=== PATIENT | female | born 1955 | race Caucasian/White ===

== ENCOUNTER → 2016-11-13 | Day surgery (SDC) | payer OTHER ==
[2016-11-06 08:09] VITALS: Ht 162.6 cm; Wt 127.3 kg
[~2016-11-13] VITALS: Ht 162.6 cm; Wt 127.3 kg
[~2016-11-13] MED LIST: ACT30 PO; ALBUAER2 INH; ALLO300T2 PO; BUPR-79 PO; CLR10 PO; DNSIS60 SC; ENAL10TA88 PO; FENTANYL CITRATE INJ 50 MCG/1 ML 2 ML VIAL ONE; FLUT0.15 NAE; FRS/80 PO; GLC/500 PO; LEVO100T7 PO; LIDOCAINE HCL 2% 2 ML VIAL (20MG/ML) ONE; LUBI8CAP4 PO; MILK THISTLE PO; MULT-506 PO; ONDANSETRON INJ 2 MG/ML 2 ML VIAL ONE; PANT40TA PO; POLY335019 PO; PROPOFOL IV EMULSION 10 MG/ML 20 ML VIAL IV ONE; SIMV40TA2 PO; TRAM-10 PO; VITA400C3 PO
[2016-11-13 08:16] VITALS: TEMP 36.6
--- NOTE | 2016-11-13 09:21 | GI REPORT ---
Procedure Date: 11/13/2016 8:42 AM Procedure: Upper GI endoscopy Indications: Cirrhosis rule out esophageal varices Medicines: See the Anesthesia note for documentation of the administered medications Complications: No immediate complications. Estimated Blood Loss: Estimated blood loss: none. Procedure: Pre-Anesthesia Assessment: - ASA Grade Assessment: III - A patient with severe systemic disease. After obtaining informed consent, the endoscope was passed under direct vision. Throughout the procedure, the patient's blood pressure, pulse, and oxygen saturations were monitored continuously. The scope was introduced through the mouth, and advanced to the second part of duodenum. The upper GI endoscopy was accomplished without difficulty. The patient tolerated the procedure well. Findings: The examined esophagus was normal. The stomach was normal. The examined duodenum was normal. Impression: - Normal esophagus. - Normal stomach. - Normal examined duodenum. - No specimens collected. Recommendation: - Discharge patient to home. Carito Willis M.D. Carito Willis MD 11/13/2016 9:21:55 AM This report has been signed electronically. Note Initiated On: 11/13/2016 8:42 AM I attest to the content of the Intraoperative Record and orders documented therein, exceptions below
--- NOTE | 2016-11-13 09:25 | GI REPORT ---
Procedure Date: 11/13/2016 8:45 AM Procedure: Colonoscopy Indications: High risk colon cancer surveillance: Personal history of colonic polyps, Last colonoscopy: October 2015 with 8 polyps Medicines: See the Anesthesia note for documentation of the administered medications Complications: No immediate complications. Estimated Blood Loss: Estimated blood loss: none. Procedure: Pre-Anesthesia Assessment: - ASA Grade Assessment: III - A patient with severe systemic disease. After I obtained informed consent, the scope was passed under direct vision. Throughout the procedure, the patient's blood pressure, pulse, and oxygen saturations were monitored continuously. The Scope was introduced through the anus and advanced to the terminal ileum. The colonoscopy was performed without difficulty. The patient tolerated the procedure well. The quality of the bowel preparation was good. Findings: The perianal and digital rectal examinations were normal. Multiple small and large-mouthed diverticula were found in the sigmoid colon and in the descending colon. Three sessile polyps were found in the descending colon and in the transverse colon. The polyps were 1 to 4 mm in size. These polyps were removed with a cold snare. Resection and retrieval were complete. The exam was otherwise without abnormality. Impression: - Diverticulosis in the sigmoid colon and in the descending colon. - Three 1 to 4 mm polyps in the descending colon and in the transverse colon, removed with a cold snare. Resected and retrieved. - The examination was otherwise normal. Recommendation: - Follow up pathology results. Repeat exam in 3 years, due to h/o polyps. - Discharge patient to home. Carito Willis M.D. Carito Willis MD 11/13/2016 9:25:57 AM This report has been signed electronically. Note Initiated On: 11/13/2016 8:45 AM I attest to the content of the Intraoperative Record and orders documented therein, exceptions below
[2016-11-13 09:35] VITALS: BP 145/70; PULSE 61; O2SAT 99
--- NOTE | 2016-11-13 09:41 | Endo History and Physical ---
History & Physical Date of Service: Nov 13, 2016. Chief Complaint: hx colon polyps, varices, cirrhosis Referring Physician: Dr. Denver Art History of Present Illness h/o colon polyps Past Medical History Diabetes, Osteoporosis, Arthritis, Asthma, Anxiety, Reflux, High Cholesterol, Hypertension, Thyroid Disease, Liver Disease Past Surgical History Hx Cardiac Surgery: No Hx Internal Defibrillator: No Hx Pacemaker: No Hx Abdominal Surgery: Yes (D&C X5, APPY, ELISA, PALAK BSO, CYST REMOVAL FROM OVARY) Hx of Implantable Prosthesis: No Hx Post-Op Nausea and Vomiting: Yes ("IF YOU WAKE ME UP TOO FAST, I WILL THROW UP") Hx Cancer Surgery: No Hx Thoracic Surgery: No Hx Orthopedic: Yes (TUMOR REMOVAL FROM KNEE AND BONE REPLACEMENT, LT/RT KNEE SURGERY) Hx Urinary Tract Surgery: Yes (KIDNEY SURGERY FOR OBSTRUCTION) Family History None Social History Smoking Status: Former Smoker Hx Substance Use: No Hx Alcohol Use: No Allergies Coded Allergies: Tetanus Toxoid (Verified Allergy, Mild, ARM GETS INFECTED, 11/13/16) Iodinated Diagnostic Agents (Verified Allergy, Unknown, "THE DYE BLEW UP IN MY ARM", 11/06/16) Nickel (Verified Allergy, Unknown, "I GET AN INFECTION", 11/06/16) Current Medications Reported Home Medications Medications Dose Route/Sig Max Daily Dose Days Date Category Miralax (Polyethylene Glycol 3350) 1 Gm PO DAILY PRN 11/06/16 Reported Flonase Allergy Relief (Fluticasone Propionate (Nasal)) 50 Mcg/Act Spr 2 Media FELICIA DAILY PRN 11/06/16 Reported Ultram (Tramadol HCl) 50 Mg Tab 50 Mg PO TID PRN 11/06/16 Reported Vitamin E 400 Iu (Vitamin E) 400 Unit Cap 400 Inter.unit PO QAM 11/06/16 Reported Glucophage (Metformin Hcl) 500 Mg Tab 500 Mg PO BID 11/06/16 Reported Lasix (Furosemide) 80 Mg Tab 80 Mg PO BID 11/06/16 Reported Prolia (Denosumab) 60 Mg/1 Ml Inj 1 Dose SC ONCE EVERY 6 MONTHS 11/25/15 Reported Multivitamin (Multivitamins) Tab 1 Tab PO QAM 11/20/15 Reported Protonix (Pantoprazole Sodium) 40 Mg Tab 40 Mg PO QAM 11/20/15 Reported Vasotec (Enalapril Maleate) 10 Mg Tab 10 Mg PO QAM 11/20/15 Reported Zyloprim (Allopurinol) 300 Mg Tab 300 Mg PO QAM 11/20/15 Reported Levothyroxine Sodium 100 Mcg Tab 1 Tab PO QAM 11/20/15 Reported Wellbutrin Sr (Bupropion HCl) 150 Mg Ertab 150 Mg PO BID 11/20/15 Reported Ventolin (Albuterol) Inh 2 Puffs INH QID PRN 02/23/13 Reported [milk thistle 750mg] 1 Tab PO QAM 02/23/13 Reported Zocor (Simvastatin) 40 Mg Tab 40 Mg PO QAM 02/23/13 Reported Amitiza (Lubiprostone) 8 Mcg Cap 8 Mcg PO BID 02/23/13 Reported Claritin (Loratadine) 10 Mg Tab 10 Mg PO QAM 02/23/13 Reported Actos * (Pioglitazone HCl) 30 Mg Tab 30 Mg PO QAM 01/16/09 Reported Vital Signs Weight (Kilograms): 127.27 Height (Feet): 5 Height (Inches): 4 Date Time Temp Pulse Resp B/P Pulse Ox O2 Delivery O2 Flow Rate FiO2 11/13/16 08:16 36.6 66 18 143/70 98 Room Air Physical Exam General Appearance: no apparent distress Respiratory/Chest: Respiratory effort: no dyspnea Cardiovascular: Apical Impulse: not displaced Abdomen: Inspection & Palpation: soft Assessment and Plan Cirrhosis - EGD LLQ pain, screening - cscopy
--- NOTE | 2016-11-13 09:42 | Discharge Instructions ---
Endoscopy Patient Instructions Date / Procedure(s) Performed Nov 13, 2016. Colonoscopy, EGD Allergy Information Coded Allergies: Tetanus Toxoid (Verified Allergy, Mild, ARM GETS INFECTED, 11/13/16) Iodinated Diagnostic Agents (Verified Allergy, Unknown, "THE DYE BLEW UP IN MY ARM", 11/06/16) Nickel (Verified Allergy, Unknown, "I GET AN INFECTION", 11/06/16) Discharge Date / Findings Nov 13, 2016. Colon polyps, diverticulosis Normal EGD Medication Instructions Stopped Medication(s): Metformin was stopped 2 days ago. Provider Instructions Activity Restrictions - No exercising or heavy lifting for 24 hours. - Do not drink alcohol the day of the procedure. - Do not drive a car or operate machinery until the day after the procedure. - Do not make any important decisions or sign important papers in 24 hours after the procedure. Following Day: - Return to full activity which may include returning to work/school. Diet Start your diet with liquids and light foods (jello, soup, juice, toast). Then eat your usual diet if not nauseated. Treatment For Common After Affects For mild abdominal pain, bloating, or excessive gas: - Rest - Eat lightly - Lie on right side Follow-Up Information Follow-up with Dr. Denver Art as scheduled Anesthesia Information What You Should Know You have had a procedure that required some medicine to reduce anxiety and discomfort. This treatment is called moderate sedation. After receiving the treatment, you may be sleepy, but you will be able to breathe on your own. The effects of the treatment may last for several hours. Follow these instructions along with Activity/Diet recommendations noted above: * Do NOT do anything where dizziness or clumsiness would be dangerous. * Rest quietly at home today, then you can be up and about tomorrow. * Have a responsible person stay with you the rest of today. * You may have had an I.V. today. If so, you may take the dressing off later today. Recommendations Call your doctor if: * Trouble breathing * Continuous vomiting for more than 24 hours * Temperature above 101 degrees * Severe abdominal pain or bloating * Pain not relieved by pain medicine ordered * There is increased drainage or redness from any incision * A large amount of rectal bleeding greater than 2-3 tablespoons. (If you had a polyp/s removed or have hemorrhoids, a small amount of blood - from the rectum is to be expected.) * You have any unanswered questions or concerns. IN THE EVENT OF A SERIOUS EMERGENCY, GO TO THE NEAREST EMERGENCY ROOM Your discharge instructions were prepared by provider Carito Sandoval. Patient Instructions Signature Page Gagandeep Banegas Patient (or Guardian) Signature/Date: I have read and understand the instructions given to me by my caregivers. Caregiver/RN/Doctor Signature/Date: The above-named patient and/or guardian has received patient instructions on this date. + Original Patient Signature Page (only) stays with chart. Please make copy for patient.
--- NOTE | 2016-11-13 11:07 | Anesthesiology Progress Note ---
Anesthesia Post Op Note Date & Time Nov 13, 2016 at 11:06 Vital Signs Pain Intensity: 0 Vital Signs Past 12 Hours Date Time Temp Pulse Resp B/P Pulse Ox O2 Delivery O2 Flow Rate FiO2 11/13/16 09:35 61 18 145/70 99 Room Air 11/13/16 09:23 56 18 135/63 97 Room Air 11/13/16 09:10 54 18 148/70 96 Room Air 11/13/16 08:16 36.6 66 18 143/70 98 Room Air Notes Mental Status: alert / awake / arousable, participated in evaluation Pt Amnestic to Procedure: Yes Nausea / Vomiting: adequately controlled Pain: adequately controlled Airway Patency, RR, SpO2: stable & adequate BP & HR: stable & adequate Hydration State: stable & adequate Anesthetic Complications: no major complications apparent
== END | disposition home or self-care (01) ==
LOC: C.GI 07:39
PROVIDERS: ATTEND Internal Medicine Gastroenterology
DX: D12.4 Benign neoplasm of descending colon (principal); K57.30 Diverticulosis of large intestine without perforation or abscess without bleeding; Z86.010 Personal history of colon polyps; E78.00 Pure hypercholesterolemia, unspecified; E11.9 Type 2 diabetes mellitus without complications; M81.0 Age-related osteoporosis without current pathological fracture; I10 Essential (primary) hypertension; J45.909 Unspecified asthma, uncomplicated; K21.9 Gastro-esophageal reflux disease without esophagitis; K74.60 Unspecified cirrhosis of liver; Z88.7 Allergy status to serum and vaccine; Z90.49 Acquired absence of other specified parts of digestive tract; Z91.041 Radiographic dye allergy status; Z87.891 Personal history of nicotine dependence

== ENCOUNTER 2019-04-06 01:50 | Inpatient (IN) ==
[2019-04-06] MEDS ORDERED: SODIUM CHLORIDE 0.9% 250 ML IV PRN (02:15)
[2019-04-06] MEDS ORDERED: DiphenhydrAMINE HCL 50 MG/ML VIAL IV STA (02:17)
[2019-04-06] MEDS ORDERED: RAPID SEQUENCE INDUCTION BAG ONE (02:17)
[2019-04-06] MEDS ORDERED: methylPREDNISolone 125 MG/2 ML VIAL IV STA (02:17)
[2019-04-06] MEDS ORDERED: fentaNYL citrate 100 MCG/2 ML VIAL IV PRN (02:28)
[2019-04-06] MEDS ORDERED: KETAMINE HCL INJ 50 MG/ML 10 ML VIAL IV STA (02:28)
[2019-04-06] MEDS ORDERED: SUCCINYLCHOLINE CHLORIDE 20 MG/ML 10 ML VIAL IV STA (02:28)
[2019-04-06 02:37] LABS: Basophils # (auto) 0.01 K/uL (0-0.2); Basophils % (auto) 0.3 %; Hemoglobin 12.9 g/dL (12.0-16.0); Immature Granulocytes # (auto) 0.01 K/uL (0.00-0.02); Immature Granulocytes % (auto) 0.3 %; Lymphocytes # (auto) 1.23 K/uL (1.2-3.4); Lymphocytes % (auto) 34.6 %; Mean Corpuscular Hgb Conc 33.1 g/dL (32-36); Mean Corpuscular Volume 92.6 fL (80-100); Mean Platelet Volume 10.6 fL (7.4-10.4); Monocytes # (auto) 0.34 K/uL (0.11-0.59); Monocytes % (auto) 9.6 %; Neutrophils # (auto) 1.97 K/uL (1.4-6.5); Neutrophils % (auto) 55.2 %; Platelet Count 105 K/uL (130-400); RDW Coefficient of Variation 15.6 % (11.5-14.5); RDW Standard Deviation 52.5 fL (36.4-46.3); Red Blood Count 4.21 M/uL (4.2-5.4); White Blood Count 3.56 K/uL (4.8-10.8)
[2019-04-06 02:42] LABS: iSTAT Creatinine 0.9 mg/dl (0.6-1.3); iSTAT Hemoglobin 12.9 g/dl (12.0-16.0); iSTAT Ionized Calcium 1.12 mmol/l (1.12-1.32)
[2019-04-06] MEDS ORDERED: VECURONIUM BROMIDE 10 MG VIAL IV STA (02:44)
[2019-04-06 03:00] LABS: Alanine Aminotransferase 54 U/L (12-78); Albumin Globulin Ratio 0.9 (0.9-2); Albumin Level 3.7 gm/dl (3.4-5.0); Alkaline Phosphatase 65 U/L (45-117); Aspartate Aminotransferase 47 U/L (15-37); BUN Creatinine Ratio 10.3 (10-20); Bilirubin,Total 0.6 mg/dl (0.2-1); Blood Urea Nitrogen 10 mg/dl (7-18); Carbon Dioxide 30 mmol/L (21-32); Chloride 103 mmol/L (98-107); Creatinine Clr Calc Pharmacy 73.2 ml/min; Est GFR (African American) 69.4; Est GFR (Non-African American) 59.9; Globulin 4.1 gm/dl (2.5-4.0); Glucose 100 mg/dl (70-99); Potassium 3.1 mmol/L (3.5-5.1); Sodium 140 mmol/L (136-145); Total Protein 7.8 gm/dl (6.4-8.2)
[2019-04-06 03:01] LABS: RBC Morphology Unremarkable
[2019-04-06] MEDS: PROPOFOL 1,000 MG/100 ML VIAL IV SCH ×3 (03:08→05:31)
[2019-04-06 03:24] LABS: Creatine Kinase 153 U/L (26-192)
[2019-04-06] MEDS: POTASSIUM CHLORIDE / WTR 10 MEQ/100 ML PLCT IV SCH ×6 (03:34→16:04)
[2019-04-06] MEDS ORDERED: HEPARIN (PORCINE) 1000 UNIT/ML 10 ML (CATH LAB USE ONLY) ONE (03:37)
[2019-04-06] MEDS ORDERED: fentaNYL citrate 100 MCG/2 ML VIAL ONE (03:37)
[2019-04-06] MEDS ORDERED: NiCARDipine HCL INJ 2.5 MG/ML 10 ML AMP ONE (03:37)
[2019-04-06] MEDS ORDERED: MIDAZOLAM HCL 1 MG/ML 2ML VIAL ONE (03:37)
[2019-04-06] MEDS ORDERED: NITROGLYCERIN/D5W 100MCG/ML 20ML SYR ONE (03:38)
[2019-04-06 04:01] LABS: Creatine Kinase MB 1.4 ng/ml (0.5-3.6); Troponin I < 0.015 ng/ml (0-0.045)
[2019-04-06] MEDS ORDERED: PROPOFOL IV EMULSION 10 MG/ML 100 ML VIAL (CATH LAB USE ONLY) ONE (04:03)
[2019-04-06] MEDS ORDERED: SODIUM CHLORIDE 0.9% 500 ML IV PRN (04:41)
[2019-04-06] MEDS ORDERED: ACETAMINOPHEN 325 MG TAB PO PRN (04:41)
[2019-04-06] MEDS ORDERED: ONDANSETRON INJ 2 MG/ML 2 ML VIAL IV PRN (04:41)
[2019-04-06] MEDS ORDERED: ATROPINE SULFATE 0.1 MG/ML 10ML SYR IV PRN (04:41)
[2019-04-06] MEDS ORDERED: SODIUM CHLORIDE 0.9% 1000ML 1,000 ML IV SCH (04:45)
--- NOTE | 2019-04-06 04:57 | Cardiac Catheterization ---
Cardiac Cath Procedure Full Procedure Date April 06, 2019 Patient bought from ED and was already intubated and sedated. Consent had been obtained from son. Patient was prepped and draped in a sterile fashion in the cardiac cath suite. Soft tissues of the right wrist anesthetized with 2 ml of 1% Xylocaine. Right radial artery accessed with modified Seldinger technique. A 6 F radial glide sheath was placed. Anticoagulation with IV Heparin and anti- spasmodics with nicardipine and nitroglycerine IV. All catheters advanced and exchanged over J wire. Left coronary angiography performed in orthogonal views with a %F TIG-R diagnostic cath. Right coronary angiography in orthogonal views with a 5F TIG-R diagnostic catheter. LHC and LVG with a 5F pigtail catheter. all catheters removed. Radial sheath removed and hemostasis obtained using TR band. Patient remained HD stable. Transferred to ICU for further care. This ended case. Pre-Procedure Diagnosis Pre-Procedure Diagnosis: STEMI AUC Score AUC Score: 09 Post-Procedure Diagnosis Post-Procedure Diagnosis: Mild CAD Procedure(s) Performed Procedure(s) Performed: Coronary Angiography, Left Heart Cath and LV Angiography Analytical Technician Satish Engel MD Estimated Blood Loss Estimated Blood Loss: <10 ml Medication(s) Medication(s): Fentanyl, Heparin, Nicardipine, Nitroglycerin and Versed Summary of Findings LM: large, short. No disease LAD: large, transapical. prox and mid with diffuse mild less than 30%. Distal mild luminal irregularities. D1 small, D@ medium. No significant disease. LCx: large and dominant. Prox-ok, mid mild luminal irregularities. Distal no more than mild scattered disease. OM1- small, no disease OM2- large, branching, no disease PLB- large, branching no significant disease L-PDA: medium caliber and long. No disease RCA: medium caliber, nondominant. No disease. 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
--- NOTE | 2019-04-06 05:16 | Emergency Department Note ---
Entered by Debra Massey acting as a scribe for Dalton Garcia MD History of Present Illness General Chief complaint: Facial Injury/Pain Stated complaint: TONGUE SWELLING Source: patient History of Present Illness Onset (ago): hour(s) 4 Location: face (Tongue) Pain Consistency: + other (Worsening) Quality: + other (Allergic reaction) Exacerbated By: + medication (Enalapril) Associated symptoms: + other (Tongue swelling); no shortness of breath Treatments prior to arrival: none The patient is a 63 year old female presenting to the Emergency Department complaining of a worsening allergic reaction starting 4 hours ago. The patient reports that her tongue is swelling up. She states that around 2200 yesterday she noticed that the tip of her tongue was swollen but since then it has worsened and now her entire tongue is swollen. She notes that it feels like something is down her throat. She explains that she took her normal medications, including Enalaprill. She notes that she normally takes Enalapril and that she has never reacted to it like this before. 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 The patient denies shortness of breath. Home Medications Home Medications Medication Instructions Recorded Confirmed Type Jardiance 25 mg PO QAM 01/25/19 04/06/19 History Ozempic 0.25 mg SUBCUT WK 01/25/19 04/06/19 History Prolia 0 mg SUBCUT Q6M 01/25/19 04/06/19 History albuterol sulfate 2 puff INHALATION Q6H PRN 01/25/19 04/06/19 History bupropion HCl 150 mg PO BID 01/25/19 04/06/19 History enalapril maleate 10 mg PO QAM 01/25/19 04/06/19 History ergocalciferol (vitamin D2) 50,000 unit PO WK 01/25/19 04/06/19 History [Vitamin D2] levothyroxine 100 mcg PO QAM 01/25/19 04/06/19 History loratadine 10 mg PO QAM 01/25/19 04/06/19 History metformin 1,000 mg PO BID 01/25/19 04/06/19 History pantoprazole [Protonix] 40 mg PO QAM 01/25/19 04/06/19 History simvastatin 40 mg PO QAM 01/25/19 04/06/19 History tramadol 50 mg PO TID PRN 01/25/19 04/06/19 History allopurinol [Zyloprim] 300 mg PO DAILY 04/06/19 04/06/19 History fluticasone propionate [Flonase 2 spray INTRANASAL DAILY 04/06/19 04/06/19 History Allergy Relief] furosemide [Lasix] 40 mg PO BID 04/06/19 04/06/19 History lubiprostone [Amitiza] 8 mcg PO BID 04/06/19 04/06/19 History milk thistle 150 mg PO BID 04/06/19 04/06/19 History abqinehx-zrj-kkjj-FA-lutein 1 tab PO DAILY 04/06/19 04/06/19 History [Centrum Silver Women] pioglitazone [Actos] 30 mg PO DAILY 04/06/19 04/06/19 History polyethylene glycol 3350 [Miralax] 17 g PO DAILY PRN 04/06/19 04/06/19 History vitamin E 400 unit PO DAILY 04/06/19 04/06/19 History Allergies Allergy/AdvReac Type Severity Reaction Status Date / Time tetanus toxoid, adsorbed Allergy Mild ARM GETS Verified 04/06/19 02:32 INFECTED Iodinated Contrast- Oral and Allergy Unknown "THE DYE Verified 04/06/19 02:32 IV Dye BLEW UP IN MY ARM" nickel Allergy Unknown "I GET AN Verified 04/06/19 02:32 INFECTION" Past Med/Surg History Medical History Anxiety Asthma Chronic back pain Cirrhosis Degenerative disc disease Diabetes mellitus, type 2 GERD (gastroesophageal reflux disease) Hiatal hernia Hyperlipidemia Hypertension Hypothyroidism Kidney stones Migraine H/O Osteoarthritis Surgical History History of appendectomy History of carpal tunnel release RIGHT History of cataract surgery BILATERAL History of cholecystectomy History of colonoscopy History of cystoscopy WITH STENT AND REPAIRED RIGHT URETER BLOCKAGE. History of esophagogastroduodenoscopy (EGD) History of herniorrhaphy RIGHT INGUINAL HERNIA REPAIR History of thyroidectomy, subtotal BENIGN TUMOR History of tonsillectomy S/P PALAK-BSO Family History Sister FHx: pancreatic cancer Social History Preferred Language: [place] Communication Ability: Effective Appeals Nurse Required: No Beliefs That Will Affect Care: None marital status: Single Current Living Situation: Alone current occupational status: unemployed Feels Safe at Home: Yes Smoking Status: Former smoker Tobacco Type: cigarettes ; Cigarettes Per Day: 1 PPD X 35 YEARS ; Second Hand Exposure: No ; Hx Alcohol Use: No Hx Substance Use: No Review of Systems See HPI for pertinent positives & negatives. and A total of 10 systems reviewed and were otherwise negative Physical Exam Vital Signs Vital Signs - 24 hr 04/06/19 02:00 04/06/19 02:19 04/06/19 02:21 Temperature 37.2 C Temperature Source Oral Sepsis Recent Fever Within 48 Hours No Sepsis New/Unexplained Change in Mental Status No Sepsis Action Taken by Nursing No Action Required End-Tidal CO2 Pulse Rate 69 74 81 Pulse Rate from SpO2 Sensor 74 83 Respiratory Rate 14 22 22 Respiratory Effort / Characteristics Non-Labored Spontaneous Respiratory Depth Normal Respiratory Pattern Regular Blood Pressure 141/79 H 146/105 H Blood Pressure Mean 99 118 Pulse Oximetry 97 95 95 Oxygen Delivery Method Room Air Room Air Room Air Fraction of Inspired Oxygen 04/06/19 02:28 04/06/19 02:30 04/06/19 02:31 Temperature Temperature Source Sepsis Recent Fever Within 48 Hours Sepsis New/Unexplained Change in Mental Status Sepsis Action Taken by Nursing End-Tidal CO2 Pulse Rate 82 81 Pulse Rate from SpO2 Sensor 82 81 Respiratory Rate 20 20 Respiratory Effort / Characteristics Respiratory Depth Respiratory Pattern Blood Pressure 175/78 H Blood Pressure Mean 110 Pulse Oximetry 98 98 98 Oxygen Delivery Method Room Air Room Air Room Air Fraction of Inspired Oxygen 04/06/19 02:40 04/06/19 02:46 04/06/19 02:50 Temperature Temperature Source Sepsis Recent Fever Within 48 Hours Sepsis New/Unexplained Change in Mental Status Sepsis Action Taken by Nursing End-Tidal CO2 38 Pulse Rate 89 93 H 83 Pulse Rate from SpO2 Sensor 89 93 H 89 Respiratory Rate 20 Respiratory Effort / Characteristics Respiratory Depth Respiratory Pattern Blood Pressure 200/142 H Blood Pressure Mean 161 Pulse Oximetry 96 98 97 Oxygen Delivery Method Room Air Mechanical Vent Fraction of Inspired Oxygen 04/06/19 02:56 04/06/19 03:00 04/06/19 03:10 Temperature Temperature Source Sepsis Recent Fever Within 48 Hours Sepsis New/Unexplained Change in Mental Status Sepsis Action Taken by Nursing End-Tidal CO2 45 48 49 Pulse Rate 93 H 79 80 Pulse Rate from SpO2 Sensor 79 81 Respiratory Rate 13 Respiratory Effort / Characteristics Respiratory Depth Respiratory Pattern Blood Pressure 163/104 H 149/102 H Blood Pressure Mean 123 117 Pulse Oximetry 97 90 89 L Oxygen Delivery Method Mechanical Vent Mechanical Vent Fraction of Inspired Oxygen 35 04/06/19 03:15 04/06/19 03:20 04/06/19 03:28 Temperature Temperature Source Sepsis Recent Fever Within 48 Hours Sepsis New/Unexplained Change in Mental Status Sepsis Action Taken by Nursing End-Tidal CO2 52 50 49 Pulse Rate 77 85 82 Pulse Rate from SpO2 Sensor 78 84 82 Respiratory Rate Respiratory Effort / Characteristics Respiratory Depth Respiratory Pattern Blood Pressure 122/83 133/91 143/92 H Blood Pressure Mean 96 105 109 Pulse Oximetry 88 L 89 L 94 Oxygen Delivery Method Fraction of Inspired Oxygen 04/06/19 03:30 04/06/19 03:40 04/06/19 03:48 Temperature Temperature Source Sepsis Recent Fever Within 48 Hours Sepsis New/Unexplained Change in Mental Status Sepsis Action Taken by Nursing End-Tidal CO2 49 46 49 Pulse Rate 80 105 H 89 Pulse Rate from SpO2 Sensor 80 104 H 89 Respiratory Rate Respiratory Effort / Characteristics Respiratory Depth Respiratory Pattern Blood Pressure 132/87 171/120 H 156/105 H Blood Pressure Mean 102 137 122 Pulse Oximetry 95 93 90 Oxygen Delivery Method Fraction of Inspired Oxygen 04/06/19 03:50 04/06/19 04:15 Temperature Temperature Source Sepsis Recent Fever Within 48 Hours Sepsis New/Unexplained Change in Mental Status Sepsis Action Taken by Nursing End-Tidal CO2 52 Pulse Rate 91 H Pulse Rate from SpO2 Sensor 91 H Respiratory Rate Respiratory Effort / Characteristics Respiratory Depth Respiratory Pattern Blood Pressure 151/104 H Blood Pressure Mean 119 Pulse Oximetry 89 L Oxygen Delivery Method Mechanical Vent Fraction of Inspired Oxygen GENERAL: Awake, alert, well-appearing, in no acute distress HENT: Normocephalic, atraumatic. Oropharynx unremarkable. Tongue is grossly swollen. EYES: Normal conjunctiva. Sclera non-icteric. NECK: Supple. No nuchal rigidity. FROM. No JVD. RESPIRATORY: Clear to auscultation. CARDIAC: Regular rate, normal rhythm. Extremities warm and well perfused. Pulses equal. ABDOMEN: Soft, non-distended. No tenderness to palpation. No rebound or guarding. No masses. RECTAL: Deferred. MUSCULOSKELETAL: Chest examination reveals no tenderness. The back is symmetrical on inspection without obvious abnormality. There is no CVA te nderness to palpation. No joint edema. LOWER EXTREMITIES: Calves are equal size bilaterally and non-tender. No edema. No discoloration. NEURO: Normal sensorium. No sensory or motor deficits noted. SKIN: No rash or jaundice noted. Diaphoretic on exam. Procedures Intubation Time out performed: Yes sedative: Ketamine Mg Given: 45 paralytic: Succinylcholine Mg Given: 200 Laryngoscope: fiber optic video scope ET Tube Size: 7.5 ET Tube Uncuffed: No Tube Secured Depth (cm): 25 Tube Secured Location: lips Tube Placement Confirmation: visualized tube passing through cords, equal breath sounds bilaterally, no breath sounds over epigastrium and confirmation by capnometry Patient Tolerated Procedure: well Intubation Complications: none Course 0210: The patient was evaluated in room A1, and a complete history and physical examination were performed. 0229: I paged the Senior Advocate at this time. 0235: I discussed the patients case with Dr. Karl DICKERSON Senior Advocate. 0237: Ketamine administered. 0240: Fentanyl administered. 0241: Succinylcholine administered. 0242: I performed an intubation at this time. See procedure note. 0251: I discussed the patients case with Dr. Ac johnson. 0329: Dr. Shen is at the patients bedside. 0311: I paged for cardiology at this time. 0315: I discussed the patients case with Dr. Craig Zee cardiology. He reports to call a heart alert at this time. 0337: I discussed the patients case with Dr. Engel manager database. He is at the patients bedside. He will evaluate the patient for further management. Consultations Consultation #1: I discussed the patients case with Dr. Karl DICKERSON Senior Advocate. Time: 02:35 Consultation #2: I discussed the patients case with Dr. Ac eZe hospitalist. Time: 02:51 Consultation #3: I discussed the patients case with Dr. Craig Zee cardiology. He reports to call a heart alert at this time. Time: 03:15 Additional Consultation(s): 0337: I discussed the patients case with Dr. Engel manager database. He is at the patients bedside. He will evaluate the patient for further management. Administered Medications Sodium Chloride (Nss) 250 mls @ 15 mls/hr IV .[id number] PRN PRN Reason: For Transfusion Stop: 05/06/19 02:14 Last Admin: 04/06/19 02:30 Dose: 15 mls/hr Documented by: [id number] Propofol (Diprivan) 1,000 mg in 100 mls @ 35.82 mls/hr IV .[id number] RAJI; Protocol Stop: 04/09/19 02:44 Last Admin: 04/06/19 03:11 Dose: 50 mcg/kg/min, 35.8 mls/hr Documented by: [id number] Cosigned by: [id number] Titration: 04/06/19 03:11 Dose: 5 mcg/kg/min, 3.6 mls/hr Documented by: [id number] Cosigned by: [id number] Admin: 04/06/19 03:08 Dose: 5 mcg/kg/min, 3.6 mls/hr Documented by: [id number] Cosigned by: [id number] Potassium Chloride (K Fernando / Wtr) 10 meq in 100 mls @ 100 mls/hr IV Q1H RAJI Stop: 04/06/19 05:14 Last Admin: 04/06/19 05:08 Dose: 100 mls/hr Documented by: [id number] Infusion: 04/06/19 05:07 Dose: 0 mls/hr Documented by: [id number] Admin: 04/06/19 03:34 Dose: 100 mls/hr Documented by: [id number] Sodium Chloride (Nss 1000ml) 1,000 mls @ 75 mls/hr IV .[id number] RAJI Stop: 05/06/19 04:44 Last Admin: 04/06/19 05:09 Dose: 75 mls/hr Documented by: [id number] Discontinued Medications Diphenhydramine HCl (Benadryl) 50 mg IV NOW STA Stop: 04/06/19 02:18 Last Admin: 04/06/19 02:24 Dose: 50 mg Documented by: [id number] Ranitidine HCl 50 mg/ Dextrose 102 mls @ 200 mls/hr IV NOW STA Stop: 04/06/19 02:47 Last Infusion: 04/06/19 04:09 Dose: 0 mls/hr Documented by: [id number] Admin: 04/06/19 02:31 Dose: 200 mls/hr Documented by: [id number] Ketamine HCl (Ketalar Steri-Vial) 48 mg IV NOW STA Stop: 04/06/19 02:29 Last Admin: 04/06/19 02:32 Dose: 48 mg Documented by: [id number] Methylprednisolone (Solumedrol) 125 mg IV NOW STA Stop: 04/06/19 02:18 Last Admin: 04/06/19 02:24 Dose: 125 mg Documented by: [id number] Miscellaneous () Confirm Administered Dose 1 ea .ROUTE .STK-MED ONE Stop: 04/06/19 02:18 Last Admin: 04/06/19 03:30 Dose: 1 ea Documented by: [id number] Succinylcholine Chloride (Quelicin) 200 mg IV NOW STA Stop: 04/06/19 02:29 Last Admin: 04/06/19 02:43 Dose: 200 mg Documented by: [id number] Vecuronium [place] (Norcuron) 10 mg IV NOW STA Stop: 04/06/19 02:45 Last Admin: 04/06/19 03:08 Dose: 10 mg Documented by: [id number] Cosigned by: [id number] Medical Decision Making Differential Diagnosis Differential diagnosis: Etiologies such as allergic reaction, anaphylaxis, urticaria, angioedema, Hernandez-Miky syndrome, toxic epidermal necrolysis, erythema multiforme, cellulitis, as well as others were entertained. Medical Records Attestation: I reviewed the patient's medical records. Home Medications Current Medication List: was personally reviewed by me Laboratory Data Attestation: I reviewed the patient's lab results. Result diagrams: 04/06/19 02:27 04/06/19 02:27 Lab Results 04/06/19 04/06/19 04/06/19 Range/Units 02:27 02:27 02:27 WBC 3.56 L (4.8-10.8) K/uL RBC 4.21 (4.2-5.4) M/uL Hgb 12.9 (12.0-16.0) g/dL POC Hgb (12.0-16.0) g/dl Hct 39.0 (37-47) % POC Hct (37-47) % MCV 92.6 (80-100) fL MCH 30.6 (25-34) pg MCHC 33.1 (32-36) g/dL RDW Std Deviation 52.5 H (36.4-46.3) fL RDW Coeff of Huyen 15.6 H (11.5-14.5) % Plt Count 105 L (130-400) K/uL MPV 10.6 H (7.4-10.4) fL Immature Gran % (Auto) 0.3 % Neut % (Auto) 55.2 % Lymph % (Auto) 34.6 % Petroleum % (Auto) 9.6 % Eos % (Auto) 0.0 % Baso % (Auto) 0.3 % Immature Gran # (Auto) 0.01 (0.00-0.02) K/uL Neut # (Auto) 1.97 (1.4-6.5) K/uL Lymph # (Auto) 1.23 (1.2-3.4) K/uL Petroleum # (Auto) 0.34 (0.11-0.59) K/uL Eos # (Auto) 0.00 (0-0.5) K/uL Baso # (Auto) 0.01 (0-0.2) K/uL RBC Morphology Unremarkable POC Sodium (135-144) mEq/L Sodium 140 (136-145) mmol/L POC Potassium (3.3-5.0) mEq/L Potassium 3.1 L (3.5-5.1) mmol/L POC Chloride (101-112) mEq/L Chloride 103 (98-107) mmol/L Carbon Dioxide 30 (21-32) mmol/L POC Total CO2 (24-31) mEq/l Anion Gap 7.0 (3-11) POC Anion Gap (16-25) mmol/L POC BUN (7-18) mg/dl BUN 10 (7-18) mg/dl Creatinine 1.00 (0.6-1.2) mg/dl POC Creatinine (0.6-1.3) mg/dl Est Cr Clr Drug Dosing 73.2 ml/min Est GFR ( Amer) 69.4 Est GFR (Non-Af Amer) 59.9 BUN/Creatinine Ratio 10.3 (10-20) Glucose 100 H (70-99) mg/dl POC Glucose (other) (70-99) mg/dl Calcium 9.0 (8.5-10.1) mg/dl POC Ioniz Calcium Alexa (1.12-1.32) mmol/l Total Bilirubin 0.6 (0.2-1) mg/dl AST 47 H (15-37) U/L ALT 54 (12-78) U/L Alkaline Phosphatase 65 (45-117) U/L Total Creatine Kinase 153 (26-192) U/L CK-MB (CK-2) 1.4 (0.5-3.6) ng/ml CK/CKMB % Calc 0.9 (0-3.0) POC Troponin I (0-0.045) ng/ml Troponin I < 0.015 (0-0.045) ng/ml Total Protein 7.8 (6.4-8.2) gm/dl Albumin 3.7 (3.4-5.0) gm/dl Globulin 4.1 H (2.5-4.0) gm/dl Albumin/Globulin Ratio 0.9 (0.9-2) Lipase 174 (73-393) U/L Specimen Hemolysis Blood Type A Positive Antibody Screen NEGATIVE 04/06/19 04/06/19 Range/Units 02:29 03:28 WBC (4.8-10.8) K/uL RBC (4.2-5.4) M/uL Hgb (12.0-16.0) g/dL POC Hgb 12.9 (12.0-16.0) g/dl Hct (37-47) % POC Hct 38 (37-47) % MCV (80-100) fL MCH (25-34) pg MCHC (32-36) g/dL RDW Std Deviation (36.4-46.3) fL RDW Coeff of Huyen (11.5-14.5) % Plt Count (130-400) K/uL MPV (7.4-10.4) fL Immature Gran % (Auto) % Neut % (Auto) % Lymph % (Auto) % Petroleum % (Auto) % Eos % (Auto) % Baso % (Auto) % Immature Gran # (Auto) (0.00-0.02) K/uL Neut # (Auto) (1.4-6.5) K/uL Lymph # (Auto) (1.2-3.4) K/uL Petroleum # (Auto) (0.11-0.59) K/uL Eos # (Auto) (0-0.5) K/uL Baso # (Auto) (0-0.2) K/uL RBC Morphology POC Sodium 142 (135-144) mEq/L Sodium (136-145) mmol/L POC Potassium 3.0 L (3.3-5.0) mEq/L Potassium (3.5-5.1) mmol/L POC Chloride 98 L (101-112) mEq/L Chloride (98-107) mmol/L Carbon Dioxide (21-32) mmol/L POC Total CO2 29 (24-31) mEq/l Anion Gap (3-11) POC Anion Gap 19.0 (16-25) mmol/L POC BUN 9 (7-18) mg/dl BUN (7-18) mg/dl Creatinine (0.6-1.2) mg/dl POC Creatinine 0.9 (0.6-1.3) mg/dl Est Cr Clr Drug Dosing ml/min Est GFR ( Amer) Est GFR (Non-Af Amer) BUN/Creatinine Ratio (10-20) Glucose (70-99) mg/dl POC Glucose (other) 102 H (70-99) mg/dl Calcium (8.5-10.1) mg/dl POC Ioniz Calcium Alexa 1.12 (1.12-1.32) mmol/l Total Bilirubin (0.2-1) mg/dl AST (15-37) U/L ALT (12-78) U/L Alkaline Phosphatase (45-117) U/L Total Creatine Kinase (26-192) U/L CK-MB (CK-2) (0.5-3.6) ng/ml CK/CKMB % Calc (0-3.0) POC Troponin I < 0.03 (0-0.045) ng/ml Troponin I (0-0.045) ng/ml Total Protein (6.4-8.2) gm/dl Albumin (3.4-5.0) gm/dl Globulin (2.5-4.0) gm/dl Albumin/Globulin Ratio (0.9-2) Lipase (73-393) U/L Specimen Hemolysis Blood Type Antibody Screen Imaging Data Attestation: I personally reviewed and interpreted this imaging study as follows: My Impression: XR Chest 1V: 1V Chest interpreted by me. No evidence of pneumonia, congestion or pneumothorax. ET tube at approximately 1 cm from the edwin. ECG Data Attestation: I personally reviewed and interpreted this ECG as follows: Indication: chest pain and SOB/dyspnea Rate (beats per minute): 94 Rhythm: sinus rhythm (with PVC bigeminy) Findings: + other (Prolonged QT.), + ST depression (reciprocal ST depressions in inferior leads) and + ST elevation (in lateral leads) Comparison ECG Date: no prior available Additional Comments: Repeat EKG per my interpretation: Normal sinus rhythm at [address] elevation in lateral leads. Reciprocal ST depression in inferior leads. Repeat EKG per my interpretation: Normal sinus rhythm at [address] elevation in lateral leads. Reciprocal ST depression in inferior leads. Repeat EKG per my interpretation: Normal sinus rhythm at [address] elevation in lateral leads. Reciprocal ST depression in inferior leads. Blood Pressure Blood Pressure Findings: Elevated blood pressure Blood Pressure Disposition: further management by hospitalist ROCIO Ruiz This is a 63-year-old female who presents emergency department complaining of angioedema. The patient's tongue has become large and is starting to obscure her airway. She is also complaining of a tight sensation in her neck. Because of this and using shared medical decision making the both the patient and family the decision was made to intubate the patient to protect her airway while she receives FFP Solu-Medrol Zantac and Benadryl. Patient agreed to this as well as receiving blood products. These consents were signed and placed on the chart. The patient was intubated as above. After intubation the patient's EKG was concerning for a STEMI. This was repeated several times. I did discuss this with the motorized squad lieutenant on-call who asked that the patient be sent to the Tank [facility] Supervisor. De La Rosa catheter and NG tube were placed. Chest x-ray shows good placement of the ET tube. Impression & Plan Angioedema, ST elevation (STEMI) myocardial infarction Critical Care Time Critical Care Time: Yes Total Critical Care Time: 90 I have personally spent 90 minutes of critical care time in the direct management of this patient. This includes bedside care, interpretation of diagnostic studies, and testing, discussion with consultants, patient, and family members, and other required patient management activities. This 90 minutes is in excess of all separately billable procedures. Discharge Plan Visit Data *Final* Discharge Date/Time: 04/06/19 04:15 Chief Complaint: Facial Injury/Pain Stated Complaint: TONGUE SWELLING ED Provider: Dalton Garcia Discharge Problem: Angioedema, ST elevation (STEMI) myocardial infarction Patient Disposition: Admitted As Inpatient Discharge Instructions Interventions: ED Discharge Assessment Last Done: 04/06/19 04:15 Discharge Problem: Angioedema Qualifiers: Encounter type: initial encounter Qualified Code(s): T78.3XXA - Angioneurotic edema, initial encounter ST elevation (STEMI) myocardial infarction Qualifiers: Involved coronary artery: unspecified coronary artery Qualified Code(s): I21.3 - ST elevation (STEMI) myocardial infarction of unspecified site The scribe's documentation has been prepared under my direction and personally reviewed by me in its entirety. I confirm that the note above accurately reflects all work, treatment, procedures, and medical decision making performed by me.
--- NOTE | 2019-04-06 05:23 | Cardiology Consultation ---
Date of Consultation April 06, 2019 Assessment & Plan (1) ST elevation (STEMI) myocardial infarction: Coronary angiography did not reveal occlusive CAD and no culprit for lateral ST elevations. Radial access used. Proceed with standard post radial cath care plan. Patient does have mild non-occlusive CAD and with be treated for secondary prevention with guideline direct medical therapy. This includes low dose ASA, beta jonnathan, and statin. With angioedema she will not be a candidate for SUNDAY inhibitor, ARB, or Entresto. We will treat comorbid disease to clinical targets and assess/treat risk factors.. An echo is recommended as LVG was suboptimal. Present on Admission?: Yes (2) Dyslipidemia associated with type 2 diabetes mellitus: Patient is high risk (DM, CAD). Under current guidelines she is nikhil mmended for "high intensity statin therapy". Target LDL reduction under that strategy is 50% or more. She was already on statin. Would check fasting lipids and titrate statin regimen as needed to achieve clinical target. Present on Admission?: Yes (3) Benign essential hypertension: DC enalapril. Abstain from SUNDAY inhibitors, ARBs, and Entresto. Utilize beta jonnathan as tolerated. Long acting nitrate, hydralazine, thiazide, and CCB would all be reasonable adjuncts Present on Admission?: Yes History of Present Illness Reason for Consultation: acute ST elevation (lateral) Attending Physician: Yuriy Almeida MD History of Present Illness Patient is a 63 diabetic female who presented to the ED after developing a swollen tongue and difficulty swallowing. This was felt to likely be angioedema from her SUNDAY inhibitor. She was evidently without chest pain at that time. She underwent intubation for airway protection. She had an EKG which demonstrated lateral ST elevations. Dr Srinivasan (general cardiology) was called. Given her EKG changes and high pretest probability for CAD it was felt an urgent cath was warranted to exclude STEMI. A "Heart Alert" was then activated and on my arrival patient was intubated and sedated. She was hemodynamically stable and her EKG was somewhat iproved. After discussion with her son who was at the bedside decision was made to proceed with cardiac cath. This demonstarted no occlusive CAD and no culprit lesion for lateral ST elevations. She is now admitted to the ICU. Unable to provide additional history at this time. Allergies Allergy/AdvReac Type Severity Reaction Status Date / Time tetanus toxoid, adsorbed Allergy Mild ARM GETS Verified 04/06/19 02:32 INFECTED Iodinated Contrast- Oral and Allergy Unknown "THE DYE Verified 04/06/19 02:32 IV Dye BLEW UP IN MY ARM" nickel Allergy Unknown "I GET AN Verified 04/06/19 02:32 INFECTION" Home Medications Home Medications Medication Instructions Recorded Confirmed Type Jardiance 25 mg PO QAM 01/25/19 04/06/19 History Ozempic 0.25 mg SUBCUT WK 01/25/19 04/06/19 History Prolia 0 mg SUBCUT Q6M 01/25/19 04/06/19 History albuterol sulfate 2 puff INHALATION Q6H PRN 01/25/19 04/06/19 History bupropion HCl 150 mg PO BID 01/25/19 04/06/19 History enalapril maleate 10 mg PO QAM 01/25/19 04/06/19 History ergocalciferol (vitamin D2) 50,000 unit PO WK 01/25/19 04/06/19 History [Vitamin D2] levothyroxine 100 mcg PO QAM 01/25/19 04/06/19 History loratadine 10 mg PO QAM 01/25/19 04/06/19 History metformin 1,000 mg PO BID 01/25/19 04/06/19 History pantoprazole [Protonix] 40 mg PO QAM 01/25/19 04/06/19 History simvastatin 40 mg PO QAM 01/25/19 04/06/19 History tramadol 50 mg PO TID PRN 01/25/19 04/06/19 History allopurinol [Zyloprim] 300 mg PO DAILY 04/06/19 04/06/19 History fluticasone propionate [Flonase 2 spray INTRANASAL DAILY 04/06/19 04/06/19 History Allergy Relief] furosemide [Lasix] 40 mg PO BID 04/06/19 04/06/19 History lubiprostone [Amitiza] 8 mcg PO BID 04/06/19 04/06/19 History milk thistle 150 mg PO BID 04/06/19 04/06/19 History kipfjjzy-uux-vxcz-FA-lutein 1 tab PO DAILY 04/06/19 04/06/19 History [Centrum Silver Women] pioglitazone [Actos] 30 mg PO DAILY 04/06/19 04/06/19 History polyethylene glycol 3350 [Miralax] 17 g PO DAILY PRN 04/06/19 04/06/19 History vitamin E 400 unit PO DAILY 04/06/19 04/06/19 History Patient History Medical History Anxiety Asthma Chronic back pain Cirrhosis Degenerative disc disease Diabetes mellitus, type 2 GERD (gastroesophageal reflux disease) Hiatal hernia Hyperlipidemia Hypertension Hypothyroidism Kidney stones Migraine H/O Osteoarthritis Surgical History History of appendectomy History of carpal tunnel release RIGHT History of cataract surgery BILATERAL History of cholecystectomy History of colonoscopy History of cystoscopy WITH STENT AND REPAIRED RIGHT URETER BLOCKAGE. 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 Intubated and sedated Neck: Thick, short. No JVD Respiratory: Auscultation: lungs clear to auscultation bilaterally Intubated. Vent sounds. Cardiovascular: RRR, no murmur, no edema Heart Sounds: normal S1, normal S2 and + gallop (S4) Vessels: normal peripheral pulses Extremities: normal capillary refill Gastrointestinal (Abdomen): normal bowel sounds, soft, nontender, no hepatosplenomegaly Musculoskeletal: Extremities: extremities normal to inspection Neurologic: Intubated, sedated. Moves to painful stimuli (ET tube) No tremor Results & Data Vital Signs (Past 12 Hours) Vital Signs Temp Pulse Resp BP Pulse Ox 04/06/19 03:50 91 H 151/104 H 89 L 04/06/19 03:48 89 156/105 H 90 04/06/19 03:40 105 H 171/120 H 93 04/06/19 03:30 80 132/87 95 04/06/19 03:28 82 143/92 H 94 04/06/19 03:20 85 133/91 89 L 04/06/19 03:15 77 122/83 88 L 04/06/19 03:10 80 149/102 H 89 L 04/06/19 03:00 79 163/104 H 90 04/06/19 02:56 93 H 13 97 04/06/19 02:50 83 97 04/06/19 02:46 93 H 200/142 H 98 04/06/19 02:40 89 20 96 04/06/19 02:31 81 20 175/78 H 98 04/06/19 02:30 82 20 98 04/06/19 02:28 98 04/06/19 02:21 81 22 95 04/06/19 02:19 74 22 146/105 H 95 04/06/19 02:00 37.2 C 69 14 141/79 H 97 (1) ST elevation (STEMI) myocardial infarction Involved coronary artery: unspecified coronary artery Qualified Code(s): I21.3 - ST elevation (STEMI) myocardial infarction of unspecified site
[2019-04-06] MEDS ORDERED: MIDAZOLAM HCL 125MG/250ML D5W ONE (05:27)
[2019-04-06] MEDS ORDERED: DiphenhydrAMINE HCL 50 MG/ML VIAL IV PRN (05:31)
[2019-04-06] MEDS ORDERED: MIDAZOLAM HCL 125 MG/250 ML BAG IV SCH (05:45)
[2019-04-06] MEDS ORDERED: INSULIN ASPART 100 UNITS/ML 3 ML PEN SC SCH (06:00)
--- NOTE | 2019-04-06 07:00 | Critical Care Consultation ---
Date of Consultation April 06, 2019 Impression: 63-year-old female with history of diabetes and hypertension intubated in the emergency room for apparent angioedema. She then developed ST elevations and was taken to the cardiac [facility] which revealed nonobstructive coronary disease. Her angioedema this morning appears significantly improved with steroids, H1/H2 blockers, and FFP. Assessment & Plan (1) S/P admission to ICU (intensive care unit): ICU CONSULT NOTE FORMAT: Reason Critically Ill: Angioedema requiring intubation for airway protection Neuro - Intubated and sedated on propofol and Versed. Will wean as tolerated. Neurologically intact prior to intubation. Cardiac - Post cardiac catheterization for ST elevation. Nonobstructive coronary disease. Medical management including lipid control and beta-jonnathan. Respiratory - Intubated for airway protection given concern about potential angioedema. Cuff leak present this morning. We will proceed with trial of extubation. GI - N.p.o. for now pending liberation from mechanical ventilator. If she does well will advance diet. RENAL/LYTES - No current issues. Continue to trend - [place] catheter in place, will remove once extubated ENDO - History diabetes. Continue sliding scale insulin. Will restart oral hypoglycemics when taking p.o. HEME - Potential angioedema. The patient has received FFP Solu-Medrol H1 and H2 blockers. Check C1 esterase level although given the fact the patient is Shahid received FFP this may not be helpful. SUNDAY inhibitors will be added to her allergy list and should be avoided in the future. We will continue Solu-Medrol for now but can likely rapidly transition to prednisone. ID - No current issues LINES/IV ACCESS - Peripheral IV DVT PROPHYLAXIS - Subcu heparin I have personally spent 39 minutes of critical care time in the direct management of this patient. This is a life/limb threatening event. This includes time spent evaluating patient, direct bedside care, chart review, placing orders, interpretation of diagnostic studies, discussion with consultants, patient, and family members, as well as other required patient management activities. This time is exclusive of all separately billable procedures, and teaching time and separate from and in addition to any other critical care service time. Thank you for allowing us to participate in the care of this patient. Please refer to my attending physician's documentation for any further recommendations. (2) Benign essential hypertension: (3) ST elevation (STEMI) myocardial infarction: (4) Dyslipidemia associated with type 2 diabetes mellitus: (5) Angioedema: History of Present Illness Attending Physician: Yuriy Almeida MD History of Present Illness History is obtained from review of electronic medical record and discussion with the ER staff. The patient is intubated and sedated in any unable to provide any history. The patient is a 63-year-old obese diabetic female with a history of hypertension. She presented to the emergency room with complaints of tongue swelling. She had been on enalapril for a prolonged period of time. There was concern about progressive angioedema and potential loss of airway and was elected to pursue intubation by the emergency room staff. Please see separate procedure notes. Post procedure the patient had what appeared to be ST elevations on EKG. A cardiac alert was issued. Cardiology consultation was obtained and recommended cath. She was taken urgently to the [facility] done last night which revealed nonobstructive coronary disease. She returned to the ICU intubated and sedated. This morning, the patient's lip and tongue swelling on my evaluation is not significant. It is unclear what it looks like last night. She does have a significant air leak with deflation of the endotracheal tube cough. She has been hemodynamically stable. She did receive FFP, Solu-Medrol, Benadryl, and Pepcid. Allergies Allergy/AdvReac Type Severity Reaction Status Date / Time tetanus toxoid, adsorbed Allergy Mild ARM GETS Verified 04/06/19 02:32 INFECTED Iodinated Contrast- Oral and Allergy Unknown "THE DYE Verified 04/06/19 02:32 IV Dye BLEW UP IN MY ARM" nickel Allergy Unknown "I GET AN Verified 04/06/19 02:32 INFECTION" Home Medications Home Medications Medication Instructions Recorded Confirmed Type Jardiance 25 mg PO QAM 01/25/19 04/06/19 History Ozempic 0.25 mg SUBCUT WK 01/25/19 04/06/19 History Prolia 0 mg SUBCUT Q6M 01/25/19 04/06/19 History albuterol sulfate 2 puff INHALATION Q6H PRN 01/25/19 04/06/19 History bupropion HCl 150 mg PO BID 01/25/19 04/06/19 History enalapril maleate 10 mg PO QAM 01/25/19 04/06/19 History ergocalciferol (vitamin D2) 50,000 unit PO WK 01/25/19 04/06/19 History [Vitamin D2] levothyroxine 100 mcg PO QAM 01/25/19 04/06/19 History loratadine 10 mg PO QAM 01/25/19 04/06/19 History metformin 1,000 mg PO BID 01/25/19 04/06/19 History pantoprazole [Protonix] 40 mg PO QAM 01/25/19 04/06/19 History simvastatin 40 mg PO QAM 01/25/19 04/06/19 History tramadol 50 mg PO TID PRN 01/25/19 04/06/19 History allopurinol [Zyloprim] 300 mg PO DAILY 04/06/19 04/06/19 History fluticasone propionate [Flonase 2 spray INTRANASAL DAILY 04/06/19 04/06/19 History Allergy Relief] furosemide [Lasix] 40 mg PO BID 04/06/19 04/06/19 History lubiprostone [Amitiza] 8 mcg PO BID 04/06/19 04/06/19 History milk thistle 150 mg PO BID 04/06/19 04/06/19 History jaiihewy-vyf-bpop-FA-lutein 1 tab PO DAILY 04/06/19 04/06/19 History [Centrum Silver Women] pioglitazone [Actos] 30 mg PO DAILY 04/06/19 04/06/19 History polyethylene glycol 3350 [Miralax] 17 g PO DAILY PRN 04/06/19 04/06/19 History vitamin E 400 unit PO DAILY 04/06/19 04/06/19 History Patient History Medical History Anxiety Asthma Chronic back pain Cirrhosis Degenerative disc disease Diabetes mellitus, type 2 GERD (gastroesophageal reflux disease) Hiatal hernia Hyperlipidemia Hypertension Hypothyroidism Kidney stones Migraine H/O Osteoarthritis Surgical History History of appendectomy History of carpal tunnel release RIGHT History of cataract surgery BILATERAL History of cholecystectomy History of colonoscopy History of cystoscopy WITH STENT AND REPAIRED RIGHT URETER BLOCKAGE. 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 There is minimal lip and tongue swelling noted. Significant cuff leak with deflation of the endotracheal tube. Neck: trachea midline, no thyromegaly Respiratory: normal respiratory effort, lungs clear to auscultation Cardiovascular: RRR, no murmur, no edema Gastrointestinal (Abdomen): normal bowel sounds, soft, nontender, no hepatosplenomegaly Skin: no rashes, warm and dry Neurologic: Sedated Results & Data Vital Signs (Past 12 Hours) Vital Signs Temp Pulse Resp BP Pulse Ox 04/06/19 06:30 36.4 C L 66 12 97/61 L 99 04/06/19 06:28 69 97/61 L 99 04/06/19 06:20 63 97 04/06/19 06:15 36.4 C L 65 12 90/55 L 98 04/06/19 06:11 18 04/06/19 06:10 65 97 04/06/19 06:08 65 82/42 L 97 04/06/19 06:04 64 85/52 L 97 04/06/19 06:02 71 98 04/06/19 06:00 72 104/60 98 04/06/19 05:59 77 111/66 99 04/06/19 05:58 36.5 C 77 18 111/66 04/06/19 05:50 68 97 04/06/19 05:40 70 98 04/06/19 05:30 74 96 04/06/19 05:21 76 98 04/06/19 05:19 78 113/67 99 04/06/19 05:11 83 98 04/06/19 05:10 78 113/65 98 04/06/19 05:00 97 04/06/19 04:55 82 24 96 04/06/19 03:50 91 H 151/104 H 89 L 04/06/19 03:48 89 156/105 H 90 04/06/19 03:40 105 H 171/120 H 93 04/06/19 03:30 80 132/87 95 04/06/19 03:28 82 143/92 H 94 04/06/19 03:20 85 133/91 89 L 04/06/19 03:15 77 122/83 88 L 04/06/19 03:10 80 149/102 H 89 L 04/06/19 03:00 79 163/104 H 90 04/06/19 02:56 93 H 13 97 04/06/19 02:50 83 97 04/06/19 02:46 93 H 200/142 H 98 04/06/19 02:40 89 20 96 04/06/19 02:31 81 20 175/78 H 98 04/06/19 02:30 82 20 98 04/06/19 02:28 98 04/06/19 02:21 81 22 95 04/06/19 02:19 74 22 146/105 H 95 04/06/19 02:00 37.2 C 69 14 141/79 H 97 Laboratory Results 04/06/19 02:27 04/06/19 02:27 Diagnostic Findings Chest x-ray independently reviewed. No acute cardiopulmonary disease identified. Tubes and lines in good position. Cardiac catheterization reviewed. Nonobstructive coronary disease identified. PG Care Time/CCT Total # of Minutes Spent Total Time Spent with Patient: Total time spent is greater than 50% in coordination of care (as documented) at patient's floor/unit and/or counseling patient: 45 minutes critical care time including discussion with ER staff and management of patient as well as discussion on multidisciplinary rounds. (1) ST elevation (STEMI) myocardial infarction Involved coronary artery: unspecified coronary artery Qualified Code(s): I21.3 - ST elevation (STEMI) myocardial infarction of unspecified site (2) Angioedema Encounter type: initial encounter Qualified Code(s): T78.3XXA - Angioneurotic edema, initial encounter
--- NOTE | 2019-04-06 07:09 | XRay Report ---
XR chest 1V portable CLINICAL HISTORY: intubation COMPARISON STUDY: No previous studies for comparison. FINDINGS: Tip of endotracheal tube is 1.1 cm above the edwin. There is no pneumothorax or pleural ef fusion. There may be calcified thoracic lymph nodes. Mild enlargement of the cardiac silhouette is no liza. There is mild reticulonodular interstitial thickening within the lungs. Cholecystectomy clips ar e noted. IMPRESSION: 1. Tip of endotracheal tube 1.1 cm above the edwin. 2. Mild enlargement of the cardiac silhouette. Mild reticulonodular interstitial thickening. Electronically signed by: Dillon Naik M.D. 04/06/2019 7:08 AM
[2019-04-06] MEDS ORDERED: GLUCOSE 40% GEL 15 GM TUBE PO PRN (08:00)
[2019-04-06] MEDS ORDERED: GLUCOSE 10 TABS/TUBE PO PRN (08:00)
[2019-04-06] MEDS ORDERED: CARBOHYDRATES FOR HYPOGLYCEMIA PO PRN (08:00)
[2019-04-06] MEDS ORDERED: DEXTROSE 50% 50 ML SYRINGE IV PRN (08:00)
[2019-04-06] MEDS ORDERED: GLUCAGON FOR INJ 1 MG VIAL IM PRN (08:00)
--- NOTE | 2019-04-06 08:16 | Hospitalist Progress Note ---
Date of Service April 06, 2019 Assessment & Plan (1) Angioedema: Patient is a 63-year-old with history of hypertension, diabetes, came to ED with angioedema, intubated in the ER and admitted to ICU. She then developed ST elevations and was taken to cardiac [facility] which revealed nonobstructive coronary artery disease. Angioedema- Improving Unclear etiology. Was on Enalapril for 12 years. -S/P Intubation in ED for airway protection--> Extubated successfully -S/P FFP for possible c1 esterase deficiency -On IV Solu-Medrol 40 mg q 8 hours , IV Zantac q 8 hours--> Change to PO pepcid. Will decreased solu medrol to q 12 hours and start benadryl TID for a day and than may change to PRN -Advance diet as tolerated C1 esterase level ordered (not much helpful as received FFP). -Appreciate pulmonary inputs Mild Non occlusive CAD Per cardiac cath on 04/07/[address] elevations in lateral leads seen on EKG during this admission which was primarily for symptoms of angioedema with no chest pain -Start ASA, Beta jonnathan after able to tolerate PO. No SUNDAY, ARB due to Angioedema. -Cardiology recommends high intensity statin (on simvastatin 40 mg). Will change to Atorvastatin 40 mg Acute respiratory failure- Resolved Intubated for airway protection given concern about potential angioedema. Now extubated successfully, saturating well on oxygen Ventilation and weaning protocol as per newsperson Behavioral Psychologist on board. Diabetes mellitus type 2 Hold home medications -Insulin sliding scale, Accu-Cheks Chronic bilateral lymphedema -Takes lasix 40 mg PO BID at home -Hold for now as minimal PO intake OBESITY DVT prophylaxis Subcu heparin Disposition Medical management in progress Ok to transfer to [facility] today afternoon if continues to be stable and tolerating p.o. well Subjective Patient is doing much better today. Was extubated in the morning. Tongue swelling has improved. No shortness of breath, chest pain. Denies any new medications. Has been on enalapril for almost 12 years. No prior history of similar episodes. No known allergies to medications. Physical Exam Physical Exam: GENERAL- AOX3, No acute distress, obese HEENT- Swollen Tongue + LUNGS- Air entry bilaterally decreased. No rales, rhonchi, crackles, wheezes heard. HEART- Regular rate and rhythm. No murmurs ABDOMEN- Soft, non tender, non distended, Bowel sounds heard. EXTREMITIES-bilateral lymphedema NEUROMUSCULAR- AOX3, Grossly no focal deficits Results & Data Vital Signs (Past 12 Hours) Vital Signs Temp Pulse Pulse Resp BP BP Pulse Ox 04/06/19 07:47 36.5 C 70 15 107/71 98 04/06/19 07:25 63 13 97 04/06/19 07:00 36.5 C 63 12 88/55 L 99 04/06/19 06:30 36.4 C L 66 12 97/61 L 99 04/06/19 06:28 69 97/61 L 99 04/06/19 06:20 63 97 04/06/19 06:15 36.4 C L 65 12 90/55 L 98 04/06/19 06:11 18 04/06/19 06:10 65 97 04/06/19 06:08 65 82/42 L 97 04/06/19 06:04 64 85/52 L 97 04/06/19 06:02 71 98 04/06/19 06:00 72 104/60 98 04/06/19 05:59 77 111/66 99 04/06/19 05:58 36.5 C 77 18 111/66 04/06/19 05:50 68 97 04/06/19 05:40 70 98 04/06/19 05:30 74 96 04/06/19 05:21 76 98 04/06/19 05:19 78 113/67 99 04/06/19 05:11 83 98 04/06/19 05:10 78 113/65 98 04/06/19 05:00 97 04/06/19 04:55 82 24 96 04/06/19 04:45 36.5 C 62 12 113/93 98 04/06/19 03:50 91 H 151/104 H 89 L 04/06/19 03:48 89 156/105 H 90 04/06/19 03:40 105 H 171/120 H 93 04/06/19 03:30 80 132/87 95 04/06/19 03:28 82 143/92 H 94 04/06/19 03:20 85 133/91 89 L 04/06/19 03:15 77 122/83 88 L 04/06/19 03:10 80 149/102 H 89 L 04/06/19 03:00 79 163/104 H 90 08/08/19 02:56 93 H 13 97 04/06/19 02:50 83 97 04/06/19 02:46 93 H 200/142 H 98 04/06/19 02:40 89 20 96 04/06/19 02:31 81 20 175/78 H 98 04/06/19 02:30 82 20 98 04/06/19 02:28 98 04/06/19 02:21 81 22 95 04/06/19 02:19 74 22 146/105 H 95 04/06/19 02:00 37.2 C 69 14 141/79 H 97 (1) Angioedema Encounter type: initial encounter Qualified Code(s): T78.3XXA - Angioneurotic edema, initial encounter
[2019-04-06] MEDS ORDERED: LEVOTHYROXINE SODIUM 50 MCG in SYRINGE 0 ML IV SCH (09:00)
[2019-04-06 09:07] LABS: Calcium 8.5 mg/dl (8.5-10.1); Creatinine Clr Calc Pharmacy 73.2 ml/min; Est GFR (African American) 69.4; Est GFR (Non-African American) 59.9; Magnesium 1.9 mg/dl (1.8-2.4); Potassium 3.2 mmol/L (3.5-5.1)
[2019-04-06 09:20] LABS: Hematocrit (blood only) 37.6 % (37-47); Hemoglobin 12.2 g/dL (12.0-16.0); Mean Corpuscular Hgb Conc 32.4 g/dL (32-36); Mean Corpuscular Volume 94.7 fL (80-100); RDW Coefficient of Variation 15.5 % (11.5-14.5); RDW Standard Deviation 53.2 fL (36.4-46.3); Red Blood Count 3.97 M/uL (4.2-5.4); White Blood Count 3.64 K/uL (4.8-10.8)
[2019-04-06 09:43] LABS: Basophils # (auto) 0.01 K/uL (0-0.2); Basophils % (auto) 0.3 %; Immature Granulocytes # (auto) 0.03 K/uL (0.00-0.02); Immature Granulocytes % (auto) 0.8 %; Lymphocytes # (auto) 0.69 K/uL (1.2-3.4); Mean Platelet Volume 10.9 fL (7.4-10.4); Monocytes # (auto) 0.12 K/uL (0.11-0.59); Monocytes % (auto) 3.3 %; Neutrophils # (auto) 2.79 K/uL (1.4-6.5); Neutrophils % (auto) 76.6 %; Platelet Count 90 K/uL (130-400); Platelet Estimate Decreased (Normal)
--- NOTE | 2019-04-06 09:54 | Cardiology Consultation ---
Date of Consultation April 06, 2019 Assessment & Plan (1) Angioedema: (2) ST elevation (STEMI) myocardial infarction: (3) Benign essential hypertension: (4) Dyslipidemia associated with type 2 diabetes mellitus: The cardiac catheterization failed to show any evidence of significant coronary artery disease. One cardiac troponin at the time of the admission was negative. At this point I would recommend a resting echocardiogram to evaluate for wall motion abnormalities and possible stress-induced cardiomyopathy. Otherwise the patient is stable and I would continue current treatment. History of Present Illness Attending Physician: Suzie Hurtado History of Present Illness This is a 63-year-old female with a history of obesity, type 2 diabetes, asthma and essential hypertension. She has been on enalapril for approximately 12 years without incident. She came to the emergency department last night due to swelling of her tongue and required intubation to protect her airway due to angioedema. The patient was also noted to have ST segment elevation in the lateral precordial leads with reciprocal depression in the inferior leads suggesting a possible acute myocardial infarction. She was taken emergently to the cardiac catheterization lab where she was found to have minor nonobstructive coronary artery disease. The patient was admitted to the ICU and has since been extubated. She is alert and oriented in no acute distress. She has had no previous episodes of angioedema. Allergies Allergy/AdvReac Type Severity Reaction Status Date / Time enalapril Allergy Severe Swelling Verified 04/06/19 09:47 of Lip/Tongue/Throat tetanus toxoid, adsorbed Allergy Mild ARM GETS Verified 04/06/19 02:32 INFECTED Iodinated Contrast- Oral and Allergy Unknown "THE DYE Verified 04/06/19 02:32 IV Dye BLEW UP IN MY ARM" nickel Allergy Unknown "I GET AN Verified 04/06/19 02:32 INFECTION" Home Medications Home Medications Medication Instructions Recorded Confirmed Type Jardiance 25 mg PO QAM 01/25/19 04/06/19 History Ozempic 0.25 mg SUBCUT WK 01/25/19 04/06/19 History Prolia 0 mg SUBCUT Q6M 01/25/19 04/06/19 History albuterol sulfate 2 puff INHALATION Q6H PRN 01/25/19 04/06/19 History bupropion HCl 150 mg PO BID 01/25/19 04/06/19 History enalapril maleate 10 mg PO QAM 01/25/19 04/06/19 History ergocalciferol (vitamin D2) 50,000 unit PO WK 01/25/19 04/06/19 History [Vitamin D2] levothyroxine 100 mcg PO QAM 01/25/19 04/06/19 History loratadine 10 mg PO QAM 01/25/19 04/06/19 History metformin 1,000 mg PO BID 01/25/19 04/06/19 History pantoprazole [Protonix] 40 mg PO QAM 01/25/19 04/06/19 History simvastatin 40 mg PO QAM 01/25/19 04/06/19 History tramadol 50 mg PO TID PRN 01/25/19 04/06/19 History allopurinol [Zyloprim] 300 mg PO DAILY 04/06/19 04/06/19 History fluticasone propionate [Flonase 2 spray INTRANASAL DAILY 04/06/19 04/06/19 History Allergy Relief] furosemide [Lasix] 40 mg PO BID 04/06/19 04/06/19 History lubiprostone [Amitiza] 8 mcg PO BID 04/06/19 04/06/19 History milk thistle 150 mg PO BID 04/06/19 04/06/19 History [id number]-aef-amwk-FA-lutein 1 tab PO DAILY 04/06/19 04/06/19 History [Centrum Silver Women] pioglitazone [Actos] 30 mg PO DAILY 04/06/19 04/06/19 History polyethylene glycol 3350 [Miralax] 17 g PO DAILY PRN 04/06/19 04/06/19 History vitamin E 400 unit PO DAILY 04/06/19 04/06/19 History Patient History Medical History Anxiety Asthma Chronic back pain Cirrhosis Degenerative disc disease Diabetes mellitus, type 2 GERD (gastroesophageal reflux disease) Hiatal hernia Hyperlipidemia Hypertension Hypothyroidism Kidney stones Migraine H/O Osteoarthritis Surgical History History of appendectomy History of carpal tunnel release RIGHT History of cataract surgery BILATERAL History of cholecystectomy History of colonoscopy History of cystoscopy WITH STENT AND REPAIRED RIGHT URETER BLOCKAGE. 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 Required: No Beliefs That Will Affect Care: None marital status: Single Current Living Situation: Family current occupational status: unemployed Other Information That Helps Us Care for You: No Feels Safe at Home: Yes Safety Concerns: Feels Safe At This Time Smoking Status: Former smoker Tobacco Type: cigarettes ; Cigarettes Per Day: 1 PPD X 35 YEARS ; Do You Dip or Chew Tobacco: No ; Second Hand Exposure: No ; Tobacco Cessation Education Requested by Patient: No Hx Alcohol Use: No Hx Substance Use: No Review of Systems Review of Systems: All systems reviewed & are unremarkable except as noted in HPI & below No additional information. Physical Exam Physical Exam: General: no acute distress and stated age Head: normocephalic, no masses, lesions, tenderness or abnormalities Eyes: conjunctiva are pink and non-injected, sclera clear Neck: supple, no adenopathy, no bruits, normal jugular venous pulse, no hepatojugular reflux Chest: normal shape and normal respiratory effort Lungs: clear to auscultation and percussion Cardiac Exam: - regular rate & rhythm, no murmurs gallops or rubs - normal S1, normal S2 Pulses: 2(+) throughout Abdomen: abdomen soft, non-tender, no abnormal masses and no hepatosplenomegaly Musculoskeletal: no gait disturbance, no joint inflammation, no deforming arthritis Extremities: no edema and no cyanosis Neuro: grossly normal exam Results & Data Vital Signs (Past 12 Hours) Vital Signs Temp Pulse Pulse Resp BP BP Pulse Ox 04/06/19 08:30 36.6 C 78 16 123/78 98 04/06/19 08:15 36.5 C 76 15 116/78 97 04/06/19 08:00 36.5 C 76 14 91/63 L 97 04/06/19 07:47 36.5 C 70 15 107/71 98 04/06/19 07:25 63 13 97 04/06/19 07:00 36.5 C 63 12 88/55 L 99 04/06/19 06:30 36.4 C L 66 12 97/61 L 99 04/06/19 06:28 69 97/61 L 99 04/06/19 06:20 63 97 04/06/19 06:15 36.4 C L 65 12 90/55 L 98 04/06/19 06:11 18 04/06/19 06:10 65 97 04/06/19 06:08 65 82/42 L 97 04/06/19 06:04 64 85/52 L 97 04/06/19 06:02 71 98 04/06/19 06:00 72 104/60 98 04/06/19 05:59 77 111/66 99 04/06/19 05:58 36.5 C 77 18 111/66 04/06/19 05:50 68 97 04/06/19 05:40 70 98 04/06/19 05:30 74 96 04/06/19 05:21 76 98 04/06/19 05:19 78 113/67 99 04/06/19 05:11 83 98 04/06/19 05:10 78 113/65 98 04/06/19 05:00 97 04/06/19 04:55 82 24 96 04/06/19 04:45 36.5 C 62 12 113/93 98 04/06/19 03:50 91 H 151/104 H 89 L 04/06/19 03:48 89 156/105 H 90 04/06/19 03:40 105 H 171/120 H 93 04/06/19 03:30 80 132/87 95 04/06/19 03:28 82 143/92 H 94 04/06/19 03:20 85 133/91 89 L 04/06/19 03:15 77 122/83 88 L 04/06/19 03:10 80 149/102 H 89 L 04/06/19 03:00 79 163/104 H 90 04/06/19 02:56 93 H 13 97 04/06/19 02:50 83 97 04/06/19 02:46 93 H 200/142 H 98 04/06/19 02:40 89 20 96 04/06/19 02:31 81 20 175/78 H 98 04/06/19 02:30 82 20 98 04/06/19 02:28 98 04/06/19 02:21 81 22 95 04/06/19 02:19 74 22 146/105 H 95 08/08/19 02:00 37.2 C 69 14 141/79 H 97 Laboratory Results Laboratory Results - last 24 hr 04/06/19 04/06/19 04/06/19 02:27 02:27 02:27 WBC 3.56 L RBC 4.21 Hgb 12.9 POC Hgb Hct 39.0 POC Hct MCV 92.6 MCH 30.6 MCHC 33.1 RDW Std Deviation 52.5 H RDW Coeff of Huyen 15.6 H Plt Count 105 L MPV 10.6 H Immature Gran % (Auto) 0.3 Neut % (Auto) 55.2 Lymph % (Auto) 34.6 [place] % (Auto) 9.6 Eos % (Auto) 0.0 Baso % (Auto) 0.3 Immature Gran # (Auto) 0.01 Neut # (Auto) 1.97 Lymph # (Auto) 1.23 [place] # (Auto) 0.34 Eos # (Auto) 0.00 Baso # (Auto) 0.01 Absolute Nucleated RBC Nucleated RBC % (auto) Neutrophils % (Manual) Band Neutrophils % Lymphocytes % (Manual) Prolymphocyte % Reactive Lymphs % (Man) Monocytes % (Manual) Eosinophils % (Manual) Basophils % (Manual) Metamyelocytes % (Man) Myelocytes % (Man) Promyelocytes % (Man) Blast Cells % (Manual) Plasma Cell % (Manual) Other Cells % Nucleated RBC % Neutrophils # (Manual) Band Neutrophils # Total Absolute Neuts Lymphocytes # (Manual) Prolymphocyte # Reactive Lymphs # Total Abs Lymphocytes Monocytes # (Manual) Eosinophils # (Manual) Basophils # (Manual) Metamyelocytes # (Man) Myelocytes # (Manual) Promyelocytes # (Man) Blast Cells # (Man) Plasma Cell # (Manual) Other Cells # Nucleated RBCs # (Man) Hypersegmented Neuts Hyposegmented Neuts Hypogranular Neuts Large Granular Lymphs # Lrg Granular Lymphs Hairy Cells Smudge Cells Toxic Granulation Toxic Vacuolation Dohle Bodies Manju Rods Platelet Estimate Hypogranular Platelets Clumped Platelets Giant Platelets Platelet Satelliting RBC Morphology Unremarkable Polychromasia Hypochromasia Poikilocytosis Basophilic Stippling Anisocytosis Microcytosis Macrocytosis Spherocytes Pappenheimer Bodies Sickle Cells Target Cells Tear Drop Cells Ovalocytes Stomatocytes [place] Bodies Echinocytes Acanthocytes (Spur) Rouleaux RBC Agglutinates Schistocytes RBC Morph Comment Sezary Cell POC Sodium Sodium 140 POC Potassium Potassium 3.1 L POC Chloride Chloride 103 Carbon Dioxide 30 POC Total CO2 Anion Gap 7.0 POC Anion Gap POC BUN BUN 10 Creatinine 1.00 POC Creatinine Est Cr Clr Drug Dosing 73.2 Est GFR ( Amer) 69.4 Est GFR (Non-Af Amer) 59.9 BUN/Creatinine Ratio 10.3 Glucose 100 H POC Glucose POC Glucose (other) Calcium 9.0 POC Ioniz Calcium Alexa Magnesium Total Bilirubin 0.6 AST 47 H ALT 54 Alkaline Phosphatase 65 Total Creatine Kinase 153 CK-MB (CK-2) 1.4 CK/CKMB % Calc 0.9 POC Troponin I Troponin I < 0.015 Total Protein 7.8 Albumin 3.7 Globulin 4.1 H Albumin/Globulin Ratio 0.9 Lipase 174 Specimen Hemolysis C1 Esterase Inhibitor Blood Type A Positive Antibody Screen NEGATIVE 04/06/19 04/06/19 04/06/19 02:29 03:27 03:28 WBC RBC Hgb POC Hgb 12.9 Hct POC Hct 38 MCV MCH MCHC RDW Std Deviation RDW Coeff of [place] Plt Count MPV Immature Gran % (Auto) Neut % (Auto) Lymph % (Auto) [place] % (Auto) Eos % (Auto) Baso % (Auto) Immature Gran # (Auto) Neut # (Auto) Lymph # (Auto) [place] # (Auto) Eos # (Auto) Baso # (Auto) Absolute Nucleated RBC Nucleated RBC % (auto) Neutrophils % (Manual) Band Neutrophils % Lymphocytes % (Manual) Prolymphocyte % Reactive Lymphs % (Man) Monocytes % (Manual) Eosinophils % (Manual) Basophils % (Manual) Metamyelocytes % (Man) Myelocytes % (Man) Promyelocytes % (Man) Blast Cells % (Manual) Plasma Cell % (Manual) Other Cells % Nucleated RBC % Neutrophils # (Manual) Band Neutrophils # Total Absolute Neuts Lymphocytes # (Manual) Prolymphocyte # Reactive Lymphs # Total Abs Lymphocytes Monocytes # (Manual) Eosinophils # (Manual) Basophils # (Manual) Metamyelocytes # (Man) Myelocytes # (Manual) Promyelocytes # (Man) Blast Cells # (Man) Plasma Cell # (Manual) Other Cells # Nucleated RBCs # (Man) Hypersegmented Neuts Hyposegmented Neuts Hypogranular Neuts Large Granular Lymphs # Lrg Granular Lymphs Hairy Cells Smudge Cells Toxic Granulation Toxic Vacuolation Dohle Bodies Manju Rods Platelet Estimate Hypogranular Platelets Clumped Platelets Giant Platelets Platelet Satelliting RBC Morphology Polychromasia Hypochromasia Poikilocytosis Basophilic Stippling Anisocytosis Microcytosis Macrocytosis Spherocytes Pappenheimer Bodies Sickle Cells Target Cells Tear Drop Cells Ovalocytes Stomatocytes [place] Bodies Echinocytes Acanthocytes (Spur) Rouleaux RBC Agglutinates Schistocytes RBC Morph Comment Sezary Cell POC Sodium 142 Sodium POC Potassium 3.0 L Potassium POC Chloride 98 L Chloride Carbon Dioxide POC Total CO2 29 Anion Gap POC Anion Gap 19.0 POC BUN 9 BUN Creatinine POC Creatinine 0.9 Est Cr Clr Drug Dosing Est GFR ( Amer) Est GFR (Non-Af Amer) BUN/Creatinine Ratio Glucose POC Glucose POC Glucose (other) 102 H Calcium POC Ioniz Calcium Alexa 1.12 Magnesium Total Bilirubin AST ALT Alkaline Phosphatase Total Creatine Kinase CK-MB (CK-2) CK/CKMB % Calc POC Troponin I < 0.03 Troponin I Total Protein Albumin Globulin Albumin/Globulin Ratio Lipase Specimen Hemolysis C1 Esterase Inhibitor Pending Blood Type Antibody Screen 04/06/19 04/06/19 04/06/19 05:53 07:56 08:18 WBC Cancelled RBC Cancelled Hgb Cancelled POC Hgb Hct Cancelled POC Hct MCV Cancelled MCH Cancelled MCHC Cancelled RDW Std Deviation Cancelled RDW Coeff of [place] Cancelled Plt Count Cancelled MPV Cancelled Immature Gran % (Auto) Cancelled Neut % (Auto) Cancelled Lymph % (Auto) Cancelled [place] % (Auto) Cancelled Eos % (Auto) Cancelled Baso % (Auto) Cancelled Immature Gran # (Auto) Cancelled Neut # (Auto) Cancelled Lymph # (Auto) Cancelled [place] # (Auto) Cancelled Eos # (Auto) Cancelled Baso # (Auto) Cancelled Absolute Nucleated RBC Cancelled Nucleated RBC % (auto) Cancelled Neutrophils % (Manual) Cancelled Band Neutrophils % Cancelled Lymphocytes % (Manual) Cancelled Prolymphocyte % Cancelled Reactive Lymphs % (Man) Cancelled Monocytes % (Manual) Cancelled Eosinophils % (Manual) Cancelled Basophils % (Manual) Cancelled Metamyelocytes % (Man) Cancelled Myelocytes % (Man) Cancelled Promyelocytes % (Man) Cancelled Blast Cells % (Manual) Cancelled Plasma Cell % (Manual) Cancelled Other Cells % Cancelled Nucleated RBC % Cancelled Neutrophils # (Manual) Cancelled Band Neutrophils # Cancelled Total Absolute Neuts Cancelled Lymphocytes # (Manual) Cancelled Prolymphocyte # Cancelled Reactive Lymphs # Cancelled Total Abs Lymphocytes Cancelled Monocytes # (Manual) Cancelled Eosinophils # (Manual) Cancelled Basophils # (Manual) Cancelled Metamyelocytes # (Man) Cancelled Myelocytes # (Manual) Cancelled Promyelocytes # (Man) Cancelled Blast Cells # (Man) Cancelled Plasma Cell # (Manual) Cancelled Other Cells # Cancelled Nucleated RBCs # (Man) Cancelled Hypersegmented Neuts Cancelled Hyposegmented Neuts Cancelled Hypogranular Neuts Cancelled Large Granular Lymphs Cancelled # Lrg Granular Lymphs Cancelled Hairy Cells Cancelled Smudge Cells Cancelled Toxic Granulation Cancelled Toxic Vacuolation Cancelled Dohle Bodies Cancelled Manju Rods Cancelled Platelet Estimate Cancelled Hypogranular Platelets Cancelled Clumped Platelets Cancelled Giant Platelets Cancelled Platelet Satelliting Cancelled RBC Morphology Cancelled Polychromasia Cancelled Hypochromasia Cancelled Poikilocytosis Cancelled Basophilic Stippling Cancelled Anisocytosis Cancelled Microcytosis Cancelled Macrocytosis Cancelled Spherocytes Cancelled Pappenheimer Bodies Cancelled Sickle Cells Cancelled Target Cells Cancelled Tear Drop Cells Cancelled Ovalocytes Cancelled Stomatocytes Cancelled [place] Bodies Cancelled Echinocytes Cancelled Acanthocytes (Spur) Cancelled Rouleaux Cancelled RBC Agglutinates Cancelled Schistocytes Cancelled RBC Morph Comment Cancelled Sezary Cell Cancelled POC Sodium Sodium POC Potassium Potassium POC Chloride Chloride Carbon Dioxide POC Total CO2 Anion Gap POC Anion Gap POC BUN BUN Creatinine POC Creatinine Est Cr Clr Drug Dosing Est GFR ( Amer) Est GFR (Non-Af Amer) BUN/Creatinine Ratio Glucose POC Glucose 169 H 162 H POC Glucose (other) Calcium POC Ioniz Calcium Alexa Magnesium Total Bilirubin AST ALT Alkaline Phosphatase Total Creatine Kinase CK-MB (CK-2) CK/CKMB % Calc POC Troponin I Troponin I Total Protein Albumin Globulin Albumin/Globulin Ratio Lipase Specimen Hemolysis C1 Esterase Inhibitor Blood Type Antibody Screen 04/06/19 04/06/19 08:18 09:03 WBC 3.64 L RBC 3.97 L Hgb 12.2 POC Hgb Hct 37.6 POC Hct MCV 94.7 MCH 30.7 MCHC 32.4 RDW Std Deviation 53.2 H RDW Coeff of [place] 15.5 H Plt Count 90 L MPV 10.9 H Immature Gran % (Auto) 0.8 Neut % (Auto) 76.6 Lymph % (Auto) 19.0 [place] % (Auto) 3.3 Eos % (Auto) 0.0 Baso % (Auto) 0.3 Immature Gran # (Auto) 0.03 H Neut # (Auto) 2.79 Lymph # (Auto) 0.69 L [place] # (Auto) 0.12 Eos # (Auto) 0.00 Baso # (Auto) 0.01 Absolute Nucleated RBC Nucleated RBC % (auto) Neutrophils % (Manual) Band Neutrophils % Lymphocytes % (Manual) Prolymphocyte % Reactive Lymphs % (Man) Monocytes % (Manual) Eosinophils % (Manual) Basophils % (Manual) Metamyelocytes % (Man) Myelocytes % (Man) Promyelocytes % (Man) Blast Cells % (Manual) Plasma Cell % (Manual) Other Cells % Nucleated RBC % Neutrophils # (Manual) Band Neutrophils # Total Absolute Neuts Lymphocytes # (Manual) Prolymphocyte # Reactive Lymphs # Total Abs Lymphocytes Monocytes # (Manual) Eosinophils # (Manual) Basophils # (Manual) Metamyelocytes # (Man) Myelocytes # (Manual) Promyelocytes # (Man) Blast Cells # (Man) Plasma Cell # (Manual) Other Cells # Nucleated RBCs # (Man) Hypersegmented Neuts Hyposegmented Neuts Hypogranular Neuts Large Granular Lymphs # Lrg Granular Lymphs Hairy Cells Smudge Cells Toxic Granulation Toxic Vacuolation Dohle Bodies Manju Rods Platelet Estimate Decreased L Hypogranular Platelets Clumped Platelets Giant Platelets Platelet Satelliting RBC Morphology Polychromasia Hypochromasia Poikilocytosis Basophilic Stippling Anisocytosis Microcytosis Macrocytosis Spherocytes Pappenheimer Bodies Sickle Cells Target Cells Tear Drop Cells Ovalocytes Stomatocytes [place] Bodies Echinocytes Acanthocytes (Spur) Rouleaux RBC Agglutinates Schistocytes RBC Morph Comment Sezary Cell POC Sodium Sodium 141 POC Potassium Potassium 3.2 L POC Chloride Chloride 105 Carbon Dioxide 29 POC Total CO2 Anion Gap 8.0 POC Anion Gap POC BUN BUN 11 Creatinine 1.00 POC Creatinine Est Cr Clr Drug Dosing 73.2 Est GFR ( Amer) 69.4 Est GFR (Non-Af Amer) 59.9 BUN/Creatinine Ratio 11.0 Glucose 150 H POC Glucose POC Glucose (other) Calcium 8.5 POC Ioniz Calcium Alexa Magnesium 1.9 Total Bilirubin AST ALT Alkaline Phosphatase Total Creatine Kinase CK-MB (CK-2) CK/CKMB % Calc POC Troponin I Troponin I Total Protein Albumin Globulin Albumin/Globulin Ratio Lipase Specimen Hemolysis C1 Esterase Inhibitor Blood Type Antibody Screen Medications Administered Current Inpatient Medications Acetaminophen (Tylenol) 650 mg PO Q4H PRN PRN Reason: PAIN 1-3 Stop: 05/06/19 04:40 Atropine Sulfate (Atropine Sulfate) 0.6 mg IV UD PRN PRN Reason: LOW HEART RATE Stop: 05/06/19 04:40 Dextrose (Dextrose 50%) 25 - 50 ml IV UD PRN; Protocol PRN Reason: Hypoglycemia Protocol Stop: 05/06/19 07:59 Diphenhydramine HCl (Benadryl) 12.5 mg IV Q6H PRN PRN Reason: Allergic Reaction Stop: 05/06/19 05:30 Glucagon (Glucagen) 1 mg IM UD PRN; Protocol PRN Reason: Hypoglycemia Protocol Stop: 05/06/19 07:59 Glucose (Glucose 40%) 15 - 30 gm PO UD PRN; Protocol PRN Reason: Hypoglycemia Protocol Stop: 05/06/19 07:59 Glucose (Dex4 Glucose) 4 - 8 tabs PO UD PRN; Protocol PRN Reason: Hypoglycemia Protocol Stop: 05/06/19 07:59 Heparin Sodium (Porcine) (Heparin Sodium (Porcine)) 5,000 units SQ Q12 RAJI Stop: 05/06/19 09:59 Sodium Chloride (Nss 1000ml) 1,000 mls @ 75 mls/hr IV .[id number] RAJI Stop: 04/07/19 07:24 Last Infusion: 04/06/19 06:50 Dose: Infused Documented by: Methylprednisolone 40 mg/ (Syringe) 0.64 mls @ 1.5 mls/min IV Q8H RAJI Stop: 05/06/19 09:59 Ranitidine HCl 50 mg/ Dextrose 102 mls @ 200 mls/hr IV Q8 RAJI Stop: 05/06/19 09:59 Levothyroxine Sodium 50 mcg/ (Syringe) 2.5 mls @ 1.25 mls/min IV DAILY@0900 RAJI Stop: 05/06/19 08:59 Last Admin: 04/06/19 08:09 Dose: 1.25 mls/min Documented by: Insulin Aspart (Novolog Flexpen) 0 units SC Q6 RAJI Stop: 05/06/19 05:59 Last Admin: 04/06/19 07:56 Dose: Not Given Documented by: Miscellaneous (Carbohydrates For Hypoglycemia) 15 - 30 gm PO UD PRN PRN Reason: Hypoglycemia Treatment Stop: 05/06/19 07:59 Ondansetron HCl (Zofran) 4 mg IV Q6H PRN PRN Reason: Nausea Stop: 05/06/19 04:40 (1) Angioedema Encounter type: initial encounter Qualified Code(s): T78.3XXA - Angioneurotic edema, initial encounter (2) ST elevation (STEMI) myocardial infarction Involved coronary artery: unspecified coronary artery Qualified Code(s): I21.3 - ST elevation (STEMI) myocardial infarction of unspecified site
--- NOTE | 2019-04-06 09:54 | History and Physical Report ---
DATE OF ADMISSION: 04/06/2019 CHIEF COMPLAINT: Angioedema of the tongue. HISTORY OF PRESENT ILLNESS: This is a 63-year-old female with past medical history significant for type 2 diabetes, morbid obesity, cirrhosis of liver, chronic thrombocytopenia, who presents with swelling of the tongue that was the only complaint when she came in to the ER and the tongue was very swollen and big. To protect the airway the patient got intubated, but later EKG was done which showed ST elevations in lateral leads. So at that time, the ER physician talked to the applied researcher, advised for heart alert, and heart alert was called in and the patient is status post cardiac catheterization which showed mild CAD and the patient is currently in the ICU for further management. Could not get any history from the patient. Hemodynamics are stable. ALLERGIES: TETANUS TOXOID, IV DYE, AND NICKEL. PAST MEDICAL HISTORY: As mentioned above. PAST SURGICAL HISTORY: Breast excision on the left side, carpal tunnel surgery, colonoscopy, EGDs, bilateral cataracts, ankle surgery, appendectomy, cholecystectomy, tonsillectomy, adenoidectomy, inguinal hernia repair, total abdominal hysterectomy. MEDICATIONS: The patient is on semaglutide inject 1 mg under the skin once a week, Lasix 40 mg p.o. b.i.d., Protonix 40 mg p.o. daily, simvastatin 40 mg p.o. daily, vitamin D 50,000 units capsule once a week, metformin 1000 mg p.o. b.i.d., Jardiance 25 mg p.o. daily, Ativan 1 mg p.o. prior to MRI, allopurinol 300 mg p.o. daily, Vasotec 10 mg p.o. daily, Claritin 10 mg p.o. daily, bupropion SR 150 mg p.o. b.i.d., tramadol 50 mg p.o. t.i.d. p.r.n., Amitiza 8 mcg p.o. b.i.d., levothyroxine 100 mcg daily, Actos 30 mg p.o. daily, vitamin E 400 units daily, Prolia 60 mg under the skin daily as directed, Flonase each nostril daily, Centrum Silver 1 tablet daily, MiraLax daily, Proventil p.r.n. FAMILY HISTORY: Significant for mother has arthritis, diabetes, heart disorder, COPD. Father has lung cancer. SOCIAL HISTORY: As per records former smoker, smoked half pack a day for 33 years, quit in 2015. No alcohol use, no drug use as per the records. REVIEW OF SYMPTOMS: Currently secondary to being intubated unobtainable. PHYSICAL EXAMINATION: GENERAL: The patient is status post intubated and sedated, morbidly obese. VITAL SIGNS: Temperature 36.5, pulse 77, respiratory rate 18, blood pressure 111/66, oxygen 98% on vent. HEENT: No pallor, no icterus. Pupils pinpoint equal, round, and sluggushly reactive to light. NECK: No JVD, no neck masses. CARDIOVASCULAR: S1, S2 heard, regular rate and rhythm, no murmur, no gallop. RESPIRATORY SYSTEM: Normal AP diameter. No accessory muscle use. No wheezing, no crackles. ABDOMEN: Soft, bowel sounds present. No distention. CENTRAL NERVOUS SYSTEM: Status post intubated and sedated. EXTREMITIES: No edema, no erythema. LABORATORY DATA: WBC 3.5, hemoglobin 12.9, hematocrit 39, platelets 105. Sodium 140, potassium 3.1, chloride 103, CO2 of 30, BUN 10, creatinine 1, serum glucose 100, calcium 9, total bilirubin 0.6, AST 47, ALT 54, alkaline phosphatase 65, total creatinine kinase 153. Troponin I less than 0.015. Lipase 174. IMAGING DATA: Chest x-ray, no acute findings seen. EKG: Sinus rhythm with a rate of [address] elevation in lateral leads. ASSESSMENT AND PLAN: This is a 63-year-old female who presents with angioedema of the tongue and also found to have ST elevation of the lateral leads. 1. Angioedema of the tongue. The patient was intubated in the ER for airway protection. She is on enalapril, which is held for now .The patient received Solu-Medrol, Benadryl, Zantac, and FFP in the ER. Presently hemodynamically stable. Will continue IV Solu-Medrol 40 t.i.d., IV Zantac q. 8 hours, IV Benadryl p.r.n. Closely monitor in the ICU. Critical care consulted. 2. ST elevation in lateral leads on the EKG. The patient did not complaint of chest pain when she came in, but had ST elevation in lateral leads on the EKG, so heart alert was called. The patient is status post cardiac catheterization. No culprit lesion noted. Mild CAD noted. Postoperative management and medical management per cardiology. 3. History of diabetes. Hold her home medications, placed on insulin sliding scale. 4. Hypothyroidism. Placed on IV Synthroid. 5. History of liver cirrhosis, Lasix on hold. Currently getting gentle fluids. Monitor for any volume overload. 6.GERD Currently placing an IV Zantac. 7. Hyperlipidemia, hold statin for now. 8. Gout. Hold allopurinol for now. Restart home p.o. medication when patient is able to take p.o. 9. Thrombocytopenia, platelets 105, we will monitor. 10. Deep venous thrombosis prophylaxis, sequential compression devices for now. 11. Disposition: Closely monitor in the ICU. Level 1 full code. MTDD
[2019-04-06] MEDS ORDERED: methylPREDNISolone 40 MG in SYRINGE 0 ML IV SCH (10:00)
[2019-04-06 10:20] LABS: INR 1.1 (0.9-1.1); Partial Thromboplastin Time 27.1 Seconds (21.0-31.0); Prothrombin Time 11.3 Seconds (9.0-12.0)
[2019-04-06] MEDS ORDERED: LANTUS PER UNIT CHARGE SQ STA (11:19)
[2019-04-06] MEDS: methylPREDNISolone 40 MG in SYRINGE 0 ML IV SCH (11:52)
[2019-04-06] MEDS: INSULIN ASPART 100 UNITS/ML 3 ML PEN SC SCH ×3 (11:57→21:25)
[2019-04-06] MEDS: CARVEDILOL 3.125 MG TAB PO SCH ×2 (11:59→21:30)
[2019-04-06] MEDS: HEPARIN SOD 5,000 UNIT/0.5 ML VIAL SQ SCH ×2 (11:59→22:26)
[2019-04-06] MEDS ORDERED: KETAMINE HCL INJ 50 MG/ML 10 ML VIAL IV ONE (13:49)
[2019-04-06] MEDS ORDERED: fentaNYL citrate 100 MCG/2 ML CARP IV ONE (13:49)
[2019-04-06] MEDS ORDERED: SUCCINYLCHOLINE CHLORIDE 20 MG/ML 10 ML VIAL IV ONE (13:49)
[2019-04-06] MEDS ORDERED: VECURONIUM BROMIDE 10 MG VIAL IV ONE (13:49)
[2019-04-06] MEDS: FAMOTIDINE 20 MG TAB PO SCH (21:30)
[2019-04-06] MEDS ORDERED: MICONAZOLE NITRATE POWDER 43 GM EXT PRN (23:36)
[2019-04-07] MEDS: methylPREDNISolone 40 MG in SYRINGE 0 ML IV SCH ×3 (00:20→23:03)
[2019-04-07] MEDS: LEVOTHYROXINE SODIUM 25 MCG TABLET PO SCH (05:13)
[2019-04-07 06:48] LABS: Hematocrit (blood only) 38.1 % (37-47); Hemoglobin 12.4 g/dL (12.0-16.0); Immature Granulocytes # (auto) 0.02 K/uL (0.00-0.02); Immature Granulocytes % (auto) 0.4 %; Lymphocytes # (auto) 0.66 K/uL (1.2-3.4); Lymphocytes % (auto) 13.6 %; Mean Corpuscular Hgb Conc 32.5 g/dL (32-36); Mean Corpuscular Volume 93.6 fL (80-100); Mean Platelet Volume 10.7 fL (7.4-10.4); Monocytes # (auto) 0.23 K/uL (0.11-0.59); Monocytes % (auto) 4.7 %; Neutrophils # (auto) 3.95 K/uL (1.4-6.5); Neutrophils % (auto) 81.3 %; Platelet Count 104 K/uL (130-400); RDW Coefficient of Variation 15.8 % (11.5-14.5); RDW Standard Deviation 53.8 fL (36.4-46.3); Red Blood Count 4.07 M/uL (4.2-5.4); White Blood Count 4.86 K/uL (4.8-10.8)
[2019-04-07 07:19] LABS: RBC Morphology Unremarkable
[2019-04-07 07:26] LABS: BUN Creatinine Ratio 16.4 (10-20); Creatinine Clr Calc Pharmacy 77.6 ml/min; Est GFR (African American) 73.9; Est GFR (Non-African American) 63.7; Magnesium 2.1 mg/dl (1.8-2.4); Potassium 3.9 mmol/L (3.5-5.1)
[2019-04-07] MEDS: ATORVASTATIN 40 MG TAB PO SCH (07:39)
[2019-04-07] MEDS: FAMOTIDINE 20 MG TAB PO SCH ×2 (07:39→21:42)
[2019-04-07] MEDS: CARVEDILOL 3.125 MG TAB PO SCH (07:42)
[2019-04-07] MEDS: ASPIRIN 81 MG ECTAB PO SCH (07:42)
[2019-04-07] MEDS: INSULIN ASPART 100 UNITS/ML 3 ML PEN SC SCH ×4 (09:16→21:03)
--- NOTE | 2019-04-07 10:31 | Cardiology Progress Note ---
Date of Service April 07, 2019 Assessment & Plan (1) Angioedema: (2) ST elevation (STEMI) myocardial infarction: (3) Benign essential hypertension: (4) Dyslipidemia associated with type 2 diabetes mellitus: The patient's echocardiogram reveals apical ballooning consistent with stress-induced cardiomyopathy. I agree with starting carvedilol however, she does have a history of asthma and I think we should choose a more cardioselective beta-jonnathan and I will switch her to metoprolol XL 25 mg daily. Unfortunately, SUNDAY inhibitors are out due to history of angioedema. She also has some crackles at the bases of her lungs and with an ejection fraction of 20% on the echocardiogram I will give her some IV Lasix today. I plan to reevaluate her tomorrow before considering discharge with outpatient follow-up. (5) Stress-induced cardiomyopathy: Subjective The patient is found sitting in the chair comfortable and in no acute distress. I explained the results of the echocardiogram to her. She has a stress-induced cardiomyopathy with apical ballooning syndrome. Review of Systems Review of Systems: All systems reviewed & are unremarkable except as noted in HPI & below Nothing additional to add. Physical Exam Physical Exam: General: no acute distress and stated age Head: normocephalic, no masses, lesions, tenderness or abnormalities Eyes: conjunctiva are pink and non-injected, sclera clear Neck: supple, no adenopathy, no bruits, normal jugular venous pulse, no hepatojugular reflux Chest: normal shape and normal respiratory effort Lungs: Rales at the bases bilaterally Cardiac Exam: - regular rate & rhythm, no murmurs gallops or rubs - normal S1, normal S2 Pulses: 2(+) throughout Abdomen: abdomen soft, non-tender, no abnormal masses and no hepatosplenomegaly Musculoskeletal: no gait disturbance, no joint inflammation, no deforming arthritis Extremities: no edema and no cyanosis Neuro: grossly normal exam Results & Data Vital Signs (Past 12 Hours) Vital Signs Temp Pulse Pulse Resp BP Pulse Ox 04/07/19 09:19 92 04/07/19 07:45 90 04/07/19 07:40 73 124/77 85 L 04/07/19 07:24 90 04/07/19 07:15 37.1 C 80 20 105/67 04/07/19 04:35 37.2 C 77 16 94/63 L 93 04/07/19 00:00 79 08/08/19 23:52 36.8 C 78 18 138/85 94 Laboratory Results Laboratory Results - last 24 hr 04/06/19 04/06/19 04/06/19 11:55 16:39 20:49 WBC RBC Hgb Hct MCV MCH MCHC RDW Std Deviation RDW Coeff of Huyen Plt Count MPV Immature Gran % (Auto) Neut % (Auto) Lymph % (Auto) [place] % (Auto) Eos % (Auto) Baso % (Auto) Immature Gran # (Auto) Neut # (Auto) Lymph # (Auto) [place] # (Auto) Eos # (Auto) Baso # (Auto) RBC Morphology Sodium Potassium Chloride Carbon Dioxide Anion Gap BUN Creatinine Est Cr Clr Drug Dosing Est GFR ( Amer) Est GFR (Non-Af Amer) BUN/Creatinine Ratio Glucose POC Glucose 170 H 148 H 140 H Calcium Magnesium 04/07/19 04/07/19 04/07/19 06:24 06:24 08:14 WBC 4.86 RBC 4.07 L Hgb 12.4 Hct 38.1 MCV 93.6 MCH 30.5 MCHC 32.5 RDW Std Deviation 53.8 H RDW Coeff of Huyen 15.8 H Plt Count 104 L MPV 10.7 H Immature Gran % (Auto) 0.4 Neut % (Auto) 81.3 Lymph % (Auto) 13.6 [place] % (Auto) 4.7 Eos % (Auto) 0.0 Baso % (Auto) 0.0 Immature Gran # (Auto) 0.02 Neut # (Auto) 3.95 Lymph # (Auto) 0.66 L [place] # (Auto) 0.23 Eos # (Auto) 0.00 Baso # (Auto) 0.00 RBC Morphology Unremarkable Sodium 144 Potassium 3.9 D Chloride 109 H Carbon Dioxide 29 Anion Gap 6.0 BUN 16 Creatinine 0.95 Est Cr Clr Drug Dosing 77.6 Est GFR ( Amer) 73.9 Est GFR (Non-Af Amer) 63.7 BUN/Creatinine Ratio 16.4 Glucose 157 H POC Glucose 130 H Calcium 9.0 Magnesium 2.1 Medications Administered Current Inpatient Medications Acetaminophen (Tylenol) 650 mg PO Q4H PRN PRN Reason: PAIN 1-3 Stop: 05/06/19 04:40 Aspirin (Ecotrin Ectab) 81 mg PO QAM [facility] Stop: 05/07/19 08:59 Last Admin: 04/07/19 07:42 Dose: 81 mg Documented by: Atorvastatin Calcium (Lipitor) 40 mg PO QAM [facility] Stop: 05/07/19 08:59 Last Admin: 04/07/19 07:39 Dose: 40 mg Documented by: Atropine Sulfate (Atropine Sulfate) 0.6 mg IV UD PRN PRN Reason: LOW HEART RATE Stop: 05/06/19 04:40 Dextrose (Dextrose 50%) 25 - 50 ml IV UD PRN; Protocol PRN Reason: Hypoglycemia Protocol Stop: 05/06/19 07:59 Diphenhydramine HCl (Benadryl) 12.5 mg IV Q6H PRN PRN Reason: Allergic Reaction Stop: 05/06/19 05:30 Diphenhydramine HCl (Benadryl Capsule) 25 mg PO BID [facility] Stop: 05/06/19 20:59 Last Admin: 04/07/19 07:44 Dose: 25 mg Documented by: Famotidine (Pepcid) 20 mg PO BID [facility] Stop: 05/06/19 20:59 Last Admin: 04/07/19 07:39 Dose: 20 mg Documented by: Glucagon (Glucagen) 1 mg IM UD PRN; Protocol PRN Reason: Hypoglycemia Protocol Stop: 05/06/19 07:59 Glucose (Glucose 40%) 15 - 30 gm PO UD PRN; Protocol PRN Reason: Hypoglycemia Protocol Stop: 05/06/19 07:59 Glucose (Dex4 Glucose) 4 - 8 tabs PO UD PRN; Protocol PRN Reason: Hypoglycemia Protocol Stop: 05/06/19 07:59 Heparin Sodium (Porcine) (Heparin Sodium (Porcine)) 5,000 units SQ Q12H [facility] Stop: 05/06/19 10:59 Last Admin: 04/06/19 22:26 Dose: 5,000 units Documented by: Methylprednisolone 40 mg/ (Syringe) 0.64 mls @ 1.5 mls/min IV Q12H [facility] Stop: 05/06/19 11:59 Last Admin: 04/07/19 00:20 Dose: 1.5 mls/min Documented by: Furosemide 20 mg/ Syringe 2 mls @ 4 mls/min IV ONE ONE Stop: 04/07/19 10:46 Insulin Aspart (Novolog Flexpen) 0 units SC ACHS [facility] Stop: 05/06/19 11:29 Last Admin: 04/07/19 09:16 Dose: 10 units Documented by: Levothyroxine Sodium (Synthroid) 25 mcg PO DAILYBB [facility] Stop: 05/07/19 06:29 Last Admin: 04/07/19 05:13 Dose: 25 mcg Documented by: Metoprolol Succinate (Toprol Xl) 25 mg PO QAM [facility] Stop: 05/07/19 10:44 Miconazole Nitrate (Desenex) 1 appln EXT PRN PRN PRN Reason: Affected Skin Folds Stop: 05/06/19 23:35 Last Admin: 04/07/19 05:13 Dose: 1 appln Documented by: Miscellaneous (Carbohydrates For Hypoglycemia) 15 - 30 gm PO UD PRN PRN Reason: Hypoglycemia Treatment Stop: 05/06/19 07:59 Ondansetron HCl (Zofran) 4 mg IV Q6H PRN PRN Reason: Nausea Stop: 05/06/19 04:40 (1) Angioedema Encounter type: initial encounter Qualified Code(s): T78.3XXA - Angioneurotic edema, initial encounter (2) ST elevation (STEMI) myocardial infarction Involved coronary artery: unspecified coronary artery Qualified Code(s): I21.3 - ST elevation (STEMI) myocardial infarction of unspecified site
[2019-04-07] MEDS ORDERED: FUROSEMIDE 20 MG in SYRINGE 0 ML IV ONE (10:45)
[2019-04-07] MEDS: HEPARIN SOD 5,000 UNIT/0.5 ML VIAL SQ SCH ×2 (11:04→23:19)
--- NOTE | 2019-04-07 11:33 | Hospitalist Progress Note ---
Date of Service April 07, 2019 Assessment & Plan (1) Angioedema: Patient is a 63-year-old with history of hypertension, diabetes, came to ED with angioedema, intubated in the ER and admitted to ICU. She then developed ST elevations and was taken to cardiac Digital Marketing Project Manager which revealed nonobstructive coronary artery disease. Angioedema - Resolved Unclear etiology. Was on Enalapril for 12 years. -S/P Intubation in ED for airway protection--> Extubated successfully. T olerating diet. -S/P FFP for possible c1 esterase deficiency in ED -S/P IV Solu medrol --> On PO steroids today, Pepcid BID, Change Benadryl to PRN. C1 esterase level ordered (not much helpful as received FFP)-- pending -Appreciate pulmonary inputs. Mild Non occlusive CAD Newly diagnosed Takotsubo cardiomyopathy Per cardiac cath on 04/07/[address] elevations in lateral leads seen on EKG during this admission which was primarily for symptoms of angioedema with no chest pain. -S/P Cardiac cath- Mild nonocclusive coronary artery disease Echocardiogram EF 20 to 25%, apical ballooning consistent with stress-induced cardiomyopathy. -Per cardiology, received a dose of IV lasix 20 mg today Started on ASA, Coreg changed to Toprol XL with hx of asthma, No SUNDAY, ARB due to Angioedema. Simvastatin 40 mg changed to atorvastatin 40 mg q HS. -Will need to follow up with cardiology and repeat Echo Acute respiratory failure- Resolved Intubated for airway protection given concern about potential angioedema. Now extubated successfully, saturating well on oxygen Ventilation and weaning protocol as per beer merchant [employer] on board. Diabetes mellitus type 2 Hold home medications -Insulin sliding scale, Accu-Cheks Chronic bilateral lymphedema -Takes lasix 40 mg PO BID at home -Hold for now as minimal PO intake OBESITY DVT prophylaxis Subcu heparin Disposition Medical management in progress Likely discharge tomorrow if stable. Discussed with cardiology Dr Srinivasan Subjective Patient is feeling much better. Tongue swelling has resolved. Tolerating diet well. Denies any shortness of breath, chest tightness, chest pain, cough. No fever, chills. Physical Exam Physical Exam: GENERAL- AAOX3, No acute distress, obese HEENT- Swollen Tongue + LUNGS- Air entry bilaterally decreased. No rales, rhonchi, crackles, wheezes heard. HEART- Regular rate and rhythm. No murmurs ABDOMEN- Soft, non tender, non distended, Bowel sounds heard. EXTREMITIES-bilateral chronic lymphedema NEUROMUSCULAR- AAOX3, Grossly no focal deficits Results & Data Vital Signs (Past 12 Hours) Vital Signs Temp Pulse Pulse Resp BP Pulse Ox 04/07/19 11:02 36.7 C 82 117/80 92 04/07/19 09:19 92 04/07/19 07:45 90 04/07/19 07:40 73 124/77 85 L 04/07/19 07:24 90 04/07/19 07:15 37.1 C 80 20 105/67 04/07/19 04:35 37.2 C 77 16 94/63 L 93 04/07/19 00:00 79 04/06/19 23:52 36.8 C 78 18 138/85 94 (1) Angioedema Encounter type: initial encounter Qualified Code(s): T78.3XXA - Angioneurotic edema, initial encounter
[2019-04-07] MEDS: METOPROLOL SUCC 25MG EXT REL TAB PO SCH (11:36)
[2019-04-08] MEDS: LEVOTHYROXINE SODIUM 25 MCG TABLET PO SCH (05:42)
[2019-04-08 07:08] LABS: Hematocrit (blood only) 35.2 % (37-47); Hemoglobin 11.4 g/dL (12.0-16.0); Mean Corpuscular Hgb Conc 32.4 g/dL (32-36); Mean Corpuscular Volume 93.9 fL (80-100); RDW Coefficient of Variation 15.8 % (11.5-14.5); RDW Standard Deviation 54.4 fL (36.4-46.3); Red Blood Count 3.75 M/uL (4.2-5.4); White Blood Count 3.56 K/uL (4.8-10.8)
[2019-04-08 07:12] LABS: Platelet Count 95 K/uL (130-400)
[2019-04-08 07:31] LABS: Basophils # (auto) 0.01 K/uL (0-0.2); Basophils % (auto) 0.3 %; Immature Granulocytes # (auto) 0.01 K/uL (0.00-0.02); Immature Granulocytes % (auto) 0.3 %; Lymphocytes # (auto) 0.71 K/uL (1.2-3.4); Lymphocytes % (auto) 19.9 %; Monocytes # (auto) 0.25 K/uL (0.11-0.59); Neutrophils # (auto) 2.58 K/uL (1.4-6.5); Neutrophils % (auto) 72.5 %
[2019-04-08] MEDS: ASPIRIN 81 MG ECTAB PO SCH (07:32)
[2019-04-08] MEDS: METOPROLOL SUCC 25MG EXT REL TAB PO SCH (07:32)
[2019-04-08] MEDS: FAMOTIDINE 20 MG TAB PO SCH (07:32)
[2019-04-08] MEDS: ATORVASTATIN 40 MG TAB PO SCH (07:32)
[2019-04-08 07:38] LABS: BUN Creatinine Ratio 18.5 (10-20); Calcium 8.8 mg/dl (8.5-10.1); Creatinine Clr Calc Pharmacy 83.4 ml/min; Est GFR (Non-African American) 69.9; Potassium 3.7 mmol/L (3.5-5.1)
[2019-04-08] MEDS: INSULIN ASPART 100 UNITS/ML 3 ML PEN SC SCH ×2 (08:39→12:11)
[2019-04-08] MEDS ORDERED: predniSONE 20 MG TAB PO SCH (09:00)
--- NOTE | 2019-04-08 10:25 | Cardiology Progress Note ---
Date of Service April 08, 2019 Assessment & Plan (1) Angioedema: (2) ST elevation (STEMI) myocardial infarction: (3) Benign essential hypertension: (4) Dyslipidemia associated with type 2 diabetes mellitus: The patient had angioedema resulting in respiratory failure but also stress-induced cardiomyopathy with apical ballooning. She cannot take an SUNDAY inhibitor. I did start her on metoprolol long-acting which she is tolerating. She was on 40 mg of Lasix twice daily at home and I will restart this medication. I will also give her potassium supplement. After discharge she should have a follow-up BMP as an outpatient. She should also have a follow-up appointment with cardiology in the next 1 to 2 weeks. (5) Stress-induced cardiomyopathy: Subjective The patient has no complaints today. She has been ambulating in the jarvis wit hout difficulty. Review of Systems Review of Systems: All systems reviewed & are unremarkable except as noted in HPI & below Nothing additional to add. Physical Exam Physical Exam: General: no acute distress and stated age Head: normocephalic, no masses, lesions, tenderness or abnormalities Eyes: conjunctiva are pink and non-injected, sclera clear Neck: supple, no adenopathy, no bruits, normal jugular venous pulse, no hepatojugular reflux Chest: normal shape and normal respiratory effort Lungs: clear to auscultation and percussion Cardiac Exam: - regular rate & rhythm, no murmurs gallops or rubs - normal S1, normal S2 Pulses: 2(+) throughout Abdomen: abdomen soft, non-tender, no abnormal masses and no hepatosplenomegaly Musculoskeletal: no gait disturbance, no joint inflammation, no deforming arthritis Extremities: no edema and no cyanosis Neuro: grossly normal exam Results & Data Vital Signs (Past 12 Hours) Vital Signs Temp Pulse Pulse Resp BP Pulse Ox 04/08/19 08:00 70 04/08/19 07:21 36.7 C 67 16 131/74 90 04/08/19 04:57 37.0 C 70 18 105/69 92 04/07/19 23:45 70 04/07/19 22:55 36.5 C 70 20 131/82 94 Laboratory Results Laboratory Results - last 24 hr 04/07/19 04/07/19 04/07/19 11:58 16:32 20:33 WBC RBC Hgb Hct MCV MCH MCHC RDW Std Deviation RDW Coeff of Huyen Plt Count MPV Immature Gran % (Auto) Neut % (Auto) Lymph % (Auto) [place] % (Auto) Eos % (Auto) Baso % (Auto) Immature Gran # (Auto) Neut # (Auto) Lymph # (Auto) [place] # (Auto) Eos # (Auto) Baso # (Auto) Sodium Potassium Chloride Carbon Dioxide Anion Gap BUN Creatinine Est Cr Clr Drug Dosing Est GFR ( Amer) Est GFR (Non-Af Amer) BUN/Creatinine Ratio Glucose POC Glucose 125 H 130 H 141 H Calcium 04/08/19 04/08/19 04/08/19 06:17 06:17 07:34 WBC 3.56 L RBC 3.75 L Hgb 11.4 L Hct 35.2 L MCV 93.9 MCH 30.4 MCHC 32.4 RDW Std Deviation 54.4 H RDW Coeff of Huyen 15.8 H Plt Count 95 L MPV 11.0 H Immature Gran % (Auto) 0.3 Neut % (Auto) 72.5 Lymph % (Auto) 19.9 Wise % (Auto) 7.0 Eos % (Auto) 0.0 Baso % (Auto) 0.3 Immature Gran # (Auto) 0.01 Neut # (Auto) 2.58 Lymph # (Auto) 0.71 L Wise # (Auto) 0.25 Eos # (Auto) 0.00 Baso # (Auto) 0.01 Sodium 144 Potassium 3.7 Chloride 109 H Carbon Dioxide 28 Anion Gap 7.0 BUN 16 Creatinine 0.88 Est Cr Clr Drug Dosing 83.4 Est GFR ( Amer) 81.0 Est GFR (Non-Af Amer) 69.9 BUN/Creatinine Ratio 18.5 Glucose 150 H POC Glucose 140 H Calcium 8.8 Medications Administered Current Inpatient Medications Acetaminophen (Tylenol) 650 mg PO Q4H PRN PRN Reason: PAIN 1-3 Stop: 05/06/19 04:40 Aspirin (Ecotrin Ectab) 81 mg PO [facility] Stop: 05/07/19 08:59 Last Admin: 04/08/19 07:32 Dose: 81 mg Documented by: Atorvastatin Calcium (Lipitor) 40 mg PO [facility] Stop: 05/07/19 08:59 Last Admin: 04/08/19 07:32 Dose: 40 mg Documented by: Atropine Sulfate (Atropine Sulfate) 0.6 mg IV UD PRN PRN Reason: LOW HEART RATE Stop: 05/06/19 04:40 Dextrose (Dextrose 50%) 25 - 50 ml IV UD PRN; Protocol PRN Reason: Hypoglycemia Protocol Stop: 05/06/19 07:59 Diphenhydramine HCl (Benadryl) 12.5 mg IV Q6H PRN PRN Reason: Allergic Reaction Stop: 05/06/19 05:30 Diphenhydramine HCl (Benadryl Capsule) 25 mg PO BID PRN PRN Reason: Allergic Reaction Stop: 05/06/19 20:59 Famotidine (Pepcid) 20 mg PO BID [facility] Stop: 05/06/19 20:59 Last Admin: 04/08/19 07:32 Dose: 20 mg Documented by: Furosemide (Lasix) 40 mg PO BID17 [facility] Stop: 05/08/19 16:59 Glucagon (Glucagen) 1 mg IM UD PRN; Protocol PRN Reason: Hypoglycemia Protocol Stop: 05/06/19 07:59 Glucose (Glucose 40%) 15 - 30 gm PO UD PRN; Protocol PRN Reason: Hypoglycemia Protocol Stop: 05/06/19 07:59 Glucose (Dex4 Glucose) 4 - 8 tabs PO UD PRN; Protocol PRN Reason: Hypoglycemia Protocol Stop: 05/06/19 07:59 Heparin Sodium (Porcine) (Heparin Sodium (Porcine)) 5,000 units SQ Q12H [facility] Stop: 05/06/19 10:59 Last Admin: 04/07/19 23:19 Dose: 5,000 units Documented by: Insulin Aspart (Novolog Flexpen) 0 units SC ACHS [facility] Stop: 05/06/19 11:29 Last Admin: 04/08/19 08:39 Dose: 8 units Documented by: Levothyroxine Sodium (Synthroid) 25 mcg PO DAILYBB [facility] Stop: 05/07/19 06:29 Last Admin: 04/08/19 05:42 Dose: 25 mcg Documented by: Metoprolol Succinate (Toprol Xl) 25 mg PO QAM [facility] Stop: 05/07/19 10:44 Last Admin: 04/08/19 07:32 Dose: 25 mg Documented by: Miconazole Nitrate (Desenex) 1 appln EXT PRN PRN PRN Reason: Affected Skin Folds Stop: 05/06/19 23:35 Last Admin: 04/07/19 05:13 Dose: 1 appln Documented by: Miscellaneous (Carbohydrates For Hypoglycemia) 15 - 30 gm PO UD PRN PRN Reason: Hypoglycemia Treatment Stop: 05/06/19 07:59 Ondansetron HCl (Zofran) 4 mg IV Q6H PRN PRN Reason: Nausea Stop: 05/06/19 04:40 Potassium Chloride (Klor-Con M20) 20 meq PO QAM [facility] Stop: 05/08/19 10:29 Prednisone (Prednisone) 40 mg PO DAILY [facility] Stop: 05/08/19 08:59 Last Admin: 04/08/19 07:32 Dose: 40 mg Documented by: (1) Angioedema Encounter type: initial encounter Qualified Code(s): T78.3XXA - Angioneurotic edema, initial encounter (2) ST elevation (STEMI) myocardial infarction Involved coronary artery: unspecified coronary artery Qualified Code(s): I21.3 - ST elevation (STEMI) myocardial infarction of unspecified site
[2019-04-08] MEDS ORDERED: POTASSIUM CHLORIDE 20 MEQ TABCR PO SCH (10:30)
[2019-04-08] MEDS: HEPARIN SOD 5,000 UNIT/0.5 ML VIAL SQ SCH (10:48)
--- NOTE | 2019-04-08 11:03 | Hospitalist Progress Note ---
Date of Service April 08, 2019 Assessment & Plan (1) Angioedema: Patient is a 63-year-old with history of hypertension, diabetes, came to ED with angioedema, intubated in the ER and admitted to ICU. She then developed ST elevations and was taken to cardiac Gi Physician which revealed nonobstructive coronary artery disease. Angioedema - Resolved Unclear etiology. Was on Enalapril for 12 years. -S/P Intubation in ED for airway protection--> Extubated successfully. Tolerating diet. -S/P FFP for possible c1 esterase deficiency in ED -S/P IV Solu medrol --> On PO steroids 40 mg -Day 2/5 , Pepcid BID, Change Benadryl to PRN. C1 esterase level ordered (not much helpful as received FFP)-- pending -Appreciate pulmonary inputs. Mild Non occlusive CAD Newly diagnosed Takotsubo cardiomyopathy Per cardiac cath on 04/07/[address] elevations in lateral leads seen on EKG during this admission which was primarily for symptoms of angioedema with no chest pain. -S/P Cardiac cath- Mild nonocclusive coronary artery disease Echocardiogram EF 20 to 25%, apical ballooning consistent with stress-induced cardiomyopathy. -Per cardiology, received a dose of IV lasix 20 mg today Started on ASA, Toprol XL with hx of asthma, No SUNDAY, ARB due to Angioedema. Simvastatin 40 mg changed to atorvastatin 40 mg q HS -Received a dose of IV lasix 20 mg on 04/06/19. Continue with lasix 40 mg PO BID (home dose) -Will need to follow up with cardiology and repeat Echo Acute respiratory failure- Resolved Intubated for airway protection given concern about potential angioedema. Now extubated successfully, saturating well on oxygen Diabetes mellitus type 2 Hold home medications -Insulin sliding scale, Accu-Cheks Chronic bilateral lymphedema -Takes lasix 40 mg PO BID at home OBESITY DVT prophylaxis Subcu heparin Disposition Eager to be discharged home. Discussed with cardiology about discharge- okay. F/up with cardiology in 1-2 weeks BMP to be done in outpatient during next appointment Discussed with cardiology Dr Srinivasan Subjective Patient is doing better. Eager to be discharged. Tongue swelling has resolved. Tolerating diet well. No complaints of shortness of breath, cough, fever, chills, chest pain, worsening of leg swelling. Chronic lymphedema present. Next Physical Exam Physical Exam: GENERAL- AAOX3, No acute distress, obese HEENT- Tongue normal now LUNGS- Air entry bilaterally decreased. No rales, rhonchi, crackles, wheezes heard. HEART- Regular rate and rhythm. No murmurs ABDOMEN- Soft, non tender, non distended, Bowel sounds heard. EXTREMITIES- Bilateral chronic lymphedema NEUROMUSCULAR- AAOX3, Grossly no focal deficits Results & Data Vital Signs (Past 12 Hours) Vital Signs Temp Pulse Pulse Resp BP Pulse Ox 04/08/19 08:00 70 04/08/19 07:21 36.7 C 67 16 131/74 90 04/08/19 04:57 37.0 C 70 18 105/69 92 04/07/19 23:45 70 (1) Angioedema Encounter type: initial encounter Qualified Code(s): T78.3XXA - Angioneurotic edema, initial encounter
--- NOTE | 2019-04-08 11:08 | Discharge Summary ---
Date of Service April 08, 2019 Admission HPI Per Admitting Provider HISTORY OF PRESENT ILLNESS: This is a 63-year-old female with past medical history significant for type 2 diabetes, morbid obesity, cirrhosis of liver, chronic thrombocytopenia, who presents with swelling of the tongue that was the only complaint when she came in to the ER and the tongue was very swollen and big. To protect the airway the patient got intubated, but later EKG was done which showed ST elevations in lateral leads. So at that time, the ER physician talked to the svp business development, advised for heart alert, and heart alert was called in and the patient is status post cardiac catheterization which showed mild CAD and the patient is currently in the ICU for further management. Could not get any history from the patient. Hemodynamics are stable. Principal Diagnosis 1. Angioedema (tongue swelling) 2. S/P Intubation for airway protection 3. New stress induced cardiomyopathy Secondary diagnoses on discharge 1. Diabetes mellitus type 2 2. Chronic bilateral lymphedema 3. Obesity next para Discharge Exam GENERAL- AAOX3, No acute distress, obese HEENT- Swollen Tongue + LUNGS- Air entry bilaterally decreased. No rales, rhonchi, crackles, wheezes heard. HEART- Regular rate and rhythm. No murmurs ABDOMEN- Soft, non tender, non distended, Bowel sounds heard. EXTREMITIES-bilateral chronic lymphedema NEUROMUSCULAR- AAOX3, Grossly no focal deficits Discharge Data Allergies Allergy/AdvReac Type Severity Reaction Status Date / Time enalapril Allergy Severe Swelling Verified 04/06/19 09:47 of Lip/Tongue/Throat tetanus toxoid, adsorbed Allergy Mild ARM GETS Verified 04/06/19 02:32 INFECTED Iodinated Contrast- Oral and Allergy Unknown "THE DYE Verified 04/06/19 02:32 IV Dye BLEW UP IN MY ARM" nickel Allergy Unknown "I GET AN Verified 04/06/19 02:32 INFECTION" Consultations 04/06/19 02:45 ED Decision to Admit Stat 04/06/19 02:46 Consult Solid Glass Rod Dowel Machine Operator Stat 04/06/19 03:42 Consult Cardiology Stat 04/06/19 03:43 Consult Cardiology Stat 04/06/19 04:29 Consult Solid Glass Rod Dowel Machine Operator Routine Procedures Performed Operation Date: 04/06/19 03:35 Actual Procedures s Cineradiography w/Routine Exam - Satish Engel MD p Cath, Left with Cors and Vent - Satish Engel MD Ordered Studies 04/06/19 03:38 CL Cath Imgs for PACS use only Stat Hospital Course (1) Angioedema: Patient is a 63-year-old with history of hypertension, diabetes, came to ED with angioedema, intubated in the ER and admitted to ICU. She then developed ST elevations and was taken to cardiac Early Breastfeeding Care Specialist which revealed nonobstructive coronary artery disease. Angioedema - Resolved Unclear etiology. Was on Enalapril for 12 years. -S/P Intubation in ED for airway protection--> Extubated successfully. Tolerating diet. -S/P FFP for possible c1 esterase deficiency in ED -S/P IV Solu medrol --> On PO steroids 40 mg -Day 2/5 , Pepcid BID, Benadryl to PRN. C1 esterase level ordered (not much helpful as received FFP)-- pending -Appreciate pulmonary inputs. Mild Non occlusive CAD Newly diagnosed Takotsubo cardiomyopathy Per cardiac cath on 04/07/[address] elevations in lateral leads seen on EKG during this admission which was primarily for symptoms of angioedema with no chest pain. -S/P Cardiac cath- Mild nonocclusive coronary artery disease Echocardiogram EF 20 to 25%, apical ballooning consistent with stress-induced cardiomyopathy. -Per cardiology, received a dose of IV lasix 20 mg today Started on ASA, Toprol XL with hx of asthma, No SUNDAY, ARB due to Angioedema. Simvastatin 40 mg changed to atorvastatin 40 mg q HS -Received a dose of IV lasix 20 mg on 04/06/19. Continue with lasix 40 mg PO BID (home dose) -Will need to follow up with cardiology and repeat Echo Acute respiratory failure- Resolved Intubated for airway protection given concern about potential angioedema. Now extubated successfully, saturating well on oxygen Diabetes mellitus type 2 Hold home medications -Insulin sliding scale, Accu-Cheks Chronic bilateral lymphedema -Takes lasix 40 mg PO BID at home OBESITY DVT prophylaxis Subcu heparin Disposition Eager to be discharged home. Discussed with cardiology about discharge- okay. F/up with cardiology in 1-2 weeks BMP to be done in outpatient during next appointment Discussed with cardiology Dr Srinivasan Total Time Total Time Spent Total Time Spent (In Minutes): 40 minutes Discharge Plan Discharge Items Patient Disposition: Home - Self-Care Reason For Visit: STEMI/ANGIO EDEMA Discharge Diagnosis: 1. Angioedema requiring intubation for airway protection 2. Stress induced cardiomyopathy Discharge Goals: Decrease discomfort Activity: Resume your previous activity Non-emergency contact: Primary Care Provider Call non-emergency contact if: your symptoms worsen Follow-up/Referrals: Nalini Soto DO [Primary Care Provider] - (We will call you for appt date/time for hospital follow up visit within 7 days) Diet: Carb Consistent or DM2, Low Fat and Low Sodium (2gm) Fluids: 1800ml (7 cups) Addtl Provider Instructions: You were admitted to the hospital for angioedema, required ICU sondra toring/intubation. He was also diagnosed with stress-induced cardiomyopathy with ejection fraction of heart only 20%. Medication changes 1. Discontinue enalapril 2. New medicationaspirin 81 mg daily 3. New medicationToprol-XL 25 mg daily 4. Discontinued simvastatin. Started on atorvastatin 40 mg at bedtime instead. 5. New medication - Prednisone 40 mg x 3 more days 6. New medication- potassium supplement while on lasix Blood work needed BMP to be done during next office appointment Weight loss recommended Prescriptions: New atorvastatin 40 mg Tablet 40 mg PO QAM 30 Days Qty: 30 RF: 0 prednisone 20 mg Tablet 40 mg PO DAILY 3 Days Qty: 6 RF: 0 aspirin [Ecotrin Low Strength] 81 mg Tablet,Delayed Release (Dr/Ec) 81 mg PO QAM 30 Days Qty: 30 RF: 0 potassium chloride [Klor-Con M20] 20 mEq Tablet,Er Particles/Crystals 20 meq PO QAM 30 Days Qty: 30 RF: 0 metoprolol succinate 25 mg Tablet Extended Release 24 Hr 25 mg PO QAM 30 Days Qty: 30 RF: 0 Continued metformin 1,000 mg Tablet 1,000 mg PO BID RF: 0 Jardiance 25 mg Tablet 25 mg PO QAM RF: 0 Ozempic 0.25 mg or 0.5 mg(2 mg/1.5 mL) Pen Injector 0.25 mg SUBCUT WK RF: 0 bupropion HCl 150 mg Tablet Sustained-Release 12 Hr 150 mg PO BID RF: 0 albuterol sulfate 90 mcg/actuation Hfa Aerosol Inhaler 2 puff INHALATION Q6H PRN (Reason: SOB) RF: 0 Prolia 60 mg/mL Syringe SUBCUT Q6M RF: 0 levothyroxine 100 mcg Tablet 100 mcg PO QAM RF: 0 pantoprazole [Protonix] 40 mg Tablet,Delayed Release (Dr/Ec) 40 mg PO QAM RF: 0 loratadine 10 mg Tablet 10 mg PO QAM RF: 0 tramadol 50 mg Tablet 50 mg PO TID PRN (Reason: Pain) RF: 0 ergocalciferol (vitamin D2) [Vitamin D2] 50,000 unit Capsule 50,000 unit PO WK RF: 0 allopurinol [Zyloprim] 300 mg Tablet 300 mg PO DAILY RF: 0 Amitiza 8 mcg Capsule 8 mcg PO BID RF: 0 pioglitazone [Actos] 30 mg Tablet 30 mg PO DAILY RF: 0 fluticasone propionate [Flonase Allergy Relief] 50 mcg/actuation [place],Suspension 2 spray INTRANASAL DAILY RF: 0 polyethylene glycol 3350 [Miralax] 17 gram/dose Powder 17 g PO DAILY PRN (Reason: Constipation) RF: 0 vitamin E 400 unit Capsule 400 unit PO DAILY RF: 0 milk thistle 150 mg Capsule 150 mg PO BID RF: 0 Centrum Silver Women 8 mg iron-400 mcg-300 mcg Tablet 1 tab PO DAILY RF: 0 furosemide [Lasix] 40 mg Tablet 40 mg PO BID RF: 0 Discontinued enalapril maleate 10 mg Tablet 10 mg PO QAM RF: 0 simvastatin 40 mg Tablet 40 mg PO QAM RF: 0 Stand-Alone Forms: [facility], [facility] Discharge Orders: Discharge Order (Routine); Ordered 04/08/19 Ordered By: Suzie Hurtado Admission Data Admit Date/Time: 04/06/19 04:28 Attending Provider: Suzie Hurtado Admit Provider: Satish Engel Primary Care Provider: Nalini Soto Other Providers: Vasiliy Pierce ; Jaya Shen Gregory ; Gerardo, James A. ; Aren Srinivasan Service: Telemetry Medical Other Pending Studies at Discharge: Yes Studies:: C1 ESTERASE LEVEL RESULTS- PENDING
[2019-04-08] MEDS ORDERED: FUROSEMIDE 40 MG TAB PO SCH (17:00)
[2019-04-10 00:56] LABS: C1 Esterase Inhibitor 27 mg/dL (21-39)
== END 2019-04-08 13:50 | disposition home or self-care (01) | DRG 281 ==
LOC: ED 01:50 → 1E 04:15 → SUATTDRO 04:28 → 2N 15:25

== ENCOUNTER 2025-03-12 13:15 | Inpatient (IN) ==
[2025-03-12] MEDS: ONDANSETRON INJ 2 MG/ML 2 ML VIAL IV STA (13:58)
[2025-03-12] MEDS: KETOROLAC TROMETHAMINE 15 MG/ML VIAL IV STA (13:58)
[2025-03-12] MEDS: SODIUM CHLORIDE 0.9% 500 ML IV STA (13:58)
[2025-03-12 14:24] LABS: Hematocrit (blood only) 37.8 % (37.0-47.0); Hemoglobin 13.6 g/dl (12.0-16.0); Immature Granulocytes # (auto) 0.04 K/uL (0.01-0.20); Immature Granulocytes % (auto) 0.5 %; Mean Corpuscular Hemoglobin 31.6 pg (25.0-34.0); Mean Corpuscular Volume 87.9 fL (80.0-100.0); Platelet Count 181 K/uL (130-400); RDW Standard Deviation 48.1 fL (36.4-46.3); Red Blood Count 4.30 M/uL (4.20-5.40); White Blood Count 7.77 K/ul (4.8-10.8)
[2025-03-12 14:41] LABS: Alanine Aminotransferase 23.0 U/L (7-52); Albumin Globulin Ratio 1.0 (0.9-2); Alkaline Phosphatase 93.0 U/L (34-104); Anion Gap 10.0 (3-11); Bilirubin,Total 1.4 mg/dl (0.2-1.0); Blood Urea Nitrogen 18.0 mg/dl (6-23); Calcium 8.9 mg/dl (8.6-10.3); Carbon Dioxide 33.0 mmol/L (21-32); Chloride 89.0 mmol/L (98-107); Creatinine Clr Calc Pharmacy 80.0 ml/min; Globulin 3.6 gm/dl (2.5-4.0); Glucose 222.0 mg/dl (70-99(Fasting)); Potassium 2.8 mmol/L (3.5-5.1); Sodium 132.0 mmol/L (136-145); Total Protein 7.2 gm/dl (6.0-8.3)
[2025-03-12 15:54] LABS: Appearance Urine Clear (Clear); Bacteria Urine Automated 4+ (None Seen); Cast Urine Automated 0-2 /lpf (0-2); Epithelial Cell Urine Auto 0-2 /hpf (0-2); Glucose Urine UA 3+ (Negative); WBC Urine Automated 21-50 /hpf (0-5)
[2025-03-12] MEDS: cefTRIAXone SODIUM 2,000 MG/50 ML BAG IV STA (17:19)
[2025-03-12] MEDS: SODIUM CHLORIDE 0.9% 1,000 ML IV ONE (17:19)
[2025-03-12] MEDS: POTASSIUM CHLORIDE CRTAB 20 MEQ TABCR PO STA (17:25)
--- NOTE | 2025-03-12 18:27 | Emergency Department Note ---
Impression & Plan Acute UTI (urinary tract infection), Emphysematous cystitis, Acute hypokalemia, Liver mass, Acute right flank pain ED Provider Note HISTORY OF PRESENT ILLNESS: Patient is a 69-year-old female presenting with right flank pain. Patient reports she started vomiting 5 days ago. She reports that 4 days ago she started having pain in her right posterior flank. She denies any fevers or chills at home. Denies any diarrhea but states that she has had continued vomiting over the last 5 days. She rates the pain in her back a 10 out of 10. She states that 2 days ago she started noticing blood in her urine. Denies any dysuria. Denies any fevers or chills denies any chest pain or shortness of breath. ROS: as above PHYSICAL EXAM: Constitutional: Patient appears in no acute distress. HENT: Head: Normocephalic and atraumatic. Eyes: EOMI, PERRL Mouth/Throat: Mucous membranes moist. Neck: Trachea midline. Neck supple. Cardiovascular: RRR, No murmurs, rubs or gallops. Intact distal pulses. Pulmonary/Chest: No respiratory distress. Breath sounds clear and equal bilaterally. No wheezes or rales. Abdominal: Abdomen soft, no tenderness, rebound or guarding. Musculoskeletal: No edema, tenderness or deformity noted. Skin: Warm and dry. No rash, erythema, pallor or cyanosis Psychiatric: Appropriate mood and affect for situation. Neurological: Alert and keenly responsive. CN II-XII grossly intact, moving all extremities equally and fully. MDM: - Vitals signs showed hypotension and tachycardia. - History obtained via patient. History as above. - Chronic conditions affecting care: CAD; DM-2; obesity; HTN; HLD; cirrhosis - Differential diagnoses include, but are not limited to: Ureteral stone; UTI; pyelonephritis; coagulopathy - Order placed for continuous cardiac monitoring. At this time, monitor showed rate of 75 bpm with normal sinus rhythm, per my interpretation. - External medical records reviewed. Primary care visit note dated 02/19/2025 was reviewed. Patient was seen for follow-up for her chronic medical conditions. She has a history of cirrhosis and fatty liver disease. - Laboratory workup interpreted by myself showed normal WBC; hypokalemia (2.8); hyponatremia (Na 132); elevated total bilirubin (1.4) with normal AST/ALT - UA showed evidence of infection. Patient given 2 g IV Rocephin. - Given 1L NS, 4 mg IV zofran and 15 mg IV toradol. Given 20 mEq IV potassium and 20 mEq PO potassium for electrolyte replacement - CT abdomen/pelvis wo contrast showed emphysematous cystitis. Also noted to have a large right upper quadrant mass with what appeared to be pulmonary metastases throughout the visualized lung bases. - Discussed case with urologist on-call, Dr. Thomas, at 18:44. He recommended De La Rosa catheter placement to decompress the urinary tract. Recommended broad- spectrum antibiotics, specifically coverage for anaerobes. - Discussion was had with binder caser about patient's case and need for admission - Hospitalist consulted for admission at 19:23 - Patient admitted to [facility] for further evaluation and management. ASSESSMENT AND PLAN: Diagnosis: acute UTI; emphysematous cystitis; liver mass; acute hypokalemia; acute right flank pain Plan: Admit Past Med/Surg History Problem List (Updated 03/12/25 @ 20:00 by Marianna Jimenez PA-C) Acute hyponatremia Acute right flank pain (Acute) Liver mass (Acute) Acute hypokalemia (Acute) Emphysematous cystitis (Acute) Acute UTI (urinary tract infection) (Acute) Chronic back pain Constipation Intertrigo Class 3 severe obesity due to excess calories with body mass index (BMI) of 40.0 to 44.9 in adult Hypovitaminosis D Abnormality of right breast on screening mammogram Disappearance and of family member Diabetes mellitus, type 2 GERD (gastroesophageal reflux disease) Hypokalemia Anxiety and depression Osteoporosis Gout Hyperlipidemia Hypertension Cirrhosis Dyslipidemia associated with type 2 diabetes mellitus (Chronic) Benign essential hypertension (Chronic) Stress-induced cardiomyopathy Medical History History of ST elevation myocardial infarction (STEMI) 03/2019--had heart cath, follows with Dr. Srinivasan Degenerative disc disease LUMBAR AREA Spinal stenosis of lumbar region SOB (shortness of breath) on exertion CAD (coronary artery disease) Angioedema Osteoarthritis Hiatal hernia Hypothyroidism Anxiety Migraine H/O Kidney stones HX Asthma Surgical History History of bunionectomy of both great toes History of arthroscopy R/L KNEES History of cardiac cath (~04/07/19) @ [facility]--no stents placed S/P PALAK-BSO History of carpal tunnel release RIGHT History of cystoscopy WITH STENT AND REPAIRED RIGHT URETER BLOCKAGE. History of herniorrhaphy RIGHT INGUINAL HERNIA REPAIR History of cholecystectomy History of appendectomy History of esophagogastroduodenoscopy (EGD) History of colonoscopy History of thyroidectomy, subtotal BENIGN TUMOR History of cataract surgery BILATERAL History of tonsillectomy Family History Sister FHx: pancreatic cancer Family history of diabetes mellitus Mother Family history of diabetes mellitus Son Family history of diabetes mellitus Other No family history of adverse response to anesthesia Social History Smoking Status: Former smoker Tobacco Type: Cigarettes Age Started Using Tobacco: 20; Age Quit Using Tobacco: 58; packs per day: 2; Cigarettes Per Day: 1 PPD X 35 YEARS; Second Hand Exposure: Yes (son smokes/parents smoked); Do You Dip or Chew Tobacco: No; Hx Alcohol Use: No Hx Substance Use: No Preferred Language: Malay Communication Ability: Effective 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 Beliefs That Will Affect Care: None marital status: Single Current Living Situation: Alone current occupational status: disabled Feels Safe at Home: Yes Diet: regular Seatbelt Use: always Sunscreen Use: Yes Assistive Devices: Glasses Allergies Allergies Allergy/AdvReac Type Severity Reaction Status Date / Time enalapril Allergy Severe Swelling Verified 03/12/25 19:09 of Lip/Tongue/Throat Iodinated Contrast Media Allergy Intermediate "THE DYE Verified 03/12/25 19:09 BLEW UP IN MY ARM" nickel Allergy Intermediate "I GET AN Verified 03/12/25 19:09 INFECTION" tetanus toxoid, adsorbed Allergy Intermediate ARM GETS Verified 03/12/25 19:09 INFECTED-SWELLING, REDNESS Home Meds Home Medications Medication Instructions Recorded Confirmed albuterol sulfate 90 mcg/actuation 2 puff inhalation Q6H PRN SOB 01/25/19 03/12/25 aerosol inhaler milk thistle 150 mg capsule 150 mg PO BID 04/06/19 03/12/25 [id number] 8 mg-folic 400 1 tab PO QAM 04/06/19 03/12/25 mcg-K 50 mcg-lutein 300 mcg tablet (Centrum Silver Women) ergocalciferol (vitamin D2) 1,250 1,250 mcg PO WK 03/12/25 03/12/25 mcg (50,000 unit) capsule Previous Rx's Medication Instructions Recorded polyethylene glycol 3350 17 17 g PO DAILY PRN Constipation 03/03/23 gram/dose oral powder (Miralax) #850 grams vitamin E mixed 400 unit capsule 400 unit PO QAM #90 caps 12/28/23 aspirin 81 mg chewable tablet 81 mg PO QAM #90 tabs 02/24/24 fluticasone propionate 50 2 spray intranasal QAM #16 grams 04/25/24 mcg/actuation nasal spray,suspension (Flonase Allergy Relief) pantoprazole 40 mg tablet,delayed 40 mg PO BID 90 days #180 tabs 05/29/24 release (Protonix) allopurinol 300 mg tablet 300 mg PO QAM #90 tabs 08/21/24 atorvastatin 40 mg tablet 40 mg PO HS #90 tabs 08/21/24 bupropion HCl 150 mg tablet,12 hr 150 mg PO BID #180 ea 08/21/24 sustained-release buspirone 5 mg tablet 5 mg PO BID #180 tabs 08/21/24 furosemide 40 mg tablet (Lasix) 40 mg PO BID 90 days #180 tabs 08/21/24 semaglutide 2 mg/dose (8 mg/3 mL) 2 mg (0.75 mL) subcut .COMPLEX #3 08/21/24 subcutaneous pen injector (Ozempic) mL denosumab 60 mg/mL subcutaneous 60 mg subcut Q6M #1 mL 09/28/24 syringe (Prolia) empagliflozin 25 mg tablet 25 mg PO QAM #90 tabs 02/19/25 (Jardiance) levothyroxine 100 mcg tablet 100 mcg PO QAM #90 tabs 02/19/25 loratadine 10 mg tablet 10 mg PO QAM #90 tabs 02/19/25 metformin 500 mg tablet,extended 500 mg PO DAILY 90 days #90 tabs 02/19/25 release 24 hr metoprolol succinate 25 mg 25 mg PO QAM #90 tabs 02/19/25 tablet,extended release 24 hr nystatin 100,000 unit/gram topical 1 applic topical BID 2 weeks #30 02/19/25 cream grams tramadol 50 mg tablet 50 mg PO QPM PRN Pain #30 tabs 02/19/25 potassium chloride 20 mEq 20 meq PO DAILY #90 tabs 02/20/25 tablet,extended release Results & Data (ED) Vital Signs Vital Signs - 24 hr 03/12/25 13:35 03/12/25 17:05 03/12/25 18:11 Temperature 36.7 C Temperature Source Temporal Artery Scan Pulse Rate 96 H 75 Pulse Rate [Apical] 82 Respiratory Rate 18 16 Respiratory Effort / Characteristics Non-Labored Spontaneous Non-Labored Spontaneous Respiratory Depth Normal Normal Blood Pressure 94/63 L Blood Pressure [Left Arm] 127/73 Blood Pressure Mean 73 Blood Pressure Mean [Left Arm] 91 Blood Pressure Position [Left Arm] Semi-fowlers Pulse Oximetry 95 92 Oxygen Delivery Method Room Air Room Air Sepsis Recent Fever Within 48 Hours No Sepsis New/Unexplained Change in Mental Status No Sepsis Action Taken by Nursing No Action Required Laboratory Data 03/12/25 14:00 03/12/25 14:00 Lab Results 03/12/25 03/12/25 03/12/25 Range/Units 14:00 19:21 Unknown WBC 7.77 (4.8-10.8) K/ul RBC 4.30 (4.20-5.40) M/uL Hgb 13.6 (12.0-16.0) g/dl Hct 37.8 (37.0-47.0) % MCV 87.9 (80.0-100.0) fL MCH 31.6 (25.0-34.0) pg MCHC 36.0 (32.0-36.0) g/dL RDW Std Deviation 48.1 H (36.4-46.3) fL RDW Coeff of Huyen 15.5 H (11.5-14.5) % Plt Count 181 (130-400) K/uL MPV 10.6 (9.4-12.4) fL Immature Gran % (Auto) 0.5 % Neut % (Auto) 70.7 % Lymph % (Auto) 15.1 % Warren % (Auto) 10.4 % Eos % (Auto) 2.8 % Baso % (Auto) 0.5 % Neut # (Auto) 5.49 (1.40-6.50) K/uL Lymph # (Auto) 1.17 L (1.20-3.40) K/uL Warren # (Auto) 0.81 H (0.11-0.59) K/uL Eos # (Auto) 0.22 (0.00-0.50) K/uL Baso # (Auto) 0.04 (0.00-0.20) K/uL Immature Gran # (Auto) 0.04 (0.01-0.20) K/uL Sodium 132 L (136-145) mmol/L Potassium 2.8 L (3.5-5.1) mmol/L Chloride 89 L (98-107) mmol/L Carbon Dioxide 33 H (21-32) mmol/L Anion Gap 10 (3-11) BUN 18 (6-23) mg/dl Creatinine 0.69 (0.6-1.2) mg/dl Est Cr Clr Drug Dosing 80.0 ml/min eGFR 93.89 BUN/Creatinine Ratio 26.1 H (10-20) Glucose 222 H (70-99(Fasting)) mg/dl Calcium 8.9 (8.6-10.3) mg/dl Magnesium 1.9 (1.7-2.4) mg/dl Total Bilirubin 1.4 H (0.2-1.0) mg/dl AST 24 (13-39) U/L ALT 23 (7-52) U/L Alkaline Phosphatase 93 (34-104) U/L Total Protein 7.2 (6.0-8.3) gm/dl Albumin 3.6 (3.4-5.0) gm/dl Globulin 3.6 (2.5-4.0) gm/dl Albumin/Globulin Ratio 1.0 (0.9-2) Urine Color Yellow Urine Appearance Clear (Clear) Urine pH 5.5 (4.5-7.5) POC Urine pH 5 (4.5-7.5) Ur Specific Ava 1.020 (1.000-1.030) Urine Protein Trace H (Negative) POC Urine Protein Negative (Negative) Urine Glucose (UA) 3+ H (Negative) POC Ur Glucose (UA) 1000 H (Normal) Urine Ketones Trace H (Negative) POC Urine Ketones 1+ (Small) H (Negative) Urine Blood 3+ H (Negative) POC Urine Blood 250 H (Negative) Urine Nitrite Positive A (Negative) POC Urine Nitrite Positive A (Negative) Urine Bilirubin Negative (Negative) POC Urine Bilirubin Negative (Negative) Urine Urobilinogen Negative (Negative) POC Urine Urobilinogen Normal (Normal) Ur Leukocyte Esterase 1+ H (Negative) POC U Leukocyte Esteras 1+ H (Negative) Urine WBC (Auto) 21-50 H (0-5) /hpf Urine RBC (Auto) 11-20 H (0-2) /hpf U Hyaline Cast (Auto) 0-2 (0-2) /lpf U Epithel Cells (Auto) 0-2 (0-2) /hpf Urine Bacteria (Auto) 4+ H (None Seen) POC Ur Test NEG (NEG) Urine Comment Administered Medications Discontinued Medications Sodium Chloride (Nss) 500 mls @ 999 mls/hr IV .Q31M STA Stop: 03/12/25 14:08 Last Infusion: 03/12/25 17:26 Dose: Infused Documented By: Admin: 03/12/25 13:58 Dose: 999 mls/hr Documented By: CHAUNCEY Sodium Chloride (Nss) 1,000 mls @ 999 mls/hr IV .Q1H1M ONE Stop: 03/12/25 17:24 Last Infusion: 03/12/25 18:51 Dose: Infused Documented By: Admin: 03/12/25 17:19 Dose: 999 mls/hr Documented By: MMF Ceftriaxone Sodium (Rocephin) 2,000 mg in 50 mls @ 100 mls/hr IV NOW STA Stop: 03/12/25 16:53 Last Infusion: 03/12/25 18:51 Dose: Infused Documented By: Admin: 03/12/25 17:19 Dose: 100 mls/hr Documented By: MMF Potassium Chloride (K Fernando / Wtr) 10 meq in 100 mls @ 100 mls/hr IV Q1H RAJI Stop: 03/12/25 18:29 Last Admin: 03/12/25 19:10 Dose: 100 mls/hr Documented By: Infusion: 03/12/25 19:10 Dose: Infused Documented By: Admin: 03/12/25 19:00 Dose: 100 mls/hr Documented By: MMF Ketorolac Tromethamine (Ketorolac Tromethamine 15 Mg/Ml Vial) 15 mg IV ONE STA Stop: 03/12/25 13:39 Last Admin: 03/12/25 13:58 Dose: 15 mg Documented By: CHAUNCEY Ondansetron HCl (Ondansetron Inj 2 Mg/Ml 2 Ml Vial) 4 mg IV NOW STA Stop: 03/12/25 13:39 Last Admin: 03/12/25 13:58 Dose: 4 mg Documented By: CHAUNCEY Potassium Chloride (Potassium Chloride Crtab 20 Meq Tabcr) 20 meq PO NOW STA Stop: 03/12/25 16:28 Last Admin: 03/12/25 17:25 Dose: 20 meq Documented By: [facility] Imaging Data Radiologist's Impression: Abdomen/Pelvis CT 03/12/25 16:14 EXAMINATION: Abdomen and pelvis CT without CLINICAL HISTORY: Right flank pain PRIORS: 12/30/2023 ultrasound TECHNIQUE: Contiguous axial images were obtained through the abdomen and pelvis without the use of intravenous contrast. Sagittal and coronal reformations are supplied. FINDINGS: Multiple patchy areas of opacification present throughout the lower lobes, most with spiculation and somewhat central lucency. No prior chest imaging is available. Allowing for absence of intravenous contrast, coarse calcifications noted in the liver, right lobe with large soft tissue mass either arising from the caudate lobe or representing a large conglomerate of lymph nodes in the louise hepatis, image 18, series 2. This is well-circumscribed and measures 8.5 x 7.0 cm with exact anatomic relationships not fully identified. This is extremely limited without intravenous contrast. The spleen is enlarged. Hepatic cirrhosis is noted. Gallbladder surgically absent. Multiple soft tissue nodules present throughout the mesentery, likely metastatic disease. The pancreas is not well visualized. Coarse calcifications noted in the expected position of the pancreas. The mass may in part be associated with the pancreas, image 112, series 3. Retroperitoneal adenopathy present. Surgical clips in the right lower quadrant and pelvis. Circumferential urinary bladder wall gas and gas present in the urinary bladder lumen, image 319, series 3. Large amount of formed stool present in the colon. No dilated loops of bowel. No pericolonic inflammatory change. Moderate atherosclerotic disease. In bone windows, advanced osseous demineralization noted. Heterogeneous sclerotic focus present in the left iliac bone, image 63, series 2, possibly representing metastases. Additional metastases cannot be excluded. IMPRESSION: 1. Emphysematous cystitis. Urology consultation encouraged. 2. Large right upper quadrant mass, possibly arising from the liver in the setting of cirrhosis with peritoneal implants, retroperitoneal adenopathy and suspected pulmonary metastases throughout the visualized lung bases. If the patient does not have known malignancy, oncology consultation encouraged if appropriate. ACT 112: Positive. There are findings on this examination that require communication between the performing entity and the patient following Patient Test Result Information Act ([place] ACT 112) guidelines. Electronically signed by Noemy Zamora 03-12-2025 6:36 PM Discharge Plan Visit Data Chief Complaint: Hematuria Stated Complaint: BLOOD IN URINE ED Provider: Dayanara Hankins Discharge Problem: Acute UTI (urinary tract infection), Emphysematous cystitis, Acute hypokalemia, Liver mass, Acute right flank pain Condition: Fair Forms Stand Alone Forms: [employer] Prescriptions Prescriptions: No Action polyethylene glycol 3350 [Miralax] 17 gram/dose powder 17 g PO DAILY PRN (Reason: Constipation) Qty: 850 3RF vitamin E mixed 400 unit capsule 400 unit PO QAM Qty: 90 2RF aspirin 81 mg tablet,chewable 81 mg PO QAM Qty: 90 3RF fluticasone propionate [Flonase Allergy Relief] 50 mcg/actuation spray,suspension 2 spray INTRANASAL QAM Qty: 16 3RF potassium chloride 20 mEq tablet extended release 20 meq PO DAILY Qty: 90 2RF pantoprazole [Protonix] 40 mg tablet,delayed release (DR/EC) 40 mg PO BID 90 Days Qty: 180 3RF Prolia 60 mg/mL syringe 60 mg SUBCUT Q6M Qty: 1 1RF Ozempic 2 mg/dose (8 mg/3 mL) pen injector 2 mg subcut .COMPLEX Qty: 3 11RF Rx Instructions: 2 mg subcutaneously every week; MONDAYS allopurinol 300 mg tablet 300 mg PO QAM Qty: 90 3RF atorvastatin 40 mg tablet 40 mg PO HS Qty: 90 3RF bupropion HCl 150 mg tablet sustained-release 12 hr 150 mg PO BID Qty: 180 3RF buspirone 5 mg tablet 5 mg PO BID Qty: 180 3RF furosemide [Lasix] 40 mg tablet 40 mg PO BID 90 Days Qty: 180 2RF nystatin 100,000 unit/gram cream 1 applic topical BID 14 Days Qty: 30 2RF Rx Instructions: apply to affected area after cleaning and drying loratadine 10 mg tablet 10 mg PO QAM Qty: 90 3RF metoprolol succinate 25 mg tablet extended release 24 hr 25 mg PO QAM Qty: 90 3RF metformin 500 mg tablet extended release 24 hr 500 mg PO DAILY 90 Days Qty: 90 3RF Rx Instructions: take with dinner tramadol 50 mg tablet 50 mg PO QPM PRN (Reason: Pain) Qty: 30 0RF levothyroxine 100 mcg tablet 100 mcg PO QAM Qty: 90 3RF Jardiance 25 mg tablet 25 mg PO QAM Qty: 90 3RF albuterol sulfate 90 mcg/actuation Hfa Aerosol Inhaler 2 puff INHALATION Q6H PRN (Reason: SOB) milk thistle 150 mg Capsule 150 mg PO BID Centrum Silver Women 8 mg iron-400 mcg-300 mcg Tablet 1 tab PO QAM ergocalciferol (vitamin D2) [Drisdol] 1,250 mcg (50,000 unit) Capsule 1,250 mcg PO WK Rx Instructions: MONDAYS Referrals Referrals: Aleksey Galindo DO [Primary Care Provider] -
--- NOTE | 2025-03-12 18:37 | CT Scan Report ---
EXAMINATION: Abdomen and pelvis CT without CLINICAL HISTORY: Right flank pain PRIORS: 12/30/2023 ultrasound TECHNIQUE: Contiguous axial images were obtained through the abdomen and pelvis without the use of intravenous contrast. Sagittal and coronal reformations are supplied. FINDINGS: Multiple patchy areas of opacification present throughout the lower lobes, most with spiculation and somewhat central lucency. No prior chest imaging is available. Allowing for absence of intravenous contrast, coarse calcifications noted in the liver, right lobe with large soft tissue mass either arising from the caudate lobe or representing a large conglomerate of lymph nodes in the louise hepatis, image 18, series 2. This is well-circumscribed and measures 8.5 x 7.0 cm with exact anatomic relationships not fully identified. This is extremely limited without intravenous contrast. The spleen is enlarged. Hepatic cirrhosis is noted. Gallbladder surgically absent. Multiple soft tissue nodules present throughout the mesentery, likely metastatic disease. The pancreas is not well visualized. Coarse calcifications noted in the expected position of the pancreas. The mass may in part be associated with the pancreas, image 112, series 3. Retroperitoneal adenopathy present. Surgical clips in the right lower quadrant and pelvis. Circumferential urinary bladder wall gas and gas present in the urinary bladder lumen, image 319, series 3. Large amount of formed stool present in the colon. No dilated loops of bowel. No pericolonic inflammatory change. Moderate atherosclerotic disease. In bone windows, advanced osseous demineralization noted. Heterogeneous sclerotic focus present in the left iliac bone, image 63, series 2, possibly representing metastases. Additional metastases cannot be excluded. IMPRESSION: 1. Emphysematous cystitis. Urology consultation encouraged. 2. Large right upper quadrant mass, possibly arising from the liver in the setting of cirrhosis with peritoneal implants, retroperitoneal adenopathy and suspected pulmonary metastases throughout the visualized lung bases. If the patient does not have known malignancy, oncology consultation encouraged if appropriate. ACT 112: Positive. There are findings on this examination that require communication between the performing entity and the patient following Patient Test Result Information Act ([place] ACT 112) guidelines. Electronically signed by Noemy Zamora 03-12-2025 6:36 PM
[2025-03-12] MEDS: POTASSIUM CHLORIDE / WTR 10 MEQ/100 ML PLCT IV SCH ×2 (19:00→20:22)
--- NOTE | 2025-03-12 19:25 | History & Physical Report ---
Date of Service March 12, 2025 Assessment & Plan (1) Emphysematous cystitis: (2) Acute hypokalemia: (3) Acute hyponatremia: (4) Liver mass: Plan Patient is a 69-year-old female with past medical history of liver cirrhosis, CAD, asthma, type II DM, HTN, osteoporosis who presented with several days of right flank pain, vomiting, hematuria. Diagnostic imaging revealed emphysematous cystitis laboratories revealed UTI as well as labs hypokalemia and hyponatremia. Patient is being admitted for IV abx. #emphysematous cystitis - APCT shows emphysematous cystitis, UA positive for UTI. Renal function stable. Nonseptic at time of admission - no leukocytosis, VSS, afebrile. - hold baby aspirin and chemical VTE PPx with hematuria pain control with Tylenol prn, Toradol prn, and Oxycodone 5/10 (for pain not relieved by #1 and 2) - nausea control with Zofran prn Urology consulted, recommending De La Rosa catheter ordered Continue Rocephin, consider broadening coverage if patient fails to improve or becomes febrile Follow urine cultures, no history of UTIs or previous positive cultures on file Trend CBC #Hypokalemia/hyponatremia suspect 2/2 GI depletion with 5 days of vomiting with continued p.o. diuretics. K+ 2.8, NA 132, mag 1.9, renal function stable. Received 20 mEQ IV KCl and 20 mEq p.o. KCl in ED Additional 20 mEq IV KCl ordered at time of admission Sodium repletion with NSS; 1.5 mL bolus in ED, continued with NSS at 100 mL/hour overnight Hold Lasix Trend BMP and magnesium monitor on telemetry for any arrhythmias #Suspected malignancy AP CT revealed liver cirrhosis with marked right upper quadrant mass with peritoneal implants and suspected pulmonary metastasis visualized throughout lung bases. New since liver ultrasound in November 2024. Patient without personal history of CA - father with lung cancer and sister with pancreatic cancer. Oncology consulted #T2DM - Most recent A1C 6.7%. Hold Jardiance, Ozempic (injections on Mondays), metformin - SSI with target BSG range 110-180mg/dL, CF 35, defer carb ratio - BSG ACHS if eating, q6h if npo #CAD/HTN continue statin and metoprolol, hold ASA with hematuria. History of angioedema with ACEi. #hypothyroidism continue levothyroxine #Asthma continue as needed inhaler #Mental healthcontinue bupropion and buspirone VTE ppx: SCDs, avoid chemical with hematuria unable to ambulate Dispo: med/tele Admission and Anticipated Discharge Date Admission Date: 03/12/25 History of Present Illness Chief Complaint: hematuria Primary Care Provider: Aleksey Galindo DO Patient is a 69-year-old female with past medical history of liver cirrhosis, CAD, asthma, type II DM, HTN, osteoporosis who presented with several days of right flank pain, vomiting, hematuria. Diagnostic imaging revealed emphysematous cystitis laboratories revealed UTI as well as labs hypokalemia and hyponatremia. Patient is being admitted for IV abx. Urology recommended De La Rosa catheter to help decompress the bladder and broad- spectrum coverage including anaerobic antibiotic coverage. Patient seen at bedside with her son present. She stated that for the past few days she has had right flank pain with vomiting and poor appetite. She developed hematuria approximately 2 days ago, she has a light pink tinge to her urine, denies any significant clots. She denies any dysuria or difficulty uri nating. She denies any past history of UTIs, does have a history of kidney stones in 1993. She denies any fevers, chills, night sweats, chest pain, shortness of breath, lower abdominal pain. She denies nicotine or alcohol use. She personally denies any history of cancer, aware of the masses seen on AP CT. Her father had lung cancer and her sister had pancreatic cancer. She did take her home medications this morning and is due for her evening medications. She wishes to be full code. Allergies Allergy/AdvReac Type Severity Reaction Status Date / Time enalapril Allergy Severe Swelling Verified 03/12/25 19:09 of Lip/Tongue/Throat Iodinated Contrast Media Allergy Intermediate "THE DYE Verified 03/12/25 19:09 BLEW UP IN MY ARM" nickel Allergy Intermediate "I GET AN Verified 03/12/25 19:09 INFECTION" tetanus toxoid, adsorbed Allergy Intermediate ARM GETS Verified 03/12/25 19:09 INFECTED-SWELLING, REDNESS Home Medications Medication Instructions Recorded Confirmed Type albuterol sulfate 90 mcg/actuation 2 puff inhalation Q6H PRN SOB 01/25/19 03/12/25 History aerosol inhaler milk thistle 150 mg capsule 150 mg PO BID 04/06/19 03/12/25 History [id number]-[id number] 8 mg-folic 400 1 tab PO QAM 04/06/19 03/12/25 History mcg-K 50 mcg-lutein 300 mcg tablet (Centrum Silver Women) polyethylene glycol 3350 17 17 g PO DAILY PRN Constipation 03/03/23 03/12/25 Rx gram/dose oral powder (Miralax) #850 grams vitamin E mixed 400 unit capsule 400 unit PO QAM #90 caps 12/28/23 03/12/25 Rx aspirin 81 mg chewable tablet 81 mg PO QAM #90 tabs 02/24/24 03/12/25 Rx fluticasone propionate 50 2 spray intranasal QAM #16 grams 04/25/24 03/12/25 Rx mcg/actuation nasal spray,suspension (Flonase Allergy Relief) pantoprazole 40 mg tablet,delayed 40 mg PO BID 90 days #180 tabs 05/29/24 03/12/25 Rx release (Protonix) allopurinol 300 mg tablet 300 mg PO QAM #90 tabs 08/21/24 03/12/25 Rx atorvastatin 40 mg tablet 40 mg PO HS #90 tabs 08/21/24 03/12/25 Rx bupropion HCl 150 mg tablet,12 hr 150 mg PO BID #180 ea 08/21/24 03/12/25 Rx sustained-release buspirone 5 mg tablet 5 mg PO BID #180 tabs 08/21/24 03/12/25 Rx furosemide 40 mg tablet (Lasix) 40 mg PO BID 90 days #180 tabs 08/21/24 03/12/25 Rx semaglutide 2 mg/dose (8 mg/3 mL) 2 mg (0.75 mL) subcut .COMPLEX #3 08/21/24 03/12/25 Rx subcutaneous pen injector (Ozempic) mL denosumab 60 mg/mL subcutaneous 60 mg subcut Q6M #1 mL 09/28/24 03/12/25 Rx syringe (Prolia) empagliflozin 25 mg tablet 25 mg PO QAM #90 tabs 02/19/25 03/12/25 Rx (Jardiance) levothyroxine 100 mcg tablet 100 mcg PO QAM #90 tabs 02/19/25 03/12/25 Rx loratadine 10 mg tablet 10 mg PO QAM #90 tabs 02/19/25 03/12/25 Rx metformin 500 mg tablet,extended 500 mg PO DAILY 90 days #90 tabs 02/19/25 03/12/25 Rx release 24 hr metoprolol succinate 25 mg 25 mg PO QAM #90 tabs 02/19/25 03/12/25 Rx tablet,extended release 24 hr nystatin 100,000 unit/gram topical 1 applic topical BID 2 weeks #30 02/19/25 03/12/25 Rx cream grams tramadol 50 mg tablet 50 mg PO QPM PRN Pain #30 tabs 02/19/25 03/12/25 Rx potassium chloride 20 mEq 20 meq PO DAILY #90 tabs 02/20/25 03/12/25 Rx tablet,extended release ergocalciferol (vitamin D2) 1,250 1,250 mcg PO WK 03/12/25 03/12/25 History mcg (50,000 unit) capsule Past Med/Surg History Problem List (Updated 03/12/25 @ 22:58 by Cristofer Celeste) Acute hyponatremia Acute right flank pain (Acute) Liver mass (Acute) Acute hypokalemia (Acute) Emphysematous cystitis (Acute) Acute UTI (urinary tract infection) (Acute) Chronic back pain Constipation Intertrigo Class 3 severe obesity due to excess calories with body mass index (BMI) of 40.0 to 44.9 in adult Hypovitaminosis D Abnormality of right breast on screening mammogram Disappearance and of family member Diabetes mellitus, type 2 GERD (gastroesophageal reflux disease) Hypokalemia Anxiety and depression Osteoporosis Gout Hyperlipidemia Hypertension Cirrhosis Dyslipidemia associated with type 2 diabetes mellitus (Chronic) Benign essential hypertension (Chronic) Stress-induced cardiomyopathy Medical History History of ST elevation myocardial infarction (STEMI) 03/2019--had heart cath, follows with Dr. Srinivasan Degenerative disc disease LUMBAR AREA Spinal stenosis of lumbar region SOB (shortness of breath) on exertion CAD (coronary artery disease) Angioedema Osteoarthritis Hiatal hernia Hypothyroidism Anxiety Migraine H/O Kidney stones HX Asthma Surgical History History of bunionectomy of both great toes History of arthroscopy R/L KNEES History of cardiac cath (~04/07/19) @ [facility]--no stents placed S/P PALAK-BSO History of carpal tunnel release RIGHT History of cystoscopy WITH STENT AND REPAIRED RIGHT URETER BLOCKAGE. History of herniorrhaphy RIGHT INGUINAL HERNIA REPAIR History of cholecystectomy History of appendectomy History of esophagogastroduodenoscopy (EGD) History of colonoscopy History of thyroidectomy, subtotal BENIGN TUMOR History of cataract surgery BILATERAL History of tonsillectomy Family History Sister FHx: pancreatic cancer Family history of diabetes mellitus Mother Family history of diabetes mellitus Son Family history of diabetes mellitus Other No family history of adverse response to anesthesia Social History Smoking Status: Former smoker Tobacco Type: Cigarettes Age Started Using Tobacco: 20; Age Quit Using Tobacco: 58; packs per day: 2; Cigarettes Per Day: 1 PPD X 35 YEARS; Second Hand Exposure: Yes (son smokes/parents smoked); Do You Dip or Chew Tobacco: No; Hx Alcohol Use: No Hx Substance Use: No Preferred Language: Polish Communication Ability: Effective Puttying And Calking Supervisor Required: No Beliefs That Will Affect Care: None marital status: Single Current Living Situation: Alone current occupational status: disabled Feels Safe at Home: Yes Diet: regular Seatbelt Use: always Sunscreen Use: Yes Assistive Devices: Glasses Review of Systems Review of Systems: see HPI Physical Exam Physical Exam: The patient is awake, alert and oriented 3, well developed and well nourished, normocephalic and atraumatic, in no acute distress. Non-toxic appearing. HEENT- EOMI, mucous membranes dry. Hearing grossly intact. Heart-normal S1 and S2. No murmurs, rubs or gallops. Lungs-clear bilaterally, no respiratory distress, no accessory muscle use. Abdomen-normal bowel sounds and soft. No ascites noted. Non-tender. Extremities- no clubbing, cyanosis, or edema. Rheumatologic-normal range of motion. Psychiatric-normal affect. Results & Data Results & Data Vital Signs (Past 12 Hours) Vital Signs Temp Pulse Pulse Resp BP BP Pulse Ox 03/12/25 18:11 75 03/12/25 17:05 82 16 127/73 92 03/12/25 13:35 36.7 C 96 H 18 94/63 L 95 O2 Del Method 03/12/25 18:11 03/12/25 17:05 Room Air 03/12/25 13:35 Room Air Laboratory Results Reviewed CBC, CMP, magnesium, UA Diagnostic Findings reviewed AP CT Medications Administered EDToradol 15 Mg IV, Zofran 4 Mg IV, 1.5L NSS bolus, 2G IV Rocephin, 20 mEq IV KCl, 20 mEq p.o. KCl, acetaminophen 1G IV ECG Additional Comments: Ordered Code Status & VTE Plan Code Status full VTE Prophylaxis Plan VTE Prophylaxis will be ordered: Yes Supervising Physician Co-Signing Physician Notes I personally saw and examined the patient. I independently reviewed the labs, EKG, imaging, problem list, medication list, past medical history and family history. I verified all pope points and agree with Marianna Jimenez PA-C with the following exceptions and/or additions: 69 year old female presents to the ER with right flank pain and hematuria. No fever or chills O/E HS RRR, no murmurs, Chest CTAB, Abdo SNT, right CVA tenderness A/P Emphysematous cystitis - IV ceftriaxone, follow up urine cultures, consult urology Liver mass with concern for metastatic disease - consult oncology to assess best place for biopsy and outpatient follow up PG Care Time/CCT Total # of Minutes Spent Total Time Spent with Patient: Total time spent is greater than 50% in coordination of care (as documented) at patient's floor/unit and/or counseling patient: Coding Level of Care Code 96094 INT INP/OBS CARE 3/75MIN Diagnoses Emphysematous cystitis N30.80 Acute hypokalemia E87.6 Acute hyponatremia E87.1 Liver mass R16.0
[2025-03-12 19:29] LABS: POC Urine Bilirubin Negative (Negative); POC Urine Blood 250 (Negative); POC Urine Glucose 1000 (Normal); POC Urine Ketones 1+ (Small) (Negative); POC Urine Leukocytes 1+ (Negative); POC Urine Nitrite Positive (Negative); POC Urine Protein Negative (Negative); POC Urine Urobilinogen Normal (Normal); POC Urine pH 5 (4.5-7.5)
[2025-03-12 19:31] LABS: Magnesium 1.9 mg/dl (1.7-2.4)
--- NOTE | 2025-03-12 19:53 | Urology Consultation ---
Date of Consultation March 12, 2025 Assessment & Plan (1) Emphysematous cystitis: The patient is being admitted to the hospital service. From a urologic perspective we recommend the following: Analgesics to be provided Antiemetic should be provided Would recommend hydrating the patient with IV fluids Would recommend following serial labs It appears that the patient has emphysematous cystitis. Antibiotics in form of Rocephin have been initiated. These antibiotic should continue and can be tailored based on pending culture results. If the patient does start to show signs of worsening sepsis or becomes febrile would recommend broadening her antibiotics. In addition, would recommend placing a De La Rosa catheter for maximal bladder drainage/decompression. Orders have been placed for De La Rosa catheter to be placed. Will monitor the patient's clinical progress with the above measures with additional recommendations to follow History of Present Illness Reason for Consultation: Emphysematous cystitis History of Present Illness This is a 69-year-old female who presented to the emergency department secondary to flank pain primarily in the right side. Patient says that this started approximately 5 days ago. She just reported some generalized right flank pain with associated nausea and vomiting. She specifically denies any abdominal pain. She denies any dysuria but does report some intermittent hematuria which she has never had before. She denies any fevers, shakes, or chills. The patient does report that she is diabetic taking 1 injectable and 2 oral agents. She has no known history of kidney stones. Since arrival to [facility] the patient has had labs and imaging which independent reviewed. A CT scan of the abdomen pelvis showed the patient had circumferential urinary bladder wall gas forming with gas present in the urinary bladder concerning for emphysematous cystitis. In addition the patient was noted to have a large right upper quadrant mass potentially arising from the liver with peritoneal implants and retroperitoneal adenopathy and suspected pulmonary metastases in the visualized lung bases. Labs including CBC were white blood cell count, hemoglobin, hematocrit, and platelet count were normal. Chemistry profile showed sodium and potassium are 132 and 2.8. Her BUN and creatinine were both normal. Magnesium is normal. There is no elevation of LFTs other than a slight elevation of her total bilirubin 1.4. Urinalysis was positive for nitrites as well as 1+ leukocyte Estrace. There is pyuria with 21- 50 white blood cells per high-power field and 4+ bacteria on the study. At the time my interview the patient was resting comfortably in bed she was no distress Allergies Allergy/AdvReac Type Severity Reaction Status Date / Time enalapril Allergy Severe Swelling Verified 03/12/25 19:09 of Lip/Tongue/Throat Iodinated Contrast Media Allergy Intermediate "THE DYE Verified 03/12/25 19:09 BLEW UP IN MY ARM" nickel Allergy Intermediate "I GET AN Verified 03/12/25 19:09 INFECTION" tetanus toxoid, adsorbed Allergy Intermediate ARM GETS Verified 03/12/25 19:09 INFECTED-SWELLING, REDNESS Home Medications Medication Instructions Recorded Confirmed Type albuterol sulfate 90 mcg/actuation 2 puff inhalation Q6H PRN SOB 01/25/19 03/12/25 History aerosol inhaler milk thistle 150 mg capsule 150 mg PO BID 04/06/19 03/12/25 History kdjvbfrw-rgpt-yzoa 8 mg-folic 400 1 tab PO QAM 04/06/19 03/12/25 History mcg-K 50 mcg-lutein 300 mcg tablet (Centrum Silver Women) polyethylene glycol 3350 17 17 g PO DAILY PRN Constipation 03/03/23 03/12/25 Rx gram/dose oral powder (Miralax) #850 grams vitamin E mixed 400 unit capsule 400 unit PO QAM #90 caps 12/28/23 03/12/25 Rx aspirin 81 mg chewable tablet 81 mg PO QAM #90 tabs 02/24/24 03/12/25 Rx fluticasone propionate 50 2 spray intranasal QAM #16 grams 04/25/24 03/12/25 Rx mcg/actuation nasal spray,suspension (Flonase Allergy Relief) pantoprazole 40 mg tablet,delayed 40 mg PO BID 90 days #180 tabs 05/29/24 03/12/25 Rx release (Protonix) allopurinol 300 mg tablet 300 mg PO QAM #90 tabs 08/21/24 03/12/25 Rx atorvastatin 40 mg tablet 40 mg PO HS #90 tabs 08/21/24 03/12/25 Rx bupropion HCl 150 mg tablet,12 hr 150 mg PO BID #180 ea 08/21/24 03/12/25 Rx sustained-release buspirone 5 mg tablet 5 mg PO BID #180 tabs 08/21/24 03/12/25 Rx furosemide 40 mg tablet (Lasix) 40 mg PO BID 90 days #180 tabs 08/21/24 03/12/25 Rx semaglutide 2 mg/dose (8 mg/3 mL) 2 mg (0.75 mL) subcut .COMPLEX #3 08/21/24 03/12/25 Rx subcutaneous pen injector (Ozempic) mL denosumab 60 mg/mL subcutaneous 60 mg subcut Q6M #1 mL 09/28/24 03/12/25 Rx syringe (Prolia) empagliflozin 25 mg tablet 25 mg PO QAM #90 tabs 02/19/25 03/12/25 Rx (Jardiance) levothyroxine 100 mcg tablet 100 mcg PO QAM #90 tabs 02/19/25 03/12/25 Rx loratadine 10 mg tablet 10 mg PO QAM #90 tabs 02/19/25 03/12/25 Rx metformin 500 mg tablet,extended 500 mg PO DAILY 90 days #90 tabs 02/19/25 03/12/25 Rx release 24 hr metoprolol succinate 25 mg 25 mg PO QAM #90 tabs 02/19/25 03/12/25 Rx tablet,extended release 24 hr nystatin 100,000 unit/gram topical 1 applic topical BID 2 weeks #30 02/19/25 03/12/25 Rx cream grams tramadol 50 mg tablet 50 mg PO QPM PRN Pain #30 tabs 02/19/25 03/12/25 Rx potassium chloride 20 mEq 20 meq PO DAILY #90 tabs 02/20/25 03/12/25 Rx tablet,extended release ergocalciferol (vitamin D2) 1,250 1,250 mcg PO WK 03/12/25 03/12/25 History mcg (50,000 unit) capsule Patient History Medical History History of ST elevation myocardial infarction (STEMI) 03/2019--had heart cath, follows with Dr. Srinivasan Degenerative disc disease LUMBAR AREA Spinal stenosis of lumbar region SOB (shortness of breath) on exertion CAD (coronary artery disease) Angioedema Osteoarthritis Hiatal hernia Hypothyroidism Anxiety Migraine H/O Kidney stones HX Asthma Surgical History History of bunionectomy of both great toes History of arthroscopy R/L KNEES History of cardiac cath (~04/07/19) @ [facility]--no stents placed S/P PALAK-BSO History of carpal tunnel release RIGHT History of cystoscopy WITH STENT AND REPAIRED RIGHT URETER BLOCKAGE. History of herniorrhaphy RIGHT INGUINAL HERNIA REPAIR History of cholecystectomy History of appendectomy History of esophagogastroduodenoscopy (EGD) History of colonoscopy History of thyroidectomy, subtotal BENIGN TUMOR History of cataract surgery BILATERAL History of tonsillectomy Family History Sister FHx: pancreatic cancer Family history of diabetes mellitus Mother Family history of diabetes mellitus Son Family history of diabetes mellitus Other No family history of adverse response to anesthesia Social History Smoking Status: Former smoker Tobacco Type: Cigarettes Age Started Using Tobacco: 20; Age Quit Using Tobacco: 58; packs per day: 2; Cigarettes Per Day: 1 PPD X 35 YEARS; Second Hand Exposure: Yes (son smokes/parents smoked); Do You Dip or Chew Tobacco: No; Hx Alcohol Use: No Hx Substance Use: No Preferred Language: Vietnamese Communication Ability: Effective Early Childhood Director Required: No Beliefs That Will Affect Care: None marital status: Single Current Living Situation: Alone current occupational status: disabled Feels Safe at Home: Yes Diet: regular Seatbelt Use: always Sunscreen Use: Yes Assistive Devices: Glasses Review of Systems Review of Systems: All systems reviewed & are unremarkable except as noted in HPI & below Physical Exam Constitutional: WD/WN, vitals as above Eyes: no conjunctival abnormality Wears glasses ENMT: Ears: no hearing impairment and no external ear abnormality Oral mucosa is moist Neck: trachea midline Respiratory: normal respiratory effort; no respiratory distress and no labored breathing Cardiovascular: Rate/Rhythm: regular rate and regular rhythm Gastrointestinal (Abdomen): Abdomen is soft without distention or rigidity. There is no rebound tenderness, guarding, or signs of peritonitis. There is no suprapubic tenderness/pressure with palpation. Musculoskeletal: No calf tenderness Skin: no rashes Neurologic: moves all extremities Psychiatric: A+Ox3, euthymic affect Genitourinary: At the time of my exam there is no CVA tenderness with percussion bilaterally Results & Data Vital Signs (Past 12 Hours) Vital Signs Temp Pulse Pulse Resp BP BP Pulse Ox 07/14/25 18:11 75 03/12/25 17:05 82 16 127/73 92 03/12/25 13:35 36.7 C 96 H 18 94/63 L 95 O2 Del Method 03/12/25 18:11 03/12/25 17:05 Room Air 03/12/25 13:35 Room Air PG Care Time/CCT Total # of Minutes Spent Total Time Spent with Patient: Total time spent is greater than 50% in coordination of care (as documented) at patient's floor/unit and/or counseling patient: Coding Level of Care Code 89231 INT INP/OBS CARE 375MIN Diagnoses Emphysematous cystitis N30.80
[2025-03-12] MEDS: ACETAMINOPHEN 1,000 MG/100 ML VIAL IV STA (20:18)
[2025-03-12] MEDS: SODIUM CHLORIDE 0.9% 1,000 ML IV SCH (20:20)
[2025-03-12] MEDS: ALUMINUM/MAGNESIUM SUSP 30 ML UDC PO STA (21:27)
[2025-03-12] MEDS ORDERED: GLUCOSE 10 TAB/TUBE PO PRN (23:05)
[2025-03-12] MEDS ORDERED: GLUCAGON FOR INJ 1 MG VIAL SQ PRN (23:05)
[2025-03-12] MEDS ORDERED: CARBOHYDRATES FOR HYPOGLYCEMIA PO PRN (23:05)
[2025-03-12] MEDS ORDERED: DEXTROSE 50% 50 ML SYRINGE IV PRN (23:05)
[2025-03-12] MEDS ORDERED: ALBUTEROL HFA 8 GM INHALER INH PRN (23:05)
[2025-03-12] MEDS ORDERED: DOCUSATE SODIUM 100 MG CAP PO PRN (23:05)
[2025-03-12] MEDS ORDERED: ONDANSETRON INJ 2 MG/ML 2 ML VIAL IV PRN (23:05)
[2025-03-12] MEDS ORDERED: GLUCOSE 40% GEL 15 GM TUBE PO PRN (23:05)
[2025-03-12] MEDS: ATORVASTATIN 40 MG TAB PO SCH (23:52)
[2025-03-12] MEDS: busPIRone 5 MG TAB PO SCH (23:52)
[2025-03-12] MEDS: INSULIN ASPART PER UNIT CHARGE SC SCH (23:53)
[2025-03-13] MEDS: ACETAMINOPHEN 325 MG TAB PO PRN (04:45)
[2025-03-13] MEDS: LEVOTHYROXINE SODIUM 100 MCG TABLET PO SCH (04:46)
[2025-03-13] MEDS ORDERED: NYSTATIN POWDER 15GM BTL EXT PRN (05:12)
[2025-03-13 06:53] LABS: Hematocrit (blood only) 34.4 % (37.0-47.0); Hemoglobin 11.9 g/dl (12.0-16.0); Immature Granulocytes # (auto) 0.03 K/uL (0.01-0.20); Immature Granulocytes % (auto) 0.6 %; Mean Corpuscular Hemoglobin 31.4 pg (25.0-34.0); Mean Corpuscular Volume 90.8 fL (80.0-100.0); Platelet Count 120 K/uL (130-400); RDW Standard Deviation 50.5 fL (36.4-46.3); Red Blood Count 3.79 M/uL (4.20-5.40); White Blood Count 4.92 K/ul (4.8-10.8)
[2025-03-13 07:24] LABS: Anion Gap 10.0 (3-11); Blood Urea Nitrogen 15.0 mg/dl (6-23); Calcium 7.7 mg/dl (8.6-10.3); Carbon Dioxide 29.0 mmol/L (21-32); Chloride 96.0 mmol/L (98-107); Creatinine Clr Calc Pharmacy 98.2 ml/min; Glucose 167.0 mg/dl (70-99(Fasting)); Magnesium 1.9 mg/dl (1.7-2.4); Potassium 2.9 mmol/L (3.5-5.1); Sodium 135.0 mmol/L (136-145)
[2025-03-13] MEDS: FLUTICASONE PROPIONATE NA SPR 16 GM BTL SCH (08:42)
[2025-03-13] MEDS: METOPROLOL SUCC 25MG EXT REL TAB PO SCH (08:42)
--- NOTE | 2025-03-13 08:45 | Urology Progress Note ---
Date of Service March 13, 2025 Assessment & Plan (1) Emphysematous cystitis: Plan: Ct scan reviewed with Dr Martinez. No surgical intervention planned Vital signs stable, afebrile wbc 4.92, hgb 11.9, Na 135, K 2.9, Cr 0.57 Continue antibiotic coverage, cultures pending Oncology has been consulted due to her liver mass (2) Liver mass: Admission and Anticipated Discharge Date Admission Date: March 12, 2025 Subjective 69 year old patient admitted yesterday with hyponatremia, hypokalemia, liver mass, and urology consulted for emphysematous cystitis. De La Rosa catheter was placed. She complains of some right low back and abdominal pain. Physical Exam Constitutional: well developed and well nourished; no acute distress Respiratory: normal respiratory effort; no respiratory distress and no labored breathing Gastrointestinal (Abdomen): Percussion/Palpation: abdomen nontender Musculoskeletal: +tenderness right low back/lumbar area Psychiatric: A+Ox3, euthymic affect Genitourinary: no CVA tenderness Results & Data Vital Signs (Past 12 Hours) Vital Signs Temp Pulse Pulse Resp BP BP Pulse Ox 03/13/25 07:43 36.3 C L 73 20 109/73 97 03/13/25 06:52 68 03/13/25 03:28 36.4 C L 79 16 103/69 97 03/13/25 02:04 79 03/13/25 01:34 03/13/25 00:57 36.4 C L 78 18 112/73 94 03/12/25 22:10 80 O2 Del Method 03/13/25 07:43 Room Air 03/13/25 06:52 03/13/25 03:28 Room Air 03/13/25 02:04 03/13/25 01:34 Room Air 03/13/25 00:57 Room Air 03/12/25 22:10 PG Care Time/CCT Total # of Minutes Spent Total Time Spent with Patient: Total time spent is greater than 50% in coordination of care (as documented) at patient's floor/unit and/or counseling patient: Coding Level of Care Code 33183 SUB INP/OBS CARE 09/23MIN Diagnoses Emphysematous cystitis N30.80 Liver mass R16.0
[2025-03-13] MEDS: POTASSIUM CHLORIDE CRTAB 20 MEQ TABCR PO STA (08:50)
[2025-03-13] MEDS: POTASSIUM CHLORIDE / WTR 10 MEQ/100 ML PLCT IV SCH (09:06)
--- NOTE | 2025-03-13 11:43 | Electrocardiogram Report ---
Test Reason : Blood Pressure : */* mmHG Vent. Rate : 83 BPM Atrial Rate : 83 BPM P-R Int : 174 ms QRS Dur : 84 ms QT Int : 428 ms P-R-T Axes : -10 -37 12 degrees QTcB Int : 502 ms Normal sinus rhythm Left axis deviation Minimal voltage criteria for LVH, may be normal variant ( R in aVL ) Possible Anterolateral infarct , age undetermined Abnormal ECG When compared with ECG of 06-Apr-2019 04:53, Borderline criteria for Anterior infarct are now Present Borderline criteria for Anterolateral infarct are now Present Nonspecific T wave abnormality now evident in Anterior leads Confirmed by Renato Wyatt ([id number]) on 03/13/2025 11:43:01 AM Referred By: REFERRED SELF Confirmed By: Renato Wyatt
[2025-03-13] MEDS: OPTIRAY 320 125ml IV ONE (15:57)
[2025-03-13] MEDS: cefTRIAXone SODIUM 2,000 MG/50 ML BAG IV SCH (16:05)
--- NOTE | 2025-03-13 16:13 | CT Scan Report ---
Clinical history: Rule out pulmonary embolism Technique: Axial computed tomography images were obtained of the chest after the administration of intravenous contrast according to the CT angiogram protocol No prior examination is available for comparison Findings: There is no definite sign of pulmonary embolism. There are innumerable pulmonary nodules scattered throughout both lungs, most of which are spiculated. The largest measures 3.6 cm. There is a calcified granuloma in the superior segment of the left lower lobe. There are small bilateral pleural effusions. There is no pneumothorax. There is mild emphysema. No endobronchial lesion is seen There is no mediastinal, hilar, or axillary adenopathy. The thoracic aorta appears unremarkable with no sign of aneurysm or dissection. There is no pericardial effusion The visualized upper abdomen appears unremarkable. No fracture is seen. No focal osseous lesion is evident Impression: 1. No definite sign of pulmonary embolism 2. Innumerable pulmonary nodules. These could be inflammatory, though bronchogenic carcinoma and/or metastatic disease must be considered. PET scan or biopsy may be needed 3. Mild emphysema 4. Small bilateral pleural effusions ACT 112: Positive. There are findings on this exam that require communication between the performing entity and the patient following Patient Test Result Information Act ([place] ACT 112) guidelines. Electronically signed by Jermaine Flores 03-13-2025 4:13 PM
--- NOTE | 2025-03-13 16:26 | CT Scan Report ---
Clinical History: Liver mass Technique: Axial computed tomography images were obtained of the abdomen after the administration of intravenous contrast. No prior CT is available for comparison. Findings: There is adenopathy encasing the celiac axis. There is bulky louise hepatis adenopathy, measuring approximately 13.2 x 8.7 cm. This is difficult to differentiate from the caudate segment of the liver, and alternatively could represent a mass extending into the louise hepatis from the caudate segment. There is adjacent peripancreatic adenopathy as well as confluent adenopathy encasing the celiac axis. The liver appears nodular in contour, concerning for cirrhosis. The liver is enlarged measuring 21.2 cm. There is an approximately 4.4 cm heterogeneously enhancing mass in the inferior right hepatic lobe, concerning for a metastasis. There are several apparent small hepatic cysts, measuring up to 1.3 cm. The portal vein is patent. The gallbladder has been removed. No bile duct dilatation is noted. The spleen is enlarged measuring 18.5 cm. There are several apparent splenic cysts, measuring up to 3.9 cm There is an apparent low attenuation mass in the proximal pancreatic body, measuring approximately 1.6 cm. The pancreatic duct mildly dilated distal to this. There is no sign of acute pancreatitis. the adrenal glands appear unremarkable. No definite renal or proximal ureteral calculi are seen on this contrast-enhanced study. There is no hydronephrosis or perinephric stranding. No renal mass lesion is identified. There are small bilateral renal cysts, measuring up to 9 mm. The aorta is of normal caliber. There are mildly enlarged retroperitoneal para-aortic lymph nodes, measuring up to 1.9 cm. There is apparent wall thickening of the gastric antrum. No free intraperitoneal air is identified. There is a small amount of ascites No fracture is identified. No focal osseous lesion is seen Impression: 1. Large 13 cm mass involving the louise hepatis and caudate segment of the liver. It is difficult to determine whether this is bulky adenopathy compressing the caudate segment or a large liver mass arising from the caudate segment. Metastatic adenopathy is felt to be more likely 2. Upper abdominal adenopathy, consistent with metastatic disease 3. Several liver masses, concerning for metastatic disease 4. Apparent pancreatic mass, which could represent pancreatic ductal adenocarcinoma. A follow-up pancreatic protocol abdominal MRI with and without contrast could be considered 5. Small amount of ascites 6. Apparent cirrhosis 7. Hepatosplenomegaly 8. Hepatic and splenic cysts 9. Small renal cysts 10. Apparent wall thickening of the gastric antrum. Possible etiologies include lymphatic obstruction from the adjacent adenopathy, inflammatory gastritis, and gastric neoplasm ACT 112: Positive. There are findings on this exam that require communication between the performing entity and the patient following Patient Test Result Information Act ([place] ACT 112) guidelines. Electronically signed by Jermaine Flores 03-13-2025 4:26 PM
--- NOTE | 2025-03-13 17:34 | Hospitalist Progress Note ---
Date of Service March 13, 2025 Assessment & Plan (1) Emphysematous cystitis: (2) Acute hypokalemia: (3) Acute hyponatremia: (4) Liver mass: Plan This patient is a 69-year-old female with a H/L. Guzman liver cirrhosis, nonobstructive mild CAD, asthma, type II DM, HTN, osteoporosis, obesity, chronic lower back pain, gout, chronic constipation, anxiety disorder, GERD, hypothyroidism who P/W several days of right flank pain, vomiting, hematuria. Diagnostic imaging revealed emphysematous cystitis along with right upper quadrant abdominal mass and pulmonary nodules. Laboratories revealed UTI as well as hypokalemia and hyponatremia. #emphysematous cystitis -CT A/P shows emphysematous cystitis, UA positive for UTI. Renal function stable. Nonseptic at time of admission - no leukocytosis, VSS, afebrile. Improving, De [place] Rosa catheter in place as per urology recommendation-appreciate urology consultation. Urine culture growing E. coli, sensitivities pending -Continue to hold baby aspirin due to hematuria which is now resolved Continue pain control with Tylenol prn, Toradol prn, and Oxycodone 5/10 (for pain not relieved by #1 and 2) -Continue nausea control with Zofran prn Continue Rocephin Follow urine cultures, no history of UTIs or previous positive cultures on file Trend CBC, BMP #Hypokalemia/hyponatremia suspect 2/2 GI depletion with 5 days of vomiting with continued p.o. diuretics. K+ 2.8, NA 132, mag 1.9, renal function stable on admission. Potassium remains low despite replacement but magnesium has improved. Sodium up to 135 after isotonic IV fluids given Replace with another 40 mEq of IV potassium and 40 mEq of oral potassium-she does not tolerate oral potassium as it makes her constipated Trend BMP and magnesium in the morning Continue to monitor on telemetry for any arrhythmias - Discontinue maintenance IV fluids #Suspected malignancy AP CT without contrast revealed liver cirrhosis with marked right upper quadrant mass with peritoneal implants and suspected pulmonary metastasis visualized throughout lung bases. New since liver ultrasound in November 2024 although would be difficult to see with US as per my discussion with radiology. Patient without personal history of CA - father with lung cancer and sister with pancreatic cancer. Obtained CT liver protocol with contrast and CT angiogram of the chest which showed large 13 cm mass involving p candy hepatis and caudate segment of liver-difficult to determine if from bulky adenopathy or arising from liver but metastatic adenopathy felt to be more likely. Also with upper abdominal adenopathy, several other liver masses, pancreatic mass, hepatosplenomegaly, and thickening of the gastric antrum. CT angiogram chest negative for PE, but with innumerable pulmonary nodules, small bilateral pleural effusions. Patient has lost 100 pounds in the last 2 years but has been on increasing doses of Ozempic. AFP was normal at 3 just a few weeks ago. Last colonoscopy in 11/2021 with tubular adenomas and hyperplastic polyp. Last EGD 03/2021 negative. Breast biopsy in 11/2023 negative for malignancy. - Plan for CT-guided IR biopsy of liver mass hopefully tomorrow - Consult GI to see about EGD for gastric wall thickening to see if primary cancer is gastric - Consider pancreatic MRI as per radiology but will hold off for now as biopsy may give us the answers - Given lower extremity edema in the last week that is significant and with likely metastatic cancer-check bilateral venous Dopplers of lower extremities for DVT - Check CA 19-9 and CEA in the a.m. - Oncology consulted-consultation pending but unsure they will agree with needing a biopsy for diagnosis #Chronic constipation/GERD-with significant constipation seen on CT of the abdomen/pelvis - Continue docusate - Add daily MiraLAX, Senokot #Liver cirrhosis-nonalcoholic, follows with GI. With hepatosplenomegaly on imaging - Holding home Lasix due to hypokalemia #T2DM - Most recent A1C 6.7%. Hold Jardiance, Ozempic (injections on Mondays), metformin - SSI with target BSG range 110-180mg/dL, CF 35, defer carb ratio - BSG ACHS if eating, q6h if npo # Mild nonobstructive CAD/HTN BP's are controlled. She had a cardiac catheterization many years back when she had respiratory arrest from angioedema from SUNDAY inhibitor requiring intubation and had ST elevation. She was found to have mild nonobstructive CAD and stress-induced cardiomyopathy which has since resolved - Continue statin and metoprolol - Hold ASA with hematuria #hypothyroidism recent TSH in 01/2025 mildly elevated at 5.1 - Continue home levothyroxine dose and follow-up with PCP #Asthma no acute issues. Given long history of smoking and emphysematous changes on lung imaging, suspect has COPD - Continue as needed inhaler # Anxiety disorderno acute issues - Continue bupropion and buspirone #Gout/osteoporosis-no acute issues - Continue allopurinol #Chronic lower back pain-no acute issues - Continue tramadol as needed DVT prophylaxis-add SQ Lovenox after liver biopsy Disposition-continued stay on medical floor with telemetry Admission and Anticipated Discharge Date Admission Date: March 12, 2025 Subjective Patient reports some pain in the right flank but improved overall. No further nausea or vomiting she is eating today. She has chronic constipation. No blood in her stool. She has lost 100 pounds in the last 2 years and 44 pounds in the last 6 months but she has been on Ozempic. She reports she always has sweats and hot flashes but that is been ongoing for years. She denies any abdominal pains. Denies shortness of breath or cough. She reports her legs started swelling about a week ago. We discussed all the findings that were abnormal on her imaging and she is agreeable to a biopsy of the liver mass. Telemetry with normal sinus rhythm with normal rates Physical Exam Constitutional: WD/WN, vitals as above + obese Respiratory: normal respiratory effort, lungs clear to auscultation Cardiovascular: Rate/Rhythm: regular rate and regular rhythm Heart Sounds: no murmur Extremities: + edema (2+ pitting edema of the legs to the knees b ilaterally) Gastrointestinal (Abdomen): Inspection/Auscultation: abdomen normal to inspection and normal bowel sounds; abdomen not distended Percussion/Palpation: abdomen soft and + hepatomegaly; abdomen nontender, no hernia and no ascites Skin: no rashes, warm and dry Psychiatric: A+Ox3, euthymic affect Results & Data Results & Data Vital Signs (Past 12 Hours) Vital Signs Temp Pulse Pulse Pulse Resp BP Pulse Ox 03/13/25 15:40 36.7 C 84 18 105/68 95 03/13/25 13:01 84 03/13/25 10:54 36.5 C 96 H 77 18 110/71 96 03/13/25 07:43 36.3 C L 73 20 109/73 97 03/13/25 06:52 68 O2 Del Method 03/13/25 15:40 Room Air 03/13/25 13:01 03/13/25 10:54 Room Air 03/13/25 07:43 Room Air 03/13/25 06:52 Laboratory Results CBC, BMP, magnesium, urine culture reviewed Diagnostic Findings Liver CT 03/13/25 08:12 Clinical History: Liver mass Technique: Axial computed tomography images were obtained of the abdomen after the administration of intravenous contrast. No prior CT is available for comparison. Findings: There is adenopathy encasing the celiac axis. There is bulky louise hepatis adenopathy, measuring approximately 13.2 x 8.7 cm. This is difficult to differentiate from the caudate segment of the liver, and alternatively could represent a mass extending into the louise hepatis from the caudate segment. There is adjacent peripancreatic adenopathy as well as confluent adenopathy encasing the celiac axis. The liver appears nodular in contour, concerning for cirrhosis. The liver is enlarged measuring 21.2 cm. There is an approximately 4.4 cm heterogeneously enhancing mass in the inferior right hepatic lobe, concerning for a metastasis. There are several apparent small hepatic cysts, measuring up to 1.3 cm. The portal vein is patent. The gallbladder has been removed. No bile duct dilatation is noted. The spleen is enlarged measuring 18.5 cm. There are several apparent splenic cysts, measuring up to 3.9 cm There is an apparent low attenuation mass in the proximal pancreatic body, measuring approximately 1.6 cm. The pancreatic duct mildly dilated distal to this. There is no sign of acute pancreatitis. the adrenal glands appear unremarkable. No definite renal or proximal ureteral calculi are seen on this contrast-enhanced study. There is no hydronephrosis or perinephric stranding. No renal mass lesion is identified. There are small bilateral renal cysts, measuring up to 9 mm. The aorta is of normal caliber. There are mildly enlarged retroperitoneal para-aortic lymph nodes, measuring up to 1.9 cm. There is apparent wall thickening of the gastric antrum. No free intraperitoneal air is identified. There is a small amount of ascites No fracture is identified. No focal osseous lesion is seen Impression: 1. Large 13 cm mass involving the louise hepatis and caudate segment of the liver. It is difficult to determine whether this is bulky adenopathy compressing the caudate segment or a large liver mass arising from the caudate segment. Metastatic adenopathy is felt to be more likely 2. Upper abdominal adenopathy, consistent with metastatic disease 3. Several liver masses, concerning for metastatic disease 4. Apparent pancreatic mass, which could represent pancreatic ductal adenocarcinoma. A follow-up pancreatic protocol abdominal MRI with and without contrast could be considered 5. Small amount of ascites 6. Apparent cirrhosis 7. Hepatosplenomegaly 8. Hepatic and splenic cysts 9. Small renal cysts 10. Apparent wall thickening of the gastric antrum. Possible etiologies include lymphatic obstruction from the adjacent adenopathy, inflammatory gastritis, and gastric neoplasm ACT 112: Positive. There are findings on this exam that require communication between the performing entity and the patient following Patient Test Result Information Act ([place] ACT 112) guidelines. Electronically signed by Jermaine Flores 03-13-2025 4:26 PM Chest CTA 03/13/25 08:15 Clinical history: Rule out pulmonary embolism Technique: Axial computed tomography images were obtained of the chest after the administration of intravenous contrast according to the CT angiogram protocol No prior examination is available for comparison Findings: There is no definite sign of pulmonary embolism. There are innumerable pulmonary nodules scattered throughout both lungs, most of which are spiculated. The largest measures 3.6 cm. There is a calcified granuloma in the superior segment of the left lower lobe. There are small bilateral pleural effusions. There is no pneumothorax. There is mild emphysema. No endobronchial lesion is seen There is no mediastinal, hilar, or axillary adenopathy. The thoracic aorta appears unremarkable with no sign of aneurysm or dissection. There is no pericardial effusion The visualized upper abdomen appears unremarkable. No fracture is seen. No focal osseous lesion is evident Impression: 1. No definite sign of pulmonary embolism 2. Innumerable pulmonary nodules. These could be inflammatory, though bronchogenic carcinoma and/or metastatic disease must be considered. PET scan or biopsy may be needed 3. Mild emphysema 4. Small bilateral pleural effusions ACT 112: Positive. There are findings on this exam that require communication between the performing entity and the patient following Patient Test Result Information Act ([place] ACT 112) guidelines. Electronically signed by Jermaine Flores 03-13-2025 4:13 PM PG Care Time/CCT Total # of Minutes Spent Total Time Spent with Patient: Total time spent is greater than 50% in coordination of care (as documented) at patient's floor/unit and/or counseling patient: Coding Level of Care Code 06722 SUB INP/OBS CARE 3/50MIN Diagnoses Emphysematous cystitis N30.80 Acute hypokalemia E87.6 Acute hyponatremia E87.1 Liver mass R16.0
[2025-03-13] MEDS: SENNA 8.6 MG TAB PO SCH (18:39)
[2025-03-13] MEDS: POLYETHYLENE (MIRALAX) 17 GM PACK PO SCH (18:39)
[2025-03-13] MEDS: MELATONIN 3 MG TAB PO PRN (22:28)
--- NOTE | 2025-03-13 22:38 | Ultrasound Report ---
Exam(s): US VENOUS BILATERAL LOWER EXTREMITIES EXAM: US Duplex Bilateral Lower Extremities Veins CLINICAL HISTORY: leg swelling, metastatic cancer, r/o DVT. TECHNIQUE: Real-time duplex ultrasound scan of the bilateral lower extremity veins integrating B-mode two-dimensional vascular structure, Doppler spectral analysis, color flow Doppler imaging and compression. COMPARISON: No relevant prior studies available. FINDINGS: Right deep veins: No DVT in the right common femoral, femoral, proximal deep femoral or popliteal veins. The veins demonstrate normal color flow, are normally compressible, with normal phasic flow and/or augmentation response. The interrogated calf veins are patent. Right superficial veins: No thrombus in the saphenofemoral junction. Left deep veins: No DVT in the left common femoral, femoral, proximal deep femoral or popliteal veins. The veins demonstrate normal color flow, are normally compressible, with normal phasic flow and/or augmentation response. The interrogated calf veins are patent. Left superficial veins: No thrombus in the saphenofemoral junction. Soft tissues: No acute findings. No popliteal cyst. IMPRESSION: No evidence for deep vein thrombosis involving the bilateral lower extremities. Electronically signed by: Zaheer Mosley MD 03/13/25 22:37 PM
[2025-03-13] MEDS: KETOROLAC TROMETHAMINE 15 MG/ML VIAL IV PRN (23:14)
--- NOTE | 2025-03-14 07:23 | Oncology Consultation ---
Date of Consultation March 14, 2025 Assessment & Plan (1) Liver mass: at this point I will strongly encourage her diagnostic workup including CT- guided biopsy of the liver mass as that will give us an idea of what exact pathology we are dealing with. The patient can get an outpatient PET CT scan. Given the extensive burden of this disease most likely she will end up needing palliative treatment in the form of chemotherapy plus immunotherapy depending upon the pathology. Recommend consultation of her interventional radiology colleagues to obtain an IR guided biopsy of the Liver mass.mass. Plan Thank you for this interesting oncology consult. Medical oncology will continue to follow the patient make appropriate recommendations. History of Present Illness Reason for Consultation: Liver mass Attending Physician: Evelia Diaz MD History of Present Illness the patient is a very pleasant 69-year-old woman with a history of cirrhotic liver disease, coronary artery disease, asthma, type 2 diabetes, osteoporosis who presented to the hospital initially with right flank pain, vomiting, hematuria. The patient had a CT of the abdomen pelvis performed on 03/12/2025 which revealed large right upper abdominal quadrant mass, possibly arising from the liver in the setting of cirrhosis with peritoneal implants, retroperitoneal lymphadenopathy and suspected pulmonary metastasis. She had a CT angiogram of the chest which revealed innumerable pulmonary nodules, which could be inflammatory. Medical oncology has been consulted to assist in management of this patient with cirrhotic liver disease now presenting with liver mass. Allergies Allergy/AdvReac Type Severity Reaction Status Date / Time enalapril Allergy Severe Swelling Verified 03/12/25 19:09 of Lip/Tongue/Throat Iodinated Contrast Media Allergy Intermediate "THE DYE Verified 03/12/25 19:09 BLEW UP IN MY ARM" nickel Allergy Intermediate "I GET AN Verified 03/12/25 19:09 INFECTION" tetanus toxoid, adsorbed Allergy Intermediate ARM GETS Verified 03/12/25 19:09 INFECTED-SWELLING, REDNESS Home Medications Medication Instructions Recorded Confirmed Type albuterol sulfate 90 mcg/actuation 2 puff inhalation Q6H PRN SOB 01/25/19 03/12/25 History aerosol inhaler milk thistle 150 mg capsule 150 mg PO BID 04/06/19 03/12/25 History [id number]-[id number] 8 mg-folic 400 1 tab PO QAM 04/06/19 03/12/25 History mcg-K 50 mcg-lutein 300 mcg tablet (Centrum Silver Women) polyethylene glycol 3350 17 17 g PO DAILY PRN Constipation 03/03/23 03/12/25 Rx gram/dose oral powder (Miralax) #850 grams vitamin E mixed 400 unit capsule 400 unit PO QAM #90 caps 12/28/23 03/12/25 Rx aspirin 81 mg chewable tablet 81 mg PO QAM #90 tabs 02/24/24 03/12/25 Rx fluticasone propionate 50 2 spray intranasal QAM #16 grams 04/25/24 03/12/25 Rx mcg/actuation nasal spray,suspension (Flonase Allergy Relief) pantoprazole 40 mg tablet,delayed 40 mg PO BID 90 days #180 tabs 05/29/24 03/12/25 Rx release (Protonix) allopurinol 300 mg tablet 300 mg PO QAM #90 tabs 08/21/24 03/12/25 Rx atorvastatin 40 mg tablet 40 mg PO HS #90 tabs 08/21/24 03/12/25 Rx bupropion HCl 150 mg tablet,12 hr 150 mg PO BID #180 ea 08/21/24 03/12/25 Rx sustained-release buspirone 5 mg tablet 5 mg PO BID #180 tabs 08/21/24 03/12/25 Rx furosemide 40 mg tablet (Lasix) 40 mg PO BID 90 days #180 tabs 08/21/24 03/12/25 Rx semaglutide 2 mg/dose (8 mg/3 mL) 2 mg (0.75 mL) subcut .COMPLEX #3 08/21/24 03/12/25 Rx subcutaneous pen injector (Ozempic) mL denosumab 60 mg/mL subcutaneous 60 mg subcut Q6M #1 mL 09/28/24 03/12/25 Rx syringe (Prolia) empagliflozin 25 mg tablet 25 mg PO QAM #90 tabs 02/19/25 03/12/25 Rx (Jardiance) levothyroxine 100 mcg tablet 100 mcg PO QAM #90 tabs 02/19/25 03/12/25 Rx loratadine 10 mg tablet 10 mg PO QAM #90 tabs 02/19/25 03/12/25 Rx metformin 500 mg tablet,extended 500 mg PO DAILY 90 days #90 tabs 02/19/25 03/12/25 Rx release 24 hr metoprolol succinate 25 mg 25 mg PO QAM #90 tabs 02/19/25 03/12/25 Rx tablet,extended release 24 hr nystatin 100,000 unit/gram topical 1 applic topical BID 2 weeks #30 02/19/25 03/12/25 Rx cream grams tramadol 50 mg tablet 50 mg PO QPM PRN Pain #30 tabs 02/19/25 03/12/25 Rx potassium chloride 20 mEq 20 meq PO DAILY #90 tabs 02/20/25 03/12/25 Rx tablet,extended release ergocalciferol (vitamin D2) 1,250 1,250 mcg PO WK 03/12/25 03/12/25 History mcg (50,000 unit) capsule Patient History Medical History History of ST elevation myocardial infarction (STEMI) 03/2019--had heart cath, follows with Dr. Srinivasan Degenerative disc disease LUMBAR AREA Spinal stenosis of lumbar region SOB (shortness of breath) on exertion CAD (coronary artery disease) Angioedema Osteoarthritis Hiatal hernia Hypothyroidism Anxiety Migraine H/O Kidney stones HX Asthma Surgical History History of bunionectomy of both great toes History of arthroscopy R/L KNEES History of cardiac cath (~04/07/19) @ [facility]--no stents placed S/P PALAK-BSO History of carpal tunnel release RIGHT History of cystoscopy WITH STENT AND REPAIRED RIGHT URETER BLOCKAGE. History of herniorrhaphy RIGHT INGUINAL HERNIA REPAIR History of cholecystectomy History of appendectomy History of esophagogastroduodenoscopy (EGD) History of colonoscopy History of thyroidectomy, subtotal BENIGN TUMOR History of cataract surgery BILATERAL History of tonsillectomy Family History (Updated 03/13/25 @ 17:36 by Evelia Diaz MD) Sister FHx: pancreatic cancer Family history of diabetes mellitus Mother Family history of diabetes mellitus Lung cancer Son Family history of diabetes mellitus Other No family history of adverse response to anesthesia Social History Smoking Status: Former smoker Tobacco Type: Cigarettes Age Started Using Tobacco: 20; Age Quit Using Tobacco: 58; packs per day: 2; Cigarettes Per Day: 1 PPD X 35 YEARS; Second Hand Exposure: Yes (son smokes/parents smoked); Do You Dip or Chew Tobacco: No; Hx Alcohol Use: No Hx Substance Use: No Preferred Language: Ukrainian Communication Ability: Effective Manufacturing Cost Estimator Required: No Beliefs That Will Affect Care: None marital status: Single Current Living Situation: Alone current occupational status: disabled Feels Safe at Home: Yes Diet: regular Seatbelt Use: always Sunscreen Use: Yes Assistive Devices: None Review of Systems Review of Systems: All systems reviewed & are unremarkable except as noted in HPI & below Right upper quadrant pain, fatigue Constitutional: as per Subjective / HPI Eyes: as per Subjective / HPI Ear, Nose, Mouth, Throat: as per Subjective / HPI Respiratory: as per Subjective / HPI Cardiovascular: as per Subjective / HPI Gastrointestinal: as per Subjective / HPI Genitourinary: as per Subjective / HPI Musculoskeletal: as per Subjective / HPI Integumentary: as per Subjective / HPI Neurologic: as per Subjective / HPI Psychiatric: as per Subjective / HPI Endocrine: as per Subjective / HPI Hematologic / Lymphatic: as per Subjective / HPI Allergy / Immunological: as per Subjective / HPI Physical Exam Constitutional: WD/WN, vitals as above Eyes: PERRL, conjunctivae normal, anicteric sclerae ENMT: external ear and nose normal, oropharynx normal Neck: trachea midline, no thyromegaly Respiratory: normal respiratory effort, lungs clear to auscultation Cardiovascular: RRR, no murmur, no edema Gastrointestinal (Abdomen): normal bowel sounds, soft, nontender, no hepatosplenomegaly Musculoskeletal: no cyanosis or clubbing, extremities motor strength 5/5 Skin: no rashes, warm and dry Neurologic: patellar DTR's 2+ bilat, sensation intact Results & Data Vital Signs (Past 12 Hours) Vital Signs Temp Pulse Pulse Resp BP Pulse Ox O2 Del Method 03/14/25 02:51 36.7 C 89 16 96/68 L 94 Room Air 03/13/25 23:26 36.7 C 86 16 119/71 93 Room Air 03/13/25 21:42 92 H 03/13/25 19:53 36.5 C 86 20 120/79 96 Room Air
[2025-03-14] MEDS: PNEUMOCOCCAL VACCINE (PCV20) 20-VAL CONJ-DIP CRM/PF 0.5 ML SYR IM ONE (08:09)
[2025-03-14 08:34] LABS: Alanine Aminotransferase 23.0 U/L (7-52); Albumin Globulin Ratio 1.1 (0.9-2); Alkaline Phosphatase 91.0 U/L (34-104); Anion Gap 7.0 (3-11); Bilirubin,Total 0.9 mg/dl (0.2-1.0); Blood Urea Nitrogen 12.0 mg/dl (6-23); Calcium 8.4 mg/dl (8.6-10.3); Carbon Dioxide 31.0 mmol/L (21-32); Chloride 98.0 mmol/L (98-107); Creatinine Clr Calc Pharmacy 92.4 ml/min; Globulin 3.2 gm/dl (2.5-4.0); Glucose 184.0 mg/dl (70-99(Fasting)); Magnesium 2.1 mg/dl (1.7-2.4); Potassium 3.8 mmol/L (3.5-5.1); Sodium 136.0 mmol/L (136-145); Total Protein 6.6 gm/dl (6.0-8.3)
[2025-03-14 08:39] LABS: Hematocrit (blood only) 38.7 % (37.0-47.0); Hemoglobin 12.8 g/dl (12.0-16.0); Immature Granulocytes # (auto) 0.04 K/uL (0.01-0.20); Immature Granulocytes % (auto) 0.6 %; Mean Corpuscular Hemoglobin 30.5 pg (25.0-34.0); Mean Corpuscular Volume 92.4 fL (80.0-100.0); Platelet Count 164 K/uL (130-400); RDW Standard Deviation 53.5 fL (36.4-46.3); Red Blood Count 4.19 M/uL (4.20-5.40); White Blood Count 6.35 K/ul (4.8-10.8)
--- NOTE | 2025-03-14 08:57 | Gastrointestinal Consultation ---
Date of Consultation March 14, 2025 Assessment & Plan (1) Liver mass: (2) Gastric wall thickening: Plan [id number] with h/o Cirrhosis, chronic low back pain, T2DM, DL, HTN, Gout, anxiety and depression, stress induced cardiomyopathy is seen today for initial GI consultation in hospital where she was admitted for several days of right flank pain, vomiting, hematuria. Diagnostic imaging revealed emphysematous cystitis along with right upper quadrant abdominal mass and pulmonary nodules. Laboratories revealed UTI as well as hypokalemia and hyponatremia. (1) RUQ pain with associated RUQ abdominal mass on imaging in louise hepatis, caudate, pancreas and gastric antrum thickening. - Reviewed imaging and diagnostics with patient. - Discussed EGD for further evaluation with Dr. Wen and patient. Patient agreeable. - We'll add patient onto schedule today for further evaluation. Supervising Physician Co-Signing Physician Notes Patient seen and examined. Agree with YANE Lovett as above Abd: Soft, NT, ND, +BS Continue current therapy and supportive care Proceed with EGD today History of Present Illness Reason for Consultation: RUQ mass. Esophageal thickening. Consider EGD to assess for gastric source of malignancy. Requesting Physician: Dr. Diaz Attending Physician: Evelia Diaz MD History of Present Illness [id number] with h/o Cirrhosis, chronic low back pain, T2DM, DL, HTN, Gout, anxiety and depression, stress induced cardiomyopathy is seen today for initial GI consultation in hospital where she was admitted for several days of right flank pain, vomiting, hematuria. Diagnostic imaging revealed emphysematous cystitis along with right upper quadrant abdominal mass and pulmonary nodules. Laboratories revealed UTI as well as hypokalemia and hyponatremia. Clinically she reports that she started on have RUQ pain that radiates around the back over the last couple of weeks. She then had some episodes of bad reflux and vomiting x 3 which lead her to come to the hospital. Since she's been at the hospital she has been able to tolerate fluids well. Imaging unfortunately revealed gastric thickening and large 13cm mass involving the louise hepatis and caudate segment of the liver. There's also an apparent pancreatic mass. Pancreatic CT ordered for further evaluation. CT also revealed thickening of gastric antrum. GI was consulted to evaluate gastric thickening and consideration of EGD to assess for gastric source of malignancy. Hematology Oncology was consulted and is recommending PET/CT and IR consultation for liver biopsy to guide treatment. Patient reports she's doing well. He pain is stable. She denies any fevers, N/V/D, melena or hematochezia. She is agreeable to proceeding with EGD and she has been NPO. Family History - Lung CA in father. Sister had Pancreatic CA Social History - Past smoker - quit 11 years ago. No alcohol use. Denies drug use. Pertinent labs and diagnostic review Liver US 12/18/24 IMPRESSION: 1. Cirrhotic liver. No solid hepatic lesions. 2. No biliary ductal dilatation status post cholecystectomy. Alpha fetoprotein 3.3 on 02/19/25 CBC reviewed. Hgb stable at 12.8g/dl on 03/14/25. LFTs within normal range 03/14/25. Chest CTA 03/13/25 Impression: 1. No definite sign of pulmonary embolism 2. Innumerable pulmonary nodules. These could be inflammatory, though bronchogenic carcinoma and/or metastatic disease must be considered. PET scan or biopsy may be needed 3. Mild emphysema 4. Small bilateral pleural effusions Liver CT 03/13/25 Impression: 1. Large 13 cm mass involving the louise hepatis and caudate segment of the liver. It is difficult to determine whether this is bulky adenopathy compressing the caudate segment or a large liver mass arising from the caudate segment. Metastatic adenopathy is felt to be more likely 2. Upper abdominal adenopathy, consistent with metastatic disease 3. Several liver masses, concerning for metastatic disease 4. Apparent pancreatic mass, which could represent pancreatic ductal adenocarcinoma. A follow-up pancreatic protocol abdominal MRI with and without contrast could be considered 5. Small amount of ascites 6. Apparent cirrhosis 7. Hepatosplenomegaly 8. Hepatic and splenic cysts 9. Small renal cysts 10. Apparent wall thickening of the gastric antrum. Possible etiologies include lymphatic obstruction from the adjacent adenopathy, inflammatory gastritis, and gastric neoplasm Abd/pelvic CT without contrast 03/12/25 IMPRESSION: 1. Emphysematous cystitis. Urology consultation encouraged. 2. Large right upper quadrant mass, possibly arising from the liver in the setting of cirrhosis with peritoneal implants, retroperitoneal adenopathy and suspected pulmonary metastases throughout the visualized lung bases. If the patient does not have known malignancy, oncology consultation encouraged if appropriate. EGD 11/2021 Findings: The examined esophagus was normal. The Z-line was found 35 cm from the incisors. The gastroesophageal flap valve was visualized endoscopically and classified as Hill Grade I (prominent fold, tight to endoscope). The stomach was normal. The examined duodenum was normal. Impression: - Normal esophagus. - Z-line, 35 cm from the incisors. - Gastroesophageal flap valve classified as Hill Grade I (prominent fold, tight to endoscope). - Normal stomach. - Normal examined duodenum. - No specimens collected. Colonoscopy 11/2021 Findings: The perianal and digital rectal examinations were normal. Multiple small and large-mouthed diverticula were found in the sigmoid colon and descending colon. A 3 mm polyp was found in the ascending colon. The polyp was sessile. The polyp was removed with a cold snare. Resection and retrieval were complete. A 8 mm polyp was found in the sigmoid colon. The polyp was sessile. The polyp was removed with a saline injection-lift technique using a hot snare. Resection and retrieval were complete. A 3 mm polyp was found in the rectum. The polyp was sessile. The polyp was removed with a cold snare. Resection and retrieval were complete. The exam was otherwise normal throughout the examined colon. The terminal ileum appeared normal. Impression: - Diverticulosis in the sigmoid colon and in the descending colon. - One 3 mm polyp in the ascending colon, removed with a cold snare. Resected and retrieved. - One 8 mm polyp in the sigmoid colon, removed using injection-lift and a hot snare. Resected and retrieved. - One 3 mm polyp in the rectum, removed with a cold snare. Resected and retrieved. - The examined portion of the ileum was normal. Path - Tubular adenoma x 2. Hyperplastic polyp x 1. Allergies Allergy/AdvReac Type Severity Reaction Status Date / Time enalapril Allergy Severe Swelling Verified 03/12/25 19:09 of Lip/Tongue/Throat Iodinated Contrast Media Allergy Intermediate "THE DYE Verified 03/12/25 19:09 BLEW UP IN MY ARM" nickel Allergy Intermediate "I GET AN Verified 03/12/25 19:09 INFECTION" tetanus toxoid, adsorbed Allergy Intermediate ARM GETS Verified 03/12/25 19:09 INFECTED-SWELLING, REDNESS Home Medications Medication Instructions Recorded Confirmed Type albuterol sulfate 90 mcg/actuation 2 puff inhalation Q6H PRN SOB 01/25/19 03/12/25 History aerosol inhaler milk thistle 150 mg capsule 150 mg PO BID 04/06/19 03/12/25 History mqyftwii-kexi-hxnp 8 mg-folic 400 1 tab PO QAM 04/06/19 03/12/25 History mcg-K 50 mcg-lutein 300 mcg tablet (Centrum Silver Women) polyethylene glycol 3350 17 17 g PO DAILY PRN Constipation 03/03/23 03/12/25 Rx gram/dose oral powder (Miralax) #850 grams vitamin E mixed 400 unit capsule 400 unit PO QAM #90 caps 12/28/23 03/12/25 Rx aspirin 81 mg chewable tablet 81 mg PO QAM #90 tabs 02/24/24 03/12/25 Rx fluticasone propionate 50 2 spray intranasal QAM #16 grams 04/25/24 03/12/25 Rx mcg/actuation nasal spray,suspension (Flonase Allergy Relief) pantoprazole 40 mg tablet,delayed 40 mg PO BID 90 days #180 tabs 05/29/24 03/12/25 Rx release (Protonix) allopurinol 300 mg tablet 300 mg PO QAM #90 tabs 08/21/24 03/12/25 Rx atorvastatin 40 mg tablet 40 mg PO HS #90 tabs 08/21/24 03/12/25 Rx bupropion HCl 150 mg tablet,12 hr 150 mg PO BID #180 ea 08/21/24 03/12/25 Rx sustained-release buspirone 5 mg tablet 5 mg PO BID #180 tabs 08/21/24 03/12/25 Rx furosemide 40 mg tablet (Lasix) 40 mg PO BID 90 days #180 tabs 08/21/24 03/12/25 Rx semaglutide 2 mg/dose (8 mg/3 mL) 2 mg (0.75 mL) subcut .COMPLEX #3 08/21/24 03/12/25 Rx subcutaneous pen injector (Ozempic) mL denosumab 60 mg/mL subcutaneous 60 mg subcut Q6M #1 mL 09/28/24 03/12/25 Rx syringe (Prolia) empagliflozin 25 mg tablet 25 mg PO QAM #90 tabs 02/19/25 03/12/25 Rx (Jardiance) levothyroxine 100 mcg tablet 100 mcg PO QAM #90 tabs 02/19/25 03/12/25 Rx loratadine 10 mg tablet 10 mg PO QAM #90 tabs 02/19/25 03/12/25 Rx metformin 500 mg tablet,extended 500 mg PO DAILY 90 days #90 tabs 02/19/25 03/12/25 Rx release 24 hr metoprolol succinate 25 mg 25 mg PO QAM #90 tabs 02/19/25 03/12/25 Rx tablet,extended release 24 hr nystatin 100,000 unit/gram topical 1 applic topical BID 2 weeks #30 02/19/25 03/12/25 Rx cream grams tramadol 50 mg tablet 50 mg PO QPM PRN Pain #30 tabs 02/19/25 03/12/25 Rx potassium chloride 20 mEq 20 meq PO DAILY #90 tabs 02/20/25 03/12/25 Rx tablet,extended release ergocalciferol (vitamin D2) 1,250 1,250 mcg PO WK 03/12/25 03/12/25 History mcg (50,000 unit) capsule Patient History Medical History History of ST elevation myocardial infarction (STEMI) 03/2019--had heart cath, follows with Dr. Srinivasan Degenerative disc disease LUMBAR AREA Spinal stenosis of lumbar region SOB (shortness of breath) on exertion CAD (coronary artery disease) Angioedema Osteoarthritis Hiatal hernia Hypothyroidism Anxiety Migraine H/O Kidney stones HX Asthma Surgical History History of bunionectomy of both great toes History of arthroscopy R/L KNEES History of cardiac cath (~04/07/19) @ [facility]--no stents placed S/P APLAK-BSO History of carpal tunnel release RIGHT History of cystoscopy WITH STENT AND REPAIRED RIGHT URETER BLOCKAGE. History of herniorrhaphy RIGHT INGUINAL HERNIA REPAIR History of cholecystectomy History of appendectomy History of esophagogastroduodenoscopy (EGD) History of colonoscopy History of thyroidectomy, subtotal BENIGN TUMOR History of cataract surgery BILATERAL History of tonsillectomy Family History (Updated 03/13/25 @ 17:36 by Evelia Diaz MD) Sister FHx: pancreatic cancer Family history of diabetes mellitus Mother Family history of diabetes mellitus Lung cancer Son Family history of diabetes mellitus Other No family history of adverse response to anesthesia Social History Smoking Status: Former smoker Tobacco Type: Cigarettes Age Started Using Tobacco: 20; Age Quit Using Tobacco: 58; packs per day: 2; Cigarettes Per Day: 1 PPD X 35 YEARS; Second Hand Exposure: Yes (son smokes/parents smoked); Do You Dip or Chew Tobacco: No; Hx Alcohol Use: No Hx Substance Use: No Preferred Language: Kyrgyz Communication Ability: Effective Medical Assistant Instructor Required: No Beliefs That Will Affect Care: None marital status: Single Current Living Situation: Alone current occupational status: disabled Feels Safe at Home: Yes Diet: regular Seatbelt Use: always Sunscreen Use: Yes Assistive Devices: None Review of Systems Review of Systems: See HPI Physical Exam Physical Exam: Constitutional: Patient is pleasant, alert answering questions appropriately and appears to be in no distress. EYES: sclera are white, non-injected. Conjunctiva pink without exudate. No gross periorbital edema. ENT: Head is NC/AT. Respiratory: Breathing is even, non-labored. Lungs kiran are clear to auscultation without wheezes, rhonchi or rales. Cardiovascular: Regular Rate and Rhythm, no murmurs, rubs or gallops appreciated. Gastrointestinal (Abdomen): Normoactive bowel sounds x4, soft, non-distended. + RUQ tenderness. No rebound tenderness. Musculoskeletal: Gait steady and appropriate for age. No cyanosis or clubbing is appreciated. No peripheral edema. Neuro: Grossly intact. Non-focal Skin: Warm dry and intact. Psych: Pleasant affect. Speech fluent, organized, non-tangential. Well-groomed. Results & Data Vital Signs (Past 12 Hours) Vital Signs Temp Pulse Pulse Resp BP Pulse Ox O2 Del Method 03/14/25 08:13 97.7 F 76 20 113/68 95 Room Air 03/14/25 07:59 77 03/14/25 02:51 98.1 F 89 16 96/68 L 94 Room Air 03/13/25 23:26 98.1 F 86 16 119/71 93 Room Air 03/13/25 21:42 92 H PG Care Time/CCT Total # of Minutes Spent Total Time Spent with Patient: Total time spent is greater than 50% in coordination of care (as documented) at patient's floor/unit and/or counseling patient: Coding Level of Care Code 32290 IN/OBS CONSULT LVL 3,45M Diagnoses Liver mass R16.0 Gastric wall thickening K31.89
--- NOTE | 2025-03-14 12:53 | Electrocardiogram Report ---
Test Reason : Blood Pressure : */* mmHG Vent. Rate : 71 BPM Atrial Rate : 71 BPM P-R Int : 184 ms QRS Dur : 80 ms QT Int : 482 ms P-R-T Axes : 2 -32 23 degrees QTcB Int : 523 ms Normal sinus rhythm Left axis deviation Possible Anterolateral infarct (cited on or before 12-Mar-2025) Abnormal ECG When compared with ECG of 12-Mar-2025 20:31, No significant change was found Confirmed by Renato Wyatt ([id number]) on 03/14/2025 12:52:45 PM Referred By: REFERRED SELF Confirmed By: Renato Wyatt
--- NOTE | 2025-03-14 14:05 | Anesthesiology Consultation ---
Date of Service March 14, 2025 Assessment & Plan Chart Review Chart Review: Acceptable Risk for Surgery Consults Requested none ASA ASA4 Proposed Anesthesia Anesthesia Type: MAC Risk / Benefits Reviewed With: PT / POA / Parent / Guardian, Accepts Plan and Informed Consent Obtained History Surgery Operation Date: 03/14/25 16:30 Proposed Procedures p Esophagogastroduodenoscopy Dr Wen - Colton Mcfarlane Case, DO Height/Weight Height: 5 ft 3 in Weight: 92.2 kg Allergies Allergy/AdvReac Type Severity Reaction Status Date / Time enalapril Allergy Severe Swelling Verified 03/12/25 19:09 of Lip/Tongue/Throat Iodinated Contrast Media Allergy Intermediate "THE DYE Verified 03/12/25 19:09 BLEW UP IN MY ARM" nickel Allergy Intermediate "I GET AN Verified 03/12/25 19:09 INFECTION" tetanus toxoid, adsorbed Allergy Intermediate ARM GETS Verified 03/12/25 19:09 INFECTED-SWELLING, REDNESS Medications Home Medications Medication Instructions Recorded Confirmed Last Taken albuterol sulfate 90 mcg/actuation 2 puff inhalation Q6H PRN SOB 01/25/19 03/12/25 12/04/21 aerosol inhaler milk thistle 150 mg capsule 150 mg PO BID 04/06/19 03/12/25 03/12/25 [id number] 8 mg-folic 400 1 tab PO QAM 04/06/19 03/12/25 03/12/25 mcg-K 50 mcg-lutein 300 mcg tablet (Centrum Silver Women) polyethylene glycol 3350 17 17 g PO DAILY PRN Constipation 03/03/23 03/12/25 03/12/25 gram/dose oral powder (Miralax) #850 grams vitamin E mixed 400 unit capsule 400 unit PO QAM #90 caps 12/28/23 03/12/25 03/12/25 aspirin 81 mg chewable tablet 81 mg PO QAM #90 tabs 02/24/24 03/12/25 03/12/25 fluticasone propionate 50 2 spray intranasal QAM #16 grams 04/25/24 03/12/25 03/12/25 mcg/actuation nasal spray,suspension (Flonase Allergy Relief) pantoprazole 40 mg tablet,delayed 40 mg PO BID 90 days #180 tabs 05/29/24 03/12/25 03/12/25 release (Protonix) allopurinol 300 mg tablet 300 mg PO QAM #90 tabs 08/21/24 03/12/25 03/12/25 atorvastatin 40 mg tablet 40 mg PO HS #90 tabs 08/21/24 03/12/25 03/11/25 bupropion HCl 150 mg tablet,12 hr 150 mg PO BID #180 ea 08/21/24 03/12/25 03/12/25 sustained-release buspirone 5 mg tablet 5 mg PO BID #180 tabs 08/21/24 03/12/25 03/12/25 furosemide 40 mg tablet (Lasix) 40 mg PO BID 90 days #180 tabs 08/21/24 03/12/25 03/12/25 semaglutide 2 mg/dose (8 mg/3 mL) 2 mg (0.75 mL) subcut .COMPLEX #3 08/21/24 03/12/25 03/12/25 subcutaneous pen injector (Ozempic) mL denosumab 60 mg/mL subcutaneous 60 mg subcut Q6M #1 mL 09/28/24 03/12/25 Unknown syringe (Prolia) empagliflozin 25 mg tablet 25 mg PO QAM #90 tabs 02/19/25 03/12/25 03/12/25 (Jardiance) levothyroxine 100 mcg tablet 100 mcg PO QAM #90 tabs 02/19/25 03/12/25 03/12/25 loratadine 10 mg tablet 10 mg PO QAM #90 tabs 02/19/25 03/12/25 03/12/25 metformin 500 mg tablet,extended 500 mg PO DAILY 90 days #90 tabs 02/19/25 03/12/25 03/12/25 release 24 hr metoprolol succinate 25 mg 25 mg PO QAM #90 tabs 02/19/25 03/12/25 03/12/25 tablet,extended release 24 hr nystatin 100,000 unit/gram topical 1 applic topical BID 2 weeks #30 02/19/25 03/12/25 03/12/25 cream grams tramadol 50 mg tablet 50 mg PO QPM PRN Pain #30 tabs 02/19/25 03/12/25 03/11/25 potassium chloride 20 mEq 20 meq PO DAILY #90 tabs 02/20/25 03/12/25 03/12/25 tablet,extended release ergocalciferol (vitamin D2) 1,250 1,250 mcg PO WK 03/12/25 03/12/25 03/12/25 mcg (50,000 unit) capsule Active Medications Generic Name Dose Route Start Last Admin Trade Name Freq PRN Reason Stop Dose Admin Acetaminophen 650 mg 03/12/25 23:05 03/13/25 22:28 Acetaminophen 325 Mg Tab PO 04/11/25 23:04 650 mg Q4H PRN Administration Pain or Fever Allopurinol 300 mg 03/13/25 09:00 03/14/25 08:15 Allopurinol 300 Mg Tab PO 04/12/25 08:59 300 mg QAM RAJI Administration Atorvastatin Calcium 40 mg 03/12/25 23:05 03/13/25 21:01 Atorvastatin 40 Mg Tab PO 04/11/25 23:04 40 mg HS RAJI Administration Bupropion HCl 150 mg 03/12/25 23:05 03/14/25 08:16 Bupropion Sr 150 Mg Tabcr PO 04/11/25 23:04 150 mg BID RAJI Administration Buspirone HCl 5 mg 03/12/25 23:05 03/14/25 08:16 Buspirone 5 Mg Tab PO 04/11/25 23:04 5 mg BID RAJI Administration Fluticasone Propionate 2 sprays 03/13/25 09:00 03/14/25 08:17 Fluticasone Propionate Na Spr 16 Gm Btl NA 04/12/25 08:59 2 sprays QAM RAJI Administration Ceftriaxone Sodium 2,000 mg in 50 mls @ 100 mls/hr 03/13/25 16:00 03/13/25 16:36 Rocephin IV 03/18/25 15:59 Infused Q24H RAJI Infusion Insulin Aspart 0 units 03/12/25 23:05 03/14/25 12:50 Insulin Aspart Per Unit Charge SC 04/11/25 23:04 Not Given ACHS RAJI Levothyroxine Sodium 100 mcg 03/13/25 06:30 03/14/25 05:53 Levothyroxine Sodium 100 Mcg Tablet PO 04/12/25 06:29 100 mcg DAILYBB RAJI Administration Melatonin 3 mg 03/12/25 23:05 03/13/25 22:28 Melatonin 3 Mg Tab PO 04/11/25 23:04 3 mg HS PRN Administration Sleep Metoprolol Succinate 25 mg 03/13/25 09:00 03/14/25 08:18 Metoprolol Succ 25mg Ext Rel Tab PO 04/12/25 08:59 25 mg QAM RAJI Administration Pantoprazole Sodium 40 mg 03/12/25 23:05 03/14/25 08:17 Pantoprazole 40 Mg Tab PO 04/11/25 23:04 40 mg BID RAJI Administration Polyethylene Glycol 17 gm 03/13/25 18:30 03/14/25 08:25 Polyethylene (Miralax) 17 Gm Pack PO 04/12/25 18:29 17 gm DAILY RAJI Administration Sennosides 17.2 mg 03/13/25 18:30 03/14/25 08:24 Senna 8.6 Mg Tab PO 04/12/25 18:29 17.2 mg QAM RAJI Administration NPO Date Last Intake of Fluids: 03/13/25 Time Last Intake of Fluids: 22:00 Date Last Intake of Solids: 03/13/25 Time Last Intake of Solids: 17:00 Past Medical History Medical History History of ST elevation myocardial infarction (STEMI) 03/2019--had heart cath, follows with Dr. Srinivasan Degenerative disc disease LUMBAR AREA Spinal stenosis of lumbar region SOB (shortness of breath) on exertion CAD (coronary artery disease) Angioedema Osteoarthritis Hiatal hernia Hypothyroidism Anxiety Migraine H/O Kidney stones HX Asthma Exercise / Class Metabolic Activity III < 4 Walking/Shop/Light housework Past Family History Family History (Updated 03/13/25 @ 17:36 by Evelia Diaz MD) Sister FHx: pancreatic cancer Family history of diabetes mellitus Mother Family history of diabetes mellitus Lung cancer Son Family history of diabetes mellitus Other No family history of adverse response to anesthesia Past Surgical History Surgical History History of bunionectomy of both great toes History of arthroscopy R/L KNEES History of cardiac cath (~04/07/19) @ [facility]--no stents placed S/P PALAK-BSO History of carpal tunnel release RIGHT History of cystoscopy WITH STENT AND REPAIRED RIGHT URETER BLOCKAGE. History of herniorrhaphy RIGHT INGUINAL HERNIA REPAIR History of cholecystectomy History of appendectomy History of esophagogastroduodenoscopy (EGD) History of colonoscopy History of thyroidectomy, subtotal BENIGN TUMOR History of cataract surgery BILATERAL History of tonsillectomy Past Anesthesia History No Hx of Anesthesia Complications and No Family Hx of Anesthesia Complications History of PONV No Hx of PONV and No Hx of Motion Sickness Social History Smoking Status: Former smoker tobacco type: cigarettes Smoking cigarettes per day: 1 PPD X 35 YEARS Do You Dip or Chew Tobacco: No Hx Alcohol Use: No Hx Substance Use: No substance use type: does not use Physical Exam Vital Signs Last Vital Signs Temp 36.2 C L 03/14/25 13:45 Pulse 91 H 03/14/25 13:45 Resp 18 03/14/25 13:45 BP 127/86 03/14/25 13:45 Pulse Ox 95 03/14/25 13:45 O2 Del Method Room Air 03/14/25 13:45 Constitutional + obese; no acute distress ENMT Mouth: + dentures; no TMJ abnormality Thyromental Distance: > or= 3.5 Finger Breadths Mallampati Class: II Neck normal visual inspection Respiratory normal respiratory effort Auscultation: lungs clear to auscultation bilaterally Cardiovascular Rate/Rhythm: regular rate and regular rhythm Psychiatric Orientation: alert Testing Laboratory Results 03/14/25 07:42 03/14/25 07:42 Urine Color Yellow 03/12/25 Unknown Urine Appearance Clear (Clear) 03/12/25 Unknown Urine pH 5.5 (4.5-7.5) 03/12/25 Unknown Ur Specific [place] 1.020 (1.000-1.030) 03/12/25 Unknown Urine Protein Trace (Negative) H 03/12/25 Unknown Urine Glucose (UA) 3+ (Negative) H 03/12/25 Unknown Urine Ketones Trace (Negative) H 03/12/25 Unknown Urine Nitrite Positive (Negative) A 03/12/25 Unknown Ur Leukocyte Esterase 1+ (Negative) H 03/12/25 Unknown Urine WBC (Auto) 21-50 /hpf (0-5) H 03/12/25 Unknown Urine RBC (Auto) 11-20 /hpf (0-2) H 03/12/25 Unknown U Hyaline Cast (Auto) 0-2 /lpf (0-2) 03/12/25 Unknown U Epithel Cells (Auto) 0-2 /hpf (0-2) 03/12/25 Unknown Urine Bacteria (Auto) 4+ (None Seen) H 03/12/25 Unknown 03/12/25 Unknown Urine Culture - Final Urine,Clean Catch Escherichia coli 03/14/25 03/14/25 12:14 07:02 POC Glucose 171 H 197 H 03/12/25 19:21 POC Ur Test NEG
--- NOTE | 2025-03-14 14:31 | Hospitalist Progress Note ---
Date of Service March 14, 2025 Assessment & Plan (1) Emphysematous cystitis: (2) Acute hypokalemia: (3) Acute hyponatremia: (4) Liver mass: Plan This patient is a 69-year-old female with a H/L. Guzman liver cirrhosis, nonobstructive mild CAD, asthma, type II DM, HTN, osteoporosis, obesity, chronic lower back pain, gout, chronic constipation, anxiety disorder, GERD, hypothyroidism who P/W several days of right flank pain, vomiting, hematuria. Diagnostic imaging revealed emphysematous cystitis along with right upper quadrant abdominal mass and pulmonary nodules. Laboratories revealed UTI as well as hypokalemia and hyponatremia. #Emphysematous cystitis -CT A/P shows emphysematous cystitis, UA positive for UTI. Renal function stable. Nonseptic at time of admission - no leukocytosis, VSS, afebrile. Improving, De La Rosa catheter in place as per urology recommendation-appreciate urology consultation. Urine culture growing E. coli, resistant to cefoxitin. Now asymptomatic, much improved -Continue to hold baby aspirin due to hematuria (and also now for impending liver biopsy) Continue pain control with Tylenol prn, and Oxycodone 5/10 (for pain not relieved by #1 and 2)-avoid NSAIDs for impending liver biopsy -Continue nausea control with Zofran prn Continue Rocephin and convert to p.o. antibiotics on discharge with cefpodoxime -Discussed with urology regarding De La Rosa catheter-it should stay in for 2 to 3 weeks with a repeat CT A/P to ensure emphysematous cystitis has resolved prior to removal Trend CBC, BMP #Hypokalemia/hyponatremia suspect 2/2 GI depletion with 5 days of vomiting in the setting of taking diuretics. K+ 2.8, NA 132, mag 1.9, renal function stable on admission. Potassium now normalized after copious replacement and magnesium normalized. Sodium up to 136 after isotonic IV fluids given Trend BMP and magnesium in the morning Can downgrade off of telemetry on 03/15 - Okay to resume lower dose of furosemide 40 mg p.o. daily on 03/15 for lower extremity edema #Suspected malignancy AP CT without contrast revealed liver cirrhosis with marked right upper quadrant mass with peritoneal implants and suspected pulmonary metastasis visualized throughout lung bases. New since liver ultrasound in November 2024 although would be difficult to see with US as per my discussion with radiology. Patient without personal history of CA - father with lung cancer and sister with pancreatic cancer. Obtained CT liver protocol with contrast and CT angiogram of the chest which showed large 13 cm mass involving louise hepatis and caudate segment of liver-difficult to determine if from bulky adenopathy or arising from liver but metastatic adenopathy felt to be more likely. Also with upper abdominal adenopathy, several other liver masses, pancreatic mass, hepatosplenomegaly, and thickening of the gastric antrum. CT angiogram chest negative for PE, but with innumerable pulmonary nodules, small bilateral pleural effusions. Patient has lost 100 pounds in the last 2 years but has been on increasing doses of Ozempic. AFP was normal at 3 just a few weeks ago. Last colonoscopy in 11/2021 with tubular adenomas and hyperplastic polyp. Last EGD 03/2021 negative. Breast biopsy in 11/2023 negative for malignancy. CEA elevated here at 10.2 - Plan for US-guided IR biopsy of liver mass after off aspirin for 5 days-will plan for as an outpatient the week after discharge. Will ask nurse navigator to arrange - Consult GI appreciated-plan for EGD to assess gastric wall thickening seen on CT to see if primary cancer is gastric - Consider pancreatic MRI as per radiology versus EUS for pancreatic mass as an outpatient - Given lower extremity edema in the last week that is significant and with likely metastatic cancer-checked bilateral venous Dopplers of lower extremities for DVT-negative for DVT -Follow-up CA 19-9 which is still pending - Oncology consultation appreciated-recommends liver mass biopsy and outpatient PET/CT scan, further recommendations to follow but most likely would need chemotherapy plus immunotherapy depending on pathology #Chronic constipation/GERD-with significant constipation seen on CT of the abdomen/pelvis and a history longstanding of constipation - Continue docusate, daily MiraLAX, Senokot #Liver cirrhosis-nonalcoholic, follows with GI. With hepatosplenomegaly on imaging - Holding home Lasix due to hypokalemia but resume at lower dose 40 mg daily on 03/15 #T2DM - Most recent A1C 6.7%. Hold Jardiance, Ozempic (injections on Mondays), metformin - SSI with target BSG range 110-180mg/dL, CF 35, defer carb ratio - BSG ACHS if eating, q6h if npo # Mild nonobstructive CAD/HTN BP's are controlled. She had a cardiac catheterization many years back when she had respiratory arrest from angioedema from SUNDAY inhibitor requiring intubation and had ST elevation. She was found to have mild nonobstructive CAD and stress-induced cardiomyopathy which has since resolved - Continue statin and metoprolol - Hold ASA for impending liver biopsy next week H #hypothyroidism recent TSH in 01/2025 mildly elevated at 5.1 - Continue home levothyroxine dose and follow-up with PCP #Asthma no acute issues. Given long history of smoking and emphysematous changes on lung imaging, suspect has COPD - Continue as needed inhaler # Anxiety disorderno acute issues - Continue bupropion and buspirone #Gout/osteoporosis-no acute issues - Continue allopurinol #Chronic lower back pain-no acute issues - Continue oxycodone as needed - Avoid NSAIDs for impending liver biopsy as well #GERD-continue PPI DVT prophylaxis-add SQ Lovenox after EGD Disposition-continued stay on medical floor with telemetry but can downgrade off telemetry on 03/15 if remains stable after EGD. Possible discharge to home on 03/15 if stable Admission and Anticipated Discharge Date Admission Date: March 12, 2025 Subjective Patient is anxious to eat food but is n.p.o. for EGD today. She denies flank pain or abdominal pain. No nausea or vomiting. She has not moved her bowels since admission. I discussed her care with her son at the bedside. I also discussed her care with interventional radiology PA on the phone. Telemetry with normal sinus rhythm and rates in the 70s to 80s Physical Exam Constitutional: WD/WN, vitals as above + obese Respiratory: normal respiratory effort, lungs clear to auscultation Cardiovascular: Rate/Rhythm: regular rate and regular rhythm Heart Sounds: no murmur Extremities: + edema (2+ pitting edema of the legs to the knees bilaterally) Gastrointestinal (Abdomen): Inspection/Auscultation: abdomen normal to inspection and normal bowel sounds; abdomen not distended Percussion/Palpation: abdomen soft and + hepatomegaly; abdomen nontender, no hernia and no ascites Skin: no rashes, warm and dry Psychiatric: A+Ox3, euthymic affect Results & Data Results & Data Vital Signs (Past 12 Hours) Vital Signs Temp Pulse Pulse Resp BP Pulse Ox O2 Del Method 03/14/25 13:45 36.2 C L 91 H 18 127/86 95 Room Air 03/14/25 11:28 36.6 C 88 20 119/78 95 Room Air 03/14/25 08:13 36.5 C 76 20 113/68 95 Room Air 03/14/25 07:59 77 03/14/25 02:51 36.7 C 89 16 96/68 L 94 Room Air Laboratory Results CBC, CMP, magnesium, CEA, urine culture reviewed Diagnostic Findings Bilateral lower extremity venous Dopplers reviewed PG Care Time/CCT Total # of Minutes Spent Total Time Spent with Patient: Total time spent is greater than 50% in coordination of care (as documented) at patient's floor/unit and/or counseling patient: Coding Level of Care Code 76355 SUB INP/OBS CARE 3/50MIN Diagnoses Emphysematous cystitis N30.80 Acute hypokalemia E87.6 Acute hyponatremia E87.1 Liver mass R16.0
--- NOTE | 2025-03-14 14:48 | GI REPORT ---
[facility] Patient: SALONI HUNTER : 1955 Sex at : Female Age: 69 Years Procedure: Upper GI endoscopy Date: 03/14/2025 Attending Physician: Colton Wen DO Referring MD: Referred Self; Aleksey Galindo Do Indications: - Abnormal CT of the GI tract Medications: - Monitored Anesthesia Care Complications: - No immediate complications. Estimated Blood Loss: - Estimated blood loss: None. Procedure: - Prior to the procedure, a History and Physical was performed, and patient medications and allergies were reviewed. The patient's tolerance of previous anesthesia was also reviewed. The risks and benefits of the procedure and the sedation options and risks were discussed with the patient. All questions were answered, and informed consent was obtained. Prior Anticoagulants: The patient has taken no anticoagulant or antiplatelet agents except for aspirin, last dose was 2 days prior to procedure. ASA Grade Assessment: IV - A patient with severe systemic disease that is a constant threat to life. After reviewing the risks and benefits, the patient was deemed in satisfactory condition to undergo the procedure. - The egd scope was introduced through the mouth and advanced to the second part of the duodenum. - The upper GI endoscopy was accomplished without difficulty. - The patient tolerated the procedure well. Findings: - The examined esophagus was normal. - Localized mild inflammation characterized by erythema was found in the gastric antrum. Biopsies were taken with a cold forceps for histology. - The examined duodenum was normal. Impression: - Normal esophagus. - Gastritis, characterized by erythema. Biopsied. - Normal examined duodenum. Recommendation: - Discharge patient to home (ambulatory). - Resume previous diet. - Continue present medications. - Await pathology results. - Return to primary care physician as previously scheduled. - Patient has a contact number available for emergencies. The signs and symptoms of potential delayed complications were discussed with the patient. Return to normal activities tomorrow. Written discharge instructions were provided to the patient. Procedure Code(s): - 11604, Esophagogastroduodenoscopy, flexible, transoral; with biopsy, single or multiple Diagnosis Code(s): - R93.3, Abnormal findings on diagnostic imaging of other parts of digestive tract - K29.70, Gastritis, unspecified, without bleeding CPT(R) - 202 copyright [employer]. All Rights Reserved. The CPT codes, CCI edits and ICD codes generated are intended as suggestions and were generated based on input data. These codes are preliminary and upon presser and shaper knitted goods review may be revised to meet current compliance and payer requirements. The provider is responsible for the final determination of appropriate codes, and modifiers. Dr. Colton Wen, DO This document has been electronically signed. Note Initiated:03/14/2025 Note Completed:03/14/2025 2:47 PM \\[email or web address]\Results\[email or web address]\[id number].[email or web address]
--- NOTE | 2025-03-14 14:56 | Anesthesiology Progress Note ---
Date of Service March 14, 2025 Anesthesia Post Procedure Vital Signs Vital Signs: Temp Pulse Pulse Resp BP BP Pulse Ox 03/14/25 14:47 83 18 121/70 98 03/14/25 14:44 87 03/14/25 13:45 36.2 C L 91 H 18 127/86 95 03/14/25 11:28 36.6 C 88 20 119/78 95 03/14/25 08:13 36.5 C 76 20 113/68 95 03/14/25 07:59 77 03/14/25 02:51 36.7 C 89 16 96/68 L 94 03/13/25 23:26 36.7 C 86 16 119/71 93 03/13/25 21:42 92 H 03/13/25 19:53 36.5 C 86 20 120/79 96 03/13/25 15:40 36.7 C 84 18 105/68 95 O2 Del Method 03/14/25 14:47 Room Air 03/14/25 14:44 03/14/25 13:45 Room Air 03/14/25 11:28 Room Air 03/14/25 08:13 Room Air 03/14/25 07:59 03/14/25 02:51 Room Air 03/13/25 23:26 Room Air 03/13/25 21:42 03/13/25 19:53 Room Air 03/13/25 15:40 Room Air Pain Intensity Right Flank: Pain Intensity: 6 Transfer of Care Handoff Completed per policy Notes Mental Status: alert / awake / arousable Patient Amnestic to Procedure: Yes Nausea / Vomiting: adequately controlled Pain: adequately controlled Airway Patency, RR, SpO2: stable & adequate BP & HR: stable & adequate Hydration State: stable & adequate Anesthetic Complications: no major complications apparent and Pt Satisfied with anesthetic care
[2025-03-14] MEDS: LIDOCAINE 2% 2 ML VIAL/AMP(20MG/ML) INFIL ONE (19:13)
[2025-03-14] MEDS: PROPOFOL IV EMULSION 10 MG/ML 20 ML VIAL IV ONE (19:13)
[2025-03-15 07:21] LABS: Hematocrit (blood only) 38.4 % (37.0-47.0); Hemoglobin 12.8 g/dl (12.0-16.0); Immature Granulocytes # (auto) 0.03 K/uL (0.01-0.20); Immature Granulocytes % (auto) 0.5 %; Mean Corpuscular Hemoglobin 30.5 pg (25.0-34.0); Mean Corpuscular Volume 91.6 fL (80.0-100.0); Platelet Count 143 K/uL (130-400); RDW Standard Deviation 53.1 fL (36.4-46.3); Red Blood Count 4.19 M/uL (4.20-5.40); White Blood Count 5.96 K/ul (4.8-10.8)
[2025-03-15 07:50] LABS: Anion Gap 10.0 (3-11); Blood Urea Nitrogen 12.0 mg/dl (6-23); Calcium 8.5 mg/dl (8.6-10.3); Carbon Dioxide 27.0 mmol/L (21-32); Chloride 97.0 mmol/L (98-107); Creatinine Clr Calc Pharmacy 97.1 ml/min; Glucose 174.0 mg/dl (70-99(Fasting)); Magnesium 2.2 mg/dl (1.7-2.4); Potassium 3.5 mmol/L (3.5-5.1); Sodium 134.0 mmol/L (136-145)
[2025-03-15] MEDS: FUROSEMIDE 40 MG TAB PO SCH (08:42)
[2025-03-15 11:07] VITALS: RESP 20
--- NOTE | 2025-03-15 16:07 | Discharge Summary ---
Discharge Summary Date of Service March 15, 2025 Principal Dx & Hospital Course #1 = Principal Diagnosis (1) Emphysematous cystitis: (2) Acute hypokalemia: (3) Acute hyponatremia: (4) Liver mass: Plan This patient is a 69-year-old female with a H/L. Guzman liver cirrhosis, nonobstructive mild CAD, asthma, type II DM, HTN, osteoporosis, obesity, chronic lower back pain, gout, chronic constipation, anxiety disorder, GERD, hypothy roidism who P/W several days of right flank pain, vomiting, hematuria. Diagnostic imaging revealed emphysematous cystitis along with right upper quadrant abdominal mass and pulmonary nodules. Laboratories revealed UTI as well as hypokalemia and hyponatremia. #Emphysematous cystitis -CT A/P shows emphysematous cystitis, UA positive for UTI. Renal function stable. Nonseptic at time of admission - no leukocytosis, VSS, afebrile. Improving, De La Rosa catheter in place as per urology recommendation-appreciate urology consultation. Urine culture growing E. coli, resistant to cefoxitin. Now asymptomatic, much improved. Does still have some right flank pain but I believe this is related to her large liver mass. Continue pain control with Tylenol prn, and Oxycodone 5 milligrams p.o. every 6 hours as needed pain-avoid NSAIDs for impending liver biopsy She received several days of Rocephin and convert to p.o. amoxicillin 500 Mg p.o. 3 times daily x 3 weeks on discharge -Discussed with urology regarding De La Rosa catheter-it should stay in for 2 to 3 weeks with a repeat CT A/P to ensure emphysematous cystitis has resolved prior to removal -She will need follow-up with urology in 2 to 3 weeks and should have repeat CT scan done prior to that appointment if possible #Hypokalemia/hyponatremia suspect 2/2 GI depletion with 5 days of vomiting in the setting of taking diuretics. K+ 2.8, NA 132, mag 1.9, renal function stable on admission. Potassium now normalized after copious replacement and magnesium normalized. Sodium up to 136 after isotonic IV fluids given. Vomiting has resolved and this was related to her UTI - Okay to resume lower dose of furosemide 40 mg p.o. daily on 03/15 for lower extremity edema along with oral potassium supplement #Suspected malignancy AP CT without contrast revealed liver cirrhosis with marked right upper quadrant mass with peritoneal implants and suspected pulmon rosetta metastasis visualized throughout lung bases. New since liver ultrasound in November 2024 although would be difficult to see with US as per my discussion with radiology. Patient without personal history of CA - father with lung cancer and sister with pancreatic cancer. Obtained CT liver protocol with contrast and CT angiogram of the chest which showed large 13 cm mass involving louise hepatis and caudate segment of liver-difficult to determine if from bulky adenopathy or arising from liver but metastatic adenopathy felt to be more likely. Also with upper abdominal adenopathy, several other liver masses, pancreatic mass, hepatosplenomegaly, and thickening of the gastric antrum. CT angiogram chest negative for PE, but with innumerable pulmonary nodules, small bilateral pleural effusions. Patient has lost 100 pounds in the last 2 years but has been on increasing doses of Ozempic. AFP was normal at 3 just a few weeks ago. Last colonoscopy in 11/2021 with tubular adenomas and hyperplastic polyp. Last EGD 03/2021 negative. Breast biopsy in 11/2023 negative for malignancy. CEA elevated here at 10.2 and CA 19-9 significantly elevated at 14,400. - Plan for US-guided IR biopsy of liver mass after off aspirin for 5 days-will plan for as an outpatient-arranged for 03/26 at 8 AM - Consult GI appreciated-now s/p EGD to assess gastric wall thickening seen on CT to see if primary cancer is gastric-nothing seen on EGD but random biopsy of stomach taken and pathology pending at time of discharge - Consider pancreatic MRI as per radiology versus EUS for pancreatic mass as an outpatient - Given lower extremity edema in the last week that is significant and with likely metastatic cancer-checked bilateral venous Dopplers of lower extremities for DVT-negative for DVT - Oncology consultation appreciated-recommends liver mass biopsy and outpatient PET/CT scan, further recommendations to follow but most likely would need chemotherapy plus immunotherapy depending on pathology-appointment arranged for 04/12 for follow-up on biopsy results - Given additional pancreatic mass, would recommend holding Ozempic #Chronic constipation/GERD-with significant constipation seen on CT of the abdomen/pelvis and a history longstanding of constipation - Continue laxatives at home and she has a pending prescription from GI for Amitiza as she thinks to pickle pumper #Liver cirrhosis-nonalcoholic, follows with GI. With hepatosplenomegaly on imaging -Held home Lasix due to hypokalemia but resumed at lower dose 40 mg daily on 03/15 #T2DM - Most recent A1C 6.7%. Takes Jardiance, Ozempic (injections on Mondays), metformin at home Well-controlled here - Hold Ozempic given pancreatic mass - Okay to resume home Jardiance and metformin on discharge # Mild nonobstructive CAD/HTN BP's are controlled. She had a cardiac catheterization many years back when she had respiratory arrest from angioedema from SUNDAY inhibitor requiring intubation and had ST elevation. She was found to have mild nonobstructive CAD and stress-induced cardiomyopathy which has since resolved - Continue statin and metoprolol - Hold ASA for impending liver biopsy #hypothyroidism recent TSH in 01/2025 mildly elevated at 5.1 - Continue home levothyroxine dose and follow-up with PCP #Asthma no acute issues. Given long history of smoking and emphysematous changes on lung imaging, suspect has COPD - Continue as needed inhaler # Anxiety disorderno acute issues - Continue bupropion and buspirone #Gout/osteoporosis-no acute issues - Continue allopurinol #Chronic lower back pain-no acute issues - Continue oxycodone as needed - Avoid NSAIDs for impending liver biopsy as well #GERD-continue PPI DVT prophylaxis-SCDs. No anticoagulation was given due to having biopsy and EGD Disposition-stable for discharge to home with De La Rosa catheter in place Notes For Next Care Provider Needs follow-up CT abdomen/pelvis in 2 to 3 weeks Needs follow-up with urology in 2 to 3 weeks for possible De La Rosa catheter removal if CT abdomen/pelvis with resolution of emphysematous cystitis Going for biopsy of liver mass on 03/26 and follow-up with oncology as scheduled for 04/12 Medication Changes From Visit Hold aspirin and Ozempic Added amoxicillin 500 mg p.o. 3 times daily x 20 days Admission HPI Per Admitting Provider Patient is a 69-year-old female with past medical history of liver cirrhosis, CAD, asthma, type II DM, HTN, osteoporosis who presented with several days of right flank pain, vomiting, hematuria. Diagnostic imaging revealed emphysematous cystitis laboratories revealed UTI as well as labs hypokalemia and hyponatremia. Patient is being admitted for IV abx. Urology recommended De La Rosa catheter to help decompress the bladder and broad- spectrum coverage including anaerobic antibiotic coverage. Patient seen at bedside with her son present. She stated that for the past few days she has had right flank pain with vomiting and poor appetite. She developed hematuria approximately 2 days ago, she has a light pink tinge to her urine, denies any significant clots. She denies any dysuria or difficulty urinating. She denies any past history of UTIs, does have a history of kidney stones in 1993. She denies any fevers, chills, night sweats, chest pain, shortness of breath, lower abdominal pain. She denies nicotine or alcohol use. She personally denies any history of cancer, aware of the masses seen on AP CT. Her father had lung cancer and her sister had pancreatic cancer. She did take her home medications this morning and is due for her evening medications. She wishes to be full code. Discharge Exam Constitutional WD/WN, vitals as above + obese Respiratory normal respiratory effort, lungs clear to auscultation Cardiovascular Rate/Rhythm: regular rate and regular rhythm Heart Sounds: no murmur Extremities: + edema (2+ pitting edema of the legs to the knees bilaterally) Gastrointestinal (Abdomen) Inspection/Auscultation: abdomen normal to inspection and normal bowel sounds; abdomen not distended Percussion/Palpation: abdomen soft and + hepatomegaly; abdomen nontender, no hernia and no ascites Skin no rashes, warm and dry Psychiatric A+Ox3, euthymic affect Discharge Plan Discharge Items Patient Disposition: Home - Self-Care Reason For Visit: EMPHYSEMATOUS CYSTITIS Discharge Diagnosis: Emphysematous cystitis Liver mass Pancreatic mass Pulmonary nodules Hypokalemia Hyponatremia Condition on Discharge: Fair Activity: As commented below Bathing: No limitations Exercise/Sports: Gradually increase as tolerated Weightbearing: Full weightbearing Non-emergency contact: Primary Care Provider and Oncologist Call non-emergency contact if: you have any medication questions, your symptoms worsen and your pain is not controlled Follow-up/Referrals: Neel Thomas DO [Physician] - (Follow-up in 2 to [address] scan and to have De La Rosa catheter removed, potentially) Zaheer Thomas PA-C [Radiologist] - 03/26/25 8:00 am (Arrive by 8am on 03/26 to the main entrance NPO after midnight May brush teeth and take morning meds with small sips of water Aspirin needs held 5 days (biopsy would actually be the 6th day) Must have a motorcoach driver to take you home Plan on being here approximately 4 hours for the biopsy and then recovery) Nathan Coles MD [Physician] - 04/12/25 1:40 pm lAeksey Galindo DO [Primary Care Provider] - 03/20/25 1:00 pm (Hospital follow up appointment) Diet: Carb Consistent or DM2 Addtl Attending Provider Instructions: You were admitted with a significant urinary tract infection which caused bubbles of gas to form in your bladder. This can become a severe infection but fortunately yours was caught early. You will need to keep the De La Rosa catheter in place for 2 to 3 weeks and continue on oral antibiotics during that time as well. You will need a repeat CT scan of your abdomen/pelvis in 2 to 3 weeks which can be ordered by urology. They will then decide if it is safe for your De La Rosa catheter to be removed at that time. They can also decide if you need further antibiotics at that time. Unfortunately, you were also found on your scans to have a large tumor growing from your liver as well as smaller tumors in the liver, pancreas, and lungs. It is likely that you have cancer and you will need a biopsy for this. Please do not take your aspirin and your biopsy will be done on March 26. After this, you will follow-up with the oncologist to discuss the biopsy results and what the next steps in your care will be at that point. You can take oxycodone as needed for pain in your right side. Your potassium and sodium levels were low on admission and improved with replacement. Please lower the dose of your furosemide to 40 mg just once a day. Please continue to work on your constipation with taking laxatives. Pending Studies at Discharge: Yes (Biopsy of stomach) Stand-Alone Forms: [employer], Smoking Cessation Medications and DC Order Prescriptions: New oxycodone 5 mg Tablet 5 mg PO Q6 PRN (Reason: pain) Qty: 20 0RF amoxicillin 500 mg tablet 500 mg PO TID Qty: 60 0RF Continued polyethylene glycol 3350 [Miralax] 17 gram/dose powder 17 g PO DAILY PRN (Reason: Constipation) Qty: 850 3RF vitamin E mixed 400 unit capsule 400 unit PO QAM Qty: 90 2RF fluticasone propionate [Flonase Allergy Relief] 50 mcg/actuation spray,suspension 2 spray INTRANASAL QAM Qty: 16 3RF potassium chloride 20 mEq tablet extended release 20 meq PO DAILY Qty: 90 2RF pantoprazole [Protonix] 40 mg tablet,delayed release (DR/EC) 40 mg PO BID 90 Days Qty: 180 3RF Prolia 60 mg/mL syringe 60 mg SUBCUT Q6M Qty: 1 1RF allopurinol 300 mg tablet 300 mg PO QAM Qty: 90 3RF atorvastatin 40 mg tablet 40 mg PO HS Qty: 90 3RF bupropion HCl 150 mg tablet sustained-release 12 hr 150 mg PO BID Qty: 180 3RF buspirone 5 mg tablet 5 mg PO BID Qty: 180 3RF nystatin 100,000 unit/gram cream 1 applic topical BID 14 Days Qty: 30 2RF Rx Instructions: apply to affected area after cleaning and drying loratadine 10 mg tablet 10 mg PO QAM Qty: 90 3RF metoprolol succinate 25 mg tablet extended release 24 hr 25 mg PO QAM Qty: 90 3RF metformin 500 mg tablet extended release 24 hr 500 mg PO DAILY 90 Days Qty: 90 3RF Rx Instructions: take with dinner levothyroxine 100 mcg tablet 100 mcg PO QAM Qty: 90 3RF Jardiance 25 mg tablet 25 mg PO QAM Qty: 90 3RF albuterol sulfate 90 mcg/actuation Hfa Aerosol Inhaler 2 puff INHALATION Q6H PRN (Reason: SOB) milk thistle 150 mg Capsule 150 mg PO BID Centrum Silver Women 8 mg iron-400 mcg-300 mcg Tablet 1 tab PO QAM ergocalciferol (vitamin D2) [Drisdol] 1,250 mcg (50,000 unit) Capsule 1,250 mcg PO WK Rx Instructions: MONDAYS Changed furosemide [Lasix] 40 mg tablet 40 mg PO QAM 90 Days Qty: 180 2RF Held Ozempic 2 mg/dose (8 mg/3 mL) pen injector 2 mg subcut .COMPLEX Qty: 3 11RF Hold Instructions: Resume on 04/12/25. Hold until your doctor says it is okay to restart this Rx Instructions: 2 mg subcutaneously every week; MONDAYS Discontinued aspirin 81 mg tablet,chewable 81 mg PO QAM Qty: 90 3RF tramadol 50 mg tablet 50 mg PO QPM PRN (Reason: Pain) Qty: 30 0RF Discharge Orders: Discharge Order (Routine); Ordered 03/15/25 Ordered By: Evelia Diaz Admission Data Admit Date/Time: 03/12/25 19:53 Attending Provider: Evelia Diaz Admit Provider: Donta Guillory Primary Care Provider: Aleksey Galindo Other Providers: Neel Thomas; Donta Guillory; Nathan Coles; Colton Wen Hospital Stay Data Consultations 03/12/25 18:55 Consult Urology Routine 03/12/25 19:24 ED Decision to Admit Stat 03/12/25 23:05 Consult Oncology Routine 03/13/25 17:12 Consult Gastroenterology Routine Procedures Performed Operation Date: 03/14/25 16:30 Actual Procedures p EGD Biopsy Cytology - Colton Wen, Diagnostic Imagining Performed 03/12/25 16:14 CT abd pelvis wo con Stat 03/13/25 08:12 CT liver w con Routine 03/13/25 08:15 CT angio chest PE protocol Urgent 03/13/25 17:32 US venous doppler LE BI Stat Discharge Instructions Given to Patient (Per Discharging Provider) You were admitted with a significant urinary tract infection which caused bubbles of gas to form in your bladder. This can become a severe infection but fortunately yours was caught early. You will need to keep the De La Rosa catheter in place for 2 to 3 weeks and continue on oral antibiotics during that time as well. You will need a repeat CT scan of your abdomen/pelvis in 2 to 3 weeks which can be ordered by urology. They will then decide if it is safe for your De La Rosa catheter to be removed at that time. They can also decide if you need further antibiotics at that time. Unfortunately, you were also found on your scans to have a large tumor growing from your liver as well as smaller tumors in the liver, pancreas, and lungs. It is likely that you have cancer and you will need a biopsy for this. Please do not take your aspirin and your biopsy will be done on March 26. After this, you will follow-up with the oncologist to discuss the biopsy results and what the next steps in your care will be at that point. You can take oxycodone as needed for pain in your right side. Your potassium and sodium levels were low on admission and improved with replacement. Please lower the dose of your furosemide to 40 mg just once a day. Please continue to work on your constipation with taking laxatives. Total Time Total Time Spent Total Time Spent (In Minutes): 40 minutes Total Time Includes: Examination of the Patient, Discharge Planning, Medication Reconciliation, Communication With Other Providers (Oncology) and Other (Nurse navigator) Coding Level of Care Code 79640 INP/OBS DISCH >30 MIN Diagnoses Emphysematous cystitis N30.80 Acute hypokalemia E87.6 Acute hyponatremia E87.1 Liver mass R16.0
[2025-03-15 16:30] VITALS: BP 104/74; PULSE 93; TEMP 97.5; O2SAT 96
== END 2025-03-15 18:30 | disposition home or self-care (01) | DRG 690 ==
LOC: SUATTDRO → ED 13:15 → SUATTDRO 19:53 → 2N 19:53

== ENCOUNTER 2025-03-25 23:04 | Inpatient (IN) ==
--- NOTE | 2025-03-25 23:19 | Emergency Department Note ---
History of Present Illness General Chief Complaint: Shortness of Breath/Dyspnea Stated Complaint: SOB, Edema Time Seen by Provider: 03/25/25 23:10 History of Present Illness Provider Complaint: shortness of breath Onset (ago): day(s) (2) Consistency/Duration: + progressively worsening Relieved By: + upright position Exacerbated By: + lying flat and + exertion Known history of: asthma Associated symptoms: + orthopnea; no chest pain, no fever, no sputum production, no hemoptysis, no nausea/vomiting, no abdominal pain or no chest congestion HPI Narrative: Patient also reports that her De La Rosa catheter recently fell out. Related Data Home oxygen amount: none Home Medications Medication Instructions Recorded Confirmed Type albuterol sulfate 90 mcg/actuation 2 puff inhalation Q6H PRN SOB 01/25/19 03/26/25 History aerosol inhaler milk thistle 150 mg capsule 150 mg PO BID 04/06/19 03/26/25 History [id number] 8 mg-folic 400 1 tab PO QAM 04/06/19 03/26/25 History mcg-K 50 mcg-lutein 300 mcg tablet (Centrum Silver Women) polyethylene glycol 3350 17 17 g PO DAILY PRN Constipation 03/03/23 03/26/25 Rx gram/dose oral powder (Miralax) #850 grams vitamin E mixed 400 unit capsule 400 unit PO QAM #90 caps 12/28/23 03/26/25 Rx fluticasone propionate 50 2 spray intranasal QAM #16 grams 04/25/24 03/26/25 Rx mcg/actuation nasal spray,suspension (Flonase Allergy Relief) pantoprazole 40 mg tablet,delayed 40 mg PO BID 90 days #180 tabs 05/29/24 03/26/25 Rx release (Protonix) allopurinol 300 mg tablet 300 mg PO QAM #90 tabs 08/21/24 03/26/25 Rx atorvastatin 40 mg tablet 40 mg PO HS #90 tabs 08/21/24 03/26/25 Rx bupropion HCl 150 mg tablet,12 hr 150 mg PO BID #180 ea 08/21/24 03/26/25 Rx sustained-release buspirone 5 mg tablet 5 mg PO BID #180 tabs 08/21/24 03/26/25 Rx semaglutide 2 mg/dose (8 mg/3 mL) 2 mg (0.75 mL) subcut .COMPLEX #3 08/21/24 03/20/25 Rx subcutaneous pen injector (Ozempic) mL denosumab 60 mg/mL subcutaneous 60 mg subcut Q6M #1 mL 09/28/24 03/26/25 Rx syringe (Prolia) empagliflozin 25 mg tablet 25 mg PO QAM #90 tabs 02/19/25 03/26/25 Rx (Jardiance) levothyroxine 100 mcg tablet 100 mcg PO QAM #90 tabs 02/19/25 03/26/25 Rx loratadine 10 mg tablet 10 mg PO QAM #90 tabs 02/19/25 03/26/25 Rx metformin 500 mg tablet,extended 500 mg PO DAILY 90 days #90 tabs 02/19/25 03/26/25 Rx release 24 hr metoprolol succinate 25 mg 25 mg PO QAM #90 tabs 02/19/25 03/26/25 Rx tablet,extended release 24 hr nystatin 100,000 unit/gram topical 1 applic topical BID 2 weeks #30 02/19/25 03/26/25 Rx cream grams potassium chloride 20 mEq 20 meq PO DAILY #90 tabs 02/20/25 03/26/25 Rx tablet,extended release ergocalciferol (vitamin D2) 1,250 1,250 mcg PO WK 03/12/25 03/26/25 History mcg (50,000 unit) capsule amoxicillin 500 mg tablet 500 mg PO TID #60 tabs 03/15/25 03/26/25 Rx oxycodone 5 mg tablet 5 mg PO Q6 PRN pain #30 tabs 03/20/25 03/26/25 Rx furosemide 40 mg tablet (Lasix) 40 mg PO DAILY 03/26/25 03/26/25 History Allergies Allergy/AdvReac Type Severity Reaction Status Date / Time enalapril Allergy Severe Swelling Verified 03/20/25 13:05 of Lip/Tongue/Throat Iodinated Contrast Media Allergy Intermediate "THE DYE Verified 03/20/25 13:05 BLEW UP IN MY ARM" nickel Allergy Intermediate "I GET AN Verified 03/20/25 13:05 INFECTION" tetanus toxoid, adsorbed Allergy Intermediate ARM GETS Verified 03/20/25 13:05 INFECTED-SWELLING, REDNESS Past Med/Surg History Problem List (Updated 03/26/25 @ 04:36 by Erika Cristina DO) Intraabdominal mass Pulmonary emboli (Acute) Right flank pain Urinary catheter in place Hematuria (Acute) Gastric wall thickening Acute hyponatremia Acute right flank pain (Acute) Liver mass (Acute) Emphysematous cystitis (Acute) Acute UTI (urinary tract infection) (Acute) Chronic back pain Constipation Intertrigo Class 3 severe obesity due to excess calories with body mass index (BMI) of 40.0 to 44.9 in adult Hypovitaminosis D Abnormality of right breast on screening mammogram Disappearance and of family member Diabetes mellitus, type 2 GERD (gastroesophageal reflux disease) Hypokalemia Anxiety and depression Osteoporosis Gout Hyperlipidemia Hypertension Cirrhosis Dyslipidemia associated with type 2 diabetes mellitus (Chronic) Benign essential hypertension (Chronic) Stress-induced cardiomyopathy Medical History History of ST elevation myocardial infarction (STEMI) 03/2019--had heart cath, follows with Dr. Srinivasan Degenerative disc disease LUMBAR AREA Spinal stenosis of lumbar region SOB (shortness of breath) on exertion CAD (coronary artery disease) Angioedema Osteoarthritis Hiatal hernia Hypothyroidism Anxiety Migraine H/O Kidney stones HX Asthma Surgical History History of bunionectomy of both great toes History of arthroscopy R/L KNEES History of cardiac cath (~04/07/19) @ [facility]--no stents placed S/P PALAK-BSO History of carpal tunnel release RIGHT History of cystoscopy WITH STENT AND REPAIRED RIGHT URETER BLOCKAGE. History of herniorrhaphy RIGHT INGUINAL HERNIA REPAIR History of cholecystectomy History of appendectomy History of esophagogastroduodenoscopy (EGD) History of colonoscopy History of thyroidectomy, subtotal BENIGN TUMOR History of cataract surgery BILATERAL History of tonsillectomy Family History Sister FHx: pancreatic cancer Family history of diabetes mellitus Mother Family history of diabetes mellitus Lung cancer Son Family history of diabetes mellitus Other No family history of adverse response to anesthesia Social History Smoking Status: Former smoker Tobacco Type: Cigarettes Age Started Using Tobacco: 20; Age Quit Using Tobacco: 58; packs per day: 2; Cigarettes Per Day: 1 PPD X 35 YEARS; Second Hand Exposure: Yes (son smokes/parents smoked); Do You Dip or Chew Tobacco: No; Hx Alcohol Use: No Hx Substance Use: No Preferred Language: Kazakh Communication Ability: Effective Financial Operations Clerk Required: No Beliefs That Will Affect Care: None marital status: Single Current Living Situation: Alone current occupational status: disabled Feels Safe at Home: Yes Diet: regular Seatbelt Use: always Sunscreen Use: Yes Assistive Devices: None Physical Exam 2 Vital Signs: Vital Signs - 24 hr 03/25/25 22:57 03/25/25 22:57 03/25/25 23:26 Temperature 36.6 C Temperature Source Oral Pulse Rate 105 H 101 H Respiratory Rate 22 Blood Pressure 109/75 Blood Pressure Sienna n 86 Pulse Oximetry 88 L 88 L Oxygen Delivery Me thod Room Air Room Air Oxygen Flow Rate 0 Sepsis Recent Feve r Within 48 Hours No Sepsis New/Unexpla ined Change in Men kaden Status N/A Sepsis Action Take n by Nursing Physician Notified Oxygen Flow Rate - Titration 2 Pulse Oximetry Pos t Tiitration 91 03/26/25 00:30 03/26/25 01:14 03/26/25 02:01 Temperature Temperature Source Pulse Rate 80 94 H 102 H Respiratory Rate 24 20 20 Blood Pressure 107/89 124/71 114/65 Blood Pressure Sienna n 95 84 84 Pulse Oximetry 95 95 96 Oxygen Delivery Me thod Nasal Cannula Nasal Cannula Oxygen Flow Rate 2 2 Sepsis Recent Feve r Within 48 Hours Sepsis New/Unexpla ined Change in Men kaden Status Sepsis Action Take n by Nursing Oxygen Flow Rate - Titration Pulse Oximetry Pos t Tiitration 03/26/25 02:30 03/26/25 03:26 03/26/25 03:30 Temperature Temperature Source Pulse Rate 103 H 101 H 101 H Respiratory Rate 20 20 Blood Pressure 108/79 133/74 Blood Pressure Sienna n 82 94 Pulse Oximetry 95 95 Oxygen Delivery Me thod Nasal Cannula Nasal Cannula Oxygen Flow Rate 2 2 Sepsis Recent Feve r Within 48 Hours Sepsis New/Unexpla ined Change in Men kaden Status Sepsis Action Take n by Nursing Oxygen Flow Rate - Titration Pulse Oximetry Pos t Tiitration 03/26/25 04:14 Temperature Temperature Source Pulse Rate 103 H Respiratory Rate 20 Blood Pressure 125/76 Blood Pressure Sienna n 98 Pulse Oximetry 94 Oxygen Delivery Me thod Nasal Cannula Oxygen Flow Rate 2 Sepsis Recent Feve r Within 48 Hours Sepsis New/Unexpla ined Change in Men kaden Status Sepsis Action Take n by Nursing Oxygen Flow Rate - Titration Pulse Oximetry Pos t Tiitration Physical Exam: Physical Exam GENERAL: oriented to person, place, and time. appears well-developed and well- nourished. HENT: Exam performed. - Head: Normocephalic and atraumatic. EYES: Conjunctivae and EOM are normal. Right eye exhibits no discharge. Left eye exhibits no discharge. No scleral icterus. NECK: Normal range of motion. Neck supple. No JVD present. CV: Normal rate, regular rhythm, normal heart sounds and intact distal pulses. 3+ pitting edema of the bilateral lower extremities. Palpable radial pulses bue. PULM/CHEST: Inspiratory rales right greater than left. ABD: The abdomen is soft. Obese. No distention. There is no tenderness. No guarding or rigidity. NEURO: Motor and sensation grossly intact. SKIN: Skin is warm and dry. He is not diaphoretic. PSYCH: normal mood and affect. Behavior is normal. Judgment and thought content normal. Course Course 2310: The patient was evaluated in room A11. A complete history and physical exam was performed Cardiac monitoring: An order was placed for continuous cardiac monitoring. The monitor shows a rate of 80 with sinus rhythm interpreted by me 0050: Vital signs stable supplemental oxygen. Patient's chest x-ray does not show any significant pulmonary edema. VBG is unremarkable. BNP is unremarkable. Minimally elevated high-sensitivity troponin. Given the patient's hypoxia will order CT of the chest. Patient also reporting constipation will order CT of the abdomen pelvis. 0336: Vital signs stable on supplemental oxygen. CTA of the chest shows pulmonary emboli. CT of the abdomen pelvis redemonstrates the hepatic masses and metastatic lymph nodes. There is mild central intrahepatic biliary tree dilatation due to the large mass. Liver function tests are essentially stable from her last admission 1 week ago. Patient will be started on heparin and admitted to the [facility]. Administered Medications Heparin Sodium/Dextrose (Heparin 19091 Unit/500 Ml D5w) 25,000 units in 500 mls @ 25 mls/hr IV .Q20H [facility]; Protocol Stop: 04/25/25 03:14 Last Admin: 03/26/25 04:11 Dose: 1,250 units/hr, 25 mls/hr Documented By: BRITNEY Co-signed By: DAMION Discontinued Medications Heparin Sodium (Porcine) (Heparin Sod (Porcine) 1000 Unit/Ml) 1 units IV NOW ONE Stop: 03/26/25 03:05 Last Admin: 03/26/25 04:09 Dose: 6,000 units Documented By: BRITNEY Co-signed By: DAMION Heparin Sodium/Dextrose (Heparin Iv Adult Wt-Based Standard W/ Initial Bolus Protocol) 1 each IV NOW STA; Protocol Stop: 03/26/25 02:50 Last Admin: 03/26/25 04:12 Dose: Not Given Documented By: BRITNEY Ioversol (Optiray 320 125ml) 125 ml IV ONCE ONE Stop: 03/26/25 01:02 Last Admin: 03/26/25 01:02 Dose: 118 ml Documented By: RODRIGUEZ Ondansetron HCl (Ondansetron Inj 2 Mg/Ml 2 Ml Vial) 4 mg IV NOW STA Stop: 03/26/25 01:10 Last Admin: 03/26/25 01:13 Dose: 4 mg Documented By: BRITNEY Medical Decision Making Medical Records Attestation: I reviewed the patient's medical records. Medical records reviewed. Echocardiogram from 2019 showed ejection fraction of 55% with no segmental wall motion abnormalities. Patient was admitted from March 12, 2025 to March 15, 2025. At that time she was admitted for Emcyt Yvan cystitis. De La Rosa catheter was placed. Urine culture grew out E. coli. Patient has sodium of 132 on admission. There is suspected malignancy. A CT of the abdomen pelvis revealed cirrhosis and a right upper quadrant mass. There is also a pancreatic mass. The patient's CEA was 10.2 and CA 19-9 was 14,400. An ultrasound of the bilateral lower extremities was negative for DVT. A CTA of the chest was negative for PE. Laboratory Data Attestation: I reviewed the patient's lab results. 03/25/25 23:29 03/25/25 23:29 Lab Results 03/25/25 03/25/25 Range/Units 23:29 23:41 WBC 14.93 H (4.8-10.8) K/ul RBC 3.72 L (4.20-5.40) M/uL Hgb 11.3 L (12.0-16.0) g/dl Hct 33.2 L (37.0-47.0) % MCV 89.2 (80.0-100.0) fL MCH 30.4 (25.0-34.0) pg MCHC 34.0 (32.0-36.0) g/dL RDW Std Deviation 53.3 H (36.4-46.3) fL RDW Coeff of Huyen 16.8 H (11.5-14.5) % Plt Count 230 (130-400) K/uL MPV 9.9 (9.4-12.4) fL Immature Gran % (Auto) 2.4 % Neut % (Auto) 80.7 % Lymph % (Auto) 6.8 % [place] % (Auto) 8.6 % Eos % (Auto) 1.1 % Baso % (Auto) 0.4 % Neut # (Auto) 12.05 H (1.40-6.50) K/uL Lymph # (Auto) 1.01 L (1.20-3.40) K/uL [place] # (Auto) 1.28 H (0.11-0.59) K/uL Eos # (Auto) 0.17 (0.00-0.50) K/uL Baso # (Auto) 0.06 (0.00-0.20) K/uL Immature Gran # (Auto) 0.36 H (0.01-0.20) K/uL Absolute Nucleated RBC 0.03 (0.00-0.12) K/uL Nucleated RBC % (auto) 0.2 % PT 12.1 H (9.0-12.0) Seconds INR 1.1 (0.9-1.1) APTT 28 (21-31) Seconds PTT Ratio 1.0 VBG pH 7.45 H (7.36-7.41) VBG pCO2 32 L (38-50) mmHg VBG pO2 51 mmHg VBG HCO3 22 mmol/L VBG O2 Saturation 85.4 % VBG Base Excess -1.0 mEq/L Sodium 127 L (136-145) mmol/L Potassium 4.2 (3.5-5.1) mmol/L Chloride 90 L (98-107) mmol/L Carbon Dioxide 22 (21-32) mmol/L Anion Gap 15 H (3-11) BUN 30 H (6-23) mg/dl Creatinine 0.89 (0.6-1.2) mg/dl Est Cr Clr Drug Dosing 66.8 ml/min eGFR 70.14 BUN/Creatinine Ratio 33.7 H (10-20) Glucose 284 H (70-99(Fasting)) mg/dl Calcium 8.6 (8.6-10.3) mg/dl Total Bilirubin 1.9 H (0.2-1.0) mg/dl Direct Bilirubin 0.6 H (0-0.2) mg/dl AST 48 H (13-39) U/L ALT 36 (7-52) U/L Alkaline Phosphatase 132 H (34-104) U/L Troponin I High Sens 18.0 H (0-14) pg/ml B-Natriuretic Peptide 20 (0-100) pg/ml Total Protein 6.4 (6.0-8.3) gm/dl Albumin 3.0 L (3.4-5.0) gm/dl Lipase 69 (11-82) U/L SARS-CoV-2 (PCR) NEGATIVE (Negative) Influenza Type A (PCR) Negative (Neg) Influenza Type B (PCR) Negative (Neg) RSV (RT-PCR) Negative (Neg) Imaging Data Attestation: I personally reviewed and interpreted this imaging study as follows: My Impression: Chest x-ray: No significant change from the chest x-ray in March 18, 2025 Radiologist's Impression: Chest X-Ray 03/25/25 23:14 EXAM: XR chest 1V portable CLINICAL HISTORY: Chest pain, nonspecific TECHNIQUE: X-ray images of the chest were obtained in frontal projection. COMPARISON: 03/18/2025 CR. FINDINGS: Pulmonary Parenchyma: There is a 1 cm calcified nodule in the left upper lobe. There are multiple ill-defined nodular densities in both lungs. There are reticular densities with prominent interstitial markings and Kennedy lines, which might be suggestive of interstitial/lymphatic congestion or infiltration. No evidence of pleural effusion or pleural thickening. Heart and Mediastinum: Heart size and shape are normal. No mediastinal widening or masses. No hilar or mediastinal lymphadenopathy. Bony Thorax: Bony thorax appears intact without fractures or deformities. Soft Tissues: Soft tissues overlying the chest wall are unremarkable. IMPRESSION: 1. Bilateral ill-defined nodular densities with prominent interstitial markings, which are likely parenchymal nodules with interstitial infiltration. Please correlate clinically. 2. No significant interval changes. Electronically signed by Héctor Galindo 03-26-2025 01:51 AM Abdomen/Pelvis CT 03/26/25 00:47 EXAM: CT abd pelvis IV con only CLINICAL HISTORY: abd pain TECHNIQUE: CT of the abdomen and pelvis was performed with contrast, with the following protocol: axial images with, and reconstructed coronal and sagittal images. One of the following dose reduction techniques was utilized for this exam: Automated exposure control, adjustment of the mA and/or kV according to patient size, and use of iterative reconstruction. COMPARISON: Prior CT dated March 12, 2025 FINDINGS: Peritoneal and Retroperitoneal Structures: A large, irregular, creepy, heterogeneously enhancing soft tissue mass lesion is seen centered on the gastrohepatic recess and the louise hepatis. It measures about 15.5 x 15.5 x 10.5 cm in the maximum orthogonal dimensions. The mass is inseparable from the caudate lobe of the liver and the pancreatic body. It stretches the gastric body and antrum anteriorly with no infiltration. The mass infiltrates through the left anterolateral aspect of the IVC, which shows a hypodense partial non-occlusive filling defect above, at, and below the level of the renal veins. The mass encases the portal vein, which is patent and of average caliber. It also encases the celiac trunk and its major branches, which are attenuated but not occluded. Multiple pathologically enlarged, heterogeneously enhancing, shanae-aortic lymph nodes are seen; the largest is at a pre-aortic location posterior and adherent to the pancreatic head, measuring 42 x 25 mm. Diffuse peritoneal fat smudging, with scattered heterogeneously enhancing peritoneal nodules; the largest is at a subhepatic location, measuring 24 x 20 mm. Mild ascites. Atherosclerotic calcifications of the aorta and iliac arteries. Liver: Enlarged (measuring 20 cm in the long axis). Multiple bilobar hypodense focal lesions, showing mild peripheral enhancement; the largest is at segment 5/6, measuring 26 x 20 mm. Hepatic vasculature is unremarkable. Pancreas: The pancreatic body presents an ill-defined hypodense mass lesion, which is likely an extension (direct infiltration) from the large abdominal mass rather than being a discrete lesion. It measures 30 x 15 mm. The main pancreatic duct is mildly dilated distal to the body lesion. Spleen: Enlarged (measuring 16.9 cm in the long axis). Multiple irregular hypodense focal lesions, the largest is anterior upper polar, measuring 49 x 38 mm. Tiny calcified granulomas Gallbladder and Biliary System: Cholecystectomy clips are noted. Mild central intrahepatic biliary tree dilatation, likely sequel to compression of the bile duct at the hepatic hilum by the large related mass. Kidneys and Adrenal Glands: Both kidneys are normal in size, shape, position, and cortical thickness. No renal calculi or hydronephrosis. The adrenal glands are bulky bilaterally, but no focal lesions. Urinary Bladder: Collapsed over De La Rosa's catheter balloon, cannot be assessed. Uterus and Cervix: The uterus is not fully visualized, needs clinical correlation. No cervical gross masses or abnormal thickening. Ovaries: Not well visualized, but no gross adnexal abnormalities. Bowel: The visualized bowel loops are normal in caliber and appearance. No evidence of bowel obstruction or wall thickening. Multiple sigmoid diverticulae. Scanned lower chest cuts: Bilateral lower lobar, middle lobar, and lingular segment multiple irregular speculated solid pulmonary nodules, the largest is in the right lower lobe, measuring 26 x 24 mm. Some of them show early tiny cavitation changes. Few pneumatoceles are seen in the bilateral lower lobes and the middle lobe. Bones and Soft Tissues: Osteopenia. Degenerative changes of the lower thoracic and lumbar spine. No fractures or abnormal masses were identified. Redemonstration of a sclerotic focus in the left iliac bone. IMPRESSION: - A large, irregular, creepy, heterogeneously enhancing soft tissue malignant mass lesion is seen centered on the gastrohepatic recess and the louise hepatis. The epicenter of the lesion cannot be determined due to its large and infiltrative nature. However, the differentials would include hepatic/Klatskin tumor/gastric, or pancreatic lesion. Further tissue biopsy is suggested, guided by the clinical condition -- increased in size compared to the prior study. - The mass infiltrates through the left anterolateral aspect of the IVC, which shows a hypodense partial non-occlusive hypodense filling defect above, at, and below the level of the renal vein. - Peritoneal fat smudging and multiple nodules, likely metastatic -- no significant interval changes. - Multiple pathologically enlarged shanae-aortic lymph nodes, likely metastatic -- no significant interval changes. - Hepatomegaly, with multiple bilobar hepatic focal lesions, likely metastatic -- likely stable. - The pancreatic body ill-defined mass lesion, which is likely an extension (direct infiltration) from the large abdominal mass rather than being a discrete lesion. - Splenomegaly with multiple irregular focal lesions, likely neoplastic (metastatic) -- increased. - Mild central intrahepatic biliary tree dilatation, likely sequel to compression of the bile duct at the hepatic hilum by the large related mass. - Mild ascites. - Multiple bilateral basal irregular solid pulmonary nodules, likely metastatic -- no significant interval changes. - The previously seen intra/shanae-vesical air foci are currently resolved. Currently, the urinary bladder is collapsed over the De La Rosa's catheter balloon, so it cannot be assessed. - The comparison was limited because the prior study was a non-contrast scan. Electronically signed by Héctor Galindo 03-26-2025 02:41 AM Chest CTA 03/26/25 00:47 EXAM: CT angio chest PE protocol CLINICAL HISTORY: sob TECHNIQUE: Contiguous axial images were obtained from the neck base through the upper abdomen following intravenous administration of iodinated contrast material. Angiographic images were processed, 3D MIP images were acquired for interpretation. If IV contrast material had not been administered, the likelihood of detecting abnormalities relevant to the patient's condition would have been substantially decreased. Coronal and sagittal 3-D MIPs were likewise performed and indicated to increase the sensitivity of detecting diffuse clinically relevant pathology. CT scan was performed according to ALARA (as low as reasonably achievable). 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 Multiple small nodules of 5-8mm seen scattered in peripheral location in bilateral lumngs with spiculated margins and predominantly in bilateral lower lobes. Mosaic attenuation in bilateral lungs. Paraseptal emphysematous changes in right upper lobe. Multiple simple cysts in bilateral lower lobes, right middle lobe and lingula. The central airways are patent. No pleural effusion. The heart, aorta, and pulmonary arteries are of normal size and configuration. There are no appreciable coronary artery and aortic atherosclerotic calcifications. No pericardial effusion is identified. The thyroid is unremarkable. No mediastinal, hilar, or axillary lymphadenopathy is noted. No suspicious lytic or sclerotic osseous lesions are identified. Visualized upper section of abdomen shows large mass/lymph nodes in caudate lobe of liver, periportal region. IMPRESSION: 1. Partial lumen occluding filling defects seen in bilateral interlobar pulmonary artery, bilateral upper lobe arteries, right middle lobe/lingula segmental branches and proximal left posterbasal segmental branches of pulmonary arteries- Acute pulmonary thromboembolism- New finding. 2. Multiple small nodules of 5-8mm seen scattered in peripheral location in bilateral lumngs with spiculated margins and predominantly in bilateral lower lobes- likely metatstatic lesions- Stable. 3. Mosaic attenuation in bilateral lungs-stable, 4. Paraseptal emphysematous chnages in right upper lobe. Multiple simple cysts in bilateral lower lobes, right middle lobe and lingula- stable. 5. Visualized upper section of abdomen shows stable large mass/lymph nodes in caudate lobe of liver, periportal region- Suggested Contrast CT abdomen for further evaluation. Electronically signed by Charly Hernandez 03-26-2025 02:09 AM ECG Data Attestation: I personally reviewed and interpreted this ECG as follows: Interpretation: EKG #1 at 2321: Sinus tachycardia with a rate of 101. HI 168 QRS [address] elevation or ST depression. Baseline wander and artifact. EKG #2 at 2333: Sinus arrhythmia. HI QRS and QTc intervals within normal limits. No ST elevation or ST depression. [facility] Narrative 2310: The patient was evaluated in room A11. A complete history and physical exam was performed Cardiac monitoring: An order was placed for continuous cardiac monitoring. The monitor shows a rate of 80 with sinus rhythm interpreted by md 0050: Vital signs stable supplemental oxygen. Patient's chest x-ray does not show any significant pulmonary edema. VBG is unremarkable. BNP is unremarkable. Minimally elevated high-sensitivity troponin. Given the patient's hypoxia will order CT of the chest. Patient also reporting constipation will order CT of the abdomen pelvis. 0336: Vital signs stable on supplemental oxygen. CTA of the chest shows pulmonary emboli. CT of the abdomen pelvis redemonstrates the hepatic masses and metastatic lymph nodes. There is mild central intrahepatic biliary tree dilatation due to the large mass. Liver function tests are essentially stable from her last admission 1 week ago. Patient will be started on heparin and admitted to the [facility]. Impression & Plan Pulmonary emboli Critical Care Time Critical Care Time: Yes Total Critical Care Time: 69 I have personally spent greater than 69 minutes of critical care time in the direct management of this patient. This includes bedside care, interpretation of diagnostic studies, and testing, discussion with consultants, patient, and family members, and other required patient management activities. This 69 minutes is in excess of all separately billable procedures. Discharge Plan Visit Data Chief Complaint: Shortness of Breath/Dyspnea Stated Complaint: SOB, Edema ED Provider: Edward Macias Discharge Problem: Pulmonary emboli Patient Disposition: Admitted As Inpatient Condition: Serious Forms Stand Alone Forms: My [facility] Prescriptions Prescriptions: No Action polyethylene glycol 3350 [Miralax] 17 gram/dose powder 17 g PO DAILY PRN (Reason: Constipation) Qty: 850 3RF vitamin E mixed 400 unit capsule 400 unit PO QAM Qty: 90 2RF fluticasone propionate [Flonase Allergy Relief] 50 mcg/actuation spray,suspension 2 spray INTRANASAL QAM Qty: 16 3RF potassium chloride 20 mEq tablet extended release 20 meq PO DAILY Qty: 90 2RF pantoprazole [Protonix] 40 mg tablet,delayed release (DR/EC) 40 mg PO BID 90 Days Qty: 180 3RF Prolia 60 mg/mL syringe 60 mg SUBCUT Q6M Qty: 1 1RF oxycodone 5 mg tablet 5 mg PO Q6 PRN (Reason: pain) Qty: 30 0RF Ozempic 2 mg/dose (8 mg/3 mL) pen injector 2 mg subcut .COMPLEX Qty: 3 11RF Hold Instructions: Resume on 04/12/25. Hold until your doctor says it is okay to restart this Rx Instructions: 2 mg subcutaneously every week; MONDAYS allopurinol 300 mg tablet 300 mg PO QAM Qty: 90 3RF atorvastatin 40 mg tablet 40 mg PO HS Qty: 90 3RF bupropion HCl 150 mg tablet sustained-release 12 hr 150 mg PO BID Qty: 180 3RF buspirone 5 mg tablet 5 mg PO BID Qty: 180 3RF nystatin 100,000 unit/gram cream 1 applic topical BID 14 Days Qty: 30 2RF Rx Instructions: apply to affected area after cleaning and drying loratadine 10 mg tablet 10 mg PO QAM Qty: 90 3RF metoprolol succinate 25 mg tablet extended release 24 hr 25 mg PO QAM Qty: 90 3RF metformin 500 mg tablet extended release 24 hr 500 mg PO DAILY 90 Days Qty: 90 3RF Rx Instructions: take with dinner levothyroxine 100 mcg tablet 100 mcg PO QAM Qty: 90 3RF Jardiance 25 mg tablet 25 mg PO QAM Qty: 90 3RF albuterol sulfate 90 mcg/actuation Hfa Aerosol Inhaler 2 puff INHALATION Q6H PRN (Reason: SOB) milk thistle 150 mg Capsule 150 mg PO BID Centrum Silver Women 8 mg iron-400 mcg-300 mcg Tablet 1 tab PO QAM furosemide [Lasix] 40 mg tablet 40 mg PO DAILY ergocalciferol (vitamin D2) 1,250 mcg (50,000 unit) Capsule 1,250 mcg PO WK Rx Instructions: MONDAYS amoxicillin 500 mg tablet 500 mg PO TID Qty: 60 0RF Referrals Referrals: Aleksey Galindo DO [Primary Care Provider] - Discharge Problem: Pulmonary emboli Qualifiers: Pulmonary embolism type: unspecified Chronicity: unspecified Acute cor pulmonale presence: unspecified Qualified Code(s): I26.99 - Other pulmonary embolism without acute cor pulmonale
[2025-03-25 23:46] LABS: Base Excess VBG -1.0 mEq/L; HCO3 VBG 22 mmol/L; Oxygen Saturation VBG 85.4 %; PCO2 VBG 32 mmHg (38-50); PO2 VBG 51 mmHg; pH VBG 7.45 (7.36-7.41)
[2025-03-25 23:50] LABS: Hematocrit (blood only) 33.2 % (37.0-47.0); Hemoglobin 11.3 g/dl (12.0-16.0); Immature Granulocytes # (auto) 0.36 K/uL (0.01-0.20); Immature Granulocytes % (auto) 2.4 %; Mean Corpuscular Hemoglobin 30.4 pg (25.0-34.0); Mean Corpuscular Volume 89.2 fL (80.0-100.0); Platelet Count 230 K/uL (130-400); RDW Standard Deviation 53.3 fL (36.4-46.3); Red Blood Count 3.72 M/uL (4.20-5.40); White Blood Count 14.93 K/ul (4.8-10.8)
[2025-03-26 00:09] LABS: Anion Gap 15.0 (3-11); Blood Urea Nitrogen 30.0 mg/dl (6-23); Calcium 8.6 mg/dl (8.6-10.3); Carbon Dioxide 22.0 mmol/L (21-32); Chloride 90.0 mmol/L (98-107); Creatinine Clr Calc Pharmacy 66.8 ml/min; Glucose 284.0 mg/dl (70-99(Fasting)); Lipase 69.0 U/L (11-82); Potassium 4.2 mmol/L (3.5-5.1); Sodium 127.0 mmol/L (136-145)
[2025-03-26 00:19] LABS: INR 1.1 (0.9-1.1); Partial Thromboplastin Time 28 Seconds (21-31); Prothrombin Time 12.1 Seconds (9.0-12.0)
[2025-03-26 00:24] LABS: Influenza A virus by PCR Negative (Neg); Influenza B virus by PCR Negative (Neg); SARS CoV2 RNA(COVID-19) Ceph NEGATIVE (Negative)
[2025-03-26] MEDS: OPTIRAY 320 125ml IV ONE (01:02)
[2025-03-26] MEDS: ONDANSETRON INJ 2 MG/ML 2 ML VIAL IV STA (01:13)
--- NOTE | 2025-03-26 01:52 | XRay Report ---
EXAM: XR chest 1V portable CLINICAL HISTORY: Chest pain, nonspecific TECHNIQUE: X-ray images of the chest were obtained in frontal projection. COMPARISON: 03/18/2025 CR. FINDINGS: Pulmonary Parenchyma: There is a 1 cm calcified nodule in the left upper lobe. There are multiple ill-defined nodular densities in both lungs. There are reticular densities with prominent interstitial markings and Kennedy lines, which might be suggestive of interstitial/lymphatic congestion or infiltration. No evidence of pleural effusion or pleural thickening. Heart and Mediastinum: Heart size and shape are normal. No mediastinal widening or masses. No hilar or mediastinal lymphadenopathy. Bony Thorax: Bony thorax appears intact without fractures or deformities. Soft Tissues: Soft tissues overlying the chest wall are unremarkable. IMPRESSION: 1. Bilateral ill-defined nodular densities with prominent interstitial markings, which are likely parenchymal nodules with interstitial infiltration. Please correlate clinically. 2. No significant interval changes. Electronically signed by Héctor Galindo 03-26-2025 01:51 AM
--- NOTE | 2025-03-26 02:10 | CT Scan Report ---
EXAM: CT angio chest PE protocol CLINICAL HISTORY: sob TECHNIQUE: Contiguous axial images were obtained from the neck base through the upper abdomen following intravenous administration of iodinated contrast material. Angiographic images were processed, 3D MIP images were acquired for interpretation. If IV contrast material had not been administered, the likelihood of detecting abnormalities relevant to the patient's condition would have been substantially decreased. Coronal and sagittal 3-D MIPs were likewise performed and indicated to increase the sensitivity of detecting diffuse clinically relevant pathology. CT scan was performed according to ALARA (as low as reasonably achievable). COMPARISON: CTA, 03/13/2025 14:58:00 [employer] FINDINGS: Partial lumen occluding filling defects seen in bilateral interlobar pulmonary artery, bilateral upper lobe arteries, right middle lobe/lingula segmental branches and proximal left posterbasal segmental branches of pulmonary arteries. Multiple small nodules of 5-8mm seen scattered in peripheral location in bilateral lumngs with spiculated margins and predominantly in bilateral lower lobes. Mosaic attenuation in bilateral lungs. Paraseptal emphysematous changes in right upper lobe. Multiple simple cysts in bilateral lower lobes, right middle lobe and lingula. The central airways are patent. No pleural effusion. The heart, aorta, and pulmonary arteries are of normal size and configuration. There are no appreciable coronary artery and aortic atherosclerotic calcifications. No pericardial effusion is identified. The thyroid is unremarkable. No mediastinal, hilar, or axillary lymphadenopathy is noted. No suspicious lytic or sclerotic osseous lesions are identified. Visualized upper section of abdomen shows large mass/lymph nodes in caudate lobe of liver, periportal region. IMPRESSION: 1. Partial lumen occluding filling defects seen in bilateral interlobar pulmonary artery, bilateral upper lobe arteries, right middle lobe/lingula segmental branches and proximal left posterbasal segmental branches of pulmonary arteries- Acute pulmonary thromboembolism- New finding. 2. Multiple small nodules of 5-8mm seen scattered in peripheral location in bilateral lumngs with spiculated margins and predominantly in bilateral lower lobes- likely metatstatic lesions- Stable. 3. Mosaic attenuation in bilateral lungs-stable, 4. Paraseptal emphysematous chnages in right upper lobe. Multiple simple cysts in bilateral lower lobes, right middle lobe and lingula- stable. 5. Visualized upper section of abdomen shows stable large mass/lymph nodes in caudate lobe of liver, periportal region- Suggested Contrast CT abdomen for further evaluation. Electronically signed by Charly Hernandez 03-26-2025 02:09 AM
--- NOTE | 2025-03-26 02:42 | CT Scan Report ---
EXAM: CT abd pelvis IV con only CLINICAL HISTORY: abd pain TECHNIQUE: CT of the abdomen and pelvis was performed with contrast, with the following protocol: axial images with, and reconstructed coronal and sagittal images. One of the following dose reduction techniques was utilized for this exam: Automated exposure control, adjustment of the mA and/or kV according to patient size, and use of iterative reconstruction. COMPARISON: Prior CT dated March 12, 2025 FINDINGS: Peritoneal and Retroperitoneal Structures: A large, irregular, creepy, heterogeneously enhancing soft tissue mass lesion is seen centered on the gastrohepatic recess and the louise hepatis. It measures about 15.5 x 15.5 x 10.5 cm in the maximum orthogonal dimensions. The mass is inseparable from the caudate lobe of the liver and the pancreatic body. It stretches the gastric body and antrum anteriorly with no infiltration. The mass infiltrates through the left anterolateral aspect of the IVC, which shows a hypodense partial non-occlusive filling defect above, at, and below the level of the renal veins. The mass encases the portal vein, which is patent and of average caliber. It also encases the celiac trunk and its major branches, which are attenuated but not occluded. Multiple pathologically enlarged, heterogeneously enhancing, shanae-aortic lymph nodes are seen; the largest is at a pre-aortic location posterior and adherent to the pancreatic head, measuring 42 x 25 mm. Diffuse peritoneal fat smudging, with scattered heterogeneously enhancing peritoneal nodules; the largest is at a subhepatic location, measuring 24 x 20 mm. Mild ascites. Atherosclerotic calcifications of the aorta and iliac arteries. Liver: Enlarged (measuring 20 cm in the long axis). Multiple bilobar hypodense focal lesions, showing mild peripheral enhancement; the largest is at segment 5/6, measuring 26 x 20 mm. Hepatic vasculature is unremarkable. Pancreas: The pancreatic body presents an ill-defined hypodense mass lesion, which is likely an extension (direct infiltration) from the large abdominal mass rather than being a discrete lesion. It measures 30 x 15 mm. The main pancreatic duct is mildly dilated distal to the body lesion. Spleen: Enlarged (measuring 16.9 cm in the long axis). Multiple irregular hypodense focal lesions, the largest is anterior upper polar, measuring 49 x 38 mm. Tiny calcified granulomas Gallbladder and Biliary System: Cholecystectomy clips are noted. Mild central intrahepatic biliary tree dilatation, likely sequel to compression of the bile duct at the hepatic hilum by the large related mass. Kidneys and Adrenal Glands: Both kidneys are normal in size, shape, position, and cortical thickness. No renal calculi or hydronephrosis. The adrenal glands are bulky bilaterally, but no focal lesions. Urinary Bladder: Collapsed over De La Rosa's catheter balloon, cannot be assessed. Uterus and Cervix: The uterus is not fully visualized, needs clinical correlation. No cervical gross masses or abnormal thickening. Ovaries: Not well visualized, but no gross adnexal abnormalities. Bowel: The visualized bowel loops are normal in caliber and appearance. No evidence of bowel obstruction or wall thickening. Multiple sigmoid diverticulae. Scanned lower chest cuts: Bilateral lower lobar, middle lobar, and lingular segment multiple irregular speculated solid pulmonary nodules, the largest is in the right lower lobe, measuring 26 x 24 mm. Some of them show early tiny cavitation changes. Few pneumatoceles are seen in the bilateral lower lobes and the middle lobe. Bones and Soft Tissues: Osteopenia. Degenerative changes of the lower thoracic and lumbar spine. No fractures or abnormal masses were identified. Redemonstration of a sclerotic focus in the left iliac bone. IMPRESSION: - A large, irregular, creepy, heterogeneously enhancing soft tissue malignant mass lesion is seen centered on the gastrohepatic recess and the louise hepatis. The epicenter of the lesion cannot be determined due to its large and infiltrative nature. However, the differentials would include hepatic/Klatskin tumor/gastric, or pancreatic lesion. Further tissue biopsy is suggested, guided by the clinical condition -- increased in size compared to the prior study. - The mass infiltrates through the left anterolateral aspect of the IVC, which shows a hypodense partial non-occlusive hypodense filling defect above, at, and below the level of the renal vein. - Peritoneal fat smudging and multiple nodules, likely metastatic -- no significant interval changes. - Multiple pathologically enlarged shanae-aortic lymph nodes, likely metastatic -- no significant interval changes. - Hepatomegaly, with multiple bilobar hepatic focal lesions, likely metastatic -- likely stable. - The pancreatic body ill-defined mass lesion, which is likely an extension (direct infiltration) from the large abdominal mass rather than being a discrete lesion. - Splenomegaly with multiple irregular focal lesions, likely neoplastic (metastatic) -- increased. - Mild central intrahepatic biliary tree dilatation, likely sequel to compression of the bile duct at the hepatic hilum by the large related mass. - Mild ascites. - Multiple bilateral basal irregular solid pulmonary nodules, likely metastatic -- no significant interval changes. - The previously seen intra/shanae-vesical air foci are currently resolved. Currently, the urinary bladder is collapsed over the De La Rosa's catheter balloon, so it cannot be assessed. - The comparison was limited because the prior study was a non-contrast scan. Electronically signed by Héctor Galindo 03-26-2025 02:41 AM
[2025-03-26 03:27] LABS: Alanine Aminotransferase 36.0 U/L (7-52); Alkaline Phosphatase 132.0 U/L (34-104); Bilirubin,Total 1.9 mg/dl (0.2-1.0); Total Protein 6.4 gm/dl (6.0-8.3)
[2025-03-26] MEDS: HEPARIN SOD (PORCINE) 1000 UNIT/ML IV ONE (04:09)
[2025-03-26] MEDS: HEPARIN 25000 UNIT/500 ML D5W 25,000 UNITS/500 ML BAG IV SCH (04:11)
[2025-03-26] MEDS: Heparin IV Adult Wt-Based Standard w/ INITIAL Bolus Protocol IV STA (04:12)
--- NOTE | 2025-03-26 04:50 | History & Physical Report ---
Date of Service March 26, 2025 Assessment & Plan (1) Pulmonary emboli: (2) Intraabdominal mass: (3) Diabetes mellitus, type 2: (4) GERD (gastroesophageal reflux disease): (5) Gout: (6) Hyperlipidemia: (7) Hypertension: (8) Cirrhosis: (9) CAD (coronary artery disease): Plan #bilateral PEs with IVC clot in setting of malignancy- Heparin drip initiated in the ER. Will continue for now. Patient class III, intermediate risk per PESI score due to cancer #Suspected malignancy AP CT without contrast revealed liver cirrhosis with marked right upper quadrant mass with peritoneal implants and suspected pulmonary metastasis visualized throughout lung bases. New since liver ultrasound in November 2024. Patient without personal history of CA - father with lung cancer and sister with pancreatic cancer. During last admission a CT liver protocol with contrast and CT angiogram of the chest which showed large 13 cm mass involving louise hepatis and caudate segment of liver-difficult to determine if from bulky adenopathy or arising from liver but metastatic adenopathy felt to be more likely. Also with upper abdominal adenopathy, several other liver masses, pancreatic mass, hepatosplenomegaly, and thickening of the gastric antrum. CT angiogram chest at that time negative for PE, but with innumerable pulmonary nodules, small bilateral pleural effusions. Patient has lost 100 pounds in the last 2 years but has been on increasing doses of Ozempic. AFP was normal. Last colonoscopy in 11/2021 with tubular adenomas and hyperplastic polyp. Last EGD 03/2021 negative. Breast biopsy in 11/2023 negative for malignancy. CEA elevated here at 10.2 and CA 19-9 significantly elevated at 14,400. stomach biopsy performed on 03/14/2025 with significant gastric inflammation, no definitive H. pylori US-guided IR biopsy of liver mass scheduled to be done outpatient today. Patient has been off aspirin and has been NPO. Will have day team reach out to IR to possibly complete biopsy today - Consider pancreatic MRI as per radiology versus EUS for pancreatic mass as an outpatient - Oncology consultation during last admission - recommends liver mass biopsy and outpatient PET/CT scan -appointment arranged for 04/12 for follow-up on biopsy results #Emphysematous cystitis - diagnosed during last admission. Patient has been compliant with her amoxicillin. She is afebrile, no urinary complaints at present. Urine culture during last hospitalization positive for E. coli, resistant to cefoxitin. Continue amoxicillin 500 mg p.o. 3 times daily Tylenol as needed for pain Maintain De La Rosa catheter #Chronic constipation/GERD- - MiraLAX and Colace as needed Continue Protonix 40 mg p.o. twice daily #Liver cirrhosis-[facility], patient follows with GI. INR is normal at 1.1. LFTs as above with elevation of alkaline phosphatase = 132, total bili = 1.9, direct bili = 0.6. Also mild elevation of AST = 48. Patient's home Lasix was decreased during last admission at 40 mg daily. Avoid hepatotoxic agents Hold Lasix for now Repeat LFTs #T2DM - Most recent A1C 6.7%. Takes Jardiance, Ozempic (injections on Mondays), metformin at home - Hold Ozempic, Metformin and Jardiance for now -ISS, goal blood sugar 110 - 160 # Mild nonobstructive CAD/HTN Chronic, stable -ASA on hold for liver biopsy - Hold Atorvastatin for now -Continue Metoprolol #hypothyroidism recent TSH in 01/2025 mildly elevated at 5.1 - Continue home levothyroxine dose and follow-up with PCP #Asthma no acute issues. Given long history of smoking and emphysematous changes on lung imaging, suspect has COPD - Continue as needed inhaler # Anxiety disorderno acute issues - Continue bupropion and buspirone #Gout/osteoporosis-no acute issues - Continue allopurinol #Chronic lower back pain-no acute issues - Continue oxycodone as needed - Avoid NSAIDs for impending liver biopsy as well History of Present Illness Chief Complaint: Bilateral lower extremity edema and shortness of breath Primary Care Provider: DO Gagandeep Soria is a 16-year-old female with history of liver cirrhosis secondary to [facility], nonobstructive CAD, asthma, diabetes, gout, anxiety, GERD and hypotension presenting with bilateral lower extremity edema and shortness of breath. Patient was recently admitted to [facility] from 03/12 - 03/15/2025 after presenting with right flank pain, vomiting and hematuria. 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 Findings concerning for metastatic malignancy. Patient was treated with ceftriaxone and ultimately discharged home on amoxicillin to complete her antibiotic course for emphysematous cystitis. Preliminary workup for malignancy revealed a markedly elevated CA 199 at 14,400 Patient was set up for an ultrasound-guided IR biopsy of the liver to be performed in the outpatient setting today 03/26 at 08 100. In the ER patient is afebrile, sinus tachycardia, blood pressure stable, adequate oxygenation on room air with no respiratory distress Found to have bilateral pulmonary emboli as well as clot involving the IVC ER course: Heparin drip initiated Allergies Allergy/AdvReac Type Severity Reaction Status Date / Time enalapril Allergy Severe Swelling Verified 03/20/25 13:05 of Lip/Tongue/Throat Iodinated Contrast Media Allergy Intermediate "THE DYE Verified 03/20/25 13:05 BLEW UP IN MY ARM" nickel Allergy Intermediate "I GET AN Verified 03/20/25 13:05 INFECTION" tetanus toxoid, adsorbed Allergy Intermediate ARM GETS Verified 03/20/25 13:05 INFECTED-SWELLING, REDNESS Home Medications Medication Instructions Recorded Confirmed Type albuterol sulfate 90 mcg/actuation 2 puff inhalation Q6H PRN SOB 01/25/19 03/26/25 History aerosol inhaler milk thistle 150 mg capsule 150 mg PO BID 04/06/19 03/26/25 History [id number] 8 mg-folic 400 1 tab PO QAM 04/06/19 03/26/25 History mcg-K 50 mcg-lutein 300 mcg tablet (Centrum Silver Women) polyethylene glycol 3350 17 17 g PO DAILY PRN Constipation 03/03/23 03/26/25 Rx gram/dose oral powder (Miralax) #850 grams vitamin E mixed 400 unit capsule 400 unit PO QAM #90 caps 12/28/23 03/26/25 Rx fluticasone propionate 50 2 spray intranasal QAM #16 grams 04/25/24 03/26/25 Rx mcg/actuation nasal spray,suspension (Flonase Allergy Relief) pantoprazole 40 mg tablet,delayed 40 mg PO BID 90 days #180 tabs 05/29/24 03/26/25 Rx release (Protonix) allopurinol 300 mg tablet 300 mg PO QAM #90 tabs 08/21/24 03/26/25 Rx atorvastatin 40 mg tablet 40 mg PO HS #90 tabs 08/21/24 03/26/25 Rx bupropion HCl 150 mg tablet,12 hr 150 mg PO BID #180 ea 08/21/24 03/26/25 Rx sustained-release buspirone 5 mg tablet 5 mg PO BID #180 tabs 08/21/24 03/26/25 Rx semaglutide 2 mg/dose (8 mg/3 mL) 2 mg (0.75 mL) subcut .COMPLEX #3 08/21/24 03/20/25 Rx subcutaneous pen injector (Ozempic) mL denosumab 60 mg/mL subcutaneous 60 mg subcut Q6M #1 mL 09/28/24 03/26/25 Rx syringe (Prolia) empagliflozin 25 mg tablet 25 mg PO QAM #90 tabs 02/19/25 03/26/25 Rx (Jardiance) levothyroxine 100 mcg tablet 100 mcg PO QAM #90 tabs 02/19/25 03/26/25 Rx loratadine 10 mg tablet 10 mg PO QAM #90 tabs 02/19/25 03/26/25 Rx metformin 500 mg tablet,extended 500 mg PO DAILY 90 days #90 tabs 02/19/25 03/26/25 Rx release 24 hr metoprolol succinate 25 mg 25 mg PO QAM #90 tabs 02/19/25 03/26/25 Rx tablet,extended release 24 hr nystatin 100,000 unit/gram topical 1 applic topical BID 2 weeks #30 02/19/25 03/26/25 Rx cream grams potassium chloride 20 mEq 20 meq PO DAILY #90 tabs 02/20/25 03/26/25 Rx tablet,extended release ergocalciferol (vitamin D2) 1,250 1,250 mcg PO WK 03/12/25 03/26/25 History mcg (50,000 unit) capsule amoxicillin 500 mg tablet 500 mg PO TID #60 tabs 03/15/25 03/26/25 Rx oxycodone 5 mg tablet 5 mg PO Q6 PRN pain #30 tabs 03/20/25 03/26/25 Rx furosemide 40 mg tablet (Lasix) 40 mg PO DAILY 03/26/25 03/26/25 History Past Med/Surg History Problem List (Updated 03/26/25 @ 04:36 by Erika Cristina DO) Intraabdominal mass Pulmonary emboli (Acute) Right flank pain Urinary catheter in place Hematuria (Acute) Gastric wall thickening Acute hyponatremia Acute right flank pain (Acute) Liver mass (Acute) Emphysematous cystitis (Acute) Acute UTI (urinary tract infection) (Acute) Chronic back pain Constipation Intertrigo Class 3 severe obesity due to excess calories with body mass index (BMI) of 40.0 to 44.9 in adult Hypovitaminosis D Abnormality of right breast on screening mammogram Disappearance and of family member Diabetes mellitus, type 2 GERD (gastroesophageal reflux disease) Hypokalemia Anxiety and depression Osteoporosis Gout Hyperlipidemia Hypertension Cirrhosis Dyslipidemia associated with type 2 diabetes mellitus (Chronic) Benign essential hypertension (Chronic) Stress-induced cardiomyopathy Medical History History of ST elevation myocardial infarction (STEMI) 03/2019--had heart cath, follows with Dr. Srinivasan Degenerative disc disease LUMBAR AREA Spinal stenosis of lumbar region SOB (shortness of breath) on exertion CAD (coronary artery disease) Angioedema Osteoarthritis Hiatal hernia Hypothyroidism Anxiety Migraine H/O Kidney stones HX Asthma Surgical History History of bunionectomy of both great toes History of arthroscopy R/L KNEES History of cardiac cath (~04/07/19) @ [facility]--no stents placed S/P [place]AK-BS[place] History of carpal tunnel release RIGHT History of cystoscopy WITH STENT AND REPAIRED RIGHT URETER BLOCKAGE. History of herniorrhaphy RIGHT INGUINAL HERNIA REPAIR History of cholecystectomy History of appendectomy History of esophagogastroduodenoscopy (EGD) History of colonoscopy History of thyroidectomy, subtotal BENIGN TUMOR History of cataract surgery BILATERAL History of tonsillectomy Family History Sister FHx: pancreatic cancer Family history of diabetes mellitus Mother Family history of diabetes mellitus Lung cancer Son Family history of diabetes mellitus Other No family history of adverse response to anesthesia Social History Smoking Status: Former smoker Tobacco Type: Cigarettes Age Started Using Tobacco: 20; Age Quit Using Tobacco: 58; packs per day: 2; Cigarettes Per Day: 1 PPD X 35 YEARS; Second Hand Exposure: Yes (son smokes/parents smoked); Do You Dip or Chew Tobacco: No; Hx Alcohol Use: No Hx Substance Use: No Preferred Language: Mohawk Communication Ability: Effective 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 Beliefs That Will Affect Care: None marital status: Single Current Living Situation: Alone current occupational status: disabled Feels Safe at Home: Yes Diet: regular Seatbelt Use: always Sunscreen Use: Yes Assistive Devices: None Review of Systems Review of Systems: All systems reviewed & are unremarkable except as noted in HPI & below Physical Exam Physical Exam: General: patient resting comfortably, NAD, non-toxic in appearance, AA&O x 4 Skin: warm, dry, intact, no rashes or lesions HEENT: NC/AT, PERRL, EOMI, anicteric sclera, conjunctiva without injection, external ear normal to inspection and nontender, nares patent, moist mucus membranes, dentition intact, no oropharyngeal lesions, neck supple, trachea midline, no LAD, no thyromegaly, no JVD Heart: +S1/S2, regular, Tachycardic, no m/r/g Lungs: equal air entry bilaterally, no rales/rhonchi/wheezes Abd: +BS, soft, NT/ND, no masses/organomegaly/ascites Ext: warm, 2+ pulses in UE/LE bilaterally, 2+ pitting edema of bilateral lower extremities to the knees Neuro: nonfocal, patient AA&O x 4, speech intact, no facial droop, moving all extremities on command with equal strength 5/5 Results & Data Results & Data Vital Signs (Past 12 Hours) Vital Signs Temp Pulse Resp BP Pulse Ox O2 Del Method O2 Flow Rate 03/26/25 03:26 101 H 03/26/25 02:01 102 H 20 114/65 96 Nasal Cannula 2 03/26/25 01:14 94 H 20 124/71 95 Nasal Cannula 2 03/26/25 00:30 80 24 107/89 95 03/25/25 23:26 101 H 03/25/25 22:57 88 L Room Air 0 03/25/25 22:57 36.6 C 105 H 22 109/75 88 L Room Air Laboratory Results Laboratory Results WBC 14.93 K/ul (4.8-10.8) H 03/25/25 23:29 RBC 3.72 M/uL (4.20-5.40) L 03/25/25 23:29 Hgb 11.3 g/dl (12.0-16.0) L 03/25/25 23: Hct 33.2 % (37.0-47.0) L 03/25/25 23: MCV 89.2 fL (80.0-100.0) 03/25/25 23: MCH 30.4 pg (25.0-34.0) 03/25/25 23: MCHC 34.0 g/dL (32.0-36.0) 03/25/25: RDW Std Deviation 53.3 fL (36.4-46.3) H 03/25/25 23: RDW Coeff of Huyen 16.8 % (11.5-14.5) H 03/25/25: Plt Count 230 K/uL (130-400) 03/25/25: MPV 9.9 fL (9.4-12.4) 03/25/25: Immature Gran % (Auto) 2.4 % 03/25/25: Neut % (Auto) 80.7 % 03/25/25 23: Lymph % (Auto) 6.8 % 03/25/25: [place] % (Auto) 8.6 % 03/25/25 23: Eos % (Auto) 1.1 % 03/25/25: Baso % (Auto) 0.4 % 03/25/25: Neut # (Auto) 12.05 K/uL (1.40-6.50) H 03/25/25: Lymph # (Auto) 1.01 K/uL (1.20-3.40) L 03/25/25 23: [place] # (Auto) 1.28 K/uL (0.11-0.59) H 03/25/25 23: Eos # (Auto) 0.17 K/uL (0.00-0.50) 03/25/25: Baso # (Auto) 0.06 K/uL (0.00-0.20) 03/25/25: Immature Gran # (Auto) 0.36 K/uL (0.01-0.20) H 03/25/25: Absolute Nucleated RBC 0.03 K/uL (0.00-0.12) 03/25/25: Nucleated RBC % (auto) 0.2 % 03/25/25 23: PT 12.1 Seconds (9.0-12.0) H 03/25/25 23: INR 1.1 (0.9-1.1) 03/25/25 23: APTT 28 Seconds (21-31) 03/25/25 23: PTT Ratio 1.0 03/25/25 23: VBG pH 7.45 (7.36-7.41) H 03/25/25 23:29 VBG pCO2 32 mmHg (38-50) L 03/25/25 23: VBG pO2 51 mmHg 03/25/25 23: VBG HCO3 22 mmol/L 03/25/25 23: VBG O2 Saturation 85.4 % 03/25/25 23: VBG Base Excess -1.0 mEq/L 03/25/25 23: Sodium 127 mmol/L (136-145) L 03/25/25 23: Potassium 4.2 mmol/L (3.5-5.1) 03/25/25 23: Chloride 90 mmol/L (98-107) L 03/25/25 23: Carbon Dioxide 22 mmol/L (21-32) 03/25/25 23:29 Anion Gap 15 (3-11) H 03/25/25 23: BUN 30 mg/dl (6-23) H 03/25/25 23: Creatinine 0.89 mg/dl (0.6-1.2) 03/25/25 23: Est Cr Clr Drug Dosing 66.8 ml/min 03/25/25 23: eGFR 70.14 03/25/25 23: BUN/Creatinine Ratio 33.7 (10-20) H 03/25/25 23: Glucose 284 mg/dl (70-99(Fasting)) H 03/25/25 23: Calcium 8.6 mg/dl (8.6-10.3) 03/25/25 23: Total Bilirubin 1.9 mg/dl (0.2-1.0) H 03/25/25 23:29 Direct Bilirubin 0.6 mg/dl (0-0.2) H 03/25/25 23:29 AST 48 U/L (13-39) H 03/25/25 23:29 ALT 36 U/L (7-52) 03/25/25 23:29 Alkaline Phosphatase 132 U/L (34-104) H 03/25/25 23:29 Troponin I High Sens 18.0 pg/ml (0-14) H 03/25/25 23:29 B-Natriuretic Peptide 20 pg/ml (0-100) 03/25/25 23:29 Total Protein 6.4 gm/dl (6.0-8.3) 03/25/25 23: Albumin 3.0 gm/dl (3.4-5.0) L 03/25/25 23: Lipase 69 U/L (11-82) 03/25/25 23:29 SARS-CoV-2 (PCR) NEGATIVE (Negative) 03/25/25 23:41 Influenza Type A (PCR) Negative (Neg) 03/25/25 23:41 Influenza Type B (PCR) Negative (Neg) 03/25/25 23:41 RSV (RT-PCR) Negative (Neg) 03/25/25 23:41 Impressions Chest X-Ray 03/25/25 23:14 EXAM: XR chest 1V portable CLINICAL HISTORY: Chest pain, nonspecific TECHNIQUE: X-ray images of the chest were obtained in frontal projection. COMPARISON: 03/18/2025 CR. FINDINGS: Pulmonary Parenchyma: There is a 1 cm calcified nodule in the left upper lobe. There are multiple ill-defined nodular densities in both lungs. There are reticular densities with prominent interstitial markings and Kennedy lines, which might be suggestive of interstitial/lymphatic congestion or infiltration. No evidence of pleural effusion or pleural thickening. Heart and Mediastinum: Heart size and shape are normal. No mediastinal widening or masses. No hilar or mediastinal lymphadenopathy. Bony Thorax: Bony thorax appears intact without fractures or deformities. Soft Tissues: Soft tissues overlying the chest wall are unremarkable. IMPRESSION: 1. Bilateral ill-defined nodular densities with prominent interstitial markings, which are likely parenchymal nodules with interstitial infiltration. Please correlate clinically. 2. No significant interval changes. Electronically signed by Héctor Galindo 03-26-2025 01:51 AM Abdomen/Pelvis CT 03/26/25 00:47 EXAM: CT abd pelvis IV con only CLINICAL HISTORY: abd pain TECHNIQUE: CT of the abdomen and pelvis was performed with contrast, with the following protocol: axial images with, and reconstructed coronal and sagittal images. One of the following dose reduction techniques was utilized for this exam: Automated exposure control, adjustment of the mA and/or kV according to patient size, and use of iterative reconstruction. COMPARISON: Prior CT dated March 12, 2025 FINDINGS: Peritoneal and Retroperitoneal Structures: A large, irregular, creepy, heterogeneously enhancing soft tissue mass lesion is seen centered on the gastrohepatic recess and the louise hepatis. It measures about 15.5 x 15.5 x 10.5 cm in the maximum orthogonal dimensions. The mass is inseparable from the caudate lobe of the liver and the pancreatic body. It stretches the gastric body and antrum anteriorly with no infiltration. The mass infiltrates through the left anterolateral aspect of the IVC, which shows a hypodense partial non-occlusive filling defect above, at, and below the level of the renal veins. The mass encases the portal vein, which is patent and of average caliber. It also encases the celiac trunk and its major branches, which are attenuated but not occluded. Multiple pathologically enlarged, heterogeneously enhancing, shanae-aortic lymph nodes are seen; the largest is at a pre-aortic location posterior and adherent to the pancreatic head, measuring 42 x 25 mm. Diffuse peritoneal fat smudging, with scattered heterogeneously enhancing peritoneal nodules; the largest is at a subhepatic location, measuring 24 x 20 mm. Mild ascites. Atherosclerotic calcifications of the aorta and iliac arteries. Liver: Enlarged (measuring 20 cm in the long axis). Multiple bilobar hypodense focal lesions, showing mild peripheral enhancement; the largest is at segment 5/6, measuring 26 x 20 mm. Hepatic vasculature is unremarkable. Pancreas: The pancreatic body presents an ill-defined hypodense mass lesion, which is likely an extension (direct infiltration) from the large abdominal mass rather than being a discrete lesion. It measures 30 x 15 mm. The main pancreatic duct is mildly dilated distal to the body lesion. Spleen: Enlarged (measuring 16.9 cm in the long axis). Multiple irregular hypodense focal lesions, the largest is anterior upper polar, measuring 49 x 38 mm. Tiny calcified granulomas Gallbladder and Biliary System: Cholecystectomy clips are noted. Mild central intrahepatic biliary tree dilatation, likely sequel to compression of the bile duct at the hepatic hilum by the large related mass. Kidneys and Adrenal Glands: Both kidneys are normal in size, shape, position, and cortical thickness. No renal calculi or hydronephrosis. The adrenal glands are bulky bilaterally, but no focal lesions. Urinary Bladder: Collapsed over De La Rosa's catheter balloon, cannot be assessed. Uterus and Cervix: The uterus is not fully visualized, needs clinical correlation. No cervical gross masses or abnormal thickening. Ovaries: Not well visualized, but no gross adnexal abnormalities. Bowel: The visualized bowel loops are normal in caliber and appearance. No evidence of bowel obstruction or wall thickening. Multiple sigmoid diverticulae. Scanned lower chest cuts: Bilateral lower lobar, middle lobar, and lingular segment multiple irregular speculated solid pulmonary nodules, the largest is in the right lower lobe, measuring 26 x 24 mm. Some of them show early tiny cavitation changes. Few pneumatoceles are seen in the bilateral lower lobes and the middle lobe. Bones and Soft Tissues: Osteopenia. Degenerative changes of the lower thoracic and lumbar spine. No fractures or abnormal masses were identified. Redemonstration of a sclerotic focus in the left iliac bone. IMPRESSION: - A large, irregular, creepy, heterogeneously enhancing soft tissue malignant mass lesion is seen centered on the gastrohepatic recess and the louise hepatis. The epicenter of the lesion cannot be determined due to its large and infiltrative nature. However, the differentials would include hepatic/[place] tumor/gastric, or pancreatic lesion. Further tissue biopsy is suggested, guided by the clinical condition -- increased in size compared to the prior study. - The mass infiltrates through the left anterolateral aspect of the IVC, which shows a hypodense partial non-occlusive hypodense filling defect above, at, and below the level of the renal vein. - Peritoneal fat smudging and multiple nodules, likely metastatic -- no significant interval changes. - Multiple pathologically enlarged shanae-aortic lymph nodes, likely metastatic -- no significant interval changes. - Hepatomegaly, with multiple bilobar hepatic focal lesions, likely metastatic -- likely stable. - The pancreatic body ill-defined mass lesion, which is likely an extension (direct infiltration) from the large abdominal mass rather than being a discrete lesion. - Splenomegaly with multiple irregular focal lesions, likely neoplastic (metastatic) -- increased. - Mild central intrahepatic biliary tree dilatation, likely sequel to compression of the bile duct at the hepatic hilum by the large related mass. - Mild ascites. - Multiple bilateral basal irregular solid pulmonary nodules, likely metastatic -- no significant interval changes. - The previously seen intra/shanae-vesical air foci are currently resolved. Currently, the urinary bladder is collapsed over the De La Rosa's catheter balloon, so it cannot be assessed. - The comparison was limited because the prior study was a non-contrast scan. Electronically signed by Héctor Galindo 03-26-2025 02:41 AM Chest CTA 03/26/25 00:47 EXAM: CT angio chest PE protocol CLINICAL HISTORY: sob TECHNIQUE: Contiguous axial images were obtained from the neck base through the upper abdomen following intravenous administration of iodinated contrast material. Angiographic images were processed, 3D MIP images were acquired for interpretation. If IV contrast material had not been administered, the likelihood of detecting abnormalities relevant to the patient's condition would have been substantially decreased. Coronal and sagittal 3-D MIPs were likewise performed and indicated to increase the sensitivity of detecting diffuse clinically relevant pathology. CT scan was performed according to ALARA (as low as reasonably achievable). COMPARISON: CTA, 03/13/2025 14:58:00 ANALOG CIRCUIT DESIGNER FINDINGS: Partial lumen occluding filling defects seen in bilateral interlobar pulmonary artery, bilateral upper lobe arteries, right middle lobe/lingula segmental branches and proximal left posterbasal segmental branches of pulmonary arteries. Multiple small nodules of 5-8mm seen scattered in peripheral location in bilateral lumngs with spiculated margins and predominantly in bilateral lower lobes. Mosaic attenuation in bilateral lungs. Paraseptal emphysematous changes in right upper lobe. Multiple simple cysts in bilateral lower lobes, right middle lobe and lingula. The central airways are patent. No pleural effusion. The heart, aorta, and pulmonary arteries are of normal size and configuration. There are no appreciable coronary artery and aortic atherosclerotic calcifications. No pericardial effusion is identified. The thyroid is unremarkable. No mediastinal, hilar, or axillary lymphadenopathy is noted. No suspicious lytic or sclerotic osseous lesions are identified. Visualized upper section of abdomen shows large mass/lymph nodes in caudate lobe of liver, periportal region. IMPRESSION: 1. Partial lumen occluding filling defects seen in bilateral interlobar pulmonary artery, bilateral upper lobe arteries, right middle lobe/lingula segmental branches and proximal left posterbasal segmental branches of pulmonary arteries- Acute pulmonary thromboembolism- New finding. 2. Multiple small nodules of 5-8mm seen scattered in peripheral location in bilateral lumngs with spiculated margins and predominantly in bilateral lower lobes- likely metatstatic lesions- Stable. 3. Mosaic attenuation in bilateral lungs-stable, 4. Paraseptal emphysematous chnages in right upper lobe. Multiple simple cysts in bilateral lower lobes, right middle lobe and lingula- stable. 5. Visualized upper section of abdomen shows stable large mass/lymph nodes in caudate lobe of liver, periportal region- Suggested Contrast CT abdomen for further evaluation. Electronically signed by Charly Hernandez 03-26-2025 02:09 AM Code Status & VTE Plan VTE Prophylaxis Plan VTE Prophylaxis will be ordered: Yes PG Care Time/CCT Total # of Minutes Spent Total Time Spent with Patient: Total time spent is greater than 50% in coordination of care (as documented) at patient's floor/unit and/or counseling patient: Coding Level of Care Code 43226 INT INP/OBS CARE 3/75MIN Diagnoses Pulmonary emboli I26.99 Acute cor pulmonale presence: unspecified Chronicity: unspecified Pulmonary embolism type: unspecified Intraabdominal mass R19.00 Type 2 diabetes mellitus with other circulatory complication, without long-term current use of insulin E11.59 Diabetes mellitus care home insulin use: without care home use Diabetes mellitus complication status: with circulatory complication Diabetes mellitus complication detail: with other circulatory complications GERD (gastroesophageal reflux disease) K21.9 Idiopathic chronic gout without tophus, unspecified site [id number] Gout site: unspecified site Gout etiology: idiopathic Chronicity: chronic Presence of tophus: without tophus Mixed hyperlipidemia E78.2 Hyperlipidemia type: mixed hyperlipidemia Primary hypertension I10 Hypertension type: primary hypertension Cirrhosis of liver without ascites, unspecified hepatic cirrhosis type K74.60 Hepatic cirrhosis type: unspecified hepatic cirrhosis Ascites presence: without ascites CAD (coronary artery disease) I25.10 (1) Pulmonary emboli Acute cor pulmonale presence: unspecified Chronicity: unspecified Pulmonary embolism type: unspecified Qualified Code(s): I26.99 - Other pulmonary embolism without acute cor pulmonale (3) Diabetes mellitus, type 2 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 home use Diabetes mellitus complication status: with circulatory complication Diabetes mellitus complication detail: with other circulatory complications Qualified Code(s): E11.59 - Type 2 diabetes mellitus with other circulatory complications (5) Gout Gout site: unspecified site Gout etiology: idiopathic Chronicity: chronic Presence of tophus: without tophus Qualified Code(s): M1A.00X0 - Idiopathic chronic gout, unspecified site, without tophus (tophi) (6) Hyperlipidemia Hyperlipidemia type: mixed hyperlipidemia Qualified Code(s): E78.2 - Mixed hyperlipidemia (7) Hypertension Hypertension type: primary hypertension Qualified Code(s): I10 - Essential (primary) hypertension (8) Cirrhosis Hepatic cirrhosis type: unspecified hepatic cirrhosis Ascites presence: witho ut ascites Qualified Code(s): K74.60 - Unspecified cirrhosis of liver
[2025-03-26] MEDS: ACETAMINOPHEN 1,000 MG/100 ML VIAL IV STA (07:08)
[2025-03-26] MEDS ORDERED: ALBUTEROL HFA 8 GM INHALER INH PRN (08:35)
[2025-03-26] MEDS ORDERED: DEXTROSE 50% 50 ML SYRINGE IV PRN (08:35)
[2025-03-26] MEDS ORDERED: CARBOHYDRATES FOR HYPOGLYCEMIA PO PRN (08:35)
[2025-03-26] MEDS ORDERED: GLUCOSE 40% GEL 15 GM TUBE PO PRN (08:35)
[2025-03-26] MEDS ORDERED: GLUCAGON FOR INJ 1 MG VIAL SQ PRN (08:35)
[2025-03-26] MEDS ORDERED: GLUCOSE 10 TAB/TUBE PO PRN (08:35)
[2025-03-26] MEDS ORDERED: POLYETHYLENE (MIRALAX) 17 GM PACK PO PRN (08:35)
[2025-03-26] MEDS: FLUTICASONE PROPIONATE NA SPR 16 GM BTL SCH (10:01)
[2025-03-26] MEDS: AMOXICILLIN 500 MG CAP PO SCH (10:04)
[2025-03-26] MEDS: busPIRone 5 MG TAB PO SCH (10:05)
[2025-03-26] MEDS: LEVOTHYROXINE SODIUM 100 MCG TABLET PO SCH (10:05)
[2025-03-26] MEDS: METOPROLOL SUCC 25MG EXT REL TAB PO SCH (10:06)
[2025-03-26] MEDS: NYSTATIN CR 15 GM TUBE EXT SCH (10:07)
[2025-03-26 10:56] LABS: Magnesium 2.3 mg/dl (1.7-2.4)
[2025-03-26] MEDS: INSULIN ASPART PER UNIT CHARGE SC SCH (11:03)
[2025-03-26] MEDS: MoRPHine SULFATE 2 MG/ML CARP IV PRN ×2 (11:10→20:30)
[2025-03-26] MEDS: ONDANSETRON INJ 2 MG/ML 2 ML VIAL IV PRN (11:10)
[2025-03-26 11:26] LABS: ANTI-Xa, LMWH(Low Molecular Wt 0.44 IU/ML (< 0.10)
--- NOTE | 2025-03-26 12:26 | Hospitalist Progress Note ---
Date of Service March 26, 2025 Assessment & Plan (1) Pulmonary emboli: (2) Intraabdominal mass: (3) Diabetes mellitus, type 2: (4) GERD (gastroesophageal reflux disease): (5) Gout: (6) Hyperlipidemia: (7) Hypertension: (8) Cirrhosis: (9) CAD (coronary artery disease): Plan #bilateral PEs with IVC clot in setting of malignancy- Heparin drip initiated in the ER. Will continue for now. Patient class III, intermediate risk per PESI score due to cancer #Suspected malignancy AP CT without contrast revealed liver cirrhosis with marked right upper quadrant mass with peritoneal implants and suspected pulmonary metastasis visualized throughout lung bases. New since liver ultrasound in November 2024. Patient without personal history of CA - father with lung cancer and sister with pancreatic cancer. During last admission a CT liver protocol with contrast and CT angiogram of the chest which showed large 13 cm mass involving louise hepatis and caudate segment of liver-difficult to determine if from bulky adenopathy or arising from liver but metastatic adenopathy felt to be more likely. Also with upper abdominal adenopathy, several other liver masses, pancreatic mass, hepatosplenomegaly, and thickening of the gastric antrum. CT angiogram chest at that time negative for PE, but with innumerable pulmonary nodules, small bilateral pleural effusions. Patient has lost 100 pounds in the last 2 years but has been on increasing doses of Ozempic. AFP was normal. Last colonoscopy in 11/2021 with tubular adenomas and hyperplastic polyp. Last EGD 03/2021 negative. Breast biopsy in 11/2023 negative for malignancy. CEA elevated here at 10.2 and CA 19-9 significantly elevated at 14,400. stomach biopsy performed on 03/14/2025 with significant gastric inflammation, no definitive H. pylori US-guided IR biopsy of liver mass scheduled to be done outpatient today. P atient has been off aspirin and has been NPO. 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 Patient has been compliant with her amoxicillin. She is afebrile, no urinary complaints at prese nt. Urine culture during last hospitalization positive for E. coli, resistant to cefoxitin. Continue amoxicillin 500 mg p.o. 3 times daily Tylenol as needed for pain Maintain De La Rosa catheter #Chronic constipation/GERD- - MiraLAX and Colace as needed Continue Protonix 40 mg p.o. twice daily #Liver cirrhosis-[facility], patient follows with GI. INR is normal at 1.1. LFTs as above with elevation of alkaline phosphatase = 132, total bili = 1.9, direct bili = 0.6. Also mild elevation of AST = 48. Patient's home Lasix was decreased during last admission at 40 mg daily. Avoid hepatotoxic agents Hold Lasix for now Repeat LFTs #T2DM - Most recent A1C 6.7%. Takes Jardiance, Ozempic (injections on Mondays), metformin at home - Hold Ozempic, Metformin and Jardiance for now -ISS, goal blood sugar 110 - 160 # Mild nonobstructive CAD/HTN Chronic, stable -ASA on hold for liver biopsy - Hold Atorvastatin for now -Continue Metoprolol #hypothyroidism recent TSH in 01/2025 mildly elevated at 5.1 - Continue home levothyroxine dose and follow-up with PCP #Asthma no acute issues. Given long history of smoking and emphysematous changes on lung imaging, suspect has COPD - Continue as needed inhaler # Anxiety disorderno acute issues - Continue bupropion and buspirone #Gout/osteoporosis-no acute issues - Continue allopurinol #Chronic lower back pain-no acute issues - Continue oxycodone as needed - Avoid NSAIDs for impending liver biopsy as well DVT prophylaxis Full code. Guarded prognosis. Palliative care consulted. Disposition TBD Admission and Anticipated Discharge Date Admission Date: March 26, 2025 Subjective Overall feeling of unwellness. Very hungry requesting for regular diet. Intermittently nauseous states this is because she is hungry. No other notable symptoms at this time. Daughter bedside. We just discussed everything extensively regarding high suspicion for malignancy, acute findings. Plan for biopsy on Wednesday to confirm. They are very appreciative. Daughter and patient Strongly considering DNR/DNI status However apparently patient's son is resistant. They will discuss further Labs for today pending. ordered Review of Systems Review of Systems: All systems reviewed & are unremarkable except as noted in HPI & below Physical Exam Physical Exam: General: patient resting comfortably, NAD, non-toxic in appearance, AA&O x 4 Skin: warm, dry, intact, no rashes or lesions HEENT: NC/AT, PERRL, EOMI, anicteric sclera, conjunctiva without injection, external ear normal to inspection and nontender, nares patent, moist mucus membranes, dentition intact, no oropharyngeal lesions, neck supple, trachea midline, no LAD, no thyromegaly, no JVD Heart: +S1/S2, regular, Tachycardic, no m/r/g Lungs: equal air entry bilaterally, no rales/rhonchi/wheezes Abd: +BS, soft, NT/ND, no masses/organomegaly/ascites Ext: warm, 2+ pulses in UE/LE bilaterally, 2+ pitting edema of bilateral lower extremities to the knees Neuro: nonfocal, patient AA&O x 4, speech intact, no facial droop, moving all extremities on command with equal strength 5/5 Results & Data Results & Data Vital Signs (Past 12 Hours) Vital Signs Pulse Pulse Resp BP BP Pulse Ox Pulse Ox 03/26/25 11:46 94 H 21 103/69 03/26/25 08:35 98 03/26/25 08:35 92 H 110/72 98 03/26/25 08:03 95 H 03/26/25 06:58 104 H 25 H 91 03/26/25 06:06 96 H 20 125/73 93 03/26/25 05:01 100 H 24 135/81 95 03/26/25 04:30 99 H 22 134/91 96 03/26/25 04:14 103 H 20 125/76 94 03/26/25 03:30 101 H 20 133/74 95 03/26/25 03:26 101 H 03/26/25 02:30 103 H 20 108/79 95 03/26/25 02:01 102 H 20 114/65 96 03/26/25 01:14 94 H 20 124/71 95 03/26/25 00:30 80 24 107/89 95 O2 Del Method O2 Del Method O2 Flow Rate O2 Flow Rate 03/26/25 11:46 Nasal Cannula 2 03/26/25 08:35 Nasal Cannula 2 03/26/25 08:35 Nasal Cannula 2 03/26/25 08:03 03/26/25 06:58 Nasal Cannula 2 03/26/25 06:06 Nasal Cannula 2 03/26/25 05:01 Nasal Cannula 2 03/26/25 04:30 Nasal Cannula 2 03/26/25 04:14 Nasal Cannula 2 03/26/25 03:30 Nasal Cannula 2 03/26/25 03:26 03/26/25 02:30 Nasal Cannula 2 03/26/25 02:01 Nasal Cannula 2 03/26/25 01:14 Nasal Cannula 2 03/26/25 00:30 Laboratory Results Abnormal Labs 03/25/25 03/26/25 03/26/25 23:29 10:00 10:25 WBC 14.93 H RBC 3.72 L Hgb 11.3 L Hct 33.2 L RDW Std Deviation 53.3 H RDW Coeff of Huyen 16.8 H Neut # (Auto) 12.05 H Lymph # (Auto) 1.01 L [place] # (Auto) 1.28 H Immature Gran # (Auto) 0.36 H PT 12.1 H VBG pH 7.45 H VBG pCO2 32 L Sodium 127 L Chloride 90 L Anion Gap 15 H BUN 30 H BUN/Creatinine Ratio 33.7 H Glucose 284 H POC Glucose 321 H* Phosphorus 5.2 H Total Bilirubin 1.9 H Direct Bilirubin 0.6 H AST 48 H Alkaline Phosphatase 132 H Troponin I High Sens 18.0 H Albumin 3.0 L Diagnostic Findings Chest X-Ray 03/25/25 23:14 EXAM: XR chest 1V portable CLINICAL HISTORY: Chest pain, nonspecific TECHNIQUE: X-ray images of the chest were obtained in frontal projection. COMPARISON: 03/18/2025 CR. FINDINGS: Pulmonary Parenchyma: There is a 1 cm calcified nodule in the left upper lobe. There are multiple ill-defined nodular densities in both lungs. There are reticular densities with prominent interstitial markings and Kennedy lines, which might be suggestive of interstitial/lymphatic congestion or infiltration. No evidence of pleural effusion or pleural thickening. Heart and Mediastinum: Heart size and shape are normal. No mediastinal widening or masses. No hilar or mediastinal lymphadenopathy. Bony Thorax: Bony thorax appears intact without fractures or deformities. Soft Tissues: Soft tissues overlying the chest wall are unremarkable. IMPRESSION: 1. Bilateral ill-defined nodular densities with prominent interstitial markings, which are likely parenchymal nodules with interstitial infiltration. Please correlate clinically. 2. No significant interval changes. Electronically signed by Héctor Galindo 03-26-2025 01:51 AM Abdomen/Pelvis CT 03/26/25 00:47 EXAM: CT abd pelvis IV con only CLINICAL HISTORY: abd pain TECHNIQUE: CT of the abdomen and pelvis was performed with contrast, with the following protocol: axial images with, and reconstructed coronal and sagittal images. One of the following dose reduction techniques was utilized for this exam: Automated exposure control, adjustment of the mA and/or kV according to patient size, and use of iterative reconstruction. COMPARISON: Prior CT dated March 12, 2025 FINDINGS: Peritoneal and Retroperitoneal Structures: A large, irregular, creepy, heterogeneously enhancing soft tissue mass lesion is seen centered on the gastrohepatic recess and the louise hepatis. It measures about 15.5 x 15.5 x 10.5 cm in the maximum orthogonal dimensions. The mass is inseparable from the caudate lobe of the liver and the pancreatic body. It stretches the gastric body and antrum anteriorly with no infiltration. The mass infiltrates through the left anterolateral aspect of the IVC, which shows a hypodense partial non-occlusive filling defect above, at, and below the level of the renal veins. The mass encases the portal vein, which is patent and of average caliber. It also encases the celiac trunk and its major branches, which are attenuated but not occluded. Multiple pathologically enlarged, heterogeneously enhancing, shanae-aortic lymph nodes are seen; the largest is at a pre-aortic location posterior and adherent to the pancreatic head, measuring 42 x 25 mm. Diffuse peritoneal fat smudging, with scattered heterogeneously enhancing peritoneal nodules; the largest is at a subhepatic location, measuring 24 x 20 mm. Mild ascites. Atherosclerotic calcifications of the aorta and iliac arteries. Liver: Enlarged (measuring 20 cm in the long axis). Multiple bilobar hypodense focal lesions, showing mild peripheral enhancement; the largest is at segment 5/6, measuring 26 x 20 mm. Hepatic vasculature is unremarkable. Pancreas: The pancreatic body presents an ill-defined hypodense mass lesion, which is likely an extension (direct infiltration) from the large abdominal mass rather than being a discrete lesion. It measures 30 x 15 mm. The main pancreatic duct is mildly dilated distal to the body lesion. Spleen: Enlarged (measuring 16.9 cm in the long axis). Multiple irregular hypodense focal lesions, the largest is anterior upper polar, measuring 49 x 38 mm. Tiny calcified granulomas Gallbladder and Biliary System: Cholecystectomy clips are noted. Mild central intrahepatic biliary tree dilatation, likely sequel to compression of the bile duct at the hepatic hilum by the large related mass. Kidneys and Adrenal Glands: Both kidneys are normal in size, shape, position, and cortical thickness. No renal calculi or hydronephrosis. The adrenal glands are bulky bilaterally, but no focal lesions. Urinary Bladder: Collapsed over De La Rosa's catheter balloon, cannot be assessed. Uterus and Cervix: The uterus is not fully visualized, needs clinical correlation. No cervical gross masses or abnormal thickening. Ovaries: Not well visualized, but no gross adnexal abnormalities. Bowel: The visualized bowel loops are normal in caliber and appearance. No evidence of bowel obstruction or wall thickening. Multiple sigmoid diverticulae. Scanned lower chest cuts: Bilateral lower lobar, middle lobar, and lingular segment multiple irregular speculated solid pulmonary nodules, the largest is in the right lower lobe, measuring 26 x 24 mm. Some of them show early tiny cavitation changes. Few pneumatoceles are seen in the bilateral lower lobes and the middle lobe. Bones and Soft Tissues: Osteopenia. Degenerative changes of the lower thoracic and lumbar spine. No fractures or abnormal masses were identified. Redemonstration of a sclerotic focus in the left iliac bone. IMPRESSION: - A large, irregular, creepy, heterogeneously enhancing soft tissue malignant mass lesion is seen centered on the gastrohepatic recess and the louise hepatis. The epicenter of the lesion cannot be determined due to its large and infiltrative nature. However, the differentials would include hepatic/Kl[place]kin tumor/gastric, or pancreatic lesion. Further tissue biopsy is suggested, guided by the clinical condition -- increased in size compared to the prior study. - The mass infiltrates through the left anterolateral aspect of the IVC, which shows a hypodense partial non-occlusive hypodense filling defect above, at, and below the level of the renal vein. - Peritoneal fat smudging and multiple nodules, likely metastatic -- no significant interval changes. - Multiple pathologically enlarged shanae-aortic lymph nodes, likely metastatic -- no significant interval changes. - Hepatomegaly, with multiple bilobar hepatic focal lesions, likely metastatic -- likely stable. - The pancreatic body ill-defined mass lesion, which is likely an extension (direct infiltration) from the large abdominal mass rather than being a discrete lesion. - Splenomegaly with multiple irregular focal lesions, likely neoplastic (metastatic) -- increased. - Mild central intrahepatic biliary tree dilatation, likely sequel to compression of the bile duct at the hepatic hilum by the large related mass. - Mild ascites. - Multiple bilateral basal irregular solid pulmonary nodules, likely metastatic -- no significant interval changes. - The previously seen intra/shanae-vesical air foci are currently resolved. Currently, the urinary bladder is collapsed over the De La Rosa's catheter balloon, so it cannot be assessed. - The comparison was limited because the prior study was a non-contrast scan. Electronically signed by Héctor Galindo 03-26-2025 02:41 AM Chest CTA 03/26/25 00:47 EXAM: CT angio chest PE protocol CLINICAL HISTORY: sob TECHNIQUE: Contiguous axial images were obtained from the neck base through the upper abdomen following intravenous administration of iodinated contrast material. Angiographic images were processed, 3D MIP images were acquired for interpretation. If IV contrast material had not been administered, the likelihood of detecting abnormalities relevant to the patient's condition would have been substantially decreased. Coronal and sagittal 3-D MIPs were likewise performed and indicated to increase the sensitivity of detecting diffuse clinically relevant pathology. CT scan was performed according to ALARA (as low as reasonably achievable). COMPARISON: CTA, 03/13/2025 14:58:00 SITE DAMAGE PREVENTION TECHNICIAN FINDINGS: Partial lumen occluding filling defects seen in bilateral interlobar pulmonary artery, bilateral upper lobe arteries, right middle lobe/lingula segmental branches and proximal left posterbasal segmental branches of pulmonary arteries. Multiple small nodules of 5-8mm seen scattered in peripheral location in bilateral lumngs with spiculated margins and predominantly in bilateral lower lobes. Mosaic attenuation in bilateral lungs. Paraseptal emphysematous changes in right upper lobe. Multiple simple cysts in bilateral lower lobes, right middle lobe and lingula. The central airways are patent. No pleural effusion. The heart, aorta, and pulmonary arteries are of normal size and configuration. There are no appreciable coronary artery and aortic atherosclerotic calcifications. No pericardial effusion is identified. The thyroid is unremarkable. No mediastinal, hilar, or axillary lymphadenopathy is noted. No suspicious lytic or sclerotic osseous lesions are identified. Visualized upper section of abdomen shows large mass/lymph nodes in caudate lobe of liver, periportal region. IMPRESSION: 1. Partial lumen occluding filling defects seen in bilateral interlobar pulmonary artery, bilateral upper lobe arteries, right middle lobe/lingula segmental branches and proximal left posterbasal segmental branches of pulmonary arteries- Acute pulmonary thromboembolism- New finding. 2. Multiple small nodules of 5-8mm seen scattered in peripheral location in bilateral lumngs with spiculated margins and predominantly in bilateral lower lobes- likely metatstatic lesions- Stable. 3. Mosaic attenuation in bilateral lungs-stable, 4. Paraseptal emphysematous chnages in right upper lobe. Multiple simple cysts in bilateral lower lobes, right middle lobe and lingula- stable. 5. Visualized upper section of abdomen shows stable large mass/lymph nodes in caudate lobe of liver, periportal region- Suggested Contrast CT abdomen for further evaluation. 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 Diabetes mellitus complication status: with circulatory complication Diabetes mellitus complication detail: with other circulatory complications GERD (gastroesophageal reflux disease) K21.9 Idiopathic chronic gout without tophus, unspecified site [id number].[id number] Gout site: unspecified site Gout etiology: idiopathic Chronicity: chronic Presence of tophus: without tophus Mixed hyperlipidemia E78.2 Hyperlipidemia type: mixed hyperlipidemia Primary hypertension I10 Hypertension type: primary hypertension Cirrhosis of liver without ascites, unspecified hepatic cirrhosis type K74.60 Hepatic cirrhosis type: unspecified hepatic cirrhosis Ascites presence: without ascites CAD (coronary artery disease) I25.10 (1) Pulmonary emboli Acute cor pulmonale presence: unspecified Chronicity: unspecified Pulmonary embolism type: unspecified Qualified Code(s): I26.99 - Other pulmonary embolism without acute cor pulmonale (3) Diabetes mellitus, type 2 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 Diabetes mellitus complication status: with circulatory complication Diabetes mellitus complication detail: with other circulatory complications Qualified Code(s): E11.59 - Type 2 diabetes mellitus with other circulatory complications (5) Gout Gout site: unspecified site Gout etiology: idiopathic Chronicity: chronic Presence of tophus: without tophus Qualified Code(s): M1A.00X0 - Idiopathic chronic gout, unspecified site, without tophus (tophi) (6) Hyperlipidemia Hyperlipidemia type: mixed hyperlipidemia Qualified Code(s): E78.2 - Mixed hyperlipidemia (7) Hypertension Hypertension type: primary hypertension Qualified Code(s): I10 - Essential (primary) hypertension (8) Cirrhosis Hepatic cirrhosis type: unspecified hepatic cirrhosis Ascites presence: without ascites Qualified Code(s): K74.60 - Unspecified cirrhosis of liver
[2025-03-26] MEDS: LACTATED RINGER'S 1,000 ML IV SCH (13:04)
--- NOTE | 2025-03-26 13:31 | Palliative Care Consultation ---
Date of Consultation March 26, 2025 Assessment & Plan (1) Palliative care by specialist: Met with pt and her daughter Fabricio and son Vikas at bedside. Introduced Palliative Medicine and explained our role in advanced care planning, symptom management and navigation through the progression of life limiting disease. Patient and/or family were receptive to palliative services for goals of care discussions. Reviewed we are different from hospice, a home health nurse visiting service. (2) Counseling regarding goals of care: ACP meeting held with pt and adult children from 13:30 - 14:05 today. Patient currently exhibits decisional capacity based on the ability to convey understanding of personal PMHx, current medical condition, treatment options nor the risks / benefits/ potential outcomes of accepting/declining those options, and ability to make decisions based on such knowledge. Hospital does not have written documentation of patient wishes concerning her chosen proxy for medical decisions. Per PA [id number], in absence of written documentation of patient wishes, pt's proxy for medical decisions would be daughter Fabricio and son Vikas Stone with equal authority. Pt verbalized that she trusts her daughter Fabricio Stone to serve as primary proxy and son Vikas Stone as secondary proxy for medical decisions in the event she lacks decisional capacity. Pt currently does not require a proxy for medical decisions. Both Fabricio and Todd were present and agreeable . Pt shared an awareness that she has tumors in her liver lungs and abdomen and hat her oncologist believes that she likely has metastatic pancreatic cancer. She shared that she has had 2 liver biopsies that revealed steatosis, but now must have a liver biopsy to determine type of cancer and treatment options. She shared that she has discussed GOC with Dr Coles today and they have planned for "liver biopsy after the clots in my lung are treated". She shared awareness of need for 2 days of heparin drip before transition to DOAC followed by liver biopsy (possibly on ). She shared that Dr Coles attempted to discuss resuscitation with her today, but her son was resistant to discussion. Vikas expressed that, although he does not wish for his mother's , he will support her decision. Discussed code status and helped patient understand that CPR is only done after a person has and involves uncomfortable and invasive procedures that, if successful. have high risk of multiple complications including but not limited to rib fractures, pneumo/hemothorax, MARU, ventilator dependence, anoxic brain injury, and mobile device engineer/permanent cognitive and functional deficits. CPR survival: Only about 10% of patients who have [id number] sudden cardiac arrest survive to hospital discharge, with many survivors having neurologic impairment. This rate is even lower among patients with serious coexisting conditions, ie chance of survival to hospital discharge for in- hospital CPR in older people is low to moderate (15%) and decreases with age, comorbidities, performance status and frailty: for pts > 70 yo, more than half of the patients who initially survived resuscitation in the hospital before hospital discharge. The pooled survival to discharge after in-hospital CPR was 18% for patients between 70 and 79 years old, 15% for patients between 80 and 89 years old and 11% for patients of 90 years and older. (Mike VARGAS, Eladio LJ, Jhon F, et al. Trends in short- and long-term survival among [id number] cardiac arrest patients alive at hospital arrival. Circulation 2014;130:1883- 1890. AND Samantha C, Terrence T, Kerri R, et al. Performance of clinical risk scores to predict mortality and neurological outcome in cardiac arrest patients. Resuscitation 2019;136:21-29.) Gagandeep shared that she does not wish to be resuscitated and she does not wish to be placed on a ventilator. She does wish to have further diagnostics to determine what type of cancer she might have and what treatment options might be. She shared that she is in chronic pain from her spinal stenosis but still has a good quality of life and wants to continue life prolonging therapy at this time. (3) Pain: Pt c/o chronic arthritic type pain in her thoraco-lumbar spine that she attributes to her spinal stenosis. She shared that this is chronic and could not identify any precipitating or relieving factors, she denies need for pain medication at present and states pain is managed "as well as it ever has been". She denies any other discomfort. continue Oxycodone HCl (Oxycodone Hcl Ir 5 mg PO Q6 PRN Morphine 2mg IVP Q4h PRN for BTP/pain refractory to oxycodone Palliative care team will continue to follow patient through admission for symptom management. pt to be transferred to room 235, and is focused on getting out of ED not wanting to communicate about pain management at this time. She is agreeable to Palliative services for symptom management, ACP and navigation through her disease progression/diagnosis/treatment. Plan as above History of Present Illness Reason for Consultation: goals of care Requesting Physician: Erika Cristina DO Attending Physician: Erika Cristina DO History of Present Illness Gagandeep Banegas is a 69-year-old female with history of liver cirrhosis secondary to MASH, nonobstructive CAD, asthma, diabetes, gout, anxiety, GERD and hypotension presenting with bilateral lower extremity edema and shortness of breath. Patient was recently admitted to [facility] from 03/12 - 03/15/2025 after presenting with right flank pain, vomiting and hematuria. 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 Findings concerning for metastatic malignancy. Patient was treated with ceftriaxone and ultimately discharged home on amoxicillin to complete her antibiotic course for emphysematous cystitis. Preliminary workup for malignancy revealed a markedly elevated CA 199 at 14,400 Patient was set up for an ultrasound-guided IR biopsy of the liver to be performed in the outpatient setting on 03/26. Found to have bilateral pulmonary emboli as well as clot involving the IVC and being admitted for medical management. Allergies Allergy/AdvReac Type Severity Reaction Status Date / Time enalapril Allergy Severe Swelling Verified 03/20/25 13:05 of Lip/Tongue/Throat Iodinated Contrast Media Allergy Intermediate "THE DYE Verified 03/20/25 13:05 BLEW UP IN MY ARM" nickel Allergy Intermediate "I GET AN Verified 03/20/25 13:05 INFECTION" tetanus toxoid, adsorbed Allergy Intermediate ARM GETS Verified 03/20/25 13:05 INFECTED-SWELLING, REDNESS Home Medications Medication Instructions Recorded Confirmed Type albuterol sulfate 90 mcg/actuation 2 puff inhalation Q6H PRN SOB 01/25/19 03/26/25 History aerosol inhaler milk thistle 150 mg capsule 150 mg PO BID 04/06/19 03/26/25 History [id number]-[id number] 8 mg-folic 400 1 tab PO QAM 04/06/19 03/26/25 History mcg-K 50 mcg-lutein 300 mcg tablet (Centrum Silver Women) polyethylene glycol 3350 17 17 g PO DAILY PRN Constipation 03/03/23 03/26/25 Rx gram/dose oral powder (Miralax) #850 grams vitamin E mixed 400 unit capsule 400 unit PO QAM #90 caps 12/28/23 03/26/25 Rx fluticasone propionate 50 2 spray intranasal QAM #16 grams 04/25/24 03/26/25 Rx mcg/actuation nasal spray,suspension (Flonase Allergy Relief) pantoprazole 40 mg tablet,delayed 40 mg PO BID 90 days #180 tabs 05/29/24 03/26/25 Rx release (Protonix) allopurinol 300 mg tablet 300 mg PO QAM #90 tabs 08/21/24 03/26/25 Rx atorvastatin 40 mg tablet 40 mg PO HS #90 tabs 08/21/24 03/26/25 Rx bupropion HCl 150 mg tablet,12 hr 150 mg PO BID #180 ea 08/21/24 03/26/25 Rx sustained-release buspirone 5 mg tablet 5 mg PO BID #180 tabs 08/21/24 03/26/25 Rx semaglutide 2 mg/dose (8 mg/3 mL) 2 mg (0.75 mL) subcut .COMPLEX #3 08/21/24 03/20/25 Rx subcutaneous pen injector (Ozempic) mL denosumab 60 mg/mL subcutaneous 60 mg subcut Q6M #1 mL 09/28/24 03/26/25 Rx syringe (Prolia) empagliflozin 25 mg tablet 25 mg PO QAM #90 tabs 02/19/25 03/26/25 Rx (Jardiance) levothyroxine 100 mcg tablet 100 mcg PO QAM #90 tabs 02/19/25 03/26/25 Rx loratadine 10 mg tablet 10 mg PO QAM #90 tabs 02/19/25 03/26/25 Rx metformin 500 mg tablet,extended 500 mg PO DAILY 90 days #90 tabs 02/19/25 03/26/25 Rx release 24 hr metoprolol succinate 25 mg 25 mg PO QAM #90 tabs 02/19/25 03/26/25 Rx tablet,extended release 24 hr nystatin 100,000 unit/gram topical 1 applic topical BID 2 weeks #30 02/19/25 Rx cream grams potassium chloride 20 mEq 20 meq PO DAILY #90 tabs 02/20/25 03/26/25 Rx tablet,extended release ergocalciferol (vitamin D2) 1,250 1,250 mcg PO WK 03/12/25 03/26/25 History mcg (50,000 unit) capsule amoxicillin 500 mg tablet 500 mg PO TID #60 tabs 03/15/25 03/26/25 Rx oxycodone 5 mg tablet 5 mg PO Q6 PRN pain #30 tabs 03/20/25 03/26/25 Rx furosemide 40 mg tablet (Lasix) 40 mg PO DAILY 03/26/25 03/26/25 History Patient History Medical History History of ST elevation myocardial infarction (STEMI) 03/2019--had heart cath, follows with Dr. Srinivasan Degenerative disc disease LUMBAR AREA Spinal stenosis of lumbar region SOB (shortness of breath) on exertion CAD (coronary artery disease) Angioedema Osteoarthritis Hiatal hernia Hypothyroidism Anxiety Migraine H/O Kidney stones HX Asthma Surgical History History of bunionectomy of both great toes History of arthroscopy R/L KNEES History of cardiac cath (~04/07/19) @ [facility]--no stents placed S/P PALAK-BSO History of carpal tunnel release RIGHT History of cystoscopy WITH STENT AND REPAIRED RIGHT URETER BLOCKAGE. History of herniorrhaphy RIGHT INGUINAL HERNIA REPAIR History of cholecystectomy History of appendectomy History of esophagogastroduodenoscopy (EGD) History of colonoscopy History of thyroidectomy, subtotal BENIGN TUMOR History of cataract surgery BILATERAL History of tonsillectomy Family History Sister FHx: pancreatic cancer Family history of diabetes mellitus Mother Family history of diabetes mellitus Lung cancer Son Family history of diabetes mellitus Other No family history of adverse response to anesthesia Social History Smoking Status: Former smoker Tobacco Type: Cigarettes Age Started Using Tobacco: 20; Age Quit Using Tobacco: 58; packs per day: 2; Cigarettes Per Day: 1 PPD X 35 YEARS; Second Hand Exposure: Yes (son smokes/parents smoked); Do You Dip or Chew Tobacco: No; Hx Alcohol Use: No Hx Substance Use: No Preferred Language: Kinyarwanda Communication Ability: Effective Greek Professor Required: No Beliefs That Will Affect Care: None marital status: Single Current Living Situation: Alone current occupational status: disabled Feels Safe at Home: Yes Diet: regular Seatbelt Use: always Sunscreen Use: Yes Assistive Devices: Glasses and Walker Review of Systems Review of Systems: All systems reviewed & are unremarkable except as noted in HPI & below Musculoskeletal: Pt c/o chronic back pain "from spinal stenosis" it is a constant ache. Physical Exam Constitutional: WD/WN, vitals as above + obese Respiratory: normal respiratory effort, lungs clear to auscultation Cardiovascular: Rate/Rhythm: regular rate and regular rhythm Heart Sounds: no murmur Extremities: + edema (2+ pitting edema of the legs to the knees bilaterally) Gastrointestinal (Abdomen): Inspection/Auscultation: abdomen normal to inspection and normal bowel sounds; abdomen not distended Percussion/Pal pation: abdomen soft and + hepatomegaly; abdomen nontender, no hernia and no ascites Skin: no rashes, warm and dry Psychiatric: A+Ox3, euthymic affect Genitourinary: barclay in place draining clear yellow urine to bag Results & Data Vital Signs (Past 12 Hours) Vital Signs Pulse Pulse Resp BP BP Pulse Ox Pulse Ox 03/26/25 11:46 94 H 21 103/69 03/26/25 08:35 98 03/26/25 08:35 92 H 110/72 98 03/26/25 08:03 95 H 03/26/25 06:58 104 H 25 H 91 03/26/25 06:06 96 H 20 125/73 93 03/26/25 05:01 100 H 24 135/81 95 03/26/25 04:30 99 H 22 134/91 96 03/26/25 04:14 103 H 20 125/76 94 03/26/25 03:30 101 H 20 133/74 95 03/26/25 03:26 101 H 03/26/25 02:30 103 H 20 108/79 95 03/26/25 02:01 102 H 20 114/65 96 O2 Del Method O2 Del Method O2 Flow Rate O2 Flow Rate 03/26/25 11:46 Nasal Cannula 2 03/26/25 08:35 Nasal Cannula 2 03/26/25 08:35 Nasal Cannula 2 03/26/25 08:03 03/26/25 06:58 Nasal Cannula 2 03/26/25 06:06 Nasal Cannula 2 03/26/25 05:01 Nasal Cannula 2 03/26/25 04:30 Nasal Cannula 2 03/26/25 04:14 Nasal Cannula 2 03/26/25 03:30 Nasal Cannula 2 03/26/25 03:26 03/26/25 02:30 Nasal Cannula 2 03/26/25 02:01 Nasal Cannula 2 Laboratory Results Abnormal lab results 03/25/25 03/26/25 03/26/25 Range/Units 23:29 10:00 10:25 WBC 14.93 H (4.8-10.8) K/ul RBC 3.72 L (4.20-5.40) M/uL Hgb 11.3 L (12.0-16.0) g/dl Hct 33.2 L (37.0-47.0) % RDW Std Deviation 53.3 H (36.4-46.3) fL RDW Coeff of Huyen 16.8 H (11.5-14.5) % Neut # (Auto) 12.05 H (1.40-6.50) K/uL Lymph # (Auto) 1.01 L (1.20-3.40) K/uL Tillman # (Auto) 1.28 H (0.11-0.59) K/uL Immature Gran # (Auto) 0.36 H (0.01-0.20) K/uL PT 12.1 H (9.0-12.0) Seconds VBG pH 7.45 H (7.36-7.41) VBG pCO2 32 L (38-50) mmHg Sodium 127 L (136-145) mmol/L Chloride 90 L (98-107) mmol/L Anion Gap 15 H (3-11) BUN 30 H (6-23) mg/dl BUN/Creatinine Ratio 33.7 H (10-20) Glucose 284 H (70-99(Fasting)) mg/dl POC Glucose 321 H* (70-99) mg/dl Phosphorus 5.2 H (2.5-4.9) mg/dl Total Bilirubin 1.9 H (0.2-1.0) mg/dl Direct Bilirubin 0.6 H (0-0.2) mg/dl AST 48 H (13-39) U/L Alkaline Phosphatase 132 H (34-104) U/L Troponin I High Sens 18.0 H (0-14) pg/ml Albumin 3.0 L (3.4-5.0) gm/dl Diagnostic Findings Chest X-Ray 03/25/25 23:14 EXAM: XR chest 1V portable CLINICAL HISTORY: Chest pain, nonspecific TECHNIQUE: X-ray images of the chest were obtained in frontal projection. COMPARISON: 03/18/2025 CR. FINDINGS: Pulmonary Parenchyma: There is a 1 cm calcified nodule in the left upper lobe. There are multiple ill-defined nodular densities in both lungs. There are reticular densities with prominent interstitial markings and Kennedy lines, which might be suggestive of interstitial/lymphatic congestion or infiltration. No evidence of pleural effusion or pleural thickening. Heart and Mediastinum: Heart size and shape are normal. No mediastinal widening or masses. No hilar or mediastinal lymphadenopathy. Bony Thorax: Bony thorax appears intact without fractures or deformities. Soft Tissues: Soft tissues overlying the chest wall are unremarkable. IMPRESSION: 1. Bilateral ill-defined nodular densities with prominent interstitial markings, which are likely parenchymal nodules with interstitial infiltration. Please correlate clinically. 2. No significant interval changes. Electronically signed by Héctor Galindo 03-26-2025 01:51 AM Abdomen/Pelvis CT 03/26/25 00:47 EXAM: CT abd pelvis IV con only CLINICAL HISTORY: abd pain TECHNIQUE: CT of the abdomen and pelvis was performed with contrast, with the following protocol: axial images with, and reconstructed coronal and sagittal images. One of the following dose reduction techniques was utilized for this exam: Automated exposure control, adjustment of the mA and/or kV according to patient size, and use of iterative reconstruction. COMPARISON: Prior CT dated March 12, 2025 FINDINGS: Peritoneal and Retroperitoneal Structures: A large, irregular, creepy, heterogeneously enhancing soft tissue mass lesion is seen centered on the gastrohepatic recess and the louise hepatis. It measures about 15.5 x 15.5 x 10.5 cm in the maximum orthogonal dimensions. The mass is inseparable from the caudate lobe of the liver and the pancreatic body. It stretches the gastric body and antrum anteriorly with no infiltration. The mass infiltrates through the left anterolateral aspect of the IVC, which shows a hypodense partial non-occlusive filling defect above, at, and below the level of the renal veins. The mass encases the portal vein, which is patent and of average caliber. It also encases the celiac trunk and its major branches, which are attenuated but not occluded. Multiple pathologically enlarged, heterogeneously enhancing, shanae-aortic lymph nodes are seen; the largest is at a pre-aortic location posterior and adherent to the pancreatic head, measuring 42 x 25 mm. Diffuse peritoneal fat smudging, with scattered heterogeneously enhancing peritoneal nodules; the largest is at a subhepatic location, measuring 24 x 20 mm. Mild ascites. Atherosclerotic calcifications of the aorta and iliac arteries. Liver: Enlarged (measuring 20 cm in the long axis). Multiple bilobar hypodense focal lesions, showing mild peripheral enhancement; the largest is at segment 5/6, measuring 26 x 20 mm. Hepatic vasculature is unremarkable. Pancreas: The pancreatic body presents an ill-defined hypodense mass lesion, which is likely an extension (direct infiltration) from the large abdominal mass rather than being a discrete lesion. It measures 30 x 15 mm. The main pancreatic duct is mildly dilated distal to the body lesion. Spleen: Enlarged (measuring 16.9 cm in the long axis). Multiple irregular hypodense focal lesions, the largest is anterior upper polar, measuring 49 x 38 mm. Tiny calcified granulomas Gallbladder and Biliary System: Cholecystectomy clips are noted. Mild central intrahepatic biliary tree dilatation, likely sequel to compression of the bile duct at the hepatic hilum by the large related mass. Kidneys and Adrenal Glands: Both kidneys are normal in size, shape, position, and cortical thickness. No renal calculi or hydronephrosis. The adrenal glands are bulky bilaterally, but no focal lesions. Urinary Bladder: Collapsed over Barclay's catheter balloon, cannot be assessed. Uterus and Cervix: The uterus is not fully visualized, needs clinical correlation. No cervical gross masses or abnormal thickening. Ovaries: Not well visualized, but no gross adnexal abnormalities. Bowel: The visualized bowel loops are normal in caliber and appearance. No evidence of bowel obstruction or wall thickening. Multiple sigmoid diverticulae. Scanned lower chest cuts: Bilateral lower lobar, middle lobar, and lingular segment multiple irregular speculated solid pulmonary nodules, the largest is in the right lower lobe, measuring 26 x 24 mm. Some of them show early tiny cavitation changes. Few pneumatoceles are seen in the bilateral lower lobes and the middle lobe. Bones and Soft Tissues: Osteopenia. Degenerative changes of the lower thoracic and lumbar spine. No fractures or abnormal masses were identified. Redemonstration of a sclerotic focus in the left iliac bone. IMPRESSION: - A large, irregular, creepy, heterogeneously enhancing soft tissue malignant mass lesion is seen centered on the gastrohepatic recess and the louise hepatis. The epicenter of the lesion cannot be determined due to its large and infiltrative nature. However, the differentials would include hepatic/Klatskin tumor/gastric, or pancreatic lesion. Further tissue biopsy is suggested, guided by the clinical condition -- increased in size compared to the prior study. - The mass infiltrates through the left anterolateral aspect of the IVC, which shows a hypodense partial non-occlusive hypodense filling defect above, at, and below the level of the renal vein. - Peritoneal fat smudging and multiple nodules, likely metastatic -- no significant interval changes. - Multiple pathologically enlarged shanae-aortic lymph nodes, likely metastatic -- no significant interval changes. - Hepatomegaly, with multiple bilobar hepatic focal lesions, likely metastatic -- likely stable. - The pancreatic body ill-defined mass lesion, which is likely an extension (direct infiltration) from the large abdominal mass rather than being a discrete lesion. - Splenomegaly with multiple irregular focal lesions, likely neoplastic (metastatic) -- increased. - Mild central intrahepatic biliary tree dilatation, likely sequel to compression of the bile duct at the hepatic hilum by the large related mass. - Mild ascites. - Multiple bilateral basal irregular solid pulmonary nodules, likely metastatic -- no significant interval changes. - The previously seen intra/shanae-vesical air foci are currently resolved. Currently, the urinary bladder is collapsed over the Barclay's catheter balloon, so it cannot be assessed. - The comparison was limited because the prior study was a non-contrast scan. Electronically signed by Héctor Galindo 03-26-2025 02:41 AM Chest CTA 03/26/25 00:47 EXAM: CT angio chest PE protocol CLINICAL HISTORY: sob TECHNIQUE: Contiguous axial images were obtained from the neck base through the upper abdomen following intravenous administration of iodinated contrast material. Angiographic images were processed, 3D MIP images were acquired for interpretation. If IV contrast material had not been administered, the likelihood of detecting abnormalities relevant to the patient's condition would have been substantially decreased. Coronal and sagittal 3-D MIPs were likewise performed and indicated to increase the sensitivity of detecting diffuse clinically relevant pathology. CT scan was performed according to ALARA (as low as reasonably achievable). COMPARISON: CTA, 03/13/2025 14:58:00 JAVASCRIPT SOFTWARE ENGINEER FINDINGS: Partial lumen occluding filling defects seen in bilateral interlobar pulmonary artery, bilateral upper lobe arteries, right middle lobe/lingula segmental branches and proximal left posterbasal segmental branches of pulmonary arteries. Multiple small nodules of 5-8mm seen scattered in peripheral location in bilateral lumngs with spiculated margins and predominantly in bilateral lower lobes. Mosaic attenuation in bilateral lungs. Paraseptal emphysematous changes in right upper lobe. Multiple simple cysts in bilateral lower lobes, right middle lobe and lingula. The central airways are patent. No pleural effusion. The heart, aorta, and pulmonary arteries are of normal size and configuration. There are no appreciable coronary artery and aortic atherosclerotic calcifications. No pericardial effusion is identified. The thyroid is unremarkable. No mediastinal, hilar, or axillary lymphadenopathy is noted. No suspicious lytic or sclerotic osseous lesions are identified. Visualized upper section of abdomen shows large mass/lymph nodes in caudate lobe of liver, periportal region. IMPRESSION: 1. Partial lumen occluding filling defects seen in bilateral interlobar pulmonary artery, bilateral upper lobe arteries, right middle lobe/lingula segmental branches and proximal left posterbasal segmental branches of pulmonary arteries- Acute pulmonary thromboembolism- New finding. 2. Multiple small nodules of 5-8mm seen scattered in peripheral location in bilateral lumngs with spiculated margins and predominantly in bilateral lower lobes- likely metatstatic lesions- Stable. 3. Mosaic attenuation in bilateral lungs-stable, 4. Paraseptal emphysematous chnages in right upper lobe. Multiple simple cysts in bilateral lower lobes, right middle lobe and lingula- stable. 5. Visualized upper section of abdomen shows stable large mass/lymph nodes in caudate lobe of liver, periportal region- Suggested Contrast CT abdomen for further evaluation. Electronically signed by Charly Hernandez 03-26-2025 02:09 AM Medications Administered Current Inpatient Medications Acetaminophen (Acetaminophen 325 Mg Tab) 650 mg PO Q4H PRN PRN Reason: Pain or Fever Stop: 04/25/25 08:34 Albuterol (Albuterol Hfa 8 Gm Inhaler) 2 puffs INH Q6H PRN PRN Reason: Shortness Of Breath Stop: 04/25/25 08:34 Allopurinol (Allopurinol 300 Mg Tab) 300 mg PO QAM RAJI Stop: 04/25/25 08:59 Last Admin: 03/26/25 10:05 Dose: 300 mg Amoxicillin (Amoxicillin 500 Mg Cap) 500 mg PO TID [facility]; Protocol Stop: 04/05/25 08:59 Last Admin: 03/26/25 10:04 Dose: 500 mg Bupropion HCl (Bupropion Sr 150 Mg Tabcr) 150 mg PO BID [facility] Stop: 04/25/25 08:59 Last Admin: 03/26/25 10:04 Dose: 150 mg Buspirone HCl (Buspirone 5 Mg Tab) 5 mg PO BID [facility] Stop: 04/25/25 08:59 Last Admin: 03/26/25 10:05 Dose: 5 mg Dextrose (Dextrose 50% 50 Ml Syringe) 25 - 50 ml IV UD PRN; Protocol PRN Reason: Hypoglycemia Protocol Stop: 04/25/25 08:34 Docusate Sodium (Docusate Sodium 100 Mg Cap) 100 mg PO BID PRN PRN Reason: Constipation Stop: 04/25/25 08:34 Fluticasone Propionate (Fluticasone Propionate Na Spr 16 Gm Btl) 2 sprays NA QAM [facility] Stop: 04/25/25 08:59 Last Admin: 03/26/25 10:01 Dose: 2 sprays Glucagon (Glucagon For Inj 1 Mg Vial) 1 mg SQ UD PRN; Protocol PRN Reason: Hypoglycemia Protocol Stop: 04/25/25 08:34 Glucose (Glucose 40% Gel 15 Gm Tube) 15 - 30 gm PO UD PRN; Protocol PRN Reason: Hypoglycemia Protocol Stop: 04/25/25 08:34 Glucose (Glucose 10 Tab/Tube) 4 - 8 tab PO UD PRN; Protocol PRN Reason: Hypoglycemia Protocol Stop: 04/25/25 08:34 Heparin Sodium/Dextrose (Heparin 74659 Unit/500 Ml D5w) 25,000 units in 500 mls @ 25 mls/hr IV .Q20H RAJI; Protocol Stop: 04/25/25 03:14 Last Titration: 03/26/25 11:43 Dose: 1,250 units/hr, 25 mls/hr Lactated Ringer's (Lr) 1,000 mls @ 75 mls/hr IV .[id number] [facility] Stop: 03/29/25 12:44 Last Admin: 03/26/25 13:04 Dose: 75 mls/hr Insulin Aspart (Insulin Aspart Per Unit Charge) 0 units SC ACHS [facility] Stop: 04/25/25 08:34 Last Admin: 03/26/25 11:32 Dose: 5 units Levothyroxine Sodium (Levothyroxine Sodium 100 Mcg Tablet) 100 mcg PO QAM [facility] Stop: 04/25/25 08:59 Last Admin: 03/26/25 10:05 Dose: 100 mcg Metoprolol Succinate (Metoprolol Succ 25mg Ext Rel Tab) 25 mg PO QAM [facility] Stop: 04/25/25 08:59 Last Admin: 03/26/25 10:06 Dose: 25 mg Miscellaneous (Carbohydrates For Hypoglycemia ) 15 - 30 gm PO UD PRN PRN Reason: Hypoglycemia Protocol Stop: 04/25/25 08:34 Morphine Sulfate (Morphine Sulfate 2 Mg/Ml Carp) 1 mg IV Q3H PRN PRN Reason: Pain (1,2,3,4,5) & Pre PT Stop: 04/09/25 07:00 Last Admin: 03/26/25 11:10 Dose: 1 mg Morphine Sulfate (Morphine Sulfate 2 Mg/Ml Carp) 2 mg IV Q3H PRN PRN Reason: Pain (6,7,8,9,10) Stop: 04/09/25 07:00 Nystatin (Nystatin Cr 15 Gm Tube) 1 appln EXT BID [facility] Stop: 04/25/25 08:59 Last Admin: 03/26/25 10:07 Dose: 1 appln Ondansetron HCl (Ondansetron Inj 2 Mg/Ml 2 Ml Vial) 4 mg IV Q6H PRN PRN Reason: Nausea And Vomiting Stop: 04/25/25 08:34 Last Admin: 03/26/25 11:10 Dose: 4 mg Oxycodone HCl (Oxycodone Hcl Ir 5 Mg Tab (Immediate Release)) 5 mg PO Q6 PRN PRN Reason: pain Stop: 04/09/25 08:34 Pantoprazole Sodium (Pantoprazole 40 Mg Tab) 40 mg PO BID [facility] Stop: 04/25/25 08:59 Last Admin: 03/26/25 10:02 Dose: 40 mg Polyethylene Glycol (Polyethylene (Miralax) 17 Gm Pack) 17 gm PO DAILY PRN PRN Reason: Constipation Stop: 04/25/25 08:34 PG Care Time/CCT Total # of Minutes Spent Total Time Spent with Patient: Total time spent is greater than 50% in coordination of care (as documented) at patient's floor/unit and/or counseling patient: Advanced Care Planning 24311 Advanced Care Planning 30 [place] [address] IN/OBS CONSULT LVL 3,45M Patient Type New Medical Decision Making Moderate Complexity Diagnoses Palliative care by specialist Z51.5 Counseling regarding goals of care Z71.89 Pain R52 Additional Codes Advanced Care Planning - 80777 Advanced Care Planning 30 Min: 43924 Advanced Care Planning 30 Min ([id number])
[2025-03-26 13:42] LABS: Alanine Aminotransferase 34.0 U/L (7-52); Albumin Globulin Ratio 0.9 (0.9-2); Alkaline Phosphatase 123.0 U/L (34-104); Anion Gap 16.0 (3-11); Bilirubin,Total 1.8 mg/dl (0.2-1.0); Blood Urea Nitrogen 34.0 mg/dl (6-23); Calcium 8.4 mg/dl (8.6-10.3); Carbon Dioxide 22.0 mmol/L (21-32); Chloride 90.0 mmol/L (98-107); Creatinine Clr Calc Pharmacy 60.1 ml/min; Globulin 3.2 gm/dl (2.5-4.0); Glucose 301.0 mg/dl (70-99(Fasting)); Potassium 3.8 mmol/L (3.5-5.1); Sodium 128.0 mmol/L (136-145); Total Protein 6.1 gm/dl (6.0-8.3)
[2025-03-26 16:39] LABS: ANTI-Xa, UFH(UnfractionatedHep 0.37 IU/ml (0.3-0.7)
[2025-03-27 00:01] LABS: ANTI-Xa, UFH(UnfractionatedHep 0.42 IU/ml (0.3-0.7)
[2025-03-27] MEDS: INSULIN ASPART PER UNIT CHARGE SC STA ×2 (00:56→04:37)
[2025-03-27] MEDS ORDERED: PHARMACY GLYCEMIC MGMT CONSULT PRN ×2 (04:05→10:16)
[2025-03-27] MEDS: LANTUS PER UNIT CHARGE SC ONE (08:17)
--- NOTE | 2025-03-27 10:09 | Pharmacy Report ---
Pharmacy Glycemic Short Note 2 - Date of Service March 27, 2025 - Glycemic Short BSG Results (Last 24 hours): 03/26/25 03/26/25 03/26/25 10:00 10:25 16:47 Glucose 301 H* POC Glucose 321 H* 312 H* 03/26/25 03/27/25 03/27/25 20:33 00:02 04:00 Glucose POC Glucose 340 H* 333 H* 351 H* 03/27/25 07:38 Glucose POC Glucose 291 H OUTPATIENT ANTIDIABETIC REGIMEN: * Metformin 500 mg PO daily * Empagliflozin 25 mg PO qAM * Ozempic 2 mg SC weekly (Mondays) HbA1c: 6.7% (02/19/25) ASSESSMENT: * SL is a 69 year old female w/ presumed metastatic pancreatic cancer * Hyperglycemic on presentation and throughout the day yesterday (>300 mg/dL)) * Receiving amoxicillin for treatment of emphysematous cystitis * Receiving heparin gtt (mixed in dextrose), no steroids * Well-controlled T2DM as an outpatient * Will be somewhat conservative with insulin regimen in light of diagnosis (prioritizing reduced likelihood of hypoglycemia) PLAN FOR INPATIENT GLYCEMIC CONTROL: * Hold outpatient oral diabetes medications * Basal insulin * Lantus 15 units SC daily * Lantus 0-5-10 units SC HS (see EHR for details) * Bolus insulin * NovoLog per scale ACHS or Q6hrs while NPO * Goal Range: Low 140 mg/dL - High 180 mg/dL * Correction Factor: 30 mg/dL/unit * Nutritional / Prandial insulin per carb ratio of 1 unit per 8 grams CHO co nsumed
--- NOTE | 2025-03-27 10:18 | Hospitalist Progress Note ---
Date of Service March 27, 2025 Assessment & Plan (1) Pulmonary emboli: (2) Intraabdominal mass: (3) Diabetes mellitus, type 2: (4) GERD (gastroesophageal reflux disease): (5) Gout: (6) Hyperlipidemia: (7) Hypertension: (8) Cirrhosis: (9) CAD (coronary artery disease): Plan #bilateral PEs with IVC clot in setting of malignancy- Heparin drip initiated in the ER. Will continue for now. Patient class III, intermediate risk per PESI score due to cancer #Suspected malignancy AP CT without contrast revealed liver cirrhosis with marked right upper quadrant mass with peritoneal implants and suspected pulmonary metastasis visualized throughout lung bases. New since liver ultrasound in November 2024. Patient without personal history of CA - father with lung cancer and sister with pancreatic cancer. During last admission a CT liver protocol with contrast and CT angiogram of the chest which showed large 13 cm mass involving louise hepatis and caudate segment of liver-difficult to determine if from bulky adenopathy or arising from liver but metastatic adenopathy felt to be more likely. Also with upper abdominal adenopathy, several other liver masses, pancreatic mass, hepatosplenomegaly, and thickening of the gastric antrum. CT angiogram chest at that time negative for PE, but with innumerable pulmonary nodules, small bilateral pleural effusions. Patient has lost 100 pounds in the last 2 years but has been on increasing doses of Ozempic. AFP was normal. Last colonoscopy in 11/2021 with tubular adenomas and hyperplastic polyp. Last EGD 03/2021 negative. Breast biopsy in 11/2023 negative for malignancy. CEA elevated here at 10.2 and CA 19-9 significantly elevated at 14,400. stomach biopsy performed on 03/14/2025 with significant gastric inflammation, no definitive H. pylori US-guided IR biopsy of liver mass scheduled to be done outpatient today. P atient has been off aspirin and has been NPO. 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 Patient has been compliant with her amoxicillin. She is afebrile, no urinary complaints at prese nt. Urine culture during last hospitalization positive for E. coli, resistant to cefoxitin. Continue amoxicillin 500 mg p.o. 3 times daily Tylenol as needed for pain Maintain De La Rosa catheter #Chronic constipation/GERD- - MiraLAX and Colace as needed Continue Protonix 40 mg p.o. twice daily #Liver cirrhosis-[facility], patient follows with GI. INR is normal at 1.1. LFTs as above with elevation of alkaline phosphatase = 132, total bili = 1.9, direct bili = 0.6. Also mild elevation of AST = 48. Patient's home Lasix was decreased during last admission at 40 mg daily. Avoid hepatotoxic agents Hold Lasix for now Repeat LFTs #T2DM - Most recent A1C 6.7%. Takes Jardiance, Ozempic (injections on Mondays), metformin at home - Hold Ozempic, Metformin and Jardiance for now -ISS, goal blood sugar 110 - 160 # Mild nonobstructive CAD/HTN Chronic, stable -ASA on hold for liver biopsy - Hold Atorvastatin for now -Continue Metoprolol #hypothyroidism recent TSH in 01/2025 mildly elevated at 5.1 - Continue home levothyroxine dose and follow-up with PCP #Asthma no acute issues. Given long history of smoking and emphysematous changes on lung imaging, suspect has COPD - Continue as needed inhaler # Anxiety disorderno acute issues - Continue bupropion and buspirone #Gout/osteoporosis-no acute issues - Continue allopurinol #Chronic lower back pain-no acute issues - Continue oxycodone as needed - Avoid NSAIDs for impending liver biopsy as well DVT prophylaxis Now DNR/DNI. Guarded prognosis. Palliative care following. Disposition TBD Admission and Anticipated Discharge Date Admission Date: March 26, 2025 Subjective Nauseous receiving Compazine SBP 80s asymptomatic this regard. No lightheadedness or any other symptoms. remains on IVFs No other symptoms or complaints Labs for today pending Blood sugars elevated pharmacy consulted for glycemic management. Lantus added Physical Exam Physical Exam: General: patient resting comfortably, NAD, non-toxic in appearance, AA&O x 4 Skin: warm, dry, intact, no rashes or lesions HEENT: NC/AT, PERRL, EOMI, anicteric sclera, conjunctiva without injection, external ear normal to inspection and nontender, nares patent, moist mucus membranes, dentition intact, no oropharyngeal lesions, neck supple, trachea midline, no LAD, no thyromegaly, no JVD Heart: +S1/S2, regular, Tachycardic, no m/r/g Lungs: equal air entry bilaterally, no rales/rhonchi/wheezes Abd: +BS, soft, NT/ND, no masses/organomegaly/ascites Ext: warm, 2+ pulses in UE/LE bilaterally, 2+ pitting edema of bilateral lower extremities to the knees Neuro: nonfocal, patient AA&O x 4, speech intact, no facial droop, moving all extremities on command with equal strength 5/5 Results & Data Results & Data Vital Signs (Past 12 Hours) Vital Signs Temp Pulse Resp BP BP Pulse Ox O2 Del Method 03/27/25 08:29 100/69 03/27/25 07:53 80/70 L 03/27/25 07:30 36.2 C L 98 H 14 86/54 L 92 Room Air 03/26/25 23:21 36.1 C L 96 H 16 100/68 96 Room Air Laboratory Results Abnormal Labs 03/25/25 03/26/25 03/26/25 23:29 10:00 10:25 WBC 14.93 H RBC 3.72 L Hgb 11.3 L Hct 33.2 L RDW Std Deviation 53.3 H RDW Coeff of Huyen 16.8 H Neut # (Auto) 12.05 H Lymph # (Auto) 1.01 L Bee # (Auto) 1.28 H Immature Gran # (Auto) 0.36 H PT 12.1 H VBG pH 7.45 H VBG pCO2 32 L Sodium 127 L 128 L Chloride 90 L 90 L Anion Gap 15 H 16 H BUN 30 H 34 H BUN/Creatinine Ratio 33.7 H 34.3 H Glucose 284 H 301 H* POC Glucose 321 H* Calcium 8.4 L Phosphorus 5.2 H Total Bilirubin 1.9 H 1.8 H Direct Bilirubin 0.6 H AST 48 H Alkaline Phosphatase 132 H 123 H Troponin I High Sens 18.0 H Albumin 3.0 L 2.9 L 03/26/25 03/26/25 03/27/25 16:47 20:33 00:02 WBC RBC Hgb Hct RDW Std Deviation RDW Coeff of Huyen Neut # (Auto) Lymph # (Auto) Bee # (Auto) Immature Gran # (Auto) PT VBG pH VBG pCO2 Sodium Chloride Anion Gap BUN BUN/Creatinine Ratio Glucose POC Glucose 312 H* 340 H* 333 H* Calcium Phosphorus Total Bilirubin Direct Bilirubin AST Alkaline Phosphatase Troponin I High Sens Albumin 03/27/25 03/27/25 04:00 07:38 WBC RBC Hgb Hct RDW Std Deviation RDW Coeff of Huyen Neut # (Auto) Lymph # (Auto) Bee # (Auto) Immature Gran # (Auto) PT VBG pH VBG pCO2 Sodium Chloride Anion Gap BUN BUN/Creatinine Ratio Glucose POC Glucose 351 H* 291 H Calcium Phosphorus Total Bilirubin Direct Bilirubin AST Alkaline Phosphatase Troponin I High Sens Albumin PG Care Time/CCT Total # of Minutes Spent Total Time Spent with Patient: Total time spent is greater than 50% in coordination of care (as documented) at patient's floor/unit and/or counseling patient: Coding Level of Care Code 97607 SUB INP/OBS CARE 235MIN Diagnoses Pulmonary emboli I26.99 Acute cor pulmonale presence: unspecified Chronicity: unspecified Pulmonary embolism type: unspecified Intraabdominal mass R19.00 Type 2 diabetes mellitus with other circulatory complication, without long-term current use of insulin E11.59 Diabetes mellitus bed bug exterminator insulin use: without bed bug exterminator use Diabetes mellitus complication status: with circulatory complication Diabetes mellitus complication detail: with other circulatory complications GERD (gastroesophageal reflux disease) K21.9 Idiopathic chronic gout without tophus, unspecified site [id number] Gout site: unspecified site Gout etiology: idiopathic Chronicity: chronic Presence of tophus: without tophus Mixed hyperlipidemia E78.2 Hyperlipidemia type: mixed hyperlipidemia Primary hypertension I10 Hypertension type: primary hypertension Cirrhosis of liver without ascites, unspecified hepatic cirrhosis type K74.60 Hepatic cirrhosis type: unspecified hepatic cirrhosis Ascites presence: without ascites CAD (coronary artery disease) I25.10 (1) Pulmonary emboli Acute cor pulmonale presence: unspecified Chronicity: unspecified Pulmonary embolism type: unspecified Qualified Code(s): I26.99 - Other pulmonary embolism without acute cor pulmonale (3) Diabetes mellitus, type 2 Diabetes mellitus assisted insulin use: without assisted use Diabetes mellitus complication status: with circulatory complication Diabetes mellitus complication detail: with other circulatory complications Qualified Code(s): E11.59 - Type 2 diabetes mellitus with other circulatory complications (5) Gout Gout site: unspecified site Gout etiology: idiopathic Chronicity: chronic Presence of tophus: without tophus Qualified Code(s): [id number].[id number] - Idiopathic chronic gout, unspecified site, without tophus (tophi) (6) Hyperlipidemia Hyperlipidemia type: mixed hyperlipidemia Qualified Code(s): E78.2 - Mixed hyperlipidemia (7) Hypertension Hypertension type: primary hypertension Qualified Code(s): I10 - Essential (primary) hypertension (8) Cirrhosis Hepatic cirrhosis type: unspecified hepatic cirrhosis Ascites presence: without ascites Qualified Code(s): K74.60 - Unspecified cirrhosis of liver
[2025-03-27 10:20] LABS: Hematocrit (blood only) 33.0 % (37.0-47.0); Hemoglobin 10.7 g/dl (12.0-16.0); Mean Corpuscular Hemoglobin 29.7 pg (25.0-34.0); Mean Corpuscular Volume 91.7 fL (80.0-100.0); Platelet Count 278 K/uL (130-400); RDW Standard Deviation 54.5 fL (36.4-46.3); Red Blood Count 3.60 M/uL (4.20-5.40); White Blood Count 18.47 K/ul (4.8-10.8)
[2025-03-27 10:28] LABS: Anion Gap 14.0 (3-11); Bilirubin,Total 1.5 mg/dl (0.2-1.0); Calcium 8.7 mg/dl (8.6-10.3); Carbon Dioxide 22.0 mmol/L (21-32); Chloride 89.0 mmol/L (98-107); Potassium 3.7 mmol/L (3.5-5.1); Sodium 125.0 mmol/L (136-145)
[2025-03-27] MEDS ORDERED: LANTUS PER UNIT CHARGE SQ SCH (10:30)
[2025-03-27 10:34] LABS: Alanine Aminotransferase 104.0 U/L (7-52); Albumin Globulin Ratio 0.9 (0.9-2); Alkaline Phosphatase 123.0 U/L (34-104); Blood Urea Nitrogen 43.0 mg/dl (6-23); Creatinine Clr Calc Pharmacy 41.6 ml/min; Globulin 3.2 gm/dl (2.5-4.0); Glucose 239.0 mg/dl (70-99(Fasting)); Total Protein 6.1 gm/dl (6.0-8.3)
[2025-03-27 10:38] LABS: ANTI-Xa, UFH(UnfractionatedHep 0.43 IU/ml (0.3-0.7)
--- NOTE | 2025-03-27 12:12 | Palliative Care Progress Note ---
Date of Service March 27, 2025 Assessment & Plan (1) Cancer related pain: Plan: No relief with Oxy IR 5mg tabs More relief with MS 2mg IV however this is dropping her BP Home regimen she states was Tramadol 50mg PO with Tylenol 500mg QID Will DC Oxy IR 5mg tabs Will begin Percocet 10mg PO q4h prn/ Hold for somnolence or RR less than 14; please document RR with each dose administration. Will give one time stat dose Percocet 10mg PO x1 now (2) Advanced care planning/counseling discussion: Plan: Met face to face for 25min ACP with pt, her daughter and numerous family members (1 male, 4 females) Discussed biopsy planned for tomorrow, she is OCTOR/no specific time Family live in [place] and she resides in [place], with her 10yo cat, Ava. Her daughter states she and her brother are planning to check in on patient and dtr can stay with her from time to time. We discussed the feasibility of pt moving in with dtr and family in [place]. Dtr agreed, stating this would be much more support and assure ATC care for pt - adding they have a spare bedroom for pt/it is not a problem. She lives minutes away from [facility]. Patient replied "I hate [place] and wish I'd never moved there. I don't mind leaving it one bit." Family encouraged to discuss this in more detail today and advise primary team of her wishes in AM. We can make sure her results are sent to [facility] Cancer clinic and [facility] Palliative Med for ongoing follow up. Gagandeep is learning towards no chemo, acknowledging she has widespread mets and does not want to spend what is going to be a short amount of time remaining sicker. We agreed we can further explore the "what lies ahead" and most likely scenarios after they meet as a family to discuss her move/discharge from [facility] to dtr's home in [place]. Nursing and primary team updated. (3) Palliative care by specialist: Plan: Introduced Palliative Medicine and explained our role in patient's care. Patient and/or family were receptive to palliative services for goals of care discussions. Reviewed we are different from hospice, a home health nurse visiting service. Plan As above Pain regimen orders written ACP discussion above. Thank you for allowing us to participate in the ongoing care of this patient. Please page with any additional concerns. Minerva Crespo DNP Director, Palliative Medicine Admission and Anticipated Discharge Date Admission Date: March 26, 2025 Subjective resting in bed pain not well controlled - oxy 5mg "no help, they do nothing' ms iv does better but causes BP drop appetite ok for biopsy tomorrow family at bedside Review of Systems Review of Systems: All systems reviewed & are unremarkable except as noted in Subjective Physical Exam Constitutional: + ill appearing, + frail appearing and c ooperative Eyes: PERRL, conjunctivae normal, anicteric sclerae ENMT: Mouth: + muffled voice, + edentulous and + poor dentition Neck: no stridor Respiratory: normal effort, mild conversational dyspnea Cardiovascular: RRR Gastrointestinal (Abdomen): TTP mid to lower quadrants Musculoskeletal: gen weakness Skin: pale, warm Neurologic: AAOx3 Psychiatric: Apperance: appropriately dressed Eye Contact: good eye contact Speech: normal rate/rhythm/volume of speech Affect: + depressed affect Insight: good insight Judgment: good judgement Results & Data Vital Signs (Past 12 Hours) Vital Signs Temp Pulse Pulse Resp BP Pulse Ox O2 Del Method 03/27/25 08:29 100/69 03/27/25 07:53 80/70 L 03/27/25 07:30 36.2 C L 98 H 14 86/54 L 92 Room Air 03/27/25 05:36 101 H Laboratory Results 03/27/25 03/27/25 03/27/25 Range/Units 11:11 09:50 07:38 WBC 18.47 H (4.8-10.8) K/ul RBC 3.60 L (4.20-5.40) M/uL Hgb 10.7 L (12.0-16.0) g/dl Hct 33.0 L (37.0-47.0) % MCV 91.7 (80.0-100.0) fL MCH 29.7 (25.0-34.0) pg MCHC 32.4 (32.0-36.0) g/dL RDW Std Deviation 54.5 H (36.4-46.3) fL RDW Coeff of Huyen 16.8 H (11.5-14.5) % Plt Count 278 (130-400) K/uL MPV 10.0 (9.4-12.4) fL Immature Gran % (Auto) % Neut % (Auto) % Lymph % (Auto) % Berrien % (Auto) % Eos % (Auto) % Baso % (Auto) % Neut # (Auto) (1.40-6.50) K/uL Lymph # (Auto) (1.20-3.40) K/uL Berrien # (Auto) (0.11-0.59) K/uL Eos # (Auto) (0.00-0.50) K/uL Baso # (Auto) (0.00-0.20) K/uL Immature Gran # (Auto) (0.01-0.20) K/uL Absolute Nucleated RBC 0.04 (0.00-0.12) K/uL Nucleated RBC % (auto) 0.2 % PT (9.0-12.0) Seconds INR (0.9-1.1) APTT (21-31) Seconds PTT Ratio Heparin Anti-Xa, LM Wt (< 0.10) IU/ML Heparin Anti-Xa, Unfract 0.43 (0.3-0.7) IU/ml VBG pH (7.36-7.41) VBG pCO2 (38-50) mmHg VBG pO2 mmHg VBG HCO3 mmol/L VBG O2 Saturation % VBG Base Excess mEq/L Sodium 125 L (136-145) mmol/L Potassium 3.7 (3.5-5.1) mmol/L Chloride 89 L (98-107) mmol/L Carbon Dioxide 22 (21-32) mmol/L Anion Gap 14 H (3-11) BUN 43 H (6-23) mg/dl Creatinine 1.42 H D (0.6-1.2) mg/dl Est Cr Clr Drug Dosing 41.6 ml/min eGFR 40.04 BUN/Creatinine Ratio 30.3 H (10-20) Glucose 239 H (70-99(Fasting)) mg/dl POC Glucose 255 H 291 H (70-99) mg/dl Calcium 8.7 (8.6-10.3) mg/dl Phosphorus (2.5-4.9) mg/dl Magnesium (1.7-2.4) mg/dl Total Bilirubin 1.5 H (0.2-1.0) mg/dl Direct Bilirubin 0.5 H (0-0.2) mg/dl AST 216 H (13-39) U/L ALT 104 H (7-52) U/L Alkaline Phosphatase 123 H (34-104) U/L Troponin I High Sens (0-14) pg/ml B-Natriuretic Peptide (0-100) pg/ml Total Protein 6.1 (6.0-8.3) gm/dl Albumin 2.9 L (3.4-5.0) gm/dl Globulin 3.2 (2.5-4.0) gm/dl Albumin/Globulin Ratio 0.9 (0.9-2) Lipase (11-82) U/L SARS-CoV-2 (PCR) (Negative) Influenza Type A (PCR) (Neg) Influenza Type B (PCR) (Neg) RSV (RT-PCR) (Neg) 03/27/25 03/27/25 03/26/25 Range/Units 04:00 00:02 22:47 WBC (4.8-10.8) K/ul RBC (4.20-5.40) M/uL Hgb (12.0-16.0) g/dl Hct (37.0-47.0) % MCV (80.0-100.0) fL MCH (25.0-34.0) pg MCHC (32.0-36.0) g/dL RDW Std Deviation (36.4-46.3) fL RDW Coeff of Huyen (11.5-14.5) % Plt Count (130-400) K/uL MPV (9.4-12.4) fL Immature Gran % (Auto) % Neut % (Auto) % Lymph % (Auto) % Berrien % (Auto) % Eos % (Auto) % Baso % (Auto) % Neut # (Auto) (1.40-6.50) K/uL Lymph # (Auto) (1.20-3.40) K/uL Berrien # (Auto) (0.11-0.59) K/uL Eos # (Auto) (0.00-0.50) K/uL Baso # (Auto) (0.00-0.20) K/uL Immature Gran # (Auto) (0.01-0.20) K/uL Absolute Nucleated RBC (0.00-0.12) K/uL Nucleated RBC % (auto) % PT (9.0-12.0) Seconds INR (0.9-1.1) APTT (21-31) Seconds PTT Ratio Heparin Anti-Xa, LM Wt (< 0.10) IU/ML Heparin Anti-Xa, Unfract 0.42 (0.3-0.7) IU/ml VBG pH (7.36-7.41) VBG pCO2 (38-50) mmHg VBG pO2 mmHg VBG HCO3 mmol/L VBG O2 Saturation % VBG Base Excess mEq/L Sodium (136-145) mmol/L Potassium (3.5-5.1) mmol/L Chloride (98-107) mmol/L Carbon Dioxide (21-32) mmol/L Anion Gap (3-11) BUN (6-23) mg/dl Creatinine (0.6-1.2) mg/dl Est Cr Clr Drug Dosing ml/min eGFR BUN/Creatinine Ratio (10-20) Glucose (70-99(Fasting)) mg/dl POC Glucose 351 H* 333 H* (70-99) mg/dl Calcium (8.6-10.3) mg/dl Phosphorus (2.5-4.9) mg/dl Magnesium (1.7-2.4) mg/dl Total Bilirubin (0.2-1.0) mg/dl Direct Bilirubin (0-0.2) mg/dl AST (13-39) U/L ALT (7-52) U/L Alkaline Phosphatase (34-104) U/L Troponin I High Sens (0-14) pg/ml B-Natriuretic Peptide (0-100) pg/ml Total Protein (6.0-8.3) gm/dl Albumin (3.4-5.0) gm/dl Globulin (2.5-4.0) gm/dl Albumin/Globulin Ratio (0.9-2) Lipase (11-82) U/L SARS-CoV-2 (PCR) (Negative) Influenza Type A (PCR) (Neg) Influenza Type B (PCR) (Neg) RSV (RT-PCR) (Neg) 03/26/25 03/26/25 03/26/25 Range/Units 20:33 16:47 15:58 WBC (4.8-10.8) K/ul RBC (4.20-5.40) M/uL Hgb (12.0-16.0) g/dl Hct (37.0-47.0) % MCV (80.0-100.0) fL MCH (25.0-34.0) pg MCHC (32.0-36.0) g/dL RDW Std Deviation (36.4-46.3) fL RDW Coeff of Huyen (11.5-14.5) % Plt Count (130-400) K/uL MPV (9.4-12.4) fL Immature Gran % (Auto) % Neut % (Auto) % Lymph % (Auto) % Berrien % (Auto) % Eos % (Auto) % Baso % (Auto) % Neut # (Auto) (1.40-6.50) K/uL Lymph # (Auto) (1.20-3.40) K/uL Berrien # (Auto) (0.11-0.59) K/uL Eos # (Auto) (0.00-0.50) K/uL Baso # (Auto) (0.00-0.20) K/uL Immature Gran # (Auto) (0.01-0.20) K/uL Absolute Nucleated RBC (0.00-0.12) K/uL Nucleated RBC % (auto) % PT (9.0-12.0) Seconds INR (0.9-1.1) APTT (21-31) Seconds PTT Ratio Heparin Anti-Xa, LM Wt (< 0.10) IU/ML Heparin Anti-Xa, Unfract 0.37 (0.3-0.7) IU/ml VBG pH (7.36-7.41) VBG pCO2 (38-50) mmHg VBG pO2 mmHg VBG HCO3 mmol/L VBG O2 Saturation % VBG Base Excess mEq/L Sodium (136-145) mmol/L Potassium (3.5-5.1) mmol/L Chloride (98-107) mmol/L Carbon Dioxide (21-32) mmol/L Anion Gap (3-11) BUN (6-23) mg/dl Creatinine (0.6-1.2) mg/dl Est Cr Clr Drug Dosing ml/min eGFR BUN/Creatinine Ratio (10-20) Glucose (70-99(Fasting)) mg/dl POC Glucose 340 H* 312 H* (70-99) mg/dl Calcium (8.6-10.3) mg/dl Phosphorus (2.5-4.9) mg/dl Magnesium (1.7-2.4) mg/dl Total Bilirubin (0.2-1.0) mg/dl Direct Bilirubin (0-0.2) mg/dl AST (13-39) U/L ALT (7-52) U/L Alkaline Phosphatase (34-104) U/L Troponin I High Sens (0-14) pg/ml B-Natriuretic Peptide (0-100) pg/ml Total Protein (6.0-8.3) gm/dl Albumin (3.4-5.0) gm/dl Globulin (2.5-4.0) gm/dl Albumin/Globulin Ratio (0.9-2) Lipase (11-82) U/L SARS-CoV-2 (PCR) (Negative) Influenza Type A (PCR) (Neg) Influenza Type B (PCR) (Neg) RSV (RT-PCR) (Neg) 03/26/25 03/26/25 03/25/25 Range/Units 10:25 10:00 23:41 WBC (4.8-10.8) K/ul RBC (4.20-5.40) M/uL Hgb (12.0-16.0) g/dl Hct (37.0-47.0) % MCV (80.0-100.0) fL MCH (25.0-34.0) pg MCHC (32.0-36.0) g/dL RDW Std Deviation (36.4-46.3) fL RDW Coeff of Huyen (11.5-14.5) % Plt Count (130-400) K/uL MPV (9.4-12.4) fL Immature Gran % (Auto) % Neut % (Auto) % Lymph % (Auto) % Berrien % (Auto) % Eos % (Auto) % Baso % (Auto) % Neut # (Auto) (1.40-6.50) K/uL Lymph # (Auto) (1.20-3.40) K/uL Berrien # (Auto) (0.11-0.59) K/uL Eos # (Auto) (0.00-0.50) K/uL Baso # (Auto) (0.00-0.20) K/uL Immature Gran # (Auto) (0.01-0.20) K/uL Absolute Nucleated RBC (0.00-0.12) K/uL Nucleated RBC % (auto) % PT (9.0-12.0) Seconds INR (0.9-1.1) APTT (21-31) Seconds PTT Ratio Heparin Anti-Xa, LM Wt 0.44 (< 0.10) IU/ML Heparin Anti-Xa, Unfract (0.3-0.7) IU/ml VBG pH (7.36-7.41) VBG pCO2 (38-50) mmHg VBG pO2 mmHg VBG HCO3 mmol/L VBG O2 Saturation % VBG Base Excess mEq/L Sodium 128 L (136-145) mmol/L Potassium 3.8 (3.5-5.1) mmol/L Chloride 90 L (98-107) mmol/L Carbon Dioxide 22 (21-32) mmol/L Anion Gap 16 H (3-11) BUN 34 H (6-23) mg/dl Creatinine 0.99 (0.6-1.2) mg/dl Est Cr Clr Drug Dosing 60.1 ml/min eGFR 61.72 BUN/Creatinine Ratio 34.3 H (10-20) Glucose 301 H* (70-99(Fasting)) mg/dl POC Glucose 321 H* (70-99) mg/dl Calcium 8.4 L (8.6-10.3) mg/dl Phosphorus 5.2 H (2.5-4.9) mg/dl Magnesium 2.3 (1.7-2.4) mg/dl Total Bilirubin 1.8 H (0.2-1.0) mg/dl Direct Bilirubin (0-0.2) mg/dl AST 32 (13-39) U/L ALT 34 (7-52) U/L Alkaline Phosphatase 123 H (34-104) U/L Troponin I High Sens (0-14) pg/ml B-Natriuretic Peptide (0-100) pg/ml Total Protein 6.1 (6.0-8.3) gm/dl Albumin 2.9 L (3.4-5.0) gm/dl Globulin 3.2 (2.5-4.0) gm/dl Albumin/Globulin Ratio 0.9 (0.9-2) Lipase (11-82) U/L SARS-CoV-2 (PCR) NEGATIVE (Negative) Influenza Type A (PCR) Negative (Neg) Influenza Type B (PCR) Negative (Neg) RSV (RT-PCR) Negative (Neg) 03/25/25 Range/Units 23:29 WBC 14.93 H (4.8-10.8) K/ul RBC 3.72 L (4.20-5.40) M/uL Hgb 11.3 L (12.0-16.0) g/dl Hct 33.2 L (37.0-47.0) % MCV 89.2 (80.0-100.0) fL MCH 30.4 (25.0-34.0) pg MCHC 34.0 (32.0-36.0) g/dL RDW Std Deviation 53.3 H (36.4-46.3) fL RDW Coeff of Huyen 16.8 H (11.5-14.5) % Plt Count 230 (130-400) K/uL MPV 9.9 (9.4-12.4) fL Immature Gran % (Auto) 2.4 % Neut % (Auto) 80.7 % Lymph % (Auto) 6.8 % Berrien % (Auto) 8.6 % Eos % (Auto) 1.1 % Baso % (Auto) 0.4 % Neut # (Auto) 12.05 H (1.40-6.50) K/uL Lymph # (Auto) 1.01 L (1.20-3.40) K/uL Berrien # (Auto) 1.28 H (0.11-0.59) K/uL Eos # (Auto) 0.17 (0.00-0.50) K/uL Baso # (Auto) 0.06 (0.00-0.20) K/uL Immature Gran # (Auto) 0.36 H (0.01-0.20) K/uL Absolute Nucleated RBC 0.03 (0.00-0.12) K/uL Nucleated RBC % (auto) 0.2 % PT 12.1 H (9.0-12.0) Seconds INR 1.1 (0.9-1.1) APTT 28 (21-31) Seconds PTT Ratio 1.0 Heparin Anti-Xa, LM Wt (< 0.10) IU/ML Heparin Anti-Xa, Unfract (0.3-0.7) IU/ml VBG pH 7.45 H (7.36-7.41) VBG pCO2 32 L (38-50) mmHg VBG pO2 51 mmHg VBG HCO3 22 mmol/L VBG O2 Saturation 85.4 % VBG Base Excess -1.0 mEq/L Sodium 127 L (136-145) mmol/L Potassium 4.2 (3.5-5.1) mmol/L Chloride 90 L (98-107) mmol/L Carbon Dioxide 22 (21-32) mmol/L Anion Gap 15 H (3-11) BUN 30 H (6-23) mg/dl Creatinine 0.89 (0.6-1.2) mg/dl Est Cr Clr Drug Dosing 66.8 ml/min eGFR 70.14 BUN/Creatinine Ratio 33.7 H (10-20) Glucose 284 H (70-99(Fasting)) mg/dl POC Glucose (70-99) mg/dl Calcium 8.6 (8.6-10.3) mg/dl Phosphorus (2.5-4.9) mg/dl Magnesium (1.7-2.4) mg/dl Total Bilirubin 1.9 H (0.2-1.0) mg/dl Direct Bilirubin 0.6 H (0-0.2) mg/dl AST 48 H (13-39) U/L ALT 36 (7-52) U/L Alkaline Phosphatase 132 H (34-104) U/L Troponin I High Sens 18.0 H (0-14) pg/ml B-Natriuretic Peptide 20 (0-100) pg/ml Total Protein 6.4 (6.0-8.3) gm/dl Albumin 3.0 L (3.4-5.0) gm/dl Globulin (2.5-4.0) gm/dl Albumin/Globulin Ratio (0.9-2) Lipase 69 (11-82) U/L SARS-CoV-2 (PCR) (Negative) Influenza Type A (PCR) (Neg) Influenza Type B (PCR) (Neg) RSV (RT-PCR) (Neg) Diagnostic Findings Chest X-Ray 03/25/25 23:14 EXAM: XR chest 1V portable CLINICAL HISTORY: Chest pain, nonspecific TECHNIQUE: X-ray images of the chest were obtained in frontal projection. COMPARISON: 03/18/2025 CR. FINDINGS: Pulmonary Parenchyma: There is a 1 cm calcified nodule in the left upper lobe. There are multiple ill-defined nodular densities in both lungs. There are reticular densities with prominent interstitial markings and Kennedy lines, which might be suggestive of interstitial/lymphatic congestion or infiltration. No evidence of pleural effusion or pleural thickening. Heart and Mediastinum: Heart size and shape are normal. No mediastinal widening or masses. No hilar or mediastinal lymphadenopathy. Bony Thorax: Bony thorax appears intact without fractures or deformities. Soft Tissues: Soft tissues overlying the chest wall are unremarkable. IMPRESSION: 1. Bilateral ill-defined nodular densities with prominent interstitial markings, which are likely parenchymal nodules with interstitial infiltration. Please correlate clinically. 2. No significant interval changes. Electronically signed by Héctor Galindo 03-26-2025 01:51 AM Abdomen/Pelvis CT 03/26/25 00:47 EXAM: CT abd pelvis IV con only CLINICAL HISTORY: abd pain TECHNIQUE: CT of the abdomen and pelvis was performed with contrast, with the following protocol: axial images with, and reconstructed coronal and sagittal images. One of the following dose reduction techniques was utilized for this exam: Automated exposure control, adjustment of the mA and/or kV according to patient size, and use of iterative reconstruction. COMPARISON: Prior CT dated March 12, 2025 FINDINGS: Peritoneal and Retroperitoneal Structures: A large, irregular, creepy, heterogeneously enhancing soft tissue mass lesion is seen centered on the gastrohepatic recess and the louise hepatis. It measures about 15.5 x 15.5 x 10.5 cm in the maximum orthogonal dimensions. The mass is inseparable from the caudate lobe of the liver and the pancreatic body. It stretches the gastric body and antrum anteriorly with no infiltration. The mass infiltrates through the left anterolateral aspect of the IVC, which shows a hypodense partial non-occlusive filling defect above, at, and below the level of the renal veins. The mass encases the portal vein, which is patent and of average caliber. It also encases the celiac trunk and its major branches, which are attenuated but not occluded. Multiple pathologically enlarged, heterogeneously enhancing, shanae-aortic lymph nodes are seen; the largest is at a pre-aortic location posterior and adherent to the pancreatic head, measuring 42 x 25 mm. Diffuse peritoneal fat smudging, with scattered heterogeneously enhancing peritoneal nodules; the largest is at a subhepatic location, measuring 24 x 20 mm. Mild ascites. Atherosclerotic calcifications of the aorta and iliac arteries. Liver: Enlarged (measuring 20 cm in the long axis). Multiple bilobar hypodense focal lesions, showing mild peripheral enhancement; the largest is at segment 5/6, measuring 26 x 20 mm. Hepatic vasculature is unremarkable. Pancreas: The pancreatic body presents an ill-defined hypodense mass lesion, which is likely an extension (direct infiltration) from the large abdominal mass rather than being a discrete lesion. It measures 30 x 15 mm. The main pancreatic duct is mildly dilated distal to the body lesion. Spleen: Enlarged (measuring 16.9 cm in the long axis). Multiple irregular hypodense focal lesions, the largest is anterior upper polar, measuring 49 x 38 mm. Tiny calcified granulomas Gallbladder and Biliary System: Cholecystectomy clips are noted. Mild central intrahepatic biliary tree dilatation, likely sequel to compression of the bile duct at the hepatic hilum by the large related mass. Kidneys and Adrenal Glands: Both kidneys are normal in size, shape, position, and cortical thickness. No renal calculi or hydronephrosis. The adrenal glands are bulky bilaterally, but no focal lesions. Urinary Bladder: Collapsed over De La Rosa's catheter balloon, cannot be assessed. Uterus and Cervix: The uterus is not fully visualized, needs clinical correlation. No cervical gross masses or abnormal thickening. Ovaries: Not well visualized, but no gross adnexal abnormalities. Bowel: The visualized bowel loops are normal in caliber and appearance. No evidence of bowel obstruction or wall thickening. Multiple sigmoid diverticulae. Scanned lower chest cuts: Bilateral lower lobar, middle lobar, and lingular segment multiple irregular speculated solid pulmonary nodules, the largest is in the right lower lobe, measuring 26 x 24 mm. Some of them show early tiny cavitation changes. Few pneumatoceles are seen in the bilateral lower lobes and the middle lobe. Bones and Soft Tissues: Osteopenia. Degenerative changes of the lower thoracic and lumbar spine. No fractures or abnormal masses were identified. Redemonstration of a sclerotic focus in the left iliac bone. IMPRESSION: - A large, irregular, creepy, heterogeneously enhancing soft tissue malignant mass lesion is seen centered on the gastrohepatic recess and the louise hepatis. The epicenter of the lesion cannot be determined due to its large and infiltrative nature. However, the differentials would include hepatic/Klatskin tumor/gastric, or pancreatic lesion. Further tissue biopsy is suggested, guided by the clinical condition -- increased in size compared to the prior study. - The mass infiltrates through the left anterolateral aspect of the IVC, which shows a hypodense partial non-occlusive hypodense filling defect above, at, and below the level of the renal vein. - Peritoneal fat smudging and multiple nodules, likely metastatic -- no significant interval changes. - Multiple pathologically enlarged shanae-aortic lymph nodes, likely metastatic -- no significant interval changes. - Hepatomegaly, with multiple bilobar hepatic focal lesions, likely metastatic -- likely stable. - The pancreatic body ill-defined mass lesion, which is likely an extension (direct infiltration) from the large abdominal mass rather than being a discrete lesion. - Splenomegaly with multiple irregular focal lesions, likely neoplastic (metastatic) -- increased. - Mild central intrahepatic biliary tree dilatation, likely sequel to compression of the bile duct at the hepatic hilum by the large related mass. - Mild ascites. - Multiple bilateral basal irregular solid pulmonary nodules, likely metastatic -- no significant interval changes. - The previously seen intra/shanae-vesical air foci are currently resolved. Currently, the urinary bladder is collapsed over the De La Rosa's catheter balloon, so it cannot be assessed. - The comparison was limited because the prior study was a non-contrast scan. Electronically signed by Héctor Galindo 03-26-2025 02:41 AM Chest CTA 03/26/25 00:47 EXAM: CT angio chest PE protocol CLINICAL HISTORY: sob TECHNIQUE: Contiguous axial images were obtained from the neck base through the upper abdomen following intravenous administration of iodinated contrast material. Angiographic images were processed, 3D MIP images were acquired for interpretation. If IV contrast material had not been administered, the likelihood of detecting abnormalities relevant to the patient's condition would have been substantially decreased. Coronal and sagittal 3-D MIPs were likewise performed and indicated to increase the sensitivity of detecting diffuse clinically relevant pathology. CT scan was performed according to ALARA (as low as reasonably achievable). COMPARISON: CTA, 03/13/2025 14:58:00 TRANSITIONAL CARE MANAGER FINDINGS: Partial lumen occluding filling defects seen in bilateral interlobar pulmonary artery, bilateral upper lobe arteries, right middle lobe/lingula segmental branches and proximal left posterbasal segmental branches of pulmonary arteries. Multiple small nodules of 5-8mm seen scattered in peripheral location in bilateral lumngs with spiculated margins and predominantly in bilateral lower lobes. Mosaic attenuation in bilateral lungs. Paraseptal emphysematous changes in right upper lobe. Multiple simple cysts in bilateral lower lobes, right middle lobe and lingula. The central airways are patent. No pleural effusion. The heart, aorta, and pulmonary arteries are of normal size and configuration. There are no appreciable coronary artery and aortic atherosclerotic calcifications. No pericardial effusion is identified. The thyroid is unremarkable. No mediastinal, hilar, or axillary lymphadenopathy is noted. No suspicious lytic or sclerotic osseous lesions are identified. Visualized upper section of abdomen shows large mass/lymph nodes in caudate lobe of liver, periportal region. IMPRESSION: 1. Partial lumen occluding filling defects seen in bilateral interlobar pulmonary artery, bilateral upper lobe arteries, right middle lobe/lingula segmental branches and proximal left posterbasal segmental branches of pulmonary arteries- Acute pulmonary thromboembolism- New finding. 2. Multiple small nodules of 5-8mm seen scattered in peripheral location in bilateral lumngs with spiculated margins and predominantly in bilateral lower lobes- likely metatstatic lesions- Stable. 3. Mosaic attenuation in bilateral lungs-stable, 4. Paraseptal emphysematous chnages in right upper lobe. Multiple simple cysts in bilateral lower lobes, right middle lobe and lingula- stable. 5. Visualized upper section of abdomen shows stable large mass/lymph nodes in caudate lobe of liver, periportal region- Suggested Contrast CT abdomen for further evaluation. Electronically signed by Charly Hernandez 03-26-2025 02:09 AM PG Care Time/CCT Total # of Minutes Spent Total Time Spent with Patient: Total time spent is greater than 50% in coordination of care (as documented) at patient's floor/unit and/or counseling patient: I spent 70 minutes overall addressing this case: 10 min in medical data review/discussion with referring provider(s) and/or preparation for the visit 15 min in direct interaction with the patient/exam 25 min in Advance Care Planning/Goals of Care discussions as detailed above in note (must be >16min) 10 min in subsequent review and synthesis of assessment and plan 10 min communicating with other providers regarding the patient's case: primary team, care mgt, nursing Advanced Care Planning 59975 Advanced Care Planning 30 Min [place] [address] SUB INP/OBS CARE 3/50MIN (25 - SIGNIFICANT, SEPARATELY IDENTIFIABLE ) Patient Type Established Medical Decision Making High Complexity Diagnoses Cancer related pain G89.3 Advanced care planning/counseling discussion Z71.89 Palliative care by specialist Z51.5 Additional Codes Advanced Care Planning - 77469 Advanced Care Planning 30 Min: 03307 Advanced Care Planning 30 Min ([id number]) Comment [id number]
[2025-03-27] MEDS ORDERED: ONDANSETRON INJ 2 MG/ML 2 ML VIAL IV PRN (12:13)
[2025-03-27] MEDS: ACETAMINOPHEN 325 MG TAB PO PRN (12:54)
[2025-03-27] MEDS: LACTATED RINGER'S 500 ML IV ONE (13:22)
[2025-03-27] MEDS: PROCHLORPERAZINE 5 MG in SYRINGE 4 ML IV PRN (13:23)
[2025-03-27] MEDS: SODIUM CHLORIDE 0.9% 500 ML IV ONE ×2 (20:31→21:53)
[2025-03-27] MEDS: ALBUMIN 25% 25 GM/100 ML VIAL IV SCH (20:50)
[2025-03-27] MEDS: LANTUS PER UNIT CHARGE SC SCH (20:52)
[2025-03-28] MEDS: INSULIN ASPART PER UNIT CHARGE SC SCH (04:00)
[2025-03-28 07:49] LABS: ANTI-Xa, UFH(UnfractionatedHep < 0.10 IU/ml (0.3-0.7)
[2025-03-28 07:52] LABS: Alanine Aminotransferase 104.0 U/L (7-52); Albumin Globulin Ratio 1.2 (0.9-2); Alkaline Phosphatase 102.0 U/L (34-104); Anion Gap 9.0 (3-11); Bilirubin,Total 1.7 mg/dl (0.2-1.0); Blood Urea Nitrogen 49.0 mg/dl (6-23); Calcium 8.3 mg/dl (8.6-10.3); Carbon Dioxide 26.0 mmol/L (21-32); Chloride 90.0 mmol/L (98-107); Creatinine Clr Calc Pharmacy 33.0 ml/min; Globulin 2.5 gm/dl (2.5-4.0); Glucose 234.0 mg/dl (70-99(Fasting)); Potassium 4.0 mmol/L (3.5-5.1); Sodium 125.0 mmol/L (136-145); Total Protein 5.4 gm/dl (6.0-8.3)
[2025-03-28] MEDS: LANTUS PER UNIT CHARGE SC ONE ×2 (08:00→12:50)
[2025-03-28 08:36] LABS: Hematocrit (blood only) 26.8 % (37.0-47.0); Hemoglobin 9.0 g/dl (12.0-16.0); Mean Corpuscular Hemoglobin 30.7 pg (25.0-34.0); Mean Corpuscular Volume 91.5 fL (80.0-100.0); Platelet Count 137 K/uL (130-400); RDW Standard Deviation 51.0 fL (36.4-46.3); Red Blood Count 2.93 M/uL (4.20-5.40); White Blood Count 7.27 K/ul (4.8-10.8)
--- NOTE | 2025-03-28 08:43 | Hospitalist Progress Note ---
Date of Service March 28, 2025 Assessment & Plan (1) Pulmonary emboli: (2) Intraabdominal mass: (3) Diabetes mellitus, type 2: (4) GERD (gastroesophageal reflux disease): (5) Gout: (6) Hyperlipidemia: (7) Hypertension: (8) Cirrhosis: (9) CAD (coronary artery disease): Plan 69-year-old female with history of liver cirrhosis secondary to MASH, nonobstructive CAD, asthma, diabetes, gout, anxiety, GERD and hypotension presenting with bilateral lower extremity edema and shortness of breath. Patient was recently admitted to [facility] from 03/12 - 03/15/2025 after presenting with right flank pain, vomiting and hematuria. 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 Findings concerning for metastatic malignancy. Patient was treated with ceftriax one and ultimately discharged home on amoxicillin to complete her antibiotic course for emphysematous cystitis. Preliminary workup for malignancy revealed a markedly elevated CA 199 at 14,400 Patient was set up for an ultrasound- guided IR biopsy of the liver to be performed in the outpatient setting today 03/26 at 08 100. In the ER patient is afebrile, sinus tachycardia, blood pressure stable, adequate oxygenation on room air with no respiratory distress. Found to have bilateral pulmonary emboli as well as clot involving the IVC #bilateral PEs with IVC clot in setting of malignancy- Heparin drip initiated in the ER. Will continue for now. Patient class III, intermediate risk per PESI score due to cancer #Suspected malignancy AP CT without contrast revealed liver cirrhosis with marked right upper quadrant mass with peritoneal implants and suspected pulmonary metastasis visualized throughout lung bases. New since liver ultrasound in November 2024. Patient without personal history of CA - father with lung cancer and sister with pancreatic cancer. During last admission a CT liver protocol with contrast and CT angiogram of the chest which showed large 13 cm mass involving louise hepatis and caudate segment of liver-difficult to determine if from bulky adenopathy or arising from liver but metastatic adenopathy felt to be more likely. Also with upper abdominal adenopathy, several other liver masses, pancreatic mass, hepatosplenomegaly, and thickening of the gastric antrum. CT angiogram chest at that time negative for PE, but with innumerable pulmonary nodules, small bilateral pleural effusions. Patient has lost 100 pounds in the last 2 years but has been on increasing doses of Ozempic. AFP was normal. Last colonoscopy in 11/2021 with tubular adenomas and hyperplastic polyp. Last EGD 03/2021 negative. Breast biopsy in 11/2023 negative for malignancy. CEA elevated here at 10.2 and CA 19-9 significantly elevated at 14,400. stomach biopsy performed on 03/14/2025 with significant gastric inflammation, no definitive H. pylori US-guided IR biopsy of liver mass scheduled to be done outpatient today. Patient has been off aspirin and has been NPO. 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 Patient has been compliant with her amoxicillin. She is afebrile, no urinary complaints at present. Urine culture during last hospitalization positive for E. coli, resistant to cefoxitin. Continue amoxicillin 500 mg p.o. 3 times daily Maintain De La Rosa catheter #Hyponatremia Secondary to poor p.o. intake, SIADH? Monitor BMP every 8 hours Avoid overcorrection TFTs cortisol and urine studies Encourage p.o. Intake #MARU Avoid nephrotoxic meds IV fluids UA Renal ultrasound if worsens. Monitor PVRs #Chronic constipation/GERD- - MiraLAX and Colace as needed Continue Protonix 40 mg p.o. twice daily #Liver cirrhosis-BAINS, patient follows with GI. Avoid hepatotoxic agents. Hold Lasix for now Monitor transaminitis #T2DM - Most recent A1C 6.7%. Takes Jardiance, Ozempic (injections on Mondays), metformin at home - Hold Ozempic, Metformin and Jardiance for now Pharmacy consultation for glycemic management # Mild nonobstructive CAD/HTN Chronic, stable -ASA on hold for liver biopsy - Hold Atorvastatin for now -Continue Metoprolol #hypothyroidism recent TSH in 01/2025 mildly elevated at 5.1 - Continue home levothyroxine dose and follow-up with PCP #Asthma no acute issues. Given long history of smoking and emphysematous changes on lung imaging, suspect has COPD - Continue as needed inhaler # Anxiety disorderno acute issues - Continue bupropion and buspirone #Gout/osteoporosis-no acute issues - Continue allopurinol #Chronic lower back pain-no acute issues - Continue oxycodone as needed - Avoid NSAIDs for impending liver biopsy as well DVT prophylaxis Now DNR/DNI. Guarded prognosis. Palliative care following. Disposition Discharge home after liver biopsy, improvement in sodium Admission and Anticipated Discharge Date Admission Date: March 26, 2025 Subjective Overall seems to be doing better. In fairly better spirits today. Less nausea. Pain seems to be better controlled after adjustments made yesterday. Hypotension resolved Sodium downtrending per labs that resulted late yesterday. Asymptomatic in this regard. Urine studies sent. Daughter is at bedside we went over everything again extensively they were very appreciative. We discussed benefits versus risks of holding heparin here to have this biopsy done versus attempting to do this outpatient where oral anticoagulation would have to be held for days they agreed Blood sugars elevated pharmacy managing requesting adjustments per their protocol Review of Systems Review of Systems: Negative except as in HPI Musculoskeletal: Pt c/o chronic back pain "from spinal stenosis" it is a constant ache. Physical Exam Physical Exam: General: patient resting comfortably, NAD, non-toxic in appearance, AA&O x 4 Skin: warm, dry, intact, no rashes or lesions HEENT: NC/AT, PERRL, EOMI, anicteric sclera, conjunctiva without injection, external ear normal to inspection and nontender, nares patent, moist mucus membranes, dentition intact, no oropharyngeal lesions, neck supple, trachea midline, no LAD, no thyromegaly, no JVD Heart: +S1/S2, regular, Tachycardic, no m/r/g Lungs: equal air entry bilaterally, no rales/rhonchi/wheezes Abd: +BS, soft, NT/ND, no masses/organomegaly/ascites Ext: warm, 2+ pulses in UE/LE bilaterally, 2+ pitting edema of bilateral lower extremities to the knees Neuro: nonfocal, patient AA&O x 4, speech intact, no facial droop, moving all extremities on command with equal strength 5/5 Results & Data Results & Data Vital Signs (Past 12 Hours) Vital Signs Temp Pulse Resp BP Pulse Ox O2 Del Method 03/28/25 07:51 36.4 C L 91 H 18 102/64 97 Room Air 07/30/25 03:28 36.6 C 92 H 18 110/67 93 Room Air 03/27/25 23:44 36.5 C 86 20 102/60 96 Room Air Laboratory Results Abnormal Labs 03/25/25 03/26/25 03/26/25 23:29 10:00 10:25 WBC 14.93 H RBC 3.72 L Hgb 11.3 L Hct 33.2 L RDW Std Deviation 53.3 H RDW Coeff of Huyen 16.8 H Neut # (Auto) 12.05 H Lymph # (Auto) 1.01 L Sevier # (Auto) 1.28 H Immature Gran # (Auto) 0.36 H PT 12.1 H Heparin Anti-Xa, Unfract VBG pH 7.45 H VBG pCO2 32 L Sodium 127 L 128 L Chloride 90 L 90 L Anion Gap 15 H 16 H BUN 30 H 34 H Creatinine BUN/Creatinine Ratio 33.7 H 34.3 H Glucose 284 H 301 H* POC Glucose 321 H* Calcium 8.4 L Phosphorus 5.2 H Total Bilirubin 1.9 H 1.8 H Direct Bilirubin 0.6 H AST 48 H ALT Alkaline Phosphatase 132 H 123 H Troponin I High Sens 18.0 H Total Protein Albumin 3.0 L 2.9 L 03/26/25 03/26/25 03/27/25 16:47 20:33 00:02 WBC RBC Hgb Hct RDW Std Deviation RDW Coeff of Huyen Neut # (Auto) Lymph # (Auto) Sevier # (Auto) Immature Gran # (Auto) PT Heparin Anti-Xa, Unfract VBG pH VBG pCO2 Sodium Chloride Anion Gap BUN Creatinine BUN/Creatinine Ratio Glucose POC Glucose 312 H* 340 H* 333 H* Calcium Phosphorus Total Bilirubin Direct Bilirubin AST ALT Alkaline Phosphatase Troponin I High Sens Total Protein Albumin 03/27/25 03/27/25 03/27/25 04:00 07:38 09:50 WBC 18.47 H RBC 3.60 L Hgb 10.7 L Hct 33.0 L RDW Std Deviation 54.5 H RDW Coeff of Huyen 16.8 H Neut # (Auto) Lymph # (Auto) Sevier # (Auto) Immature Gran # (Auto) PT Heparin Anti-Xa, Unfract VBG pH VBG pCO2 Sodium 125 L Chloride 89 L Anion Gap 14 H BUN 43 H Creatinine 1.42 H D BUN/Creatinine Ratio 30.3 H Glucose 239 H POC Glucose 351 H* 291 H Calcium Phosphorus Total Bilirubin 1.5 H Direct Bilirubin 0.5 H AST 216 H ALT 104 H Alkaline Phosphatase 123 H Troponin I High Sens Total Protein Albumin 2.9 L 03/27/25 03/27/25 03/27/25 11:11 16:42 19:42 WBC RBC Hgb Hct RDW Std Deviation RDW Coeff of Huyen Neut # (Auto) Lymph # (Auto) Sevier # (Auto) Immature Gran # (Auto) PT Heparin Anti-Xa, Unfract VBG pH VBG pCO2 Sodium Chloride Anion Gap BUN Creatinine BUN/Creatinine Ratio Glucose POC Glucose 255 H 264 H 305 H* Calcium Phosphorus Total Bilirubin Direct Bilirubin AST ALT Alkaline Phosphatase Troponin I High Sens Total Protein Albumin 03/28/25 03/28/25 03/28/25 03:54 06:27 07:47 WBC RBC 2.93 L Hgb 9.0 L Hct 26.8 L RDW Std Deviation 51.0 H RDW Coeff of Huyen 15.7 H Neut # (Auto) Lymph # (Auto) Sevier # (Auto) Immature Gran # (Auto) PT Heparin Anti-Xa, Unfract < 0.10 L VBG pH VBG pCO2 Sodium 125 L Chloride 90 L Anion Gap BUN 49 H Creatinine 1.79 H D BUN/Creatinine Ratio 27.4 H Glucose 234 H POC Glucose 249 H 262 H Calcium 8.3 L Phosphorus Total Bilirubin 1.7 H Direct Bilirubin AST 145 H ALT 104 H Alkaline Phosphatase Troponin I High Sens Total Protein 5.4 L Albumin 2.9 L Diagnostic Findings Chest X-Ray 03/25/25 23:14 EXAM: XR chest 1V portable CLINICAL HISTORY: Chest pain, nonspecific TECHNIQUE: X-ray images of the chest were obtained in frontal projection. COMPARISON: 03/18/2025 CR. FINDINGS: Pulmonary Parenchyma: There is a 1 cm calcified nodule in the left upper lobe. There are multiple ill-defined nodular densities in both lungs. There are reticular densities with prominent interstitial markings and Kennedy lines, which might be suggestive of interstitial/lymphatic congestion or infiltration. No evidence of pleural effusion or pleural thickening. Heart and Mediastinum: Heart size and shape are normal. No mediastinal widening or masses. No hilar or mediastinal lymphadenopathy. Bony Thorax: Bony thorax appears intact without fractures or deformities. Soft Tissues: Soft tissues overlying the chest wall are unremarkable. IMPRESSION: 1. Bilateral ill-defined nodular densities with prominent interstitial markings, which are likely parenchymal nodules with interstitial infiltration. Please correlate clinically. 2. No significant interval changes. Electronically signed by Mateo Héctor 03-26-2025 01:51 AM Abdomen/Pelvis CT 03/26/25 00:47 EXAM: CT abd pelvis IV con only CLINICAL HISTORY: abd pain TECHNIQUE: CT of the abdomen and pelvis was performed with contrast, with the following protocol: axial images with, and reconstructed coronal and sagittal images. One of the following dose reduction techniques was utilized for this exam: Automated exposure control, adjustment of the mA and/or kV according to patient size, and use of iterative reconstruction. COMPARISON: Prior CT dated March 12, 2025 FINDINGS: Peritoneal and Retroperitoneal Structures: A large, irregular, creepy, heterogeneously enhancing soft tissue mass lesion is seen centered on the gastrohepatic recess and the louise hepatis. It measures about 15.5 x 15.5 x 10.5 cm in the maximum orthogonal dimensions. The mass is inseparable from the caudate lobe of the liver and the pancreatic body. It stretches the gastric body and antrum anteriorly with no infiltration. The mass infiltrates through the left anterolateral aspect of the IVC, which shows a hypodense partial non-occlusive filling defect above, at, and below the level of the renal veins. The mass encases the portal vein, which is patent and of average caliber. It also encases the celiac trunk and its major branches, which are attenuated but not occluded. Multiple pathologically enlarged, heterogeneously enhancing, shanae-aortic lymph nodes are seen; the largest is at a pre-aortic location posterior and adherent to the pancreatic head, measuring 42 x 25 mm. Diffuse peritoneal fat smudging, with scattered heterogeneously enhancing peritoneal nodules; the largest is at a subhepatic location, measuring 24 x 20 mm. Mild ascites. Atherosclerotic calcifications of the aorta and iliac arteries. Liver: Enlarged (measuring 20 cm in the long axis). Multiple bilobar hypodense focal lesions, showing mild peripheral enhancement; the largest is at segment 5/6, measuring 26 x 20 mm. Hepatic vasculature is unremarkable. Pancreas: The pancreatic body presents an ill-defined hypodense mass lesion, which is likely an extension (direct infiltration) from the large abdominal mass rather than being a discrete lesion. It measures 30 x 15 mm. The main pancreatic duct is mildly dilated distal to the body lesion. Spleen: Enlarged (measuring 16.9 cm in the long axis). Multiple irregular hypodense focal lesions, the largest is anterior upper polar, measuring 49 x 38 mm. Tiny calcified granulomas Gallbladder and Biliary System: Cholecystectomy clips are noted. Mild central intrahepatic biliary tree dilatation, likely sequel to compression of the bile duct at the hepatic hilum by the large related mass. Kidneys and Adrenal Glands: Both kidneys are normal in size, shape, position, and cortical thickness. No renal calculi or hydronephrosis. The adrenal glands are bulky bilaterally, but no focal lesions. Urinary Bladder: Collapsed over De La Rosa's catheter balloon, cannot be assessed. Uterus and Cervix: The uterus is not fully visualized, needs clinical correlation. No cervical gross masses or abnormal thickening. Ovaries: Not well visualized, but no gross adnexal abnormalities. Bowel: The visualized bowel loops are normal in caliber and appearance. No evidence of bowel obstruction or wall thickening. Multiple sigmoid diverticulae. Scanned lower chest cuts: Bilateral lower lobar, middle lobar, and lingular segment multiple irregular speculated solid pulmonary nodules, the largest is in the right lower lobe, measuring 26 x 24 mm. Some of them show early tiny cavitation changes. Few pneumatoceles are seen in the bilateral lower lobes and the middle lobe. Bones and Soft Tissues: Osteopenia. Degenerative changes of the lower thoracic and lumbar spine. No fractures or abnormal masses were identified. Redemonstration of a sclerotic focus in the left iliac bone. IMPRESSION: - A large, irregular, creepy, heterogeneously enhancing soft tissue malignant mass lesion is seen centered on the gastrohepatic recess and the louise hepatis. The epicenter of the lesion cannot be determined due to its large and infiltrative nature. However, the differentials would include hepatic/Klatskin tumor/gastric, or pancreatic lesion. Further tissue biopsy is suggested, guided by the clinical condition -- increased in size compared to the prior study. - The mass infiltrates through the left anterolateral aspect of the IVC, which shows a hypodense partial non-occlusive hypodense filling defect above, at, and below the level of the renal vein. - Peritoneal fat smudging and multiple nodules, likely metastatic -- no significant interval changes. - Multiple pathologically enlarged shanae-aortic lymph nodes, likely metastatic -- no significant interval changes. - Hepatomegaly, with multiple bilobar hepatic focal lesions, likely metastatic -- likely stable. - The pancreatic body ill-defined mass lesion, which is likely an extension (direct infiltration) from the large abdominal mass rather than being a discrete lesion. - Splenomegaly with multiple irregular focal lesions, likely neoplastic (metastatic) -- increased. - Mild central intrahepatic biliary tree dilatation, likely sequel to compression of the bile duct at the hepatic hilum by the large related mass. - Mild ascites. - Multiple bilateral basal irregular solid pulmonary nodules, likely metastatic -- no significant interval changes. - The previously seen intra/shanae-vesical air foci are currently resolved. Currently, the urinary bladder is collapsed over the De La Rosa's catheter balloon, so it cannot be assessed. - The comparison was limited because the prior study was a non-contrast scan. Electronically signed by Héctor Galindo 03-26-2025 02:41 AM Chest CTA 03/26/25 00:47 EXAM: CT angio chest PE protocol CLINICAL HISTORY: sob TECHNIQUE: Contiguous axial images were obtained from the neck base through the upper abdomen following intravenous administration of iodinated contrast material. Angiographic images were processed, 3D MIP images were acquired for interpretation. If IV contrast material had not been administered, the likelihood of detecting abnormalities relevant to the patient's condition would have been substantially decreased. Coronal and sagittal 3-D MIPs were likewise performed and indicated to increase the sensitivity of detecting diffuse clinically relevant pathology. CT scan was performed according to ALARA (as low as reasonably achievable). 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 Multiple small nodules of 5-8mm seen scattered in peripheral location in bilateral lumngs with spiculated margins and predominantly in bilateral lower lobes. Mosaic attenuation in bilateral lungs. Paraseptal emphysematous changes in right upper lobe. Multiple simple cysts in bilateral lower lobes, right middle lobe and lingula. The central airways are patent. No pleural effusion. The heart, aorta, and pulmonary arteries are of normal size and configuration. There are no appreciable coronary artery and aortic atherosclerotic calcifications. No pericardial effusion is identified. The thyroid is unremarkable. No mediastinal, hilar, or axillary lymphadenopathy is noted. No suspicious lytic or sclerotic osseous lesions are identified. Visualized upper section of abdomen shows large mass/lymph nodes in caudate lobe of liver, periportal region. IMPRESSION: 1. Partial lumen occluding filling defects seen in bilateral interlobar pulmonary artery, bilateral upper lobe arteries, right middle lobe/lingula segmental branches and proximal left posterbasal segmental branches of pulmonary arteries- Acute pulmonary thromboembolism- New finding. 2. Multiple small nodules of 5-8mm seen scattered in peripheral location in bilateral lumngs with spiculated margins and predominantly in bilateral lower lobes- likely metatstatic lesions- Stable. 3. Mosaic attenuation in bilateral lungs-stable, 4. Paraseptal emphysematous chnages in right upper lobe. Multiple simple cysts in bilateral lower lobes, right middle lobe and lingula- stable. 5. Visualized upper section of abdomen shows stable large mass/lymph nodes in caudate lobe of liver, periportal region- Suggested Contrast CT abdomen for further evaluation. Electronically signed by Charly Hernandez 03-26-2025 02:09 AM PG Care Time/CCT Total # of Minutes Spent Total Time Spent with Patient: Total time spent is greater than 50% in coordination of care (as documented) at patient's floor/unit and/or counseling patient: Coding Level of Care Code 37636 SUB INP/OBS CARE 2/35MIN Diagnoses Pulmonary emboli I26.99 Acute cor pulmonale presence: unspecified Chronicity: unspecified Pulmonary embolism type: unspecified Intraabdominal mass R19.00 Type 2 diabetes mellitus with other circulatory complication, without long-term current use of insulin E11.59 Diabetes mellitus jail insulin use: without jail use Diabetes mellitus complication status: with circulatory complication Diabetes mellitus complication detail: with other circulatory complications GERD (gastroesophageal reflux disease) K21.9 Idiopathic chronic gout without tophus, unspecified site [id number] Gout site: unspecified site Gout etiology: idiopathic Chronicity: chronic Presence of tophus: without tophus Mixed hyperlipidemia E78.2 Hyperlipidemia type: mixed hyperlipidemia Primary hypertension I10 Hypertension type: primary hypertension Cirrhosis of liver without ascites, unspecified hepatic cirrhosis type K74.60 Hepatic cirrhosis type: unspecified hepatic cirrhosis Ascites presence: without ascites CAD (coronary artery disease) I25.10 (1) Pulmonary emboli Acute cor pulmonale presence: unspecified Chronicity: unspecified Pulmonary embolism type: unspecified Qualified Code(s): I26.99 - Other pulmonary embolism without acute cor pulmonale (3) Diabetes mellitus, type 2 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 Diabetes mellitus complication status: with circulatory complication Diabetes mellitus complication detail: with other circulatory complications Qualified Code(s): E11.59 - Type 2 diabetes mellitus with other circulatory complications (5) Gout Gout site: unspecified site Gout etiology: idiopathic Chronicity: chronic Presence of tophus: without tophus Qualified Code(s): M1A.00X0 - Idiopathic chronic gout, unspecified site, without tophus (tophi) (6) Hyperlipidemia Hyperlipidemia type: mixed hyperlipidemia Qualified Code(s): E78.2 - Mixed hyperlipidemia (7) Hypertension Hypertension type: primary hypertension Qualified Code(s): I10 - Essential (primary) hypertension (8) Cirrhosis Hepatic cirrhosis type: unspecified hepatic cirrhosis Ascites presence: without ascites Qualified Code(s): K74.60 - Unspecified cirrhosis of liver
[2025-03-28] MEDS ORDERED: PHARMACY GLYCEMIC MGMT CONSULT PRN (08:48)
--- NOTE | 2025-03-28 08:55 | Pharmacy Report ---
Pharmacy Glycemic Short Note 2 - Date of Service March 28, 2025 - Glycemic Short BSG Results (Last 24 hours): 03/27/25 03/27/25 03/27/25 09:50 11:11 16:42 Glucose 239 H POC Glucose 255 H 264 H 03/27/25 03/28/25 03/28/25 19:42 03:54 06:27 Glucose 234 H POC Glucose 305 H* 249 H 03/28/25 07:47 Glucose POC Glucose 262 H OUTPATIENT ANTIDIABETIC REGIMEN: * Metformin 500 mg PO daily * Empagliflozin 25 mg PO qAM * Ozempic 2 mg SC weekly (Mondays) HbA1c: 6.7% (02/19/25) ASSESSMENT: 03/28/25: * Blood sugars elevated throughout the day yesterday * Received 56 units of insulin (25 units of basal and 31 units of prandial/correctional bolus) * Surprising insulin requirements while inpatient given well-controlled T2DM as an outpatient on orals + GLP-1 agonist * Patient is NPO this morning for liver biopsy, but this is now scheduled for 03/29/25 - diet reordered 03/27/25: * SL is a 69 year old female w/ presumed metastatic pancreatic cancer * Hyperglycemic on presentation and throughout the day yesterday (>300 mg/dL)) * Receiving amoxicillin for treatment of emphysematous cystitis * Receiving heparin gtt (mixed in dextrose), no steroids * Well-controlled T2DM as an outpatient * Will be somewhat conservative with insulin regimen in light of diagnosis (prioritizing reduced likelihood of hypoglycemia) PLAN FOR INPATIENT GLYCEMIC CONTROL: * Hold outpatient oral diabetes medications * Basal insulin * Lantus 15 units SC daily * Lantus 15 units SC x 1 at lunch * Reassess in AM * Bolus insulin * NovoLog per scale ACHS or Q6hrs while NPO * Goal Range: Low 110 mg/dL - High 140 mg/dL * Correction Factor: 20 mg/dL/unit * Nutritional / Prandial insulin per carb ratio of 1 unit per 7 grams CHO consumed
[2025-03-28] MEDS: HEPARIN SOD (PORCINE) 1000 UNIT/ML IV ONE (11:59)
--- NOTE | 2025-03-28 13:23 | Palliative Care Progress Note ---
Date of Service March 28, 2025 Assessment & Plan (1) Cancer related pain: Plan: Continue Percocet 10mg/325mg one tab PO q4h prn pain, Hold for somnolence or RR less than 14; please document RR with each dose administration. (2) Advanced care planning/counseling discussion: Plan: met w/pt, her daughter and another family member at bedside. They are happy with her agreement to come home to daughter's home in [place]. She would like cancer clinic appt at [facility] -we will order referral No new concerns today. (3) Palliative care by specialist: Plan Biopsy today Continue current pain mgt Plan for [facility] follow up with oncology and Pall med Thank you for allowing us to participate in the ongoing care of this patient. Please page with any additional concerns. Minerva Crespo DNP Director, Palliative Medicine Admission and Anticipated Discharge Date Admission Date: March 26, 2025 Subjective Pain seems better today: 2 doses MS 2mg IV and one dose Percocet 10mg in past 24 hr, no IV doses after Percocet was ordered no n/v no chest pain/dyspnea Remains NPO, awaiting biopsy. Dtr and family at bedside, share that pt has been grumpy and feeling hungry - frustrated biopsy has not been done yet Family have agreed pt will be dc from [facility] and go to dtr's home in [place]. She would like oncology and pall med appts at [facility]. Review of Systems Review of Systems: All systems reviewed & are unremarkable except as noted in Subjective Physical Exam Physical Exam: no acute distress irritable mood, c/o hunger no resp distress gen weakness AAOx3 Results & Data Vital Signs (Past 12 Hours) Vital Signs Temp Pulse Pulse Resp BP Pulse Ox O2 Del Method 03/28/25 11:44 36.7 C 87 20 88/46 L 94 Room Air 03/28/25 07:51 36.4 C L 91 H 18 102/64 97 Room Air 03/28/25 05:38 95 H 03/28/25 03:28 36.6 C 92 H 18 110/67 93 Room Air Laboratory Results 03/28/25 03/28/25 03/28/25 Range/Units 11:01 09:00 07:47 WBC (4.8-10.8) K/ul RBC (4.20-5.40) M/uL Hgb (12.0-16.0) g/dl Hct (37.0-47.0) % MCV (80.0-100.0) fL MCH (25.0-34.0) pg MCHC (32.0-36.0) g/dL RDW Std Deviation (36.4-46.3) fL RDW Coeff of Huy[place] (11.5-14.5) % Plt Count (130-400) K/uL MPV (9.4-12.4) fL Immature Gran % (Auto) % Neut % (Auto) % Lymph % (Auto) % [place] % (Auto) % Eos % (Auto) % Baso % (Auto) % Neut # (Auto) (1.40-6.50) K/uL Lymph # (Auto) (1.20-3.40) K/uL [place] # (Auto) (0.11-0.59) K/uL Eos # (Auto) (0.00-0.50) K/uL Baso # (Auto) (0.00-0.20) K/uL Immature Gran # (Auto) (0.01-0.20) K/uL Absolute Nucleated RBC (0.00-0.12) K/uL Nucleated RBC % (auto) % Platelet Estimate (Normal) PT (9.0-12.0) Seconds INR (0.9-1.1) APTT (21-31) Seconds PTT Ratio Heparin Anti-Xa, LM Wt (< 0.10) IU/ML Heparin Anti-Xa, Unfract (0.3-0.7) IU/ml VBG pH (7.36-7.41) VBG pCO2 (38-50) mmHg VBG pO2 mmHg VBG HCO3 mmol/L VBG O2 Saturation % VBG Base Excess mEq/L Sodium (136-145) mmol/L Potassium (3.5-5.1) mmol/L Chloride (98-107) mmol/L Carbon Dioxide (21-32) mmol/L Anion Gap (3-11) BUN (6-23) mg/dl Creatinine (0.6-1.2) mg/dl Est Cr Clr Drug Dosing ml/min eGFR BUN/Creatinine Ratio (10-20) Glucose (70-99(Fasting)) mg/dl POC Glucose 230 H 262 H (70-99) mg/dl Osmolality 280 (280-300) mOsm/kg Calcium (8.6-10.3) mg/dl Phosphorus (2.5-4.9) mg/dl Magnesium (1.7-2.4) mg/dl Total Bilirubin (0.2-1.0) mg/dl Direct Bilirubin (0-0.2) mg/dl AST (13-39) U/L ALT (7-52) U/L Alkaline Phosphatase (34-104) U/L Troponin I High Sens (0-14) pg/ml B-Natriuretic Peptide (0-100) pg/ml Total Protein (6.0-8.3) gm/dl Albumin (3.4-5.0) gm/dl Globulin (2.5-4.0) gm/dl Albumin/Globulin Ratio (0.9-2) Lipase (11-82) U/L SARS-CoV-2 (PCR) (Negative) Influenza Type A (PCR) (Neg) Influenza Type B (PCR) (Neg) RSV (RT-PCR) (Neg) 03/28/25 03/28/25 03/27/25 Range/Units 06:27 03:54 19:42 WBC 7.27 D (4.8-10.8) K/ul RBC 2.93 L (4.20-5.40) M/uL Hgb 9.0 L (12.0-16.0) g/dl Hct 26.8 L (37.0-47.0) % MCV 91.5 (80.0-100.0) fL MCH 30.7 (25.0-34.0) pg MCHC 33.6 (32.0-36.0) g/dL RDW Std Deviation 51.0 H (36.4-46.3) fL RDW Coeff of Huyen 15.7 H (11.5-14.5) % Plt Count 137 D (130-400) K/uL MPV 10.4 (9.4-12.4) fL Immature Gran % (Auto) % Neut % (Auto) % Lymph % (Auto) % [place] % (Auto) % Eos % (Auto) % Baso % (Auto) % Neut # (Auto) (1.40-6.50) K/uL Lymph # (Auto) (1.20-3.40) K/uL [place] # (Auto) (0.11-0.59) K/uL Eos # (Auto) (0.00-0.50) K/uL Baso # (Auto) (0.00-0.20) K/uL Immature Gran # (Auto) (0.01-0.20) K/uL Absolute Nucleated RBC 0.04 (0.00-0.12) K/uL Nucleated RBC % (auto) 0.6 % Platelet Estimate Normal (Normal) PT (9.0-12.0) Seconds INR (0.9-1.1) APTT (21-31) Seconds PTT Ratio Heparin Anti-Xa, LM Wt (< 0.10) IU/ML Heparin Anti-Xa, Unfract < 0.10 L (0.3-0.7) IU/ml VBG pH (7.36-7.41) VBG pCO2 (38-50) mmHg VBG pO2 mmHg VBG HCO3 mmol/L VBG O2 Saturation % VBG Base Excess mEq/L Sodium 125 L (136-145) mmol/L Potassium 4.0 (3.5-5.1) mmol/L Chloride 90 L (98-107) mmol/L Carbon Dioxide 26 (21-32) mmol/L Anion Gap 9 (3-11) BUN 49 H (6-23) mg/dl Creatinine 1.79 H D (0.6-1.2) mg/dl Est Cr Clr Drug Dosing 33.0 ml/min eGFR 30.32 BUN/Creatinine Ratio 27.4 H (10-20) Glucose 234 H (70-99(Fasting)) mg/dl POC Glucose 249 H 305 H* (70-99) mg/dl Osmolality (280-300) mOsm/kg Calcium 8.3 L (8.6-10.3) mg/dl Phosphorus (2.5-4.9) mg/dl Magnesium (1.7-2.4) mg/dl Total Bilirubin 1.7 H (0.2-1.0) mg/dl Direct Bilirubin (0-0.2) mg/dl AST 145 H (13-39) U/L ALT 104 H (7-52) U/L Alkaline Phosphatase 102 (34-104) U/L Troponin I High Sens (0-14) pg/ml B-Natriuretic Peptide (0-100) pg/ml Total Protein 5.4 L (6.0-8.3) gm/dl Albumin 2.9 L (3.4-5.0) gm/dl Globulin 2.5 (2.5-4.0) gm/dl Albumin/Globulin Ratio 1.2 (0.9-2) Lipase (11-82) U/L SARS-CoV-2 (PCR) (Negative) Influenza Type A (PCR) (Neg) Influenza Type B (PCR) (Neg) RSV (RT-PCR) (Neg) 03/27/25 03/27/25 03/27/25 Range/Units 16:42 11:11 09:50 WBC 18.47 H (4.8-10.8) K/ul RBC 3.60 L (4.20-5.40) M/uL Hgb 10.7 L (12.0-16.0) g/dl Hct 33.0 L (37.0-47.0) % MCV 91.7 (80.0-100.0) fL MCH 29.7 (25.0-34.0) pg MCHC 32.4 (32.0-36.0) g/dL RDW Std Deviation 54.5 H (36.4-46.3) fL RDW Coeff of Huyen 16.8 H (11.5-14.5) % Plt Count 278 (130-400) K/uL MPV 10.0 (9.4-12.4) fL Immature Gran % (Auto) % Neut % (Auto) % Lymph % (Auto) % [place] % (Auto) % Eos % (Auto) % Baso % (Auto) % Neut # (Auto) (1.40-6.50) K/uL Lymph # (Auto) (1.20-3.40) K/uL [place] # (Auto) (0.11-0.59) K/uL Eos # (Auto) (0.00-0.50) K/uL Baso # (Auto) (0.00-0.20) K/uL Immature Gran # (Auto) (0.01-0.20) K/uL Absolute Nucleated RBC 0.04 (0.00-0.12) K/uL Nucleated RBC % (auto) 0.2 % Platelet Estimate (Normal) PT (9.0-12.0) Seconds INR (0.9-1.1) APTT (21-31) Seconds PTT Ratio Heparin Anti-Xa, LM Wt (< 0.10) IU/ML Heparin Anti-Xa, Unfract 0.43 (0.3-0.7) IU/ml VBG pH (7.36-7.41) VBG pCO2 (38-50) mmHg VBG pO2 mmHg VBG HCO3 mmol/L VBG O2 Saturation % VBG Base Excess mEq/L Sodium 125 L (136-145) mmol/L Potassium 3.7 (3.5-5.1) mmol/L Chloride 89 L (98-107) mmol/L Carbon Dioxide 22 (21-32) mmol/L Anion Gap 14 H (3-11) BUN 43 H (6-23) mg/dl Creatinine 1.42 H D (0.6-1.2) mg/dl Est Cr Clr Drug Dosing 41.6 ml/min eGFR 40.04 BUN/Creatinine Ratio 30.3 H (10-20) Glucose 239 H (70-99(Fasting)) mg/dl POC Glucose 264 H 255 H (70-99) mg/dl Osmolality (280-300) mOsm/kg Calcium 8.7 (8.6-10.3) mg/dl Phosphorus (2.5-4.9) mg/dl Magnesium (1.7-2.4) mg/dl Total Bilirubin 1.5 H (0.2-1.0) mg/dl Direct Bilirubin 0.5 H (0-0.2) mg/dl AST 216 H (13-39) U/L ALT 104 H (7-52) U/L Alkaline Phosphatase 123 H (34-104) U/L Troponin I High Sens (0-14) pg/ml B-Natriuretic Peptide (0-100) pg/ml Total Protein 6.1 (6.0-8.3) gm/dl Albumin 2.9 L (3.4-5.0) gm/dl Globulin 3.2 (2.5-4.0) gm/dl Albumin/Globulin Ratio 0.9 (0.9-2) Lipase (11-82) U/L SARS-CoV-2 (PCR) (Negative) Influenza Type A (PCR) (Neg) Influenza Type B (PCR) (Neg) RSV (RT-PCR) (Neg) 03/27/25 03/27/25 03/27/25 Range/Units 07:38 04:00 00:02 WBC (4.8-10.8) K/ul RBC (4.20-5.40) M/uL Hgb (12.0-16.0) g/dl Hct (37.0-47.0) % MCV (80.0-100.0) fL MCH (25.0-34.0) pg MCHC (32.0-36.0) g/dL RDW Std Deviation (36.4-46.3) fL RDW Coeff of Huyen (11.5-14.5) % Plt Count (130-400) K/uL MPV (9.4-12.4) fL Immature Gran % (Auto) % Neut % (Auto) % Lymph % (Auto) % [place] % (Auto) % Eos % (Auto) % Baso % (Auto) % Neut # (Auto) (1.40-6.50) K/uL Lymph # (Auto) (1.20-3.40) K/uL [place] # (Auto) (0.11-0.59) K/uL Eos # (Auto) (0.00-0.50) K/uL Baso # (Auto) (0.00-0.20) K/uL Immature Gran # (Auto) (0.01-0.20) K/uL Absolute Nucleated RBC (0.00-0.12) K/uL Nucleated RBC % (auto) % Platelet Estimate (Normal) PT (9.0-12.0) Seconds INR (0.9-1.1) APTT (21-31) Seconds PTT Ratio Heparin Anti-Xa, LM Wt (< 0.10) IU/ML Heparin Anti-Xa, Unfract (0.3-0.7) IU/ml VBG pH (7.36-7.41) VBG pCO2 (38-50) mmHg VBG pO2 mmHg VBG HCO3 mmol/L VBG O2 Saturation % VBG Base Excess mEq/L Sodium (136-145) mmol/L Potassium (3.5-5.1) mmol/L Chloride (98-107) mmol/L Carbon Dioxide (21-32) mmol/L Anion Gap (3-11) BUN (6-23) mg/dl Creatinine (0.6-1.2) mg/dl Est Cr Clr Drug Dosing ml/min eGFR BUN/Creatinine Ratio (10-20) Glucose (70-99(Fasting)) mg/dl POC Glucose 291 H 351 H* 333 H* (70-99) mg/dl Osmolality (280-300) mOsm/kg Calcium (8.6-10.3) mg/dl Phosphorus (2.5-4.9) mg/dl Magnesium (1.7-2.4) mg/dl Total Bilirubin (0.2-1.0) mg/dl Direct Bilirubin (0-0.2) mg/dl AST (13-39) U/L ALT (7-52) U/L Alkaline Phosphatase (34-104) U/L Troponin I High Sens (0-14) pg/ml B-Natriuretic Peptide (0-100) pg/ml Total Protein (6.0-8.3) gm/dl Albumin (3.4-5.0) gm/dl Globulin (2.5-4.0) gm/dl Albumin/Globulin Ratio (0.9-2) Lipase (11-82) U/L SARS-CoV-2 (PCR) (Negative) Influenza Type A (PCR) (Neg) Influenza Type B (PCR) (Neg) RSV (RT-PCR) (Neg) 03/26/25 03/26/25 03/26/25 Range/Units 22:47 20:33 16:47 WBC (4.8-10.8) K/ul RBC (4.20-5.40) M/uL Hgb (12.0-16.0) g/dl Hct (37.0-47.0) % MCV (80.0-100.0) fL MCH (25.0-34.0) pg MCHC (32.0-36.0) g/dL RDW Std Deviation (36.4-46.3) fL RDW Coeff of [place]uy[place] (11.5-14.5) % Plt Count (130-400) K/uL MPV (9.4-12.4) fL Immature Gran % (Auto) % Neut % (Auto) % Lymph % (Auto) % [place] % (Auto) % Eos % (Auto) % Baso % (Auto) % Neut # (Auto) (1.40-6.50) K/uL Lymph # (Auto) (1.20-3.40) K/uL [place] # (Auto) (0.11-0.59) K/uL Eos # (Auto) (0.00-0.50) K/uL Baso # (Auto) (0.00-0.20) K/uL Immature Gran # (Auto) (0.01-0.20) K/uL Absolute Nucleated RBC (0.00-0.12) K/uL Nucleated RBC % (auto) % Platelet Estimate (Normal) PT (9.0-12.0) Seconds INR (0.9-1.1) APTT (21-31) Seconds PTT Ratio Heparin Anti-Xa, LM Wt (< 0.10) IU/ML Heparin Anti-Xa, Unfract 0.42 (0.3-0.7) IU/ml VBG pH (7.36-7.41) VBG pCO2 (38-50) mmHg VBG pO2 mmHg VBG HCO3 mmol/L VBG O2 Saturation % VBG Base Excess mEq/L Sodium (136-145) mmol/L Potassium (3.5-5.1) mmol/L Chloride (98-107) mmol/L Carbon Dioxide (21-32) mmol/L Anion Gap (3-11) BUN (6-23) mg/dl Creatinine (0.6-1.2) mg/dl Est Cr Clr Drug Dosing ml/min eGFR BUN/Creatinine Ratio (10-20) Glucose (70-99(Fasting)) mg/dl POC Glucose 340 H* 312 H* (70-99) mg/dl Osmolality (280-300) mOsm/kg Calcium (8.6-10.3) mg/dl Phosphorus (2.5-4.9) mg/dl Magnesium (1.7-2.4) mg/dl Total Bilirubin (0.2-1.0) mg/dl Direct Bilirubin (0-0.2) mg/dl AST (13-39) U/L ALT (7-52) U/L Alkaline Phosphatase (34-104) U/L Troponin I High Sens (0-14) pg/ml B-Natriuretic Peptide (0-100) pg/ml Total Protein (6.0-8.3) gm/dl Albumin (3.4-5.0) gm/dl Globulin (2.5-4.0) gm/dl Albumin/Globulin Ratio (0.9-2) Lipase (11-82) U/L SARS-CoV-2 (PCR) (Negative) Influenza Type A (PCR) (Neg) Influenza Type B (PCR) (Neg) RSV (RT-PCR) (Neg) 03/26/25 03/26/25 03/26/25 Range/Units 15:58 10:25 10:00 WBC (4.8-10.8) K/ul RBC (4.20-5.40) M/uL Hgb (12.0-16.0) g/dl Hct (37.0-47.0) % MCV (80.0-100.0) fL MCH (25.0-34.0) pg MCHC (32.0-36.0) g/dL RDW Std Deviation (36.4-46.3) fL RDW Coeff of [place] (11.5-14.5) % Plt Count (130-400) K/uL MPV (9.4-12.4) fL Immature Gran % (Auto) % Neut % (Auto) % Lymph % (Auto) % [place] % (Auto) % Eos % (Auto) % Baso % (Auto) % Neut # (Auto) (1.40-6.50) K/uL Lymph # (Auto) (1.20-3.40) K/uL [place] # (Auto) (0.11-0.59) K/uL Eos # (Auto) (0.00-0.50) K/uL Baso # (Auto) (0.00-0.20) K/uL Immature Gran # (Auto) (0.01-0.20) K/uL Absolute Nucleated RBC (0.00-0.12) K/uL Nucleated RBC % (auto) % Platelet Estimate (Normal) PT (9.0-12.0) Seconds INR (0.9-1.1) APTT (21-31) Seconds PTT Ratio Heparin Anti-Xa, LM Wt 0.44 (< 0.10) IU/ML Heparin Anti-Xa, Unfract 0.37 (0.3-0.7) IU/ml VBG pH (7.36-7.41) VBG pCO2 (38-50) mmHg VBG pO2 mmHg VBG HCO3 mmol/L VBG O2 Saturation % VBG Base Excess mEq/L Sodium 128 L (136-145) mmol/L Potassium 3.8 (3.5-5.1) mmol/L Chloride 90 L (98-107) mmol/L Carbon Dioxide 22 (21-32) mmol/L Anion Gap 16 H (3-11) BUN 34 H (6-23) mg/dl Creatinine 0.99 (0.6-1.2) mg/dl Est Cr Clr Drug Dosing 60.1 ml/min eGFR 61.72 BUN/Creatinine Ratio 34.3 H (10-20) Glucose 301 H* (70-99(Fasting)) mg/dl POC Glucose 321 H* (70-99) mg/dl Osmolality (280-300) mOsm/kg Calcium 8.4 L (8.6-10.3) mg/dl Phosphorus 5.2 H (2.5-4.9) mg/dl Magnesium 2.3 (1.7-2.4) mg/dl Total Bilirubin 1.8 H (0.2-1.0) mg/dl Direct Bilirubin (0-0.2) mg/dl AST 32 (13-39) U/L ALT 34 (7-52) U/L Alkaline Phosphatase 123 H (34-104) U/L Troponin I High Sens (0-14) pg/ml B-Natriuretic Peptide (0-100) pg/ml Total Protein 6.1 (6.0-8.3) gm/dl Albumin 2.9 L (3.4-5.0) gm/dl Globulin 3.2 (2.5-4.0) gm/dl Albumin/Globulin Ratio 0.9 (0.9-2) Lipase (11-82) U/L SARS-CoV-2 (PCR) (Negative) Influenza Type A (PCR) (Neg) Influenza Type B (PCR) (Neg) RSV (RT-PCR) (Neg) 03/25/25 03/25/25 Range/Units 23:41 23:29 WBC 14.93 H (4.8-10.8) K/ul RBC 3.72 L (4.20-5.40) M/uL Hgb 11.3 L (12.0-16.0) g/dl Hct 33.2 L (37.0-47.0) % MCV 89.2 (80.0-100.0) fL MCH 30.4 (25.0-34.0) pg MCHC 34.0 (32.0-36.0) g/dL RDW Std Deviation 53.3 H (36.4-46.3) fL RDW Coeff of Huyen 16.8 H (11.5-14.5) % Plt Count 230 (130-400) K/uL MPV 9.9 (9.4-12.4) fL Immature Gran % (Auto) 2.4 % Neut % (Auto) 80.7 % Lymph % (Auto) 6.8 % [place] % (Auto) 8.6 % Eos % (Auto) 1.1 % Baso % (Auto) 0.4 % Neut # (Auto) 12.05 H (1.40-6.50) K/uL Lymph # (Auto) 1.01 L (1.20-3.40) K/uL [place] # (Auto) 1.28 H (0.11-0.59) K/uL Eos # (Auto) 0.17 (0.00-0.50) K/uL Baso # (Auto) 0.06 (0.00-0.20) K/uL Immature Gran # (Auto) 0.36 H (0.01-0.20) K/uL Absolute Nucleated RBC 0.03 (0.00-0.12) K/uL Nucleated RBC % (auto) 0.2 % Platelet Estimate (Normal) PT 12.1 H (9.0-12.0) Seconds INR 1.1 (0.9-1.1) APTT 28 (21-31) Seconds PTT Ratio 1.0 Heparin Anti-Xa, LM Wt (< 0.10) IU/ML Heparin Anti-Xa, Unfract (0.3-0.7) IU/ml VBG pH 7.45 H (7.36-7.41) VBG pCO2 32 L (38-50) mmHg VBG pO2 51 mmHg VBG HCO3 22 mmol/L VBG O2 Saturation 85.4 % VBG Base Excess -1.0 mEq/L Sodium 127 L (136-145) mmol/L Potassium 4.2 (3.5-5.1) mmol/L Chloride 90 L (98-107) mmol/L Carbon Dioxide 22 (21-32) mmol/L Anion Gap 15 H (3-11) BUN 30 H (6-23) mg/dl Creatinine 0.89 (0.6-1.2) mg/dl Est Cr Clr Drug Dosing 66.8 ml/min eGFR 70.14 BUN/Creatinine Ratio 33.7 H (10-20) Glucose 284 H (70-99(Fasting)) mg/dl POC Glucose (70-99) mg/dl Osmolality (280-300) mOsm/kg Calcium 8.6 (8.6-10.3) mg/dl Phosphorus (2.5-4.9) mg/dl Magnesium (1.7-2.4) mg/dl Total Bilirubin 1.9 H (0.2-1.0) mg/dl Direct Bilirubin 0.6 H (0-0.2) mg/dl AST 48 H (13-39) U/L ALT 36 (7-52) U/L Alkaline Phosphatase 132 H (34-104) U/L Troponin I High Sens 18.0 H (0-14) pg/ml B-Natriuretic Peptide 20 (0-100) pg/ml Total Protein 6.4 (6.0-8.3) gm/dl Albumin 3.0 L (3.4-5.0) gm/dl Globulin (2.5-4.0) gm/dl Albumin/Globulin Ratio (0.9-2) Lipase 69 (11-82) U/L SARS-CoV-2 (PCR) NEGATIVE (Negative) Influenza Type A (PCR) Negative (Neg) Influenza Type B (PCR) Negative (Neg) RSV (RT-PCR) Negative (Neg) PG Care Time/CCT Total # of Minutes Spent Total Time Spent: 45 Total Time Spent with Patient: Total time spent is greater than 50% in coordination of care (as documented) at patient's floor/unit and/or counseling patient: [place] [address] SUB INP/OBS CARE 2/35MIN Patient Type Established History Comprehensive Exam Comprehensive Medical Decision Making High Complexity Diagnoses Cancer related pain G89.3 Advanced care planning/counseling discussion Z71.89 Palliative care by specialist Z51.5
[2025-03-28 17:46] LABS: Appearance Urine Turbid (Clear); Bacteria Urine Automated 4+ (None Seen); Cast Urine Automated >20 /lpf (0-2); Epithelial Cell Urine Auto >20 /hpf (0-2); Glucose Urine UA 3+ (Negative); RBC Urine Automated >20 /hpf (0-2); WBC Urine Automated >50 /hpf (0-5)
[2025-03-28 19:13] LABS: ANTI-Xa, UFH(UnfractionatedHep 0.35 IU/ml (0.3-0.7)
[2025-03-29 07:39] LABS: Alanine Aminotransferase 82.0 U/L (7-52); Albumin Globulin Ratio 1.0 (0.9-2); Alkaline Phosphatase 112.0 U/L (34-104); Anion Gap 10.0 (3-11); Bilirubin,Total 1.3 mg/dl (0.2-1.0); Blood Urea Nitrogen 51.0 mg/dl (6-23); Calcium 8.0 mg/dl (8.6-10.3); Carbon Dioxide 25.0 mmol/L (21-32); Chloride 90.0 mmol/L (98-107); Creatinine Clr Calc Pharmacy 37.5 ml/min; Globulin 2.5 gm/dl (2.5-4.0); Glucose 185.0 mg/dl (70-99(Fasting)); Potassium 3.9 mmol/L (3.5-5.1); Sodium 125.0 mmol/L (136-145); Total Protein 5.0 gm/dl (6.0-8.3)
[2025-03-29 07:54] LABS: Thyroid Stimulating Hormone 4.367 uIu/ml (0.300-4.500)
[2025-03-29] MEDS: LANTUS PER UNIT CHARGE SC ONE (09:37)
[2025-03-29] MEDS: GELATIN SPONGE 12-7MM ONE (10:01)
[2025-03-29 10:52] LABS: Appearance Peritoneal Fluid Bloody; Color Peritoneal Fluid Red; RBC Peritoneal Fluid Auto 272000 /uL; WBC Peritoneal Fluid Auto 20075 /ul (0-300)
[2025-03-29 11:20] LABS: Mono,Macrophage,Mesothelial 5 %; Neutrophils, Fluid 95 %
[2025-03-29 11:22] LABS: Albumin Peritoneal Fluid 2.5 gm/dl
--- NOTE | 2025-03-29 11:39 | Palliative Care Progress Note ---
Date of Service March 30, 2025 Assessment & Plan (1) Cancer related pain: Plan: Pt states that pain is well managed with current medications - last dose of oxycodone was nearly 48hrs ago. Continue Percocet 10mg/325mg one tab PO q4h prn pain, Hold for somnolence or RR less than 14; please document RR with each dose administration. (2) Advanced care planning/counseling discussion: Plan: met w/pt, no visitors present, she reinforced wish for discharge to daughter's home in [place] for follow up with cancer clinic at [facility], biopsy results pending. No new concerns today. (3) Palliative care by specialist: Plan: Will continue to follow as inpatient for symptom management, patient plans to follow as outpt with [facility] oncology and Pall med Plan Biopsy results pending Continue current pain mgt Plan for [facility] follow up with oncology and Pall med Thank you for allowing us to participate in the ongoing care of this patient. Please page with any additional concerns. Admission and Anticipated Discharge Date Admission Date: March 26, 2025 Subjective Assessed pt at bedside, no visitors present. She was sitting upright in bed, denies any discomfort. She shared that pain is well managed and she only needs occasional PRN meds last opiate medication was on 03/28 at 1250, nearly 48hrs ago. Review of Systems Review of Systems: All systems reviewed & are unremarkable except as noted in Subjective Physical Exam Constitutional: WD/WN, vitals as above + obese Respiratory: normal respiratory effort, lungs clear to auscultation Cardiovascular: Rate/Rhythm: regular rate and regular rhythm Heart Sounds: no murmur Extremities: + edema (2+ pitting edema of the legs to the knees bilaterally) Gastrointestinal (Abdomen): Inspection/Auscultation: normal bowel sounds; abdomen not distended Percussion/Palpation: abdomen soft and + hepatomegaly; abdomen nontender, no hernia and no ascites Skin: no rashes, warm and dry Psychiatric: A+Ox3, euthymic affect Genitourinary: barclay in place draining clear yellow urine to bag Results & Data Vital Signs (Past 12 Hours) Vital Signs Temp Pulse Pulse Resp BP BP Pulse Ox 03/29/25 11:24 83 03/29/25 11:09 36.6 C 91 H 20 87/53 L 94 03/29/25 10:39 36.7 C 91 H 16 89/55 L 96 03/29/25 10:09 36.6 C 92 H 18 87/62 L 94 03/29/25 09:39 36.7 C 84 16 89/57 L 96 03/29/25 08:00 03/29/25 07:28 36.6 C 82 18 96/65 L 95 03/29/25 07:15 03/29/25 03:08 36.8 C 81 18 101/68 92 Pulse Ox O2 Del Method O2 Del Method O2 Flow Rate 03/29/25 11:24 03/29/25 11:09 Room Air 03/29/25 10:39 Room Air 03/29/25 10:09 Room Air 03/29/25 09:39 Room Air 03/29/25 08:00 98 Room Air 0 03/29/25 07:28 Room Air 03/29/25 07:15 Room Air 03/29/25 03:08 Room Air Laboratory Results Abnormal lab results 03/29/25 03/29/25 03/29/25 Range/Units 11:20 16:38 19:32 Heparin Anti-Xa, Unfract (0.3-0.7) IU/ml POC Glucose 195 H 355 H* 282 H (70-99) mg/dl Peritoneal WBC (Auto) (0-300) /ul 03/29/25 03/29/25 03/30/25 Range/Units 20:56 Unknown 07:35 Heparin Anti-Xa, Unfract 0.14 L (0.3-0.7) IU/ml POC Glucose 244 H (70-99) mg/dl Peritoneal WBC (Auto) 65738 H (0-300) /ul Diagnostic Findings Chest X-Ray 03/25/25 23:14 EXAM: XR chest 1V portable CLINICAL HISTORY: Chest pain, nonspecific TECHNIQUE: X-ray images of the chest were obtained in frontal projection. COMPARISON: 03/18/2025 CR. FINDINGS: Pulmonary Parenchyma: There is a 1 cm calcified nodule in the left upper lobe. There are multiple ill-defined nodular densities in both lungs. There are reticular densities with prominent interstitial markings and Kennedy lines, which might be suggestive of interstitial/lymphatic congestion or infiltration. No evidence of pleural effusion or pleural thickening. Heart and Mediastinum: Heart size and shape are normal. No mediastinal widening or masses. No hilar or mediastinal lymphadenopathy. Bony Thorax: Bony thorax appears intact without fractures or deformities. Soft Tissues: Soft tissues overlying the chest wall are unremarkable. IMPRESSION: 1. Bilateral ill-defined nodular densities with prominent interstitial markings, which are likely parenchymal nodules with interstitial infiltration. Please correlate clinically. 2. No significant interval changes. Electronically signed by Héctor Galindo 03-26-2025 01:51 AM Abdomen/Pelvis CT 03/26/25 00:47 EXAM: CT abd pelvis IV con only CLINICAL HISTORY: abd pain TECHNIQUE: CT of the abdomen and pelvis was performed with contrast, with the following protocol: axial images with, and reconstructed coronal and sagittal images. One of the following dose reduction techniques was utilized for this exam: Automated exposure control, adjustment of the mA and/or kV according to patient size, and use of iterative reconstruction. COMPARISON: Prior CT dated March 12, 2025 FINDINGS: Peritoneal and Retroperitoneal Structures: A large, irregular, creepy, heterogeneously enhancing soft tissue mass lesion is seen centered on the gastrohepatic recess and the louise hepatis. It measures about 15.5 x 15.5 x 10.5 cm in the maximum orthogonal dimensions. The mass is inseparable from the caudate lobe of the liver and the pancreatic body. It stretches the gastric body and antrum anteriorly with no infiltration. The mass infiltrates through the left anterolateral aspect of the IVC, which shows a hypodense partial non-occlusive filling defect above, at, and below the level of the renal veins. The mass encases the portal vein, which is patent and of average caliber. It also encases the celiac trunk and its major branches, which are attenuated but not occluded. Multiple pathologically enlarged, heterogeneously enhancing, shanae-aortic lymph nodes are seen; the largest is at a pre-aortic location posterior and adherent to the pancreatic head, measuring 42 x 25 mm. Diffuse peritoneal fat smudging, with scattered heterogeneously enhancing peritoneal nodules; the largest is at a subhepatic location, measuring 24 x 20 mm. Mild ascites. Atherosclerotic calcifications of the aorta and iliac arteries. Liver: Enlarged (measuring 20 cm in the long axis). Multiple bilobar hypodense focal lesions, showing mild peripheral enhancement; the largest is at segment 5/6, measuring 26 x 20 mm. Hepatic vasculature is unremarkable. Pancreas: The pancreatic body presents an ill-defined hypodense mass lesion, which is likely an extension (direct infiltration) from the large abdominal mass rather than being a discrete lesion. It measures 30 x 15 mm. The main pancreatic duct is mildly dilated distal to the body lesion. Spleen: Enlarged (measuring 16.9 cm in the long axis). Multiple irregular hypodense focal lesions, the largest is anterior upper polar, measuring 49 x 38 mm. Tiny calcified granulomas Gallbladder and Biliary System: Cholecystectomy clips are noted. Mild central intrahepatic biliary tree dilatation, likely sequel to compression of the bile duct at the hepatic hilum by the large related mass. Kidneys and Adrenal Glands: Both kidneys are normal in size, shape, position, and cortical thickness. No renal calculi or hydronephrosis. The adrenal glands are bulky bilaterally, but no focal lesions. Urinary Bladder: Collapsed over Barclay's catheter balloon, cannot be assessed. Uterus and Cervix: The uterus is not fully visualized, needs clinical correlation. No cervical gross masses or abnormal thickening. Ovaries: Not well visualized, but no gross adnexal abnormalities. Bowel: The visualized bowel loops are normal in caliber and appearance. No evidence of bowel obstruction or wall thickening. Multiple sigmoid diverticulae. Scanned lower chest cuts: Bilateral lower lobar, middle lobar, and lingular segment multiple irregular speculated solid pulmonary nodules, the largest is in the right lower lobe, measuring 26 x 24 mm. Some of them show early tiny cavitation changes. Few pneumatoceles are seen in the bilateral lower lobes and the middle lobe. Bones and Soft Tissues: Osteopenia. Degenerative changes of the lower thoracic and lumbar spine. No fractures or abnormal masses were identified. Redemonstration of a sclerotic focus in the left iliac bone. IMPRESSION: - A large, irregular, creepy, heterogeneously enhancing soft tissue malignant mass lesion is seen centered on the gastrohepatic recess and the louise hepatis. The epicenter of the lesion cannot be determined due to its large and infiltrative nature. However, the differentials would include hepatic/Kl[place]kin tumor/gastric, or pancreatic lesion. Further tissue biopsy is suggested, guided by the clinical condition -- increased in size compared to the prior study. - The mass infiltrates through the left anterolateral aspect of the IVC, which shows a hypodense partial non-occlusive hypodense filling defect above, at, and below the level of the renal vein. - Peritoneal fat smudging and multiple nodules, likely metastatic -- no significant interval changes. - Multiple pathologically enlarged shanae-aortic lymph nodes, likely metastatic -- no significant interval changes. - Hepatomegaly, with multiple bilobar hepatic focal lesions, likely metastatic -- likely stable. - The pancreatic body ill-defined mass lesion, which is likely an extension (direct infiltration) from the large abdominal mass rather than being a discrete lesion. - Splenomegaly with multiple irregular focal lesions, likely neoplastic (metastatic) -- increased. - Mild central intrahepatic biliary tree dilatation, likely sequel to compression of the bile duct at the hepatic hilum by the large related mass. - Mild ascites. - Multiple bilateral basal irregular solid pulmonary nodules, likely metastatic -- no significant interval changes. - The previously seen intra/shanae-vesical air foci are currently resolved. Currently, the urinary bladder is collapsed over the Barclay's catheter balloon, so it cannot be assessed. - The comparison was limited because the prior study was a non-contrast scan. Electronically signed by Héctor Galindo 03-26-2025 02:41 AM Chest CTA 03/26/25 00:47 EXAM: CT angio chest PE protocol CLINICAL HISTORY: sob TECHNIQUE: Contiguous axial images were obtained from the neck base through the upper abdomen following intravenous administration of iodinated contrast material. Angiographic images were processed, 3D MIP images were acquired for interpretation. If IV contrast material had not been administered, the likelihood of detecting abnormalities relevant to the patient's condition would have been substantially decreased. Coronal and sagittal 3-D MIPs were likewise performed and indicated to increase the sensitivity of detecting diffuse clinically relevant pathology. CT scan was performed according to ALARA (as low as reasonably achievable). COMPARISON: CTA, 03/13/2025 14:58:00 [employer] FINDINGS: Partial lumen occluding filling defects seen in bilateral interlobar pulmonary artery, bilateral upper lobe arteries, right middle lobe/lingula segmental branches and proximal left posterbasal segmental branches of pulmonary arteries. Multiple small nodules of 5-8mm seen scattered in peripheral location in bilateral lumngs with spiculated margins and predominantly in bilateral lower lobes. Mosaic attenuation in bilateral lungs. Paraseptal emphysematous changes in right upper lobe. Multiple simple cysts in bilateral lower lobes, right middle lobe and lingula. The central airways are patent. No pleural effusion. The heart, aorta, and pulmonary arteries are of normal size and configuration. There are no appreciable coronary artery and aortic atherosclerotic calcifications. No pericardial effusion is identified. The thyroid is unremarkable. No mediastinal, hilar, or axillary lymphadenopathy is noted. No suspicious lytic or sclerotic osseous lesions are identified. Visualized upper section of abdomen shows large mass/lymph nodes in caudate lobe of liver, periportal region. IMPRESSION: 1. Partial lumen occluding filling defects seen in bilateral interlobar pulmonary artery, bilateral upper lobe arteries, right middle lobe/lingula segmental branches and proximal left posterbasal segmental branches of pulmonary arteries- Acute pulmonary thromboembolism- New finding. 2. Multiple small nodules of 5-8mm seen scattered in peripheral location in bilateral lumngs with spiculated margins and predominantly in bilateral lower lobes- likely metatstatic lesions- Stable. 3. Mosaic attenuation in bilateral lungs-stable, 4. Paraseptal emphysematous chnages in right upper lobe. Multiple simple cysts in bilateral lower lobes, right middle lobe and lingula- stable. 5. Visualized upper section of abdomen shows stable large mass/lymph nodes in caudate lobe of liver, periportal region- Suggested Contrast CT abdomen for further evaluation. Electronically signed by Charly Hernandez 03-26-2025 02:09 AM Biopsy Ultrasound 03/29/25 00:00 ULTRASOUND-GUIDED ABDOMINAL MASS CORE BIOPSY CLINICAL HISTORY: Abdominal mass with liver lesions PROCEDURE: Procedure and risks were explained. Informed consent was obtained. A final timeout was completed. The abdomen was prepped and draped in sterile fashion. 1% lidocaine was utilized for skin anesthesia. Utilizing ultrasound guidance, a 17-gauge coaxial needle was advanced into the anterior abdominal mass. Ultrasound images were obtained. An 18-gauge core biopsy needle was advanced, and 4 cores were obtained and given to the pathologist for review. The coaxial needle was removed and Band-Aid applied. The patient tolerated the procedure well. Vital signs will be monitored postprocedure. IMPRESSION: Ultrasound-guided abdominal mass core biopsy as above. Performed, dictated, and signed by Zaheer Thomas PA-C; to be co-signed by Dr. Raj Leo. Electronically signed by: Raj Leo M.D. 03/29/2025 2:47 PM Paracentesis Ultrasound 03/29/25 08:55 ULTRASOUND-GUIDED PARACENTESIS CLINICAL HISTORY: Ascites PROCEDURE: Procedure and risks were explained. Informed consent was obtained. A final timeout was completed. The abdomen was prepped and draped in sterile fashion. 1% lidocaine was utilized for skin anesthesia. Utilizing ultrasound guidance, a 5 [place] safety centesis catheter was advanced into the upper abdominal pocket of ascites. Ultrasound images were obtained. A total of 300 mL of ascites fluid was removed and sent to the lab for analysis. The catheter was removed and Band-Aid applied. The patient tolerated the procedure well. Vital signs will be monitored postprocedure. IMPRESSION: Ultrasound-guided paracentesis as above. Performed, dictated, and signed by Zaheer Thomas PA-C; to be co-signed by Dr. Raj Leo. Electronically signed by: Raj Leo M.D. 03/29/2025 2:47 PM Medications Administered Current Inpatient Medications Albuterol (Albuterol Hfa 8 Gm Inhaler) 2 puffs INH Q6H PRN PRN Reason: Shortness Of Breath Stop: 04/25/25 08:34 Allopurinol (Allopurinol 300 Mg Tab) [address] [facility] Stop: 04/25/25 08:59 Last Admin: 03/30/25 08:25 Dose: 300 mg Amoxicillin (Amoxicillin 500 Mg Cap) 500 mg PO TID RAJI; Protocol Stop: 04/05/25 08:59 Last Admin: 03/30/25 08:24 Dose: 500 mg Apixaban (Apixaban 5 Mg Tablet) 10 mg PO BID RAJI Stop: 04/03/25 21:01 Last Admin: 03/30/25 08:25 Dose: 10 mg Bupropion HCl (Bupropion Sr 150 Mg Tabcr) [address] [facility] Stop: 04/25/25 08:59 Last Admin: 03/30/25 08:25 Dose: 150 mg Buspirone HCl (Buspirone 5 Mg Tab) 5 mg PO BID RAJI Stop: 04/25/25 08:59 Last Admin: 03/30/25 08:25 Dose: 5 mg Dextrose (Dextrose 50% 50 Ml Syringe) 25 - 50 ml IV UD PRN; Protocol PRN Reason: Hypoglycemia Protocol Stop: 04/25/25 08:34 Docusate Sodium (Docusate Sodium 100 Mg Cap) 100 mg PO BID PRN PRN Reason: Constipation Stop: 04/25/25 08:34 Last Admin: 03/29/25 22:02 Dose: 100 mg Fluticasone Propionate (Fluticasone Propionate Na Spr 16 Gm Btl) 2 sprays NA QAM RAJI Stop: 04/25/25 08:59 Last Admin: 03/30/25 08:26 Dose: 2 sprays Glucagon (Glucagon For Inj 1 Mg Vial) 1 mg SQ UD PRN; Protocol PRN Reason: Hypoglycemia Protocol Stop: 04/25/25 08:34 Glucose (Glucose 40% Gel 15 Gm Tube) 15 - 30 gm PO UD PRN; Protocol PRN Reason: Hypoglycemia Protocol Stop: 04/25/25 08:34 Glucose (Glucose 10 Tab/Tube) 4 - 8 tab PO UD PRN; Protocol PRN Reason: Hypoglycemia Protocol Stop: 04/25/25 08:34 Prochlorperazine 5 mg/ Syringe 5 mls @ 5 mls/min IV Q6H PRN PRN Reason: Nausea And Vomiting Stop: 04/26/25 08:28 Last Admin: 03/27/25 13:23 Dose: 5 mls/min Insulin Aspart (Insulin Aspart Per Unit Charge) 0 units SC [facility] Stop: 04/25/25 08:34 Last Admin: 03/30/25 08:23 Dose: 15 units Insulin Glargine (Lantus Per Unit Charge) 0 units SC [facility]; Protocol Stop: 04/28/25 20:59 Last Admin: 03/29/25 21:59 Dose: 10 units Insulin Glargine (Lantus Per Unit Charge) [address] [facility] Stop: 04/29/25 08:59 Last Admin: 03/30/25 08:23 Dose: 35 units Levothyroxine Sodium (Levothyroxine Sodium 100 Mcg Tablet) 100 mcg PO [facility] Stop: 04/25/25 08:59 Last Admin: 03/30/25 08:28 Dose: 100 mcg Metoprolol Succinate (Metoprolol Succ 25mg Ext Rel Tab) [facility] Stop: 04/25/25 08:59 Last Admin: 03/30/25 08:46 Dose: Not Given Miscellaneous (Carbohydrates For Hypoglycemia ) 15 - 30 gm PO UD PRN PRN Reason: Hypoglycemia Protocol Stop: 04/25/25 08:34 Miscellaneous Information (Pharmacy Glycemic Mgmt Consult) 1 each N/A UD PRN; Protocol PRN Reason: Consult Stop: 04/26/25 04:04 Morphine Sulfate (Morphine Sulfate 2 Mg/Ml Carp) 1 mg IV Q3H PRN PRN Reason: Pain (1,2,3,4,5) & Pre PT Stop: 08/11/25 07:00 Last Admin: 03/26/25 11:10 Dose: 1 mg Morphine Sulfate (Morphine Sulfate 2 Mg/Ml Carp) 2 mg IV Q3H PRN PRN Reason: Pain (6,7,8,9,10) Stop: 04/09/25 07:00 Last Admin: 03/27/25 10:52 Dose: 2 mg Nystatin (Nystatin Cr 15 Gm Tube) 1 appln EXT BID RAJI Stop: 04/25/25 08:59 Last Admin: 03/30/25 08:26 Dose: 1 appln Ondansetron HCl (Ondansetron Inj 2 Mg/Ml 2 Ml Vial) 8 mg IV Q6H PRN PRN Reason: Nausea And Vomiting Stop: 04/25/25 08:34 Oxycodone/Acetaminophen (Oxycodone/Acetaminophen 10-325 Tab) 1 tab PO Q4H PRN PRN Reason: Pain Stop: 04/10/25 12:06 Last Admin: 03/28/25 12:50 Dose: 1 tab Pantoprazole Sodium (Pantoprazole 40 Mg Tab) [address] [facility] Stop: 04/25/25 08:59 Last Admin: 03/30/25 08:25 Dose: 40 mg Polyethylene Glycol (Polyethylene (Miralax) 17 Gm Pack) 17 gm PO DAILY PRN PRN Reason: Constipation Stop: 04/25/25 08:34 PG Care Time/CCT Total # of Minutes Spent Total Time Spent with Patient: Total time spent is greater than 50% in coordination of care (as documented) at patient's floor/unit and/or counseling patient: [place]oding [place] [address] SUB INP/OBS CARE 2/35MIN Patient Type Established Medical Decision Making Moderate Complexity Diagnoses Cancer related pain G89.3 Advanced care planning/counseling discussion Z71.89 Palliative care by specialist Z51.5
--- NOTE | 2025-03-29 12:00 | Hospitalist Progress Note ---
Date of Service March 29, 2025 Assessment & Plan (1) Pulmonary embolism, bilateral: (2) Hyponatremia with decreased serum osmolality: (3) Intraabdominal mass: (4) Acute kidney injury: (5) Cancer related pain: Plan In summary this is a 69-year-old female admitted initially for bilateral pulmonary emboli, subsequently found to have a intra-abdominal mass concerning for malignancy, likely triggering her current presentation. # Bilateral pulmonary emboli presented with dyspnea on exertion, pleuritic chest pain, and bilateral lower extremity edema; associated risk factors include recent hospitalization, concern for possible malignancy, obesity, additional comorbidities; occlusion defects were seen in the bilateral interlobar pulmonary arteries, bilateral upper lobe arteries, right middle lobe segmental branches; patient was started on and maintained on heparin gtt. through 03/29 at which time it was held for anticipated liver biopsy as discussed below Anticipate transition to Eliquis 10 mg p.o. twice daily through 04/03 transitioning to 5 mg p.o. twice daily thereafter Anticipate they will require a prolonged anticoagulation course though this can be further determined in the outpatient setting after full results are available to review from the liver biopsy # hyponatremia initial serum sodium of 127; in the past 24 hours has maintained 125; associated outpatient medications with hyponatremia include bupropion; serum osmolarity of 280; urine osmolarity of 408; urinalysis was contaminated with large volume of epithelial cells; most consistent with hypervolemic hyponatremia - out of bed encouraged - fluid restriction of 1800 mL per day -Intake and output measure every shift -Follow daily RFP #Intraabdominal Mass and suspected malignancy related pain his biopsy performed along with paracentesis on 03/29 by interventional radiology; laboratories has been is pending at this time; pathology would not likely result prior to the patient's discharge Palliative medicine consulted #Acute kidney injury Presenting creatinine of 0.89, subsequently increased to 1.42 on 03/27 in maintained elevation; currently oliguric with frequent incontinent episodes due to an atonic bladder after recent De La Rosa catheter discontinuation from previous hospitalization in 02/2025; other than hyponatremia as summarized above, there are no significant electrolyte or acid-base derangements; suspect this is prerenal in nature, consequential of volume overload with intravascular depletion -Administer Albumin 25 g IV one time Access: peripheral IV Admission and Anticipated Discharge Date Admission Date: March 26, 2025 Subjective Ms. Banegas is a 69-year-old female whose active medical conditions include hypertension, hyperlipidemia, type 2 diabetes mellitus with multiple complications, hepatic cirrhosis among other chronic medical conditions who presented to [facility] on 03/26 due to progressive dyspnea on exertion and increasing lower extremity edema subsequently admitted due to bilateral pulmonary emboli with an inferior vena cava clot. No acute overnight events. Patient feels well this morning with no specific incidents, accompanied by daughter at bedside who provides collateral history. Review of Systems Review of Systems: Constitutional: denies fevers, chills, malaise, fatigue Cardiovascular: denies angina, palpitations, syncope, peripheral edema, orthopnea Pulmonary: denies cough, dyspnea on exertion, pleuritic chest pain Gastrointestinal: denies nausea, emesis, dysphagia, regurgitation, dyspepsia, abdominal distension, constipation, diarrhea Genitourinary: endorses orthostatic urinary incontinence; denies dysuria, hematuria Neurologic: denies focal weakness, paresthesias or numbness Musculoskeletal: denies arthralgias, progressive weakness, recent falls Integumentary: denies new or developing rashes or lesions Physical Exam Physical Exam: General: Adult female in no acute distress Vital Signs: reviewed HEENT: Normocephalic, atraumatic; pupils equally reactive to light, extraocular motions intact; moist mucous membranes Neck: No palpable lymphadenopathy Pulmonary: symmetrically reduced chest wall excursion secondary to body habitus; clear to auscultation bilaterally Cardiovascular: regular rate and rhythm with no murmurs, rubs, or gallops; S1 and S2 normal; bilateral radial and posterior tibial pulses 2+; 2+ bilateral lower extremity edema distal of the knee Gastrointestinal: soft, protuberant; normal frequency and pitch bowel sounds throughout; no palpable masses or organomegaly; percutaneous access for paracentesis and liver biopsy performed on the day of examination appear well Neurologic: CN II-XII grossly intact; no discernible focal weakness nor paresthesias Results & Data Results & Data Vital Signs (Past 12 Hours) Vital Signs Temp Pulse Pulse Resp BP BP Pulse Ox 03/29/25 11:24 83 03/29/25 11:09 36.6 C 91 H 20 87/53 L 94 03/29/25 10:39 36.7 C 91 H 16 89/55 L 96 03/29/25 10:09 36.6 C 92 H 18 87/62 L 94 03/29/25 09:39 36.7 C 84 16 89/57 L 96 03/29/25 08:00 03/29/25 07:28 36.6 C 82 18 96/65 L 95 03/29/25 07:15 03/29/25 03:08 36.8 C 81 18 101/68 92 Pulse Ox O2 Del Method O2 Del Method O2 Flow Rate 03/29/25 11:24 03/29/25 11:09 Room Air 03/29/25 10:39 Room Air 03/29/25 10:09 Room Air 03/29/25 09:39 Room Air 03/29/25 08:00 98 Room Air 0 03/29/25 07:28 Room Air 03/29/25 07:15 Room Air 03/29/25 03:08 Room Air PG Care Time/CCT Total # of Minutes Spent Total Time Spent with Patient: Total time spent is greater than 50% in coordination of care (as documented) at patient's floor/unit and/or counseling patient: Coding [place] [address] SUB INP/OBS CARE 3/50MIN Patient Type Established History Detailed Exam Detailed Diagnoses Pulmonary embolism, bilateral I26.99 Hyponatremia with decreased serum osmolality E87.1 Intraabdominal mass R19.00 Acute kidney injury N17.9 Cancer related pain G89.3
[2025-03-29] MEDS: ALBUMIN 25% 25 GM/100 ML VIAL IV ONE (12:04)
--- NOTE | 2025-03-29 14:10 | Ultrasound Report ---
ULTRASOUND-GUIDED PARACENTESIS CLINICAL HISTORY: Ascites PROCEDURE: Procedure and risks were explained. Informed consent was obtained. A final timeout was com pleted. The abdomen was prepped and draped in sterile fashion. 1% lidocaine was utilized for skin ane sthesia. Utilizing ultrasound guidance, a 5 Estonian safety centesis catheter was advanced into the upper abdomi nal pocket of ascites. Ultrasound images were obtained. A total of 300 mL of ascites fluid was remove d and sent to the lab for analysis. The catheter was removed and Band-Aid applied. The patient tolera liza the procedure well. Vital signs will be monitored postprocedure. IMPRESSION: Ultrasound-guided paracentesis as above. Performed, dictated, and signed by Zaheer Thomas PA-C; to be co-signed by Dr. Raj Leo. Electronically signed by: Raj Leo M.D. 03/29/2025 2:47 PM
--- NOTE | 2025-03-29 14:11 | Ultrasound Report ---
ULTRASOUND-GUIDED ABDOMINAL MASS CORE BIOPSY CLINICAL HISTORY: Abdominal mass with liver lesions PROCEDURE: Procedure and risks were explained. Informed consent was obtained. A final timeout was com pleted. The abdomen was prepped and draped in sterile fashion. 1% lidocaine was utilized for skin ane sthesia. Utilizing ultrasound guidance, a 17-gauge coaxial needle was advanced into the anterior abdominal mas s. Ultrasound images were obtained. An 18-gauge core biopsy needle was advanced, and 4 cores were obt ained and given to the pathologist for review. The coaxial needle was removed and Band-Aid applied. T he patient tolerated the procedure well. Vital signs will be monitored postprocedure. IMPRESSION: Ultrasound-guided abdominal mass core biopsy as above. Performed, dictated, and signed by Zaheer Thomas PA-C; to be co-signed by Dr. Raj Leo. Electronically signed by: Raj Leo M.D. 03/29/2025 2:47 PM
[2025-03-29 21:41] LABS: ANTI-Xa, UFH(UnfractionatedHep 0.14 IU/ml (0.3-0.7)
[2025-03-29] MEDS: LANTUS PER UNIT CHARGE SC SCH (21:59)
[2025-03-29] MEDS: DOCUSATE SODIUM 100 MG CAP PO PRN (22:02)
[2025-03-29] MEDS: HEPARIN SOD (PORCINE) 1000 UNIT/ML IV ONE (22:36)
[2025-03-30 05:22] LABS: ANTI-Xa, UFH(UnfractionatedHep 0.43 IU/ml (0.3-0.7)
[2025-03-30] MEDS: LANTUS PER UNIT CHARGE SC SCH (08:23)
[2025-03-30] MEDS: APIXABAN 5 MG TABLET PO SCH (08:25)
[2025-03-30 10:46] VITALS: RESP 18; TEMP 97.3; O2SAT 93
--- NOTE | 2025-03-30 12:51 | Discharge Summary ---
Discharge Summary Date of Service March 30, 2025 Principal Dx & Hospital Course #1 = Principal Diagnosis (1) Pulmonary embolism, bilateral: (2) Hyponatremia with decreased serum osmolality: (3) Intraabdominal mass: (4) Acute kidney injury: (5) Cancer related pain: Plan In summary this is a 69-year-old female admitted initially for bilateral pulmonary emboli, subsequently found to have a intra-abdominal mass concerning for malignancy, likely triggering her current presentation. # Bilateral pulmonary emboli presented with dyspnea on exertion, pleuritic chest pain, and bilateral lower extremity edema; associated risk factors include recent hospitalization, concern for possible malignancy, obesity, additional comorbidities; occlusion defects were seen in the bilateral interlobar pulmonary arteries, bilateral upper lobe arteries, right middle lobe segmental branches; patient was started on and maintained on heparin gtt. through 03/29 at which time it was held for anticipated liver biopsy as discussed below Transitioned to Eliquis 10 mg p.o. twice daily on day of discharge through 04/03 transitioning to 5 mg p.o. twice daily thereafter Anticipate they will require a prolonged anticoagulation course though this can be further determined in the outpatient setting after full results are available to review from the liver biopsy #Hyponatremia initial serum sodium of 127; in the past 24 hours has maintained 125; associated outpatient medications with hyponatremia include bupropion; serum osmolarity of 280; urine osmolarity of 408; urinalysis was contaminated with large volume of epithelial cells; most consistent with hypervolemic hyponatremia - out of bed encouraged - fluid restriction of 1800 mL per day #Intraabdominal Mass and suspected malignancy related pain his biopsy performed along with paracentesis on 03/29 by interventional radiology; laboratories has been is pending at this time; pathology would not likely result prior to the patient's discharge Palliative medicine consulted #Acute kidney injury Presenting creatinine of 0.89, subsequently increased to 1.42 on 03/27 in maint ained elevation; currently oliguric with frequent incontinent episodes due to an atonic bladder after recent De La Rosa catheter discontinuation from previous hospitalization in 02/2025; resolved Notes For Next Care Provider Patient identified high risk for 30- day readmission. Our hospitalist team would be glad to discuss any details of the hospital stay with you, please reach out by [facility] with a good call back number and we will return your call. Continues with amoxicillin from prior hospitalization through 04/03/2025 Medication Changes From Visit Start Eliquis 10 mg p.o. twice daily through 04/03 then maintain 5 mg p.o. twice daily thereafter Admission HPI Per Admitting Provider Gagandeep Banegas is a 16-year-old female with history of liver cirrhosis secondary to MASH, nonobstructive CAD, asthma, diabetes, gout, anxiety, GERD and hypotension presenting with bilateral lower extremity edema and shortness of breath. Patient was recently admitted to [facility] [address] from 03/12 - 03/15/2025 after presenting with right flank pain, vomiting and hematuria. 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 Findings concerning for metastatic malignancy. Patient was treated with ceftriaxone and ultimately discharged home on amoxicillin to complete her antibiotic course for emphysematous cystitis. Preliminary workup for malignancy revealed a markedly elevated CA 199 at 14,400 Patient was set up for an ultrasound-guided IR biopsy of the liver to be performed in the outpatient setting today 03/26 at 08 100. In the ER patient is afebrile, sinus tachycardia, blood pressure stable, adequate oxygenation on room air with no respiratory distress Found to have bilateral pulmonary emboli as well as clot involving the IVC ER course: Heparin drip initiated Discharge Exam General: Adult female in no acute distress Vital Signs: reviewed HEENT: Normocephalic, atraumatic; pupils equally reactive to light, extraocular motions intact; moist mucous membranes Neck: No palpable lymphadenopathy Pulmonary: symmetrically reduced chest wall excursion secondary to body habitus; clear to auscultation bilaterally Cardiovascular: regular rate and rhythm with no murmurs, rubs, or gallops; S1 and S2 normal; bilateral radial and posterior tibial pulses 2+; 2+ bilateral lower extremity edema distal of the knee Gastrointestinal: soft, protuberant; normal frequency and pitch bowel sounds throughout; no palpable masses or organomegaly; percutaneous access for paracentesis and liver biopsy performed on the day of examination appear well Neurologic: CN II-XII grossly intact; no discernible focal weakness nor paresthesias Discharge Plan Discharge Items Patient Disposition: Home - Home Health Services Reason For Visit: PULMONARY EMBOLI, METASTATIC CANCER ?PRIMARY Discharge Diagnosis: High risk submassive pulmonary emboli in the setting of suspected hepatic malignancy Condition on Discharge: Fair Activity: Per Instructions section Lifting: Gradually increase as tolerated Bathing: No limitations Exercise/Sports: None Weightbearing: Full weightbearing Non-emergency contact: Primary Care Provider Call non-emergency contact if: you have any medication questions and your symptoms worsen Follow-up/Referrals: Aleksey Galindo DO [Primary Care Provider] - 04/05/25 1:00 pm Diet: Carb Consistent or DM2 Fluids: 1800ml (7 cups) Addtl Attending Provider Instructions: Please maintain close follow up with you primary care physician and newly referred oncology group. Pending Studies at Discharge: Yes Studies:: Final assessments from peritoneal fluid studies and abdominal mass biopsy Stand-Alone Forms: [facility], Pain - Opioid Pain Management, Smoking Cessation Medications and DC Order Prescriptions: New apixaban 5 mg (74 tabs) tablets,dose pack 5 mg PO BID Qty: 74 0RF Rx Instructions: Take two tablets twice daily through 04/03, then one tablet twice daily thereafter Continued polyethylene glycol 3350 [Miralax] 17 gram/dose powder 17 g PO DAILY PRN (Reason: Constipation) Qty: 850 3RF vitamin E mixed 400 unit capsule 400 unit PO QAM Qty: 90 2RF fluticasone propionate [Flonase Allergy Relief] 50 mcg/actuation spray,suspension 2 spray INTRANASAL QAM Qty: 16 3RF potassium chloride 20 mEq tablet extended release 20 meq PO DAILY Qty: 90 2RF pantoprazole [Protonix] 40 mg tablet,delayed release (DR/EC) 40 mg PO BID 90 Days Qty: 180 3RF oxycodone 5 mg tablet 5 mg PO Q6 PRN (Reason: pain) Qty: 30 0RF Ozempic 2 mg/dose (8 mg/3 mL) pen injector 2 mg subcut .COMPLEX Qty: 3 11RF Hold Instructions: Resume on 04/12/25. Hold until your doctor says it is okay to restart this Rx Instructions: 2 mg subcutaneously every week; MONDAYS allopurinol 300 mg tablet 300 mg PO QAM Qty: 90 3RF atorvastatin 40 mg tablet 40 mg PO HS Qty: 90 3RF bupropion HCl 150 mg tablet sustained-release 12 hr 150 mg PO BID Qty: 180 3RF buspirone 5 mg tablet 5 mg PO BID Qty: 180 3RF nystatin 100,000 unit/gram cream 1 applic topical BID 14 Days Qty: 30 2RF Rx Instructions: apply to affected area after cleaning and drying loratadine 10 mg tablet 10 mg PO QAM Qty: 90 3RF metoprolol succinate 25 mg tablet extended release 24 hr 25 mg PO QAM Qty: 90 3RF metformin 500 mg tablet extended release 24 hr 500 mg PO DAILY 90 Days Qty: 90 3RF Rx Instructions: take with dinner levothyroxine 100 mcg tablet 100 mcg PO QAM Qty: 90 3RF Jardiance 25 mg tablet 25 mg PO QAM Qty: 90 3RF albuterol sulfate 90 mcg/actuation Hfa Aerosol Inhaler 2 puff INHALATION Q6H PRN (Reason: SOB) milk thistle 150 mg Capsule 150 mg PO BID Centrum Silver Women 8 mg iron-400 mcg-300 mcg Tablet 1 tab PO QAM furosemide [Lasix] 40 mg tablet 40 mg PO DAILY ergocalciferol (vitamin D2) 1,250 mcg (50,000 unit) Capsule 1,250 mcg PO WK Rx Instructions: MONDAYS amoxicillin 500 mg tablet 500 mg PO TID Qty: 60 0RF Discontinued Prolia 60 mg/mL syringe 60 mg SUBCUT Q6M Qty: 1 1RF Discharge Orders: Discharge Order (Routine); Ordered 03/30/25 Ordered By: Oneil Doherty/Other Patient Handouts: Apixaban Oral Tablet Admission Data Admit Date/Time: 03/26/25 04:20 Attending Provider: Oneil Gallegos Admit Provider: Erika Cristina Primary Care Provider: Aleksey Galindo Other Providers: Erika Cristina; Bhavna Ellis; Chelsi Crespo; [facility] Stay Data Consultations 03/26/25 03:33 ED Decision to Admit Stat 03/26/25 12:29 Consult Palliative Care Routine Diagnostic Imagining Performed 03/26/25 00:47 CT abd pelvis IV con only Stat CT angio chest PE protocol Stat 03/29/25 IR biopsy abdomen percutan US Urgent 03/29/25 08:55 IR paracentesis abd w/img US Routine Pending Results Patient Have Any Pending Studies at Discharge: Yes Discharge Instructions Given to Patient (Per Discharging Provider) Please maintain close follow up with you primary care physician and newly referred oncology group. Total Time Total Time Spent Total Time Spent (In Minutes): 65 Coding Level of Care Code 72581 INP/OBS DISCH >30 MIN History Detailed Exam Detailed Medical Decision Making High Complexity Diagnoses Pulmonary embolism, bilateral I26.99 Hyponatremia with decreased serum osmolality E87.1 Intraabdominal mass R19.00 Acute kidney injury N17.9 Cancer related pain G89.3
[2025-03-30 15:09] VITALS: BP 102/70; PULSE 93
--- NOTE | 2025-03-31 06:36 | Electrocardiogram Report ---
Test Reason : Blood Pressure : */* mmHG Vent. Rate : 101 BPM Atrial Rate : 101 BPM P-R Int : 168 ms QRS Dur : 78 ms QT Int : 362 ms P-R-T Axes : 6 -29 45 degrees QTcB Int : 470 ms Sinus tachycardia Possible Anterolateral infarct (cited on or before 12-Mar-2025) Abnormal ECG When compared with ECG of 13-Mar-2025 06:09, Nonspecific T wave abnormality, improved in Inferior leads Nonspecific T wave abnormality, improved in Anterolateral leads Confirmed by Gumaro Lovett ([id number]) on 03/31/2025 6:35:56 AM Referred By: REFERRED SELF Confirmed By: Gumaro Lovett
--- NOTE | 2025-03-31 06:37 | Electrocardiogram Report ---
Test Reason : Blood Pressure : */* mmHG Vent. Rate : 99 BPM Atrial Rate : * BPM P-R Int : * ms QRS Dur : 82 ms QT Int : 374 ms P-R-T Axes : * -30 31 degrees QTcB Int : 479 ms Normal sinus rhythm Left axis deviation Possible Anterolateral infarct (cited on or before 12-Mar-2025) Abnormal ECG When compared with ECG of 25-Mar-2025 23:21, No significant change Confirmed by Gumaro Lovett ([id number]) on 03/31/2025 6:36:47 AM Referred By: REFERRED SELF Confirmed By: Gumaro Lovett
--- NOTE | 2025-04-03 05:33 | Coding Query ---
PATHOLOGY To promote full compliance with coding requirements relating to patient care, physician participation is requested in all cases of oracle software engineer uncertainty. Please assist us with the question(s) below: Please review the Pathology/cytology reports and please document any relevant diagnosis(es) below: Pt admitted with pulmonary embolus. Abdominal mass biopsied. Hepatic malignancy was suspected. Thanks for your help! 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
== END 2025-03-30 15:45 | disposition home health service (06) | DRG 175 ==
LOC: SUATTDRO → ED 23:04 → EDINP 03-26 04:20 → SUATTDRO 03-26 04:20 → 2S 03-26 08:35